=== PATIENT | female | born 1970 | race Caucasian/White ===

== ENCOUNTER 2016-09-14 09:07 | Outpatient (CLI) ==
[2016-09-14 09:36] LABS: PROTHROMBIN TIME 12.5 SEC (9.3-11.0)
== END 2016-09-14 09:08 | disposition home or self-care (01) ==
LOC: LAB 09:07
PROVIDERS: ATTEND Emergency Medicine
DX: I26.99 Other pulmonary embolism without acute cor pulmonale (principal)
CPT/HCPCS: 36415; 85610

== ENCOUNTER 2016-09-18 11:29 | Outpatient (CLI) ==
[2016-09-18 12:07] LABS: PROTHROMBIN TIME 18.1 SEC (9.3-11.0)
== END 2016-09-18 11:30 | disposition home or self-care (01) ==
LOC: LAB 11:29
PROVIDERS: ATTEND Emergency Medicine
DX: I26.99 Other pulmonary embolism without acute cor pulmonale (principal)
CPT/HCPCS: 36415; 85610

== ENCOUNTER 2016-12-28 14:42 | Outpatient (CLI) ==
[2016-12-28 15:13] LABS: PROTHROMBIN TIME 20.1 SEC (9.3-11.0)
== END 2016-12-28 14:43 | disposition home or self-care (01) ==
LOC: LAB 14:42
PROVIDERS: ATTEND Emergency Medicine
DX: I26.99 Other pulmonary embolism without acute cor pulmonale (principal)
CPT/HCPCS: 36415; 85610

== ENCOUNTER 2017-01-18 09:27 | Outpatient (CLI) ==
[2017-01-18 09:56] LABS: PROTHROMBIN TIME 18.2 SEC (9.3-11.0)
== END 2017-01-18 09:28 | disposition home or self-care (01) ==
LOC: LAB 09:27
PROVIDERS: ATTEND Emergency Medicine
DX: Z51.81 Encounter for therapeutic drug level monitoring (principal); Z79.01 Long term (current) use of anticoagulants
CPT/HCPCS: 36415; 85610

== ENCOUNTER 2017-04-14 14:24 | Outpatient (CLI) ==
[2017-04-14 14:50] LABS: BASOPHILS # (AUTO) 0.1 K/uL (0-0.2); BASOPHILS % (AUTO) 0.8 % (0.0-3.0); EOSINOPHILS # (AUTO) 0.1 K/ul (0.0-0.7); EOSINOPHILS % (AUTO) 1.1 % (0.0-7.0); HEMATOCRIT 43.6 % (37.0-47.0); HEMOGLOBIN 14.9 g/dl (12.0-16.0); IMMATURE GRANULOCYTE % (AUTO) 0.3 % (0.0-5.0); LYMPHOCYTES # (AUTO) 2.5 K/uL (0.60-3.4); LYMPHOCYTES % (AUTO) 26.8 (10.0-50.0); MEAN CORPUSCULAR HEMOGLOBIN 33.9 pg (27.0-31.0); MEAN CORPUSCULAR HGB CONC 34.2 (31.8-35.4); MEAN CORPUSCULAR VOLUME 99.1 fl (81.0-99.0); MONOCYTES # (AUTO) 0.5 K/uL (0.4-2.0); MONOCYTES % (AUTO) 5.2 (0-10); NEUTROPHILS # (AUTO) 6.1 K/ul (2.0-6.9); NEUTROPHILS % (AUTO) 65.8; PLATELET COUNT 277 10^3/uL (140-440); WHITE BLOOD COUNT 9.26 K/ul (4.6-10.2)
[2017-04-14 15:07] LABS: PROTHROMBIN TIME 10.8 SEC (9.3-11.0)
[2017-04-14 15:28] LABS: ALBUMIN 3.8 g/dL (3.4-5.0); ANION GAP 15.1; BILIRUBIN,TOTAL 0.33 mg/dL (0.00-1.20); BUN/CREATININE RATIO 15.78; CALCIUM 10.2 mg/dL (8.2-10.2); CHOL/HDL RATIO 6.6 (4.5-5.5); CREATININE 0.95 mg/dL (0.60-1.30); POTASSIUM 4.1 mmol/L (3.5-5.10); TOTAL PROTEIN 7.6 g/dL (6.4-8.2)
== END 2017-04-14 14:25 | disposition home or self-care (01) ==
LOC: LAB 14:24
PROVIDERS: ATTEND Internal Medicine
DX: Z51.81 Encounter for therapeutic drug level monitoring (principal); Z79.01 Long term (current) use of anticoagulants; I26.99 Other pulmonary embolism without acute cor pulmonale; E11.9 Type 2 diabetes mellitus without complications; I10 Essential (primary) hypertension; E66.9 Obesity, unspecified
CPT/HCPCS: 36415; 80053; 80061; 83036; 84443; 85025; 85610

== ENCOUNTER 2017-05-25 14:59 | Outpatient (CLI) ==
[2017-05-25 15:43] LABS: PROTHROMBIN TIME 16.7 SEC (9.3-11.0)
== END 2017-05-25 15:00 | disposition home or self-care (01) ==
LOC: LAB 14:59
PROVIDERS: ATTEND Internal Medicine
DX: I26.99 Other pulmonary embolism without acute cor pulmonale (principal)
CPT/HCPCS: 36415; 85610

== ENCOUNTER → 2017-05-25 | Outpatient (POV) | LOC: OUTPT 00:01 | PROVIDERS: ATTEND Otolaryngology | DX: R42 Dizziness and giddiness (principal) | CPT/HCPCS: 92557; 92567 ==

== ENCOUNTER 2017-05-29 16:34 | Inpatient (IN) ==
[2017-05-29] MEDS ORDERED: DUONEB NEB ONE (16:53)
[2017-05-29] MEDS ORDERED: DUONEB NEB STA (16:53)
[2017-05-29] MEDS ORDERED: SOLU-MEDROL 125 MG IVP STA (16:53)
--- NOTE | 2017-05-29 17:00 | ED.PDOC ---
General ED Provider: Dr. FANG BRIGGS Chief Complaint: Respiratory Complaint Stated Complaint: Kris is a 47 year old female who comes to the ER who was seen by Dr Ramirez yesterday for respiratory complaints and put on steroids and antibiotics. She was told if she got worse to come to er and be admitted. pt complains of shortness of air and cough. Still continue to smoke tobacco. Time Seen by Physician: 16:55 Mode of Arrival: Walk-In Information Source: Patient Exam Limitations: No limitations Primary Care Provider: OMER RAMIREZ Nursing and Triage Documentation Reviewed and Agree: Yes Respiratory Complaint Exam - Respiratory Complaint/Exam Onset/Duration: 2 days Symptoms Are: Still present Timing: Constant Initial Severity: Moderate Current Severity: Severe Location: Chest Character: Reports: Productive cough Aggravating: Reports: URI, Weather Alleviating: Reports: None Associated Signs and Symptoms: Reports: Dyspnea, Wheezing Related Surgical History: Reports: None Pulmonary Embolism Risk Factors: Previous PE Cardiac Risk Factors: Reports: Smoking Pseudomonas Risk Factors: Reports: None Tuberculosis Risk Factors: Reports: None Status Asthmaticus Risk Factors: Reports: None Home Oxygen Use: No Recent Stress Test: No Recent Echo/LV Function: No Current Antibiotic Use: No Current Asthma Medication Use: No Respiratory Distress: Severe Inadequate Respiratory Effort: Yes Dysphagia Present: No Stridor Present: No JVD Present: No Accessory Muscle Use: Yes Retractions: Supraclavicular Diminished Breath Sounds: Yes Prolonged Respiration: Inspiratory phase Sinus Tenderness: None Grunting Respirations: No Kussmaul Respirations: No Differential Diagnoses: COPD Exacerbation, Pneumonia, Bronchitis, URI Review of Systems - Review Of Systems Constitutional: Reports: No symptoms Eyes: Reports: No symptoms Ears, Nose, Mouth, Throat: Reports: No symptoms Respiratory: Reports: Cough, Short of air, Wheezing Cardiac: Reports: Other (Chest tightness ) GI: Reports: No symptoms : Reports: No symptoms Musculoskeletal: Reports: No symptoms Skin: Reports: No symptoms Neurological: Reports: Anxiety Endocrine: Reports: No symptoms Hematologic/Lymphatic: Reports: No symptoms All Other Systems: Reviewed and Negative Past Medical History - Past Medical History Endocrine: Reports: DM 2 Cardiovascular: Reports: Hypertension Respiratory: Reports: COPD, PE Hematological: Reports: None Gastrointestinal: Reports: None Genitourinary: Reports: None Neuro/Psych: Reports: None Musculoskeletal: Reports: Arthritis, Other (spinal stenosis ) Cancer: Reports: None Last Menstrual Period: none Other Pertinent Past Medical History: Vertigo - Surgical History General Surgical History: Reports: (x 2), Other ( colon biopsyx2, lithotripsyx2, carpal tunnel, hysterectomy) - Family History Family History: Reports: Unknown - Social History Smoking Status: Current every day smoker, Heavy tobacco smoker Hx Substance Use: No Alcohol Screening: None Physical Exam - Physical Exam Appearance: Ill-appearing, Obese Ill-appearing: Severe Eyes: BENY, EOMI, Conjunctiva clear ENT: Nose normal, Oropharynx normal Respiratory: Airway patent, Breath sounds diminished, Rhonchi, Wheezes, Retractions Cardiovascular: RRR, Pulses normal, No rub, No murmur GI/: Soft, Nontender, No masses, Bowel sounds normal, No Organomegaly Musculoskeletal: Normal strength, ROM intact, No edema, No calf tenderness Skin: Warm, Dry, Normal color Neurological: Sensation intact, Motor intact, Reflexes intact, Cranial nerves intact, Alert, Oriented Psychiatric: Anxious Interpretation - Radiology Interpretation Radiology Interpretation By: ED Physician Radiology Results: Negative Exam Interpreted: Portable CXR Critical Care Note - Critical Care Note Total Time (mins): 30 Course - Course Hematology/Chemistry: 05/29/17 16:50 05/29/17 16:50 Orders, Labs, Meds: Lab Review 05/29/17 05/29/17 05/29/17 16:50 16:50 16:50 WBC 12.60 H RBC 4.22 Hgb 13.8 Hct 41.7 MCV 98.8 MCH 32.7 H MCHC 33.1 RDW Coeff of Nina 14.6 Plt Count 319 Immature Gran % (Auto) 0.9 Neut % (Auto) 86.0 Lymph % (Auto) 7.1 L Simpson % (Auto) 5.8 Eos % (Auto) 0.0 Baso % (Auto) 0.2 Immature Gran # (Auto) 0.1 Neut # 10.9 H Lymph # 0.9 Simpson # 0.7 Eos # 0.0 Baso # 0.0 PT 16.1 H INR 1.60 Puncture Site O2 Saturation ABG pH ABG pCO2 ABG pO2 ABG HCO3 ABG Total CO2 ABG Base Excess Jj Test FiO2 % Sodium 141 Potassium 4.2 Chloride 109 H Carbon Dioxide 22 Anion Gap 14.2 BUN 20 H Creatinine 0.84 Estimated GFR (MDRD) 72.00 BUN/Creatinine Ratio 23.80 Glucose 232 H Lactic Acid Calcium 10.3 H Total Bilirubin 0.15 AST 9 L ALT 13 Alkaline Phosphatase 59 Total Protein 7.0 Albumin 3.2 L Globulin 3.8 Albumin/Globulin Ratio 0.84 Procalcitonin 05/29/17 05/29/17 05/29/17 16:50 16:55 17:15 WBC RBC Hgb Hct MCV MCH MCHC RDW Coeff of Nina Plt Count Immature Gran % (Auto) Neut % (Auto) Lymph % (Auto) Simpson % (Auto) Eos % (Auto) Baso % (Auto) Immature Gran # (Auto) Neut # Lymph # Simpson # Eos # Baso # PT INR Puncture Site Rrad O2 Saturation 93.0 L ABG pH 7.369 ABG pCO2 38.1 ABG pO2 68.0 L ABG HCO3 22.0 ABG Total CO2 23 ABG Base Excess -3 L Jj Test + FiO2 % 21.0 Sodium Potassium Chloride Carbon Dioxide Anion Gap BUN Creatinine Estimated GFR (MDRD) BUN/Creatinine Ratio Glucose Lactic Acid 20.7 H Calcium Total Bilirubin AST ALT Alkaline Phosphatase Total Protein Albumin Globulin Albumin/Globulin Ratio Procalcitonin < 0.05 Orders Category Date Time Status ABG DRAW REQUEST Stat CARDIO 05/29/17 16:55 Completed EKG-(ED ONLY) Stat CARDIO 05/29/17 16:54 Completed NEBULIZER TREATMENT Stat CARDIO 05/29/17 16:54 Completed ED APPLY O2 .ONCE EMERGENCY 05/29/17 16:53 Active ED IV/MEDIPORT/POWERPORT .ONCE EMERGENCY 05/29/17 16:53 Active ABG Stat LAB 05/29/17 16:55 Completed BLOOD CULTURE Stat LAB 05/29/17 17:15 Received CBC W/ AUTO DIFF Stat LAB 05/29/17 16:50 Completed COMPREHENSIVE METABOLIC PANEL Stat LAB 05/29/17 16:50 Completed LACTIC ACID Stat LAB 05/29/17 17:15 Completed PROCALCITONIN Stat LAB 05/29/17 16:50 Completed PT WITH INR Stat LAB 05/29/17 16:50 Completed 0.9 % Sodium Chloride [Saline Flush] MEDS 05/29/17 16:53 Ordered 1 syr IVF PRN PRN Ipratropium/Albuterol Neb [Duoneb] MEDS 05/29/17 16:53 Discontinued 1 vial NEB .STK-MED ONE Ipratropium/Albuterol Neb [Duoneb] MEDS 05/29/17 16:53 Discontinued 1 vial NEB ONCE STA Methylprednisolone Sod Succ/Pf [Solu-Medrol 125 mg] MEDS 05/29/17 16:53 Discontinued 125 mg IVP ONCE STA CHEST, 1V AP ONLY Stat RADS 05/29/17 16:54 Taken Medications Generic Name Dose Route Start Last Admin Trade Name Freq PRN Reason Stop Dose Admin Acetaminophen 650 mg 05/29/17 17:48 Tylenol PO Q4H PRN Fever > 102 Acetaminophen/Hydrocodone Bitart 1 tab 05/30/17 06:00 [place] 7.5-325 PO Q8H NINFA Al Hydroxide/Mg Hydroxide 30 ml 05/30/17 00:00 05/30/17 00:03 Gi Cocktail PO 05/30/17 00:01 30 ml ONCE STA Administration Azithromycin 500 mg 05/29/17 18:00 05/29/17 19:46 Zithromax PO 06/01/17 17:59 500 mg DAILY NINFA Administration Budesonide 1 vial 05/30/17 06:00 Pulmicort 0.5 Mg/2 Ml NEB RTBID NINFA Chlordiazepoxide HCl 25 mg 05/29/17 17:55 05/29/17 20:01 Librium PO 25 mg BID PRN Administration anxiety Chlorphenir/Hydrocodone Polistirex 5 ml 05/29/17 21:00 05/29/17 20:00 Tussionex PO 5 ml Q12HR NINFA Administration Diazepam 5 mg 05/30/17 06:00 Valium PO Q6H NINFA Enoxaparin Sodium 130 mg 05/29/17 18:00 05/29/17 20:01 Lovenox SUBCUT Not Given Q12HR NINFA Gabapentin 300 mg 05/29/17 21:00 05/29/17 20:02 Neurontin PO Not Given BID NINFA Ceftriaxone Sodium 1 gm/ 50 mls @ 75 mls/hr 05/30/17 09:00 Sodium Chloride IV DAILY NINFA Sodium Chloride 1,000 mls @ 75 mls/hr 05/29/17 18:00 05/29/17 19:37 Sodium Chloride IV 75 mls/hr .[id number] NINFA Administration Ketorolac Tromethamine 30 mg 05/29/17 21:00 05/29/17 19:59 Toradol IVP 30 mg Q12HR NINFA Administration Levalbuterol HCl 1 vial 05/30/17 00:00 05/29/17 23:02 Xopenex 1.25 Mg NEB 1 vial RTQ6H NINFA Administration Levothyroxine Sodium 25 mcg 05/30/17 06:30 Synthroid PO QDAC NINFA Metformin HCl 500 mg 05/30/17 08:00 Glucophage PO BIDWM NINFA Methylprednisolone Sodium Succinate 125 mg 05/29/17 21:00 05/30/17 01:10 Solu-Medrol 125 Mg IVP 125 mg Q4HR NINFA Administration Non-Formulary Medication 1 each 05/30/17 09:00 Lisinopril/Hydrochlorothiazide [Lisinopril-Hctz 10-12.5 Mg Tab] PO DAILY NINFA Non-Formulary Medication 4 mg 05/30/17 09:00 Warfarin Sodium [Coumadin] PO DAILY NINFA Ondansetron HCl 4 mg 05/29/17 17:48 Zofran 4 Mg/2 Ml IVP Q6H PRN Nausea / Vomiting Pantoprazole Sodium 40 mg 05/29/17 18:30 05/29/17 19:59 Protonix Iv IVP 40 mg Q12HR NINFA Administration Sodium Chloride 1 syr 05/29/17 16:53 05/29/17 17:28 Saline Flush IVF 1 syr PRN PRN Administration To flush IV Sucralfate 1 gm 05/29/17 21:00 05/29/17 20:01 Carafate PO 1 gm BID NINFA Administration Discontinued Medications Generic Name Dose Route Start Last Admin Trade Name Freq PRN Reason Stop Dose Admin Acetaminophen/Hydrocodone Bitart tab 05/29/17 21:00 [place] 7.5-325 PO TID NINFA Acetaminophen/Hydrocodone Bitart 7.5 tab 05/29/17 21:00 [place] 7.5-325 PO TID NINFA Acetaminophen/Hydrocodone Bitart 1 tab 05/29/17 21:00 05/29/17 20:04 [place] 7.5-325 PO Not Given TID NINFA Albuterol/Ipratropium 1 vial 05/29/17 16:53 05/29/17 20:18 Duoneb NEB 05/29/17 16:54 Not Given ONCE STA Chlorphenir/Hydrocodone Polistirex 5 ml 05/29/17 18:22 05/29/17 18:29 Tussionex PO 05/29/17 18:23 5 ml ONCE STA Administration Diazepam 5 mg 05/29/17 21:00 05/29/17 20:00 Valium PO 5 mg QID NINFA Administration Ketorolac Tromethamine 30 mg 05/29/17 18:22 05/29/17 18:29 Toradol IVP 05/29/17 18:23 30 mg ONCE STA Administration Methylprednisolone Sodium Succinate 125 mg 05/29/17 16:53 05/29/17 17:27 Solu-Medrol 125 Mg IVP 05/29/17 16:54 125 mg ONCE STA Administration Methylprednisolone Sodium Succinate 125 mg 05/29/17 21:00 Solu-Medrol 125 Mg IVP Q8HR [facility] Vital Signs: Temp Pulse Resp BP Pulse Ox 05/29/17 16:34 98.8 F 101 H 24 132/61 93 L Departure - Departure Time of Disposition: 17:59 Disposition: ADMITTED INPATIENT Discharge Problem: COPD with exacerbation Condition: Fair Pt referred to PMD for follow-up: Yes Allergies/Adverse Reactions: Allergies No Known Allergies Allergy (Verified 05/29/17 16:42) Home Medications: Ambulatory Orders Albuterol Sulfate [Proair Hfa] 2 puff IH Q4H 05/29/17 Cephalexin [Keflex] 500 mg PO TID 05/29/17 Chlordiazepoxide HCl [Librium] 25 mg PO BID PRN 05/29/17 Diazepam [Valium] 5 mg PO QID 05/29/17 Gabapentin [Neurontin] 300 mg PO BID 05/29/17 Hydrocodone Bit/Acetaminophen [[place] 7.5-325] 1 each PO TID 05/29/17 Levothyroxine Sodium [Synthroid] 25 mcg PO QDAC 05/29/17 Lisinopril/Hydrochlorothiazide [Lisinopril-Hctz 10-12.5 mg Tab] 1 each PO DAILY 05/29/17 Metformin HCl [Glucophage] 500 mg PO BIDWM 05/29/17 Methylprednisolone [Medrol Dosepak] 4 mg PO DIRECTED 05/29/17 Promethazine HCl/Codeine [Prometh-Codein 6.25-10 mg/5 ml] 5 ml PO TID PRN Sertraline HCl [Zoloft] 150 mg PO DAILY 05/29/17 Warfarin Sodium [Coumadin] 4 mg PO DAILY 05/29/17
[2017-05-29 17:11] LABS: BASOPHILS % (AUTO) 0.2 % (0.0-3.0); HEMATOCRIT 41.7 % (37.0-47.0); HEMOGLOBIN 13.8 g/dl (12.0-16.0); IMMATURE GRANULOCYTE % (AUTO) 0.9 % (0.0-5.0); LYMPHOCYTES # (AUTO) 0.9 K/uL (0.60-3.4); LYMPHOCYTES % (AUTO) 7.1 (10.0-50.0); MEAN CORPUSCULAR HEMOGLOBIN 32.7 pg (27.0-31.0); MEAN CORPUSCULAR HGB CONC 33.1 (31.8-35.4); MEAN CORPUSCULAR VOLUME 98.8 fl (81.0-99.0); MONOCYTES # (AUTO) 0.7 K/uL (0.4-2.0); MONOCYTES % (AUTO) 5.8 (0-10); NEUTROPHILS # (AUTO) 10.9 K/ul (2.0-6.9); PLATELET COUNT 319 10^3/uL (140-440); RED BLOOD COUNT 4.22 10^6/ul (4.20-5.40)
[2017-05-29 17:23] LABS: PROTHROMBIN TIME 16.1 SEC (9.3-11.0)
[2017-05-29 17:23] LABS: ABG BASE EXCESS -3 (-2.0-2.0); ABG PCO2 38.1 mmHg (35-45); ABG PH 7.369 (7.35-7.45); ABG TCO2 23 (22.0-28.0)
[2017-05-29 17:33] LABS: ALBUMIN 3.2 g/dL (3.4-5.0); ALBUMIN/GLOBULIN RATIO 0.84; ANION GAP 14.2; BILIRUBIN,TOTAL 0.15 mg/dL (0.00-1.20); BUN/CREATININE RATIO 23.8; CALCIUM 10.3 mg/dL (8.2-10.2); CREATININE 0.84 mg/dL (0.60-1.30); POTASSIUM 4.2 mmol/L (3.5-5.10)
[2017-05-29] MEDS ORDERED: TYLENOL PO PRN (17:48)
[2017-05-29] MEDS ORDERED: ZOFRAN 4 MG/2 ML IVP PRN (17:48)
[2017-05-29] MEDS ORDERED: XOPENEX 0.63 MG NEB PRN (18:04)
[2017-05-29] MEDS ORDERED: TORADOL IVP STA (18:22)
[2017-05-29] MEDS ORDERED: TUSSIONEX PO STA (18:22)
[2017-05-29] MEDS ORDERED: LOVENOX ONE (19:28)
[2017-05-29] MEDS ORDERED: NEURONTIN ONE (19:28)
[2017-05-29] MEDS ORDERED: VALIUM ONE (19:29)
[2017-05-29] MEDS ORDERED: NORCO 7.5-325 ONE (19:35)
[2017-05-29] MEDS: SODIUM CHLORIDE 1,000 ML IV SCH (19:37)
[2017-05-29] MEDS: LOVENOX SUBCUT SCH ×2 (19:44→20:01)
[2017-05-29] MEDS: PROTONIX IV IVP SCH ×2 (19:45→19:59)
[2017-05-29] MEDS: ZITHROMAX PO SCH (19:46)
[2017-05-29] MEDS: TORADOL IVP SCH (19:59)
[2017-05-29] MEDS: SOLU-MEDROL 125 MG IVP SCH (20:00)
[2017-05-29] MEDS: LIBRIUM PO PRN (20:01)
[2017-05-29] MEDS: NEURONTIN PO SCH (20:02)
[2017-05-29] MEDS ORDERED: CARAFATE PO SCH (21:00)
[2017-05-29] MEDS ORDERED: VALIUM PO SCH (21:00)
[2017-05-29] MEDS ORDERED: NORCO 7.5-325 PO SCH ×3 (21:00)
[2017-05-29] MEDS ORDERED: TUSSIONEX PO SCH (21:00)
[2017-05-29] MEDS ORDERED: SOLU-MEDROL 125 MG IVP SCH (21:00)
[2017-05-29] MEDS ORDERED: XOPENEX 1.25 MG NEB ONE ×2 (22:22→23:02)
[2017-05-29] MEDS: XOPENEX 1.25 MG NEB SCH ×2 (22:22→23:02)
[2017-05-30] MEDS ORDERED: GI COCKTAIL PO STA
[2017-05-30 00:42] VITALS: BMI 49.5
[2017-05-30] MEDS: SOLU-MEDROL 125 MG IVP SCH ×6 (01:10→20:51)
[2017-05-30 05:06] LABS: BASOPHILS % (AUTO) 0.1 % (0.0-3.0); HEMATOCRIT 37.7 % (37.0-47.0); HEMOGLOBIN 12.4 g/dl (12.0-16.0); IMMATURE GRANULOCYTE % (AUTO) 0.8 % (0.0-5.0); LYMPHOCYTES # (AUTO) 0.9 K/uL (0.60-3.4); LYMPHOCYTES % (AUTO) 9.4 (10.0-50.0); MEAN CORPUSCULAR HEMOGLOBIN 32.9 pg (27.0-31.0); MEAN CORPUSCULAR HGB CONC 32.9 (31.8-35.4); MONOCYTES # (AUTO) 0.1 K/uL (0.4-2.0); MONOCYTES % (AUTO) 1.4 (0-10); NEUTROPHILS # (AUTO) 8.6 K/ul (2.0-6.9); NEUTROPHILS % (AUTO) 88.3; PLATELET COUNT 256 10^3/uL (140-440); RED BLOOD COUNT 3.77 10^6/ul (4.20-5.40); WHITE BLOOD COUNT 9.76 K/ul (4.6-10.2)
[2017-05-30 05:14] LABS: PROTHROMBIN TIME 14.5 SEC (9.3-11.0)
[2017-05-30] MEDS: PULMICORT 0.5 MG/2 ML NEB SCH ×2 (05:28→17:45)
[2017-05-30] MEDS: XOPENEX 1.25 MG NEB SCH ×4 (05:28→23:04)
[2017-05-30 05:32] LABS: ALBUMIN/GLOBULIN RATIO 0.91; BILIRUBIN,TOTAL 0.12 mg/dL (0.00-1.20); BUN/CREATININE RATIO 30.76; CALCIUM 9.6 mg/dL (8.2-10.2); CREATININE 0.91 mg/dL (0.60-1.30); TOTAL PROTEIN 6.3 g/dL (6.4-8.2)
[2017-05-30] MEDS: NORCO 7.5-325 PO SCH ×3 (05:34→22:59)
[2017-05-30] MEDS: SYNTHROID PO SCH (05:34)
[2017-05-30] MEDS ORDERED: VALIUM PO SCH (06:00)
[2017-05-30] MEDS: SODIUM CHLORIDE 1,000 ML IV SCH ×2 (07:54→20:51)
[2017-05-30] MEDS: TORADOL IVP SCH ×2 (08:30→20:51)
[2017-05-30] MEDS: PHENERGAN WITH CODEINE 6.25/10 MG/5 ML PO PRN ×3 (08:34→20:50)
[2017-05-30] MEDS: CARAFATE PO SCH ×2 (08:35→18:20)
[2017-05-30] MEDS: HYDROCHLOROTHIAZIDE PO SCH (08:35)
[2017-05-30] MEDS: ZITHROMAX PO SCH (08:35)
[2017-05-30] MEDS: PROTONIX IV IVP SCH ×2 (08:36→20:50)
[2017-05-30] MEDS: ROCEPHIN 1 GM in SODIUM CHLORIDE 50 ML IV SCH (08:36)
[2017-05-30] MEDS: NEURONTIN PO SCH ×2 (08:36→20:50)
[2017-05-30] MEDS: GLUCOPHAGE PO SCH ×2 (08:36→18:19)
[2017-05-30] MEDS: ZESTRIL PO SCH (08:37)
[2017-05-30] MEDS: VALIUM PO SCH ×4 (08:44→22:59)
[2017-05-30] MEDS ORDERED: NON-FORMULARY MEDICATION (Warfarin Sodium [Coumadin] 4 MG) PO SCH ×22 (09:00)
[2017-05-30] MEDS ORDERED: LOVENOX SUBCUT SCH (09:00)
--- NOTE | 2017-05-30 09:20 | DI ---
Exam: Single x-ray of the chest. Comparison: 11/12/2014. Reason for exam: Shortness of air. FINDINGS: No pneumothorax, pleural effusion, or focal consolidation. The cardiac silhouette is not enlarged. There is blunting of the left costophrenic angle. The imaged osseous structures appear gr ossly unremarkable without acute fracture. Impression: Left costophrenic angle blunting likely atelectasis or pneumonia
[2017-05-30] MEDS ORDERED: COUMADIN PO STA (14:42)
[2017-05-30] MEDS: COUMADIN PO SCH (18:22)
[2017-05-30] MEDS: LIBRIUM PO PRN (20:50)
[2017-05-31] MEDS: SOLU-MEDROL 125 MG IVP SCH ×6 (00:52→21:13)
[2017-05-31] MEDS: PULMICORT 0.5 MG/2 ML NEB SCH ×2 (05:20→18:19)
[2017-05-31] MEDS: XOPENEX 1.25 MG NEB SCH ×4 (05:20→23:02)
[2017-05-31] MEDS: VALIUM PO SCH ×3 (05:30→17:59)
[2017-05-31] MEDS: CARAFATE PO SCH ×2 (05:30→17:22)
[2017-05-31] MEDS: PHENERGAN WITH CODEINE 6.25/10 MG/5 ML PO PRN ×4 (05:30→23:31)
[2017-05-31] MEDS: SYNTHROID PO SCH (05:30)
[2017-05-31] MEDS: NORCO 7.5-325 PO SCH ×3 (05:30→21:13)
[2017-05-31 05:31] LABS: BASOPHILS % (AUTO) 0.1 % (0.0-3.0); HEMATOCRIT 35.8 % (37.0-47.0); HEMOGLOBIN 11.8 g/dl (12.0-16.0); IMMATURE GRANULOCYTE % (AUTO) 1.3 % (0.0-5.0); LYMPHOCYTES # (AUTO) 0.8 K/uL (0.60-3.4); MEAN CORPUSCULAR HEMOGLOBIN 32.7 pg (27.0-31.0); MEAN CORPUSCULAR VOLUME 99.2 fl (81.0-99.0); MONOCYTES # (AUTO) 0.3 K/uL (0.4-2.0); MONOCYTES % (AUTO) 2.1 (0-10); NEUTROPHILS # (AUTO) 10.7 K/ul (2.0-6.9); NEUTROPHILS % (AUTO) 89.5; PLATELET COUNT 255 10^3/uL (140-440); RED BLOOD COUNT 3.61 10^6/ul (4.20-5.40); WHITE BLOOD COUNT 11.93 K/ul (4.6-10.2)
[2017-05-31 05:51] LABS: ALBUMIN 2.7 g/dL (3.4-5.0); ALBUMIN/GLOBULIN RATIO 0.87; ANION GAP 14.7; BILIRUBIN,TOTAL 0.14 mg/dL (0.00-1.20); BUN/CREATININE RATIO 30.85; CALCIUM 9.2 mg/dL (8.2-10.2); CREATININE 0.94 mg/dL (0.60-1.30); POTASSIUM 4.7 mmol/L (3.5-5.10); TOTAL PROTEIN 5.8 g/dL (6.4-8.2)
[2017-05-31] MEDS ORDERED: COUMADIN PO STA (08:21)
[2017-05-31] MEDS ORDERED: LOVENOX SUBCUT SCH (09:00)
[2017-05-31] MEDS: ROCEPHIN 1 GM in SODIUM CHLORIDE 50 ML IV SCH (09:12)
[2017-05-31] MEDS: GLUCOPHAGE PO SCH ×2 (09:14→17:23)
[2017-05-31] MEDS: HYDROCHLOROTHIAZIDE PO SCH (09:15)
[2017-05-31] MEDS: NEURONTIN PO SCH ×2 (09:16→21:13)
[2017-05-31] MEDS: ZESTRIL PO SCH (09:17)
[2017-05-31] MEDS: ZITHROMAX PO SCH (09:17)
[2017-05-31] MEDS: PROTONIX IV IVP SCH ×2 (09:25→21:14)
[2017-05-31] MEDS: TORADOL IVP SCH ×2 (09:28→21:14)
--- NOTE | 2017-05-31 11:40 | US ---
EXAM: Bilateral lower extremity venous Doppler HISTORY: Concern for DVT with swelling and difficulty breathing. COMPARISON: None TECHNIQUE: Sonographic and Doppler evaluation of the bilateral lower extremity vessels from the comm on femoral through the anterior tibial veins were obtained. Augmentation and compression techniques were also performed. FINDINGS: There is spontaneous Doppler flow seen in the bilateral lower extremity veins from the com mon femoral through the anterior tibial veins. There is normal compression and augmentation througho ut the lower extremity veins. Soft tissues are unremarkable. IMPRESSION: No lower extremity thrombus
[2017-05-31] MEDS: HUMULIN R SUBCUT PRN ×3 (11:59→21:14)
[2017-05-31] MEDS: SODIUM CHLORIDE 1,000 ML IV SCH (12:32)
--- NOTE | 2017-05-31 13:24 | PCM.PROG ---
Attending Provider: ATTENDING PROVIDER: Dr. OMER RAMIREZ DATE OF SERVICE: 05/31/17 SUBJECTIVE: This 47 year old WHITE/ F was hospitalized 05/29/17. The patient is seen with Olga/Nurse Practitioner. The patient is sitting up in bed, alert. She states she is feeling some better. She is still somewhat short of breath with exertion. REVIEW OF SYSTEMS: CONSTITUTIONAL: No night sweats. No fatigue, malaise, lethargy. No fever or chills. HEENT: Eyes: No visual changes. No eye pain. No eye discharge. ENT: No runny nose. No epistaxis. No sinus pain. No odynophagia. No congestion. RESPIRATORY: Cough and congestion. No hemoptysis. Shortness of breath with exertion. CARDIOVASCULAR: No angina symptoms. No CHF symptoms. No atypical chest pain for CAD. No palpitations. No orthopnea.. GASTROINTESTINAL: No abdominal pain. No nausea or vomiting. No diarrhea or constipation. No hematemesis. No hematochezia. GENITOURINARY: No urgency. No frequency. No dysuria. No hematuria. No obstructive symptoms. No discharge. No pain. No significant abnormal bleeding. MUSCULOSKELETAL: No musculoskeletal pain; no joint swelling. NEUROLOGICAL: Awake, alert, oriented to time, place and person. No headache. No neck pain. No syncope. No seizures. No dizziness. PSYCHIATRIC: Not anxious. No depression. No suicidal thoughts. No homicidal thoughts. SKIN: No rash. No lesions. No wounds. ENDOCRINE: No unexplained weight loss. No weight gain. HEMATOLOGIC/LYMPHATIC: No anemia. No purpura. No petechiae. No prolonged or excessive bleeding. No palpable lymph nodes. PHYSICAL EXAMINATION: GENERAL: The patient is awake, alert and oriented, lying in bed in no distress. VITAL SIGNS: Temperature 97.5 F, Pulse 88, Respiratory Rate 12, BP 133/90, Pulse Ox 97% HEENT: Head normocephalic, atraumatic. Eyes: Extraocular muscles are intact. Pupils are equal, round and reactive to light and accommodation. Ears: No lesions. Nose appeared normal. Throat: No exudate or erythema. NECK: Supple. No JVD, no carotid bruit. No lymphadenopathy or thyromegaly. LUNGS: Bilateral expiratory wheezes with diminished breath sounds bilaterally. Percussion note normal. Chest symmetrical. HEART: S1, S2, no S3. No murmurs. No cyanosis or clubbing. No ascites. Pulses: Dorsalis pedis and posterior tibial pulses +1 to +2 both sides. ABDOMEN: Soft. Non-tender. Bowel sounds active. No CVA tenderness. No mass felt. EXTREMITIES: Trace edema bilaterally. Full range of motion of all extremities, equal. NEUROLOGIC: No focal deficit. Cranial nerves II through XII are grossly intact. No headache, no double vision or headache. SKIN: Not dry. Intact. Turgor-normal. LYMPHATIC: No palpable lymph nodes/no lymphedema. MUSCULOSKELETAL: Normal joints with no swelling. Muscle tone is normal. LAB REVIEW: 05/31/17 05:13 05/31/17 05:13 05/31/17 05:13: Sodium 140, Potassium 4.7, Chloride 109 H, Carbon Dioxide 21, Anion Gap 14.7, BUN 29 H, Creatinine 0.94, Estimated GFR (MDRD) 64.00, BUN/ Creatinine Ratio 30.85, Glucose 210 H, Calcium 9.2, Total Bilirubin 0.14, AST 7 L, ALT 11 L, Alkaline Phosphatase 44, Total Protein 5.8 L, Albumin 2.7 L, Globulin 3.1, Albumin/Globulin Ratio 0.87 05/31/17 05:13: WBC 11.93 H, RBC 3.61 L, Hgb 11.8 L, Hct 35.8 L, MCV 99.2 H, MCH 32.7 H, MCHC 33.0, RDW Coeff of Nina 14.8, Plt Count 255, Immature Gran % ( Auto) 1.3, Neut % (Auto) 89.5, Lymph % (Auto) 7.0 L, [place] % (Auto) 2.1, Eos % ( Auto) 0.0, Baso % (Auto) 0.1, Immature Gran # (Auto) 0.2, Neut # 10.7 H, Lymph # 0.8, [place] # 0.3 L, Eos # 0.0, Baso # 0.0 05/31/17 05:13: PT 15.0 H, INR 1.49 ASSESSMENT: 1. ACUTE COPD EXACERBATION 2. SHORTNESS OF BREATH PLAN: 1. Decrease IV fluids to 40 mL/hr 2. Accu-Checks with coverage Plan and coordination of the patient's care discussed in the presence of Claims Service Adjustor and nurse. CONDITION: Stable SCRIBED BY: RADHA DURANT Cotton Stripper scribed while in presence of service performed by Dr. OMER RAMIREZ/OLGA HARRIS APRN on 05/31/17 ([id number])
[2017-05-31] MEDS: COUMADIN PO SCH (17:23)
[2017-05-31] MEDS ORDERED: NICODERM 21 MG TD SCH (19:00)
[2017-05-31] MEDS ORDERED: NICODERM 21 MG TD ONE (19:04)
[2017-06-01] MEDS: VALIUM PO SCH ×5 (00:57→23:10)
[2017-06-01] MEDS: SOLU-MEDROL 125 MG IVP SCH ×4 (01:00→20:52)
[2017-06-01 05:01] LABS: BASOPHILS % (AUTO) 0.2 % (0.0-3.0); HEMATOCRIT 34.9 % (37.0-47.0); HEMOGLOBIN 11.7 g/dl (12.0-16.0); IMMATURE GRANULOCYTE % (AUTO) 1.6 % (0.0-5.0); LYMPHOCYTES # (AUTO) 0.9 K/uL (0.60-3.4); LYMPHOCYTES % (AUTO) 8.2 (10.0-50.0); MEAN CORPUSCULAR HEMOGLOBIN 33.1 pg (27.0-31.0); MEAN CORPUSCULAR HGB CONC 33.5 (31.8-35.4); MEAN CORPUSCULAR VOLUME 98.6 fl (81.0-99.0); MONOCYTES # (AUTO) 0.3 K/uL (0.4-2.0); MONOCYTES % (AUTO) 2.6 (0-10); NEUTROPHILS % (AUTO) 87.4; PLATELET COUNT 245 10^3/uL (140-440); RED BLOOD COUNT 3.54 10^6/ul (4.20-5.40); WHITE BLOOD COUNT 10.32 K/ul (4.6-10.2)
[2017-06-01] MEDS: PULMICORT 0.5 MG/2 ML NEB SCH ×2 (05:10→17:02)
[2017-06-01] MEDS: XOPENEX 1.25 MG NEB SCH ×4 (05:10→23:28)
[2017-06-01 05:14] LABS: PROTHROMBIN TIME 31.3 SEC (9.3-11.0)
[2017-06-01 05:27] LABS: ALBUMIN 2.7 g/dL (3.4-5.0); ALBUMIN/GLOBULIN RATIO 0.9; BILIRUBIN,TOTAL 0.13 mg/dL (0.00-1.20); BUN/CREATININE RATIO 31.91; CALCIUM 8.9 mg/dL (8.2-10.2); CREATININE 0.94 mg/dL (0.60-1.30); TOTAL PROTEIN 5.7 g/dL (6.4-8.2)
[2017-06-01] MEDS: SYNTHROID PO SCH (05:35)
[2017-06-01] MEDS: NORCO 7.5-325 PO SCH ×3 (05:35→21:44)
[2017-06-01] MEDS: CARAFATE PO SCH ×2 (05:36→18:10)
[2017-06-01] MEDS: PHENERGAN WITH CODEINE 6.25/10 MG/5 ML PO PRN ×2 (05:39→12:18)
[2017-06-01] MEDS: HUMULIN R SUBCUT PRN ×4 (05:44→21:43)
[2017-06-01] MEDS: ROCEPHIN 1 GM in SODIUM CHLORIDE 50 ML IV SCH (09:28)
[2017-06-01] MEDS: PROTONIX IV IVP SCH ×2 (09:29→20:52)
[2017-06-01] MEDS: TORADOL IVP SCH ×2 (09:32→20:52)
[2017-06-01] MEDS: GLUCOPHAGE PO SCH ×2 (09:33→18:10)
[2017-06-01] MEDS: HYDROCHLOROTHIAZIDE PO SCH (09:33)
[2017-06-01] MEDS: ZESTRIL PO SCH (09:34)
[2017-06-01] MEDS: NEURONTIN PO SCH ×2 (09:34→20:52)
[2017-06-01] MEDS: ZITHROMAX PO SCH (09:35)
--- NOTE | 2017-06-01 09:51 | PCM.PROG ---
Attending Provider: ATTENDING PROVIDER: Dr. OMER RAMIREZ DATE OF SERVICE: 06/01/17 SUBJECTIVE: This 47 year old WHITE/ F was hospitalized 05/29/17. The patient is seen with Olga, Nurse Practitioner. The patient is sitting up in bed, is alert. She has less wheezing today. Will decrease Solu-Medrol to q.8hr. She has a cough. Shortness of breath is improving. REVIEW OF SYSTEMS: CONSTITUTIONAL: No night sweats. No fatigue, malaise, lethargy. No fever or chills. HEENT: Eyes: No visual changes. No eye pain. No eye discharge. ENT: No runny nose. No epistaxis. No sinus pain. No odynophagia. No congestion. RESPIRATORY: Cough and congestion. No hemoptysis. Shortness of breath is improving. CARDIOVASCULAR: No angina symptoms. No CHF symptoms. No atypical chest pain for CAD. No palpitations. No orthopnea.. GASTROINTESTINAL: No abdominal pain. No nausea or vomiting. No diarrhea or constipation. No hematemesis. No hematochezia. GENITOURINARY: No urgency. No frequency. No dysuria. No hematuria. No obstructive symptoms. No discharge. No pain. No significant abnormal bleeding. MUSCULOSKELETAL: No musculoskeletal pain; no joint swelling. NEUROLOGICAL: Awake, alert, oriented to time, place and person. No headache. No neck pain. No syncope. No seizures. No dizziness. PSYCHIATRIC: Not anxious. No depression. No suicidal thoughts. No homicidal thoughts. SKIN: No rash. No lesions. No wounds. ENDOCRINE: No unexplained weight loss. No weight gain. HEMATOLOGIC/LYMPHATIC: No anemia. No purpura. No petechiae. No prolonged or excessive bleeding. No palpable lymph nodes. PHYSICAL EXAMINATION: GENERAL: The patient is awake, alert and oriented, sitting in bed in no distress. VITAL SIGNS: Temperature 97.7 F, Pulse 91, Respiratory Rate 19, BP 122/78, Pulse Ox 96% HEENT: Head normocephalic, atraumatic. Eyes: Extraocular muscles are intact. Pupils are equal, round and reactive to light and accommodation. Ears: No lesions. Nose appeared normal. Throat: No exudate or erythema. NECK: Supple. No JVD, no carotid bruit. No lymphadenopathy or thyromegaly. LUNGS: Diminished breath sounds bilaterally, minimal expiratory wheeze improved. Percussion note normal. Chest symmetrical. HEART: S1, S2, no S3. No murmurs. No cyanosis or clubbing. No ascites. Pulses: Dorsalis pedis and posterior tibial pulses +1 to +2 both sides. ABDOMEN: Soft. Non-tender. Bowel sounds active. No CVA tenderness. No mass felt. EXTREMITIES: No edema. Full range of motion of all extremities, equal. NEUROLOGIC: No focal deficit. Cranial nerves II through XII are grossly intact. No headache, no double vision or headache. SKIN: Not dry. Intact. Turgor-normal. LYMPHATIC: No palpable lymph nodes/no lymphedema. MUSCULOSKELETAL: Normal joints with no swelling. Muscle tone is normal. LAB REVIEW: 06/01/17 04:58 06/01/17 04:58 06/01/17 04:58: Sodium 142, Potassium 4.0, Chloride 108 H, Carbon Dioxide 23, Anion Gap 15.0, BUN 30 H, Creatinine 0.94, Estimated GFR (MDRD) 64.00, BUN/ Creatinine Ratio 31.91, Glucose 196 H, Calcium 8.9, Total Bilirubin 0.13, AST 7 L, ALT 12, Alkaline Phosphatase 46, Total Protein 5.7 L, Albumin 2.7 L, Globulin 3.0, Albumin/Globulin Ratio 0.90 06/01/17 04:58: WBC 10.32 H, RBC 3.54 L, Hgb 11.7 L, Hct 34.9 L, MCV 98.6, MCH 33.1 H, MCHC 33.5, RDW Coeff of Nina 14.6, Plt Count 245, Immature Gran % (Auto) 1.6, Neut % (Auto) 87.4, Lymph % (Auto) 8.2 L, [place] % (Auto) 2.6, Eos % (Auto) 0.0, Baso % (Auto) 0.2, Immature Gran # (Auto) 0.2, Neut # 9.0 H, Lymph # 0.9, [place] # 0.3 L, Eos # 0.0, Baso # 0.0 06/01/17 04:58: PT 31.3 H D, INR 3.18 ASSESSMENT: 1. ACUTE COPD EXACERBATION 2. SHORTNESS OF BREATH IMPROVED PLAN: 1. Hold Coumadin 2. Stop Lovenox 3. Decrease Solu-Medrol to 125 q.8. Plan and coordination of the patient's care discussed in the presence of Senior Branch Manager and nurse. CONDITION: Stable SCRIBED BY: RADHA DURANT Individual Small Group Instructor scribed while in presence of service performed by Dr. OMER RAMIREZ/OLGA HARRIS APRN on 06/01/17 ([id number])
[2017-06-01] MEDS: SODIUM CHLORIDE 1,000 ML IV SCH (12:21)
[2017-06-01] MEDS: MILK OF MAGNESIA PO SCH (18:13)
[2017-06-01] MEDS: NICODERM 21 MG TD SCH (20:51)
[2017-06-02] MEDS: PHENERGAN WITH CODEINE 6.25/10 MG/5 ML PO PRN ×3 (00:43→20:15)
[2017-06-02 04:57] LABS: BASOPHILS % (AUTO) 0.1 % (0.0-3.0); EOSINOPHILS % (AUTO) 0.3 % (0.0-7.0); HEMATOCRIT 35.2 % (37.0-47.0); HEMOGLOBIN 11.6 g/dl (12.0-16.0); IMMATURE GRANULOCYTE % (AUTO) 2.3 % (0.0-5.0); LYMPHOCYTES % (AUTO) 9.2 (10.0-50.0); MEAN CORPUSCULAR HEMOGLOBIN 32.4 pg (27.0-31.0); MEAN CORPUSCULAR VOLUME 98.3 fl (81.0-99.0); MONOCYTES # (AUTO) 0.4 K/uL (0.4-2.0); MONOCYTES % (AUTO) 3.4 (0-10); NEUTROPHILS # (AUTO) 8.7 K/ul (2.0-6.9); NEUTROPHILS % (AUTO) 84.7; PLATELET COUNT 244 10^3/uL (140-440); RED BLOOD COUNT 3.58 10^6/ul (4.20-5.40); WHITE BLOOD COUNT 10.28 K/ul (4.6-10.2)
[2017-06-02] MEDS: PULMICORT 0.5 MG/2 ML NEB SCH ×2 (05:02→17:03)
[2017-06-02] MEDS: XOPENEX 1.25 MG NEB SCH ×4 (05:02→23:15)
[2017-06-02 05:10] LABS: PROTHROMBIN TIME 30.9 SEC (9.3-11.0)
[2017-06-02 05:17] LABS: ALBUMIN 2.5 g/dL (3.4-5.0); ALBUMIN/GLOBULIN RATIO 0.86; ANION GAP 15.1; BILIRUBIN,TOTAL 0.15 mg/dL (0.00-1.20); CALCIUM 8.4 mg/dL (8.2-10.2); POTASSIUM 4.1 mmol/L (3.5-5.10); TOTAL PROTEIN 5.4 g/dL (6.4-8.2)
[2017-06-02] MEDS: HUMULIN R SUBCUT PRN ×2 (05:29→20:16)
[2017-06-02] MEDS: SYNTHROID PO SCH (05:30)
[2017-06-02] MEDS: SOLU-MEDROL 125 MG IVP SCH (05:30)
[2017-06-02] MEDS: CARAFATE PO SCH ×2 (05:30→17:52)
[2017-06-02] MEDS: NORCO 7.5-325 PO SCH ×3 (05:30→21:20)
[2017-06-02] MEDS: VALIUM PO SCH ×4 (05:31→23:57)
[2017-06-02] MEDS: ROCEPHIN 1 GM in SODIUM CHLORIDE 50 ML IV SCH (08:18)
[2017-06-02] MEDS: GLUCOPHAGE PO SCH ×2 (08:19→17:53)
[2017-06-02] MEDS: TORADOL IVP SCH ×2 (08:19→20:16)
[2017-06-02] MEDS: HYDROCHLOROTHIAZIDE PO SCH (08:19)
[2017-06-02] MEDS: NEURONTIN PO SCH ×2 (08:19→20:16)
[2017-06-02] MEDS: ZESTRIL PO SCH (08:19)
[2017-06-02] MEDS: PROTONIX IV IVP SCH (08:20)
[2017-06-02] MEDS: PROTONIX PO SCH (10:40)
--- NOTE | 2017-06-02 11:52 | PCM.PROG ---
Attending Provider: ATTENDING PROVIDER: Dr. OMER RAMIREZ DATE OF SERVICE: 06/02/17 SUBJECTIVE: This 47 year old WHITE/ F was hospitalized 05/29/17. The patient is hospitalized with acute bronchitis/bronchiolitis type symptoms with intercostal muscular retraction subsided now. The patient coughs up yellowish bloody-tinged sputum at times. Pulse 70 per min, blood pressure has settled down. REVIEW OF SYSTEMS: CONSTITUTIONAL: Weakness. No night sweats. No fever or chills. HEENT: Eyes: No visual changes. No eye pain. No eye discharge. ENT: No runny nose. No epistaxis. No sinus pain. No odynophagia. No congestion. RESPIRATORY: Productive cough, congestion. No shortness of breath. CARDIOVASCULAR: No angina symptoms. No CHF symptoms. No atypical chest pain for CAD. No palpitations. No orthopnea.. GASTROINTESTINAL: No abdominal pain. No nausea or vomiting. No diarrhea or constipation. No hematemesis. No hematochezia. GENITOURINARY: No urgency. No frequency. No dysuria. No hematuria. No obstructive symptoms. No discharge. No pain. No significant abnormal bleeding. MUSCULOSKELETAL: No musculoskeletal pain; no joint swelling. NEUROLOGICAL: Awake, alert, oriented to time, place and person. No headache. No neck pain. No syncope. No seizures. No dizziness. PSYCHIATRIC: Not anxious. No depression. No suicidal thoughts. No homicidal thoughts. SKIN: No rash. No lesions. No wounds. ENDOCRINE: No unexplained weight loss. No weight gain. HEMATOLOGIC/LYMPHATIC: No anemia. No purpura. No petechiae. No prolonged or excessive bleeding. No palpable lymph nodes. PHYSICAL EXAMINATION: GENERAL: The patient is awake, alert and oriented, sitting in bed in no distress. VITAL SIGNS: Temperature 97.6 F, Pulse 70, Respiratory Rate 15, BP 134/76, Pulse Ox 97% HEENT: Head normocephalic, atraumatic. Eyes: Extraocular muscles are intact. Pupils are equal, round and reactive to light and accommodation. Ears: No lesions. Nose appeared normal. Throat: No exudate or erythema. NECK: Supple. No JVD, no carotid bruit. No lymphadenopathy or thyromegaly. LUNGS: Good air entry at bases with mild expiratory wheeze. Percussion note normal. Chest symmetrical. HEART: S1, S2, no S3. No murmurs. No cyanosis or clubbing. No ascites. Pulses: Dorsalis pedis and posterior tibial pulses +1 to +2 both sides. ABDOMEN: Soft. Non-tender. Bowel sounds active. No CVA tenderness. No mass felt. EXTREMITIES: No pedal edema. Full range of motion of all extremities, equal. NEUROLOGIC: No focal deficit. Cranial nerves II through XII are grossly intact. No headache, no double vision or headache. SKIN: Not dry. Intact. Turgor-normal. LYMPHATIC: No palpable lymph nodes/no lymphedema. MUSCULOSKELETAL: Normal joints with no swelling. Muscle tone is normal. LAB REVIEW: 06/02/17 04:50 06/02/17 04:50 06/02/17 04:50: Sodium 141, Potassium 4.1, Chloride 106, Carbon Dioxide 24, Anion Gap 15.1, BUN 32 H, Creatinine 1.00, Estimated GFR (MDRD) 59.00, BUN/ Creatinine Ratio 32.00, Glucose 190 H, Calcium 8.4, Total Bilirubin 0.15, AST 9 L, ALT 15, Alkaline Phosphatase 42, Total Protein 5.4 L, Albumin 2.5 L, Globulin 2.9, Albumin/Globulin Ratio 0.86 06/02/17 04:50: WBC 10.28 H, RBC 3.58 L, Hgb 11.6 L, Hct 35.2 L, MCV 98.3, MCH 32.4 H, MCHC 33.0, RDW Coeff of Nina 14.7, Plt Count 244, Immature Gran % (Auto) 2.3, Neut % (Auto) 84.7, Lymph % (Auto) 9.2 L, Dupage % (Auto) 3.4, Eos % (Auto) 0.3, Baso % (Auto) 0.1, Immature Gran # (Auto) 0.2, Neut # 8.7 H, Lymph # 1.0, Dupage # 0.4, Eos # 0.0, Baso # 0.0 06/02/17 04:50: PT 30.9 H, INR 3.13 ASSESSMENT: 1. Acute bronchitis with severe chronic lung disease PLAN: 1. Continue steroids tapering dose 2. Antibiotics 3. Nebs treatment 4. Up and about 5. Dietary consult for weight loss 6. Change Protonix to 40 mg p.o. q.8hr Plan and coordination of the patient's care discussed in the presence of Key Account Manager and nurse. EDUCATION: Counseling for smoking done. Also discussed weight loss and will get dietary consult. CONDITION: Stable SCRIBED BY: RADHA DURANT Wood Cutter scribed while in presence of service performed by Dr. OMER RAMIREZ on 06/02/17 ([id number])
--- NOTE | 2017-06-02 12:37 | PN ---
DATE OF SERVICE: 05/29/17 ADMITTING NOTE SUBJECTIVE: 47 year old white female was brought to the emergency room with respiratory distress. The patient was seen and examined in the office today prior to this emergency room visit where patient had acute bronchitis. The patient has severe chronic lung disease with history of smoking and also has history of pulmonary embolism. The patient was put on antibiotics, steroids, Decadron 2cc IM was given at the time. She was instructed to come back in case condition doesn't improve. At that time the patient was advised hospitalization but she declined. REVIEW OF SYSTEMS: CONSTITUTIONAL: No night sweats. Fatigue. No fever or chills. Weakness. HEENT: Eyes: No visual changes. No eye pain. No eye discharge. ENT: No runny nose. No epistaxis. No sinus pain. No sore throat. No odynophagia. No congestion. RESPIRATORY: Cough and congestion with yellowish sputum production for past several day. No hemoptysis. Shortness of breath. CARDIOVASCULAR: No angina symptoms. No CHF symptoms. No atypical chest pain for CAD. No palpitations. No orthopnea. No PND. Pleuritic type of pain. GASTROINTESTINAL: No abdominal pain. No nausea or vomiting. No diarrhea or constipation. No hematemesis. No hematochezia. Appetite normal. Maybe mild reflux type of symptoms. GENITOURINARY: No urgency. No frequency. No dysuria. No hematuria. No obstructive symptoms. No discharge. No pain. No significant abnormal bleeding. MUSCULOSKELETAL: No musculoskeletal pain; no joint swelling. NEUROLOGICAL: No headache. No neck pain. No syncope. No seizures. No dizziness. PSYCHIATRIC: Not anxious. No depression. No suicidal thoughts. No homicidal thoughts. SKIN: No rash. No lesions. No wounds. ENDOCRINE: No unexplained weight loss. No weight gain. HEMATOLOGIC/LYMPHATIC: No anemia. No purpura. No petechiae. No prolonged or excessive bleeding. No palpable lymph nodes. PHYSICAL EXAMINATION: GENERAL: The patient is oriented to time, place and person. Doesn't seem to be in distress. VITAL SIGNS: Respiratory rate 18, blood pressure 130/80, pulse 95. HEENT: Head normocephalic, atraumatic. Eyes: Extraocular muscles are intact. Pupils are equal, round and reactive to light and accommodation. Ears: No lesions. Nose appeared normal. Throat: No exudate or erythema. NECK: Supple. No JVD, no carotid bruit. No lymphadenopathy or thyromegaly. LUNGS: Decreased breath sounds with bilateral wheeze with good air entry but expiratory wheeze noted. Percussion note normal. Chest symmetrical. HEART: S1, S2, no S3. No murmurs. No cyanosis or clubbing. No ascites. Pulses: Dorsalis pedis and posterior tibial pulses +1 to +2 both sides. ABDOMEN: Soft. Protuberant. Nontender. Bowel sounds active. No CVA tenderness. No mass felt. EXTREMITIES: Mild trace pitting edema. Full range of motion of all extremities , equal. NEUROLOGIC: No focal deficit. Cranial nerves II through XII are grossly intact. No headache, no double vision or headache. SKIN: Not dry. Intact. Turgor - normal. LYMPHATIC: No palpable lymph nodes/no lymphedema. MUSCULOSKELETAL: Normal joints with no swelling. Muscle tone is normal. LABS: ABG pO2 69, pCO2 40, normal pH with oxygen saturation more than 90% on room air. Chest x-ray normal ASSESSMENT: 1. Acute respiratory distress on admission to ER with chronic lung disease with acute bronchitis 2. History of pulmonary embolism/DVT on Coumadin PLAN: 1. Solu-Medrol 125 Q 4 hours 2. Double antibiotics 3. Tussionex 4. Toradol for headache which has come from coughing 5. Lovenox 6. Continue Coumadin 7. Continue INR 8. Telemetry 9. Will admitted patient to special care 10. NEBS treatment with Xopenex and Pulmicort CONDITION: Stable The patient was seen in the emergency room and on the floor. TIME SPENT: More than 30 minutes. Plan and coordination of the patient's care discussed in the presence of nurse. RONALDO
--- NOTE | 2017-06-02 12:48 | HP ---
DATE OF SERVICE: 05/29/17 SUBJECTIVE: 47 year old white female was brought to the emergency room with respiratory distress. The patient was seen and examined in the office today prior to this emergency room visit where patient had acute bronchitis. The patient has severe chronic lung disease with history of smoking and also has history of pulmonary embolism. The patient was put on antibiotics, steroids, Decadron 2cc IM was given at the time. She was instructed to come back in case condition doesn't improve. At that time the patient was advised hospitalization but she declined. REVIEW OF SYSTEMS: CONSTITUTIONAL: No night sweats. Fatigue. No fever or chills. Weakness. HEENT: Eyes: No visual changes. No eye pain. No eye discharge. ENT: No runny nose. No epistaxis. No sinus pain. No sore throat. No odynophagia. No congestion. RESPIRATORY: Cough and congestion with yellowish sputum production for past several day. No hemoptysis. Shortness of breath. CARDIOVASCULAR: No angina symptoms. No CHF symptoms. No atypical chest pain for CAD. No palpitations. No orthopnea. No PND. Pleuritic type of pain. GASTROINTESTINAL: No abdominal pain. No nausea or vomiting. No diarrhea or constipation. No hematemesis. No hematochezia. Appetite normal. Maybe mild reflux type of symptoms. GENITOURINARY: No urgency. No frequency. No dysuria. No hematuria. No obstructive symptoms. No discharge. No pain. No significant abnormal bleeding. MUSCULOSKELETAL: No musculoskeletal pain; no joint swelling. NEUROLOGICAL: No headache. No neck pain. No syncope. No seizures. No dizziness. PSYCHIATRIC: Not anxious. No depression. No suicidal thoughts. No homicidal thoughts. SKIN: No rash. No lesions. No wounds. ENDOCRINE: No unexplained weight loss. No weight gain. HEMATOLOGIC/LYMPHATIC: No anemia. No purpura. No petechiae. No prolonged or excessive bleeding. No palpable lymph nodes. ALLERGIES: NONE PERSONAL/FAMILY/SOCIAL HISTORY: The patient is living with friend. The patient is smoker but no alcohol abuse. The patient has morbid obesity. She is doing all activity of daily living. MEDICATIONS: Albuterol ProAir HFA two puffs twice a day Keflex 500mg PO three times a day Librium 25mg PO twice a day Diazepam 5mg PO four times a day Neurontin 300mg PO twice a day [place]ield 7.5 three times a day Synthroid 25mcg PO daily Lisinopril/Hydrochlorothiazide 10-12.5mg PO daily Glucophage 500mg PO twice a day Medrol Dosepak Promethazine with Codeine one teaspoon PO three times a day Zoloft 150mg PO daily Coumadin 4mg PO daily MEDICAL/SURGICAL HISTORY: Being treated for Acute bronchitis; Keflex and Medrol Dosepak Morbid obesity Hypothyroidism Hypertension Diabetes Mellitus Depression History of pulmonary embolism DVT PHYSICAL EXAMINATION: GENERAL: The patient is oriented to time, place and person. Doesn't seem to be in distress. VITAL SIGNS: Respiratory rate 18, blood pressure 130/80, pulse 95. HEENT: Head normocephalic, atraumatic. Eyes: Extraocular muscles are intact. Pupils are equal, round and reactive to light and accommodation. Ears: No lesions. Nose appeared normal. Throat: No exudate or erythema. NECK: Supple. No JVD, no carotid bruit. No lymphadenopathy or thyromegaly. LUNGS: Decreased breath sounds with bilateral wheeze with good air entry but expiratory wheeze noted. Percussion note normal. Chest symmetrical. HEART: S1, S2, no S3. No murmurs. No cyanosis or clubbing. No ascites. Pulses: Dorsalis pedis and posterior tibial pulses +1 to +2 both sides. ABDOMEN: Soft. Protuberant. Nontender. Bowel sounds active. No CVA tenderness. No mass felt. EXTREMITIES: Mild trace pitting edema. Full range of motion of all extremities , equal. NEUROLOGIC: No focal deficit. Cranial nerves II through XII are grossly intact. No headache, no double vision or headache. SKIN: Not dry. Intact. Turgor - normal. LYMPHATIC: No palpable lymph nodes/no lymphedema. MUSCULOSKELETAL: Normal joints with no swelling. Muscle tone is normal. LABS: ABG pO2 69, pCO2 40, normal pH with oxygen saturation more than 90% on room air. Chest x-ray normal ASSESSMENT: 1. Acute respiratory distress on admission to ER with chronic lung disease with acute bronchitis 2. History of pulmonary embolism/DVT on Coumadin 3. Acute bronchitis 4. Severe chronic lung disease 5. Depression 6. Hypothyroidism 7. Morbid obesity PLAN: 1. Solu-Medrol 125 Q 4 hours 2. Double antibiotics 3. Tussionex 4. Toradol for headache which has come from coughing 5. Lovenox 6. Continue Coumadin 7. Continue INR 8. Telemetry 9. Will admitted patient to special care 10. NEBS treatment with Xopenex and Pulmicort CONDITION: Stable The patient was seen in the emergency room and on the floor. RONALDO
--- NOTE | 2017-06-02 12:55 | PN ---
DATE OF SERVICE: 05/30/17 SUBJECTIVE: 47 year old white female was hospitalized with acute bronchitis, respiratory distress with restriction of intercostal muscle space. This morning the patient is still coughing dry cough but labored breathing is much less. She rested better with Phenergan with Codeine. REVIEW OF SYSTEMS: CONSTITUTIONAL: No night sweats. Fatigue and tired feeling. No fever or chills. HEENT: Eyes: No visual changes. No eye pain. No eye discharge. ENT: No runny nose. No epistaxis. No sinus pain. No sore throat. No odynophagia. No congestion. RESPIRATORY: Cough and congestion. No hemoptysis. Shortness of breath on minimal exertion. CARDIOVASCULAR: No angina symptoms. No CHF symptoms. No atypical chest pain for CAD. No palpitations. No orthopnea. No PND. GASTROINTESTINAL: No abdominal pain. No nausea or vomiting. No diarrhea or constipation. No hematemesis. No hematochezia. Appetite has improved some. GENITOURINARY: No urgency. No frequency. No dysuria. No hematuria. No obstructive symptoms. No discharge. No pain. No significant abnormal bleeding. MUSCULOSKELETAL: No musculoskeletal pain; no joint swelling. NEUROLOGICAL: No headache. No neck pain. No syncope. No seizures. No dizziness. PSYCHIATRIC: Not anxious. No depression. No suicidal thoughts. No homicidal thoughts. SKIN: No rash. No lesions. No wounds. ENDOCRINE: No unexplained weight loss. No weight gain. HEMATOLOGIC/LYMPHATIC: No anemia. No purpura. No petechiae. No prolonged or excessive bleeding. No palpable lymph nodes. PHYSICAL EXAMINATION: GENERAL: The patient is oriented to time, place and person. VITAL SIGNS: Temperature 97.7, pulse 94, respiratory rate 20, blood pressure 15 /66 and pulse ox 94%. HEENT: Head normocephalic, atraumatic. Eyes: Extraocular muscles are intact. Pupils are equal, round and reactive to light and accommodation. Ears: No lesions. Nose appeared normal. Throat: No exudate or erythema. NECK: Supple. No JVD, no carotid bruit. No lymphadenopathy or thyromegaly. LUNGS: Decreased breath sounds with mild wheeze. Percussion note normal. Chest symmetrical. HEART: S1, S2, no S3. No murmurs. No cyanosis or clubbing. No ascites. Pulses: Dorsalis pedis and posterior tibial pulses +1 to +2 both sides. ABDOMEN: Soft. Nontender. Bowel sounds active. No CVA tenderness. No mass felt. EXTREMITIES: No edema. Full range of motion of all extremities, equal. NEUROLOGIC: No focal deficit. Cranial nerves II through XII are grossly intact. No headache, no double vision or headache. SKIN: Not dry. Intact. Turgor - normal. LYMPHATIC: No palpable lymph nodes/no lymphedema. MUSCULOSKELETAL: Normal joints with no swelling. Muscle tone is normal. ASSESSMENT: 1. Acute bronchitis 2. Severe chronic lung disease 3. Morbid obesity 4. Depression which is controlled with Zoloft 5. Hypertension 6. Diabetes mellitus 7. Metabolic syndrome 8. History of pulmonary embolism 9. History of DVT. PLAN: 1. Continue IV antibiotics 2. Continue steroids 3. Continue NEBS treatment 4. Phenergan with codeine for cough 5. Strongly advised to loose weight 6. Antireflux measures also discussed 7. Some of the symptoms could be from reflux disease. TIME SPENT: More than 30 minutes. Plan and coordination of the patient's care discussed in the presence of nurse. RONALDO
--- NOTE | 2017-06-02 12:58 | PN ---
DATE OF SERVICE: 05/31/17 SUBJECTIVE: 47 year old white female hospitalized with acute bronchitis and severe chronic lung disease. The patient's labored respiration have improved. She is less labor then before. PHYSICAL EXAMINATION: HEENT: Head normocephalic, atraumatic. Eyes: Extraocular muscles are intact. Pupils are equal, round and reactive to light and accommodation. Ears: No lesions. Nose appeared normal. Throat: No exudate or erythema. NECK: Supple. No JVD, no carotid bruit. No lymphadenopathy or thyromegaly. LUNGS: Decreased breath sounds with air entry but has mild expiratory wheeze. Percussion note normal. Chest symmetrical. HEART: S1, S2, no S3. No murmurs. No cyanosis or clubbing. No ascites. Pulses: Dorsalis pedis and posterior tibial pulses +1 to +2 both sides. ABDOMEN: Soft. Nontender. Bowel sounds active. No CVA tenderness. No mass felt. EXTREMITIES: No edema. Full range of motion of all extremities, equal. Calf nontender. NEUROLOGIC: No focal deficit. Cranial nerves II through XII are grossly intact. No headache, no double vision or headache. SKIN: Not dry. Intact. Turgor - normal. LYMPHATIC: No palpable lymph nodes/no lymphedema. MUSCULOSKELETAL: Normal joints with no swelling. Muscle tone is normal. ASSESSMENT: 1. Acute bronchitis seems to be resolving The patient was seen and examined with Nurse Practitioner and Game Manager. TIME SPENT: More than 30 minutes. Plan and coordination of the patient's care discussed in the presence of nurse. RONALDO
[2017-06-02] MEDS: PREDNISONE PO SCH ×2 (13:02→17:54)
[2017-06-02] MEDS: SODIUM CHLORIDE 1,000 ML IV SCH (13:17)
--- NOTE | 2017-06-02 15:16 | PN ---
DATE OF SERVICE: 06/01/17 SUBJECTIVE: 47 year old white female seen with the Nurse Practitioner and Dredge Deckhand. The patient has acute bronchitis with severe chronic lung disease. The patient's respiration seems to have settled down. She continues to be on Coumadin. The INR is acceptable and we will discontinue Lovenox. Her Venous scan was negative. PHYSICAL EXAMINATION: HEENT: Head normocephalic, atraumatic. Eyes: Extraocular muscles are intact. Pupils are equal, round and reactive to light and accommodation. Ears: No lesions. Nose appeared normal. Throat: No exudate or erythema. NECK: Supple. No JVD, no carotid bruit. No lymphadenopathy or thyromegaly. LUNGS: Decreased breath sounds with mild wheeze. Percussion note normal. Chest symmetrical. HEART: S1, S2, no S3. No murmurs. No cyanosis or clubbing. No ascites. Pulses: Dorsalis pedis and posterior tibial pulses +1 to +2 both sides. ABDOMEN: Soft. Nontender. Bowel sounds active. No CVA tenderness. No mass felt. EXTREMITIES: No edema. Full range of motion of all extremities, equal. NEUROLOGIC: No focal deficit. Cranial nerves II through XII are grossly intact. No headache, no double vision or headache. SKIN: Not dry. Intact. Turgor - normal. LYMPHATIC: No palpable lymph nodes/no lymphedema. MUSCULOSKELETAL: Normal joints with no swelling. Muscle tone is normal. ASSESSMENT: 1. Acute bronchitis with severe chronic lung disease PLAN: 1. Continue decreasing dose of steroids 2. Continue antibiotics 3. Continue NEBS treatment. 4. Strongly advised to lose weight 5. Will give consultation for weight loss, she is morbidly obese 6. Counseling for smoking done. TIME SPENT: More than 30 minutes. Plan and coordination of the patient's care discussed in the presence of nurse. RONALDO
[2017-06-02] MEDS: MILK OF MAGNESIA PO SCH (18:02)
[2017-06-02] MEDS: NICODERM 21 MG TD SCH (20:16)
[2017-06-03] MEDS ORDERED: DUONEB NEB STA (01:16)
[2017-06-03] MEDS: LIBRIUM PO PRN (01:19)
[2017-06-03] MEDS: PHENERGAN WITH CODEINE 6.25/10 MG/5 ML PO PRN ×2 (02:10→21:54)
[2017-06-03] MEDS: XOPENEX 1.25 MG NEB SCH ×4 (05:08→22:58)
[2017-06-03] MEDS: PULMICORT 0.5 MG/2 ML NEB SCH ×2 (05:08→16:55)
[2017-06-03 05:24] LABS: BASOPHILS % (AUTO) 0.3 % (0.0-3.0); HEMATOCRIT 34.9 % (37.0-47.0); HEMOGLOBIN 11.6 g/dl (12.0-16.0); IMMATURE GRANULOCYTE % (AUTO) 3.6 % (0.0-5.0); LYMPHOCYTES % (AUTO) 11.4 (10.0-50.0); MEAN CORPUSCULAR HEMOGLOBIN 32.4 pg (27.0-31.0); MEAN CORPUSCULAR HGB CONC 33.2 (31.8-35.4); MEAN CORPUSCULAR VOLUME 97.5 fl (81.0-99.0); MONOCYTES # (AUTO) 0.5 K/uL (0.4-2.0); MONOCYTES % (AUTO) 5.3 (0-10); NEUTROPHILS # (AUTO) 6.8 K/ul (2.0-6.9); NEUTROPHILS % (AUTO) 79.4; PLATELET COUNT 266 10^3/uL (140-440); RED BLOOD COUNT 3.58 10^6/ul (4.20-5.40); WHITE BLOOD COUNT 8.61 K/ul (4.6-10.2)
[2017-06-03 05:45] LABS: ALBUMIN 2.5 g/dL (3.4-5.0); ALBUMIN/GLOBULIN RATIO 0.89; ANION GAP 16.1; BILIRUBIN,TOTAL 0.17 mg/dL (0.00-1.20); BUN/CREATININE RATIO 36.84; CALCIUM 8.5 mg/dL (8.2-10.2); CREATININE 0.95 mg/dL (0.60-1.30); POTASSIUM 4.1 mmol/L (3.5-5.10); TOTAL PROTEIN 5.3 g/dL (6.4-8.2)
[2017-06-03 05:49] LABS: PROTHROMBIN TIME 18.5 SEC (9.3-11.0)
[2017-06-03] MEDS: HUMULIN R SUBCUT PRN ×3 (05:57→21:51)
[2017-06-03] MEDS: NORCO 7.5-325 PO SCH ×3 (05:58→21:50)
[2017-06-03] MEDS: SYNTHROID PO SCH (05:58)
[2017-06-03] MEDS: CARAFATE PO SCH ×2 (05:58→16:52)
[2017-06-03] MEDS: PROTONIX PO SCH (05:59)
[2017-06-03] MEDS: VALIUM PO SCH ×3 (05:59→18:03)
[2017-06-03] MEDS: ROCEPHIN 1 GM in SODIUM CHLORIDE 50 ML IV SCH (08:53)
[2017-06-03] MEDS: GLUCOPHAGE PO SCH ×2 (08:54→16:52)
[2017-06-03] MEDS: HYDROCHLOROTHIAZIDE PO SCH (08:54)
[2017-06-03] MEDS: ZESTRIL PO SCH (08:54)
[2017-06-03] MEDS: PREDNISONE PO SCH ×3 (08:54→16:53)
[2017-06-03] MEDS: TORADOL IVP SCH ×2 (08:54→21:51)
[2017-06-03] MEDS: NEURONTIN PO SCH ×2 (08:55→21:50)
--- NOTE | 2017-06-03 09:39 | PCM.PROG ---
Attending Provider: ATTENDING PROVIDER: Dr. OMER RAMIREZ DATE OF SERVICE: 06/03/17 SUBJECTIVE: This 47 year old WHITE/ F was hospitalized 05/29/17. The patient is seen with Olga, Nurse Practitioner. She is sitting in bed, alert. still coughing. No fever. Will move the patient to the floor today. REVIEW OF SYSTEMS: CONSTITUTIONAL: No night sweats. No fatigue, malaise, lethargy. No fever or chills. HEENT: Eyes: No visual changes. No eye pain. No eye discharge. ENT: No runny nose. No epistaxis. No sinus pain. No odynophagia. No congestion. RESPIRATORY: Positive for cough and congestion. No hemoptysis. No shortness of breath. CARDIOVASCULAR: No angina symptoms. No CHF symptoms. No atypical chest pain for CAD. No palpitations. No orthopnea.. GASTROINTESTINAL: No abdominal pain. No nausea or vomiting. No diarrhea or constipation. No hematemesis. No hematochezia. GENITOURINARY: No urgency. No frequency. No dysuria. No hematuria. No obstructive symptoms. No discharge. No pain. No significant abnormal bleeding. MUSCULOSKELETAL: No musculoskeletal pain; no joint swelling. NEUROLOGICAL: Awake, alert, oriented to time, place and person. No headache. No neck pain. No syncope. No seizures. No dizziness. PSYCHIATRIC: Not anxious. No depression. No suicidal thoughts. No homicidal thoughts. SKIN: No rash. No lesions. No wounds. ENDOCRINE: No unexplained weight loss. No weight gain. HEMATOLOGIC/LYMPHATIC: No anemia. No purpura. No petechiae. No prolonged or excessive bleeding. No palpable lymph nodes. PHYSICAL EXAMINATION: GENERAL: The patient is awake, alert and oriented, sitting in bed in no distress. VITAL SIGNS: Temperature 97.8 F, Pulse 81, Respiratory Rate 18, BP 130/81, Pulse Ox 99% HEENT: Head normocephalic, atraumatic. Eyes: Extraocular muscles are intact. Pupils are equal, round and reactive to light and accommodation. Ears: No lesions. Nose appeared normal. Throat: No exudate or erythema. NECK: Supple. No JVD, no carotid bruit. No lymphadenopathy or thyromegaly. LUNGS: Diminished breath sounds bilaterally with crepitations lower lobes. Percussion note normal. Chest symmetrical. HEART: S1, S2, no S3. No murmurs. No cyanosis or clubbing. No ascites. Pulses: Dorsalis pedis and posterior tibial pulses +1 to +2 both sides. ABDOMEN: Soft. Non-tender. Bowel sounds active. No CVA tenderness. No mass felt. EXTREMITIES: No edema. Full range of motion of all extremities, equal. NEUROLOGIC: No focal deficit. Cranial nerves II through XII are grossly intact. No headache, no double vision or headache. SKIN: Not dry. Intact. Turgor-normal. LYMPHATIC: No palpable lymph nodes/no lymphedema. MUSCULOSKELETAL: Normal joints with no swelling. Muscle tone is normal. LAB REVIEW: 06/03/17 04:00 06/03/17 04:00 06/03/17 04:00: Sodium 142, Potassium 4.1, Chloride 103, Carbon Dioxide 27, Anion Gap 16.1, BUN 35 H, Creatinine 0.95, Estimated GFR (MDRD) 63.00, BUN/ Creatinine Ratio 36.84, Glucose 163 H, Calcium 8.5, Total Bilirubin 0.17, AST 10 L, ALT 16, Alkaline Phosphatase 41 L, Total Protein 5.3 L, Albumin 2.5 L, Globulin 2.8, Albumin/Globulin Ratio 0.89 06/03/17 04:00: WBC 8.61, RBC 3.58 L, Hgb 11.6 L, Hct 34.9 L, MCV 97.5, MCH 32.4 H, MCHC 33.2, RDW Coeff of Nina 14.5, Plt Count 266, Immature Gran % (Auto) 3.6, Neut % (Auto) 79.4, Lymph % (Auto) 11.4, Rains % (Auto) 5.3, Eos % (Auto) 0.0, Baso % (Auto) 0.3, Immature Gran # (Auto) 0.3, Neut # 6.8, Lymph # 1.0, Rains # 0.5, Eos # 0.0, Baso # 0.0 06/03/17 04:00: PT 18.5 H D, INR 1.84 ASSESSMENT: 1. Acute bronchitis with severe chronic lung disease PLAN: 1. Will move patient to the floor today. 2. Encourage the patient to get up and about. 3. Will restart Coumadin 4 mg daily. 4. Continue Prednisone 10 mg t.i.d. Plan and coordination of the patient's care discussed in the presence of Account Manager Employee Benefits and nurse. CONDITION: Stable SCRIBED BY: RADHA DURANT Audit Clerk scribed while in presence of service performed by Dr. OMER RAMIREZ/OLGA HARRIS APRN on 06/03/17 ([id number])
[2017-06-03] MEDS: COUMADIN PO SCH (16:53)
[2017-06-03] MEDS: MILK OF MAGNESIA PO SCH (18:03)
[2017-06-03] MEDS: NICODERM 21 MG TD SCH (21:52)
[2017-06-04] MEDS: VALIUM PO SCH ×4 (00:33→17:33)
[2017-06-04 04:47] LABS: BASOPHILS % (AUTO) 0.2 % (0.0-3.0); HEMATOCRIT 34.5 % (37.0-47.0); HEMOGLOBIN 11.6 g/dl (12.0-16.0); IMMATURE GRANULOCYTE % (AUTO) 2.7 % (0.0-5.0); LYMPHOCYTES # (AUTO) 1.8 K/uL (0.60-3.4); LYMPHOCYTES % (AUTO) 21.1 (10.0-50.0); MEAN CORPUSCULAR HEMOGLOBIN 32.8 pg (27.0-31.0); MEAN CORPUSCULAR HGB CONC 33.6 (31.8-35.4); MEAN CORPUSCULAR VOLUME 97.5 fl (81.0-99.0); MONOCYTES # (AUTO) 0.5 K/uL (0.4-2.0); MONOCYTES % (AUTO) 5.6 (0-10); NEUTROPHILS # (AUTO) 5.9 K/ul (2.0-6.9); NEUTROPHILS % (AUTO) 70.4; PLATELET COUNT 265 10^3/uL (140-440); RED BLOOD COUNT 3.54 10^6/ul (4.20-5.40); WHITE BLOOD COUNT 8.43 K/ul (4.6-10.2)
[2017-06-04 05:07] LABS: PROTHROMBIN TIME 16.7 SEC (9.3-11.0)
[2017-06-04] MEDS: PULMICORT 0.5 MG/2 ML NEB SCH ×2 (05:14→17:12)
[2017-06-04] MEDS: XOPENEX 1.25 MG NEB SCH (05:14)
[2017-06-04 05:16] LABS: ALBUMIN 2.4 g/dL (3.4-5.0); ALBUMIN/GLOBULIN RATIO 0.92; ANION GAP 13.5; BILIRUBIN,TOTAL 0.15 mg/dL (0.00-1.20); BUN/CREATININE RATIO 38.54; CALCIUM 8.5 mg/dL (8.2-10.2); CREATININE 0.96 mg/dL (0.60-1.30); POTASSIUM 4.5 mmol/L (3.5-5.10)
[2017-06-04] MEDS: SYNTHROID PO SCH (05:44)
[2017-06-04] MEDS: NORCO 7.5-325 PO SCH ×3 (05:44→21:26)
[2017-06-04] MEDS: PROTONIX PO SCH (05:44)
[2017-06-04] MEDS: CARAFATE PO SCH ×2 (05:44→17:39)
[2017-06-04] MEDS: HYDROCHLOROTHIAZIDE PO SCH (08:40)
[2017-06-04] MEDS: PREDNISONE PO SCH ×3 (08:41→17:34)
[2017-06-04] MEDS: ZESTRIL PO SCH (08:41)
[2017-06-04] MEDS: GLUCOPHAGE PO SCH ×2 (08:42→17:33)
[2017-06-04] MEDS: NEURONTIN PO SCH ×2 (08:42→21:25)
[2017-06-04] MEDS: TORADOL IVP SCH ×2 (08:42→21:26)
[2017-06-04] MEDS: ROCEPHIN 1 GM in SODIUM CHLORIDE 50 ML IV SCH (09:03)
--- NOTE | 2017-06-04 09:39 | PCM.PROG ---
Attending Provider: ATTENDING PROVIDER: Dr. OMER RAMIREZ This patient is seen with Olga Grant, Nurse Practioner DATE OF SERVICE: 06/04/17 SUBJECTIVE: This 47 year old WHITE/ F was hospitalized 05/29/17. The patient is alert, sitting up in bed, still coughing. No fever. REVIEW OF SYSTEMS: CONSTITUTIONAL: No night sweats. No fatigue, malaise, lethargy. No fever or chills. HEENT: Eyes: No visual changes. No eye pain. No eye discharge. ENT: No runny nose. No epistaxis. No sinus pain. No odynophagia. No congestion. RESPIRATORY: Cough, congestion. No hemoptysis. Shortness of breath. CARDIOVASCULAR: No angina symptoms. No CHF symptoms. No atypical chest pain for CAD. No palpitations. No orthopnea.. GASTROINTESTINAL: No abdominal pain. No nausea or vomiting. No diarrhea or constipation. No hematemesis. No hematochezia. GENITOURINARY: No urgency. No frequency. No dysuria. No hematuria. No obstructive symptoms. No discharge. No pain. No significant abnormal bleeding. MUSCULOSKELETAL: No musculoskeletal pain; no joint swelling. NEUROLOGICAL: Awake, alert, oriented to time, place and person. No headache. No neck pain. No syncope. No seizures. No dizziness. PSYCHIATRIC: Not anxious. No depression. No suicidal thoughts. No homicidal thoughts. SKIN: No rash. No lesions. No wounds. ENDOCRINE: No unexplained weight loss. No weight gain. HEMATOLOGIC/LYMPHATIC: No anemia. No purpura. No petechiae. No prolonged or excessive bleeding. No palpable lymph nodes. PHYSICAL EXAMINATION: GENERAL: The patient is awake, alert and oriented, sitting in bed in no distress. VITAL SIGNS: Temperature 97.1 F, Pulse 81, Respiratory Rate 16, BP 124/70, Pulse Ox 97% HEENT: Head normocephalic, atraumatic. Eyes: Extraocular muscles are intact. Pupils are equal, round and reactive to light and accommodation. Ears: No lesions. Nose appeared normal. Throat: No exudate or erythema. NECK: Supple. No JVD, no carotid bruit. No lymphadenopathy or thyromegaly. LUNGS: Diminished breath sounds bilaterally with creps at the lower lobes. Percussion note normal. Chest symmetrical. HEART: S1, S2, no S3. No murmurs. No cyanosis or clubbing. No ascites. Pulses: Dorsalis pedis and posterior tibial pulses +1 to +2 both sides. ABDOMEN: Soft. Non-tender. Bowel sounds active. No CVA tenderness. No mass felt. EXTREMITIES: No edema. Full range of motion of all extremities, equal. NEUROLOGIC: No focal deficit. Cranial nerves II through XII are grossly intact. No headache, no double vision or headache. SKIN: Not dry. Intact. Turgor-normal. LYMPHATIC: No palpable lymph nodes/no lymphedema. MUSCULOSKELETAL: Normal joints with no swelling. Muscle tone is normal. LAB REVIEW: 06/04/17 04:30 06/04/17 04:30 06/04/17 04:30: Sodium 142, Potassium 4.5, Chloride 102, Carbon Dioxide 31, Anion Gap 13.5, BUN 37 H, Creatinine 0.96, Estimated GFR (MDRD) 62.00, BUN/ Creatinine Ratio 38.54, Glucose 121 H, Calcium 8.5, Total Bilirubin 0.15, AST 11 L, ALT 19, Alkaline Phosphatase 42, Total Protein 5.0 L, Albumin 2.4 L, Globulin 2.6, Albumin/Globulin Ratio 0.92 06/04/17 04:30: WBC 8.43, RBC 3.54 L, Hgb 11.6 L, Hct 34.5 L, MCV 97.5, MCH 32.8 H, MCHC 33.6, RDW Coeff of Nina 14.6, Plt Count 265, Immature Gran % (Auto) 2.7, Neut % (Auto) 70.4, Lymph % (Auto) 21.1, Lanier % (Auto) 5.6, Eos % (Auto) 0.0, Baso % (Auto) 0.2, Immature Gran # (Auto) 0.2, Neut # 5.9, Lymph # 1.8, Lanier # 0.5, Eos # 0.0, Baso # 0.0 06/04/17 04:30: PT 16.7 H, INR 1.66 ASSESSMENT: 1. Acute bronchitis with severe chronic lung disease 2. DM Type 2 PLAN: 1. Repeat chest x-ray today 2. D/C Xopenex 3. Start Albuterol q.4hr 4. Encourage to get up and about Plan and coordination of the patient's care discussed in the presence of Vessel Captain and nurse. CONDITION: Stable SCRIBED BY: RADHA DURANT Sterilization Technician scribed while in presence of service performed by Dr. Ramirez/Olga Grant APRN on 06/04/17 ([id number])
[2017-06-04] MEDS: ALBUTEROL 0.083% NEB NEB SCH ×4 (10:08→21:50)
--- NOTE | 2017-06-04 14:20 | DI ---
EXAM: Two views of the chest. History: Short of breath and cough. Comparison: Chest radiograph 05/29/2017 Findings: Heart size is within normal limits. No focal consolidation. No appreciable pleural fluid and no pneumothorax. No acute osseous abnormalities. Impression: No acute cardiopulmonary process.
[2017-06-04] MEDS: HUMULIN R SUBCUT PRN (17:14)
[2017-06-04] MEDS: COUMADIN PO SCH (17:34)
[2017-06-04] MEDS: MILK OF MAGNESIA PO SCH (18:50)
[2017-06-04] MEDS: NICODERM 21 MG TD SCH (21:26)
[2017-06-04] MEDS: PHENERGAN WITH CODEINE 6.25/10 MG/5 ML PO PRN (21:36)
[2017-06-05] MEDS: ALBUTEROL 0.083% NEB NEB SCH ×6 (00:57→21:39)
[2017-06-05] MEDS: VALIUM PO SCH ×4 (01:14→17:12)
[2017-06-05] MEDS: PULMICORT 0.5 MG/2 ML NEB SCH ×2 (05:06→17:11)
[2017-06-05 05:21] LABS: PROTHROMBIN TIME 16.1 SEC (9.3-11.0)
[2017-06-05 05:31] LABS: BASOPHILS % (AUTO) 0.4 % (0.0-3.0); EOSINOPHILS % (AUTO) 0.1 % (0.0-7.0); HEMATOCRIT 35.5 % (37.0-47.0); HEMOGLOBIN 12.1 g/dl (12.0-16.0); LYMPHOCYTES % (AUTO) 22.3 (10.0-50.0); MEAN CORPUSCULAR HEMOGLOBIN 33.4 pg (27.0-31.0); MEAN CORPUSCULAR HGB CONC 34.1 (31.8-35.4); MEAN CORPUSCULAR VOLUME 98.1 fl (81.0-99.0); MONOCYTES # (AUTO) 0.4 K/uL (0.4-2.0); MONOCYTES % (AUTO) 4.8 (0-10); NEUTROPHILS # (AUTO) 6.2 K/ul (2.0-6.9); NEUTROPHILS % (AUTO) 69.4; PLATELET COUNT 281 10^3/uL (140-440); RED BLOOD COUNT 3.62 10^6/ul (4.20-5.40); WHITE BLOOD COUNT 8.97 K/ul (4.6-10.2)
[2017-06-05 05:34] LABS: ALBUMIN 2.6 g/dL (3.4-5.0); ALBUMIN/GLOBULIN RATIO 0.93; ANION GAP 12.7; BILIRUBIN,TOTAL 0.17 mg/dL (0.00-1.20); BUN/CREATININE RATIO 36.47; CALCIUM 8.9 mg/dL (8.2-10.2); CREATININE 0.85 mg/dL (0.60-1.30); POTASSIUM 4.7 mmol/L (3.5-5.10); TOTAL PROTEIN 5.4 g/dL (6.4-8.2)
[2017-06-05] MEDS: SYNTHROID PO SCH (05:49)
[2017-06-05] MEDS: NORCO 7.5-325 PO SCH ×3 (05:49→22:33)
[2017-06-05] MEDS: PROTONIX PO SCH (05:49)
[2017-06-05] MEDS: CARAFATE PO SCH ×2 (05:49→17:12)
[2017-06-05] MEDS: HUMULIN R SUBCUT PRN ×3 (05:50→20:42)
[2017-06-05] MEDS: ZESTRIL PO SCH (08:08)
[2017-06-05] MEDS: HYDROCHLOROTHIAZIDE PO SCH (08:08)
[2017-06-05] MEDS: GLUCOPHAGE PO SCH ×2 (08:08→17:12)
[2017-06-05] MEDS: PREDNISONE PO SCH ×3 (08:08→17:12)
[2017-06-05] MEDS: TORADOL IVP SCH ×2 (08:09→20:57)
[2017-06-05] MEDS: NEURONTIN PO SCH ×2 (08:11→20:56)
[2017-06-05] MEDS: ROCEPHIN 1 GM in SODIUM CHLORIDE 50 ML IV SCH ×2 (08:11→15:00)
[2017-06-05] MEDS ORDERED: ROCEPHIN 1 GM in SODIUM CHLORIDE 50 ML IV STA (15:00)
[2017-06-05] MEDS: COUMADIN PO SCH (17:12)
[2017-06-05] MEDS: MILK OF MAGNESIA PO SCH (20:56)
[2017-06-05] MEDS: NICODERM 21 MG TD SCH (20:57)
[2017-06-05] MEDS: PHENERGAN WITH CODEINE 6.25/10 MG/5 ML PO PRN (22:34)
[2017-06-06] MEDS: VALIUM PO SCH ×4 (00:41→17:57)
[2017-06-06] MEDS: ALBUTEROL 0.083% NEB NEB SCH ×6 (01:03→21:29)
[2017-06-06 04:32] LABS: BASOPHILS % (AUTO) 0.3 % (0.0-3.0); EOSINOPHILS % (AUTO) 0.4 % (0.0-7.0); HEMATOCRIT 34.4 % (37.0-47.0); HEMOGLOBIN 11.7 g/dl (12.0-16.0); LYMPHOCYTES # (AUTO) 1.9 K/uL (0.60-3.4); LYMPHOCYTES % (AUTO) 19.8 (10.0-50.0); MEAN CORPUSCULAR HEMOGLOBIN 33.1 pg (27.0-31.0); MEAN CORPUSCULAR VOLUME 97.5 fl (81.0-99.0); MONOCYTES # (AUTO) 0.5 K/uL (0.4-2.0); MONOCYTES % (AUTO) 5.3 (0-10); NEUTROPHILS # (AUTO) 6.5 K/ul (2.0-6.9); NEUTROPHILS % (AUTO) 70.2; PLATELET COUNT 263 10^3/uL (140-440); RED BLOOD COUNT 3.53 10^6/ul (4.20-5.40); WHITE BLOOD COUNT 9.32 K/ul (4.6-10.2)
[2017-06-06 04:42] LABS: PROTHROMBIN TIME 15.2 SEC (9.3-11.0)
[2017-06-06 04:57] LABS: ALBUMIN 2.5 g/dL (3.4-5.0); ALBUMIN/GLOBULIN RATIO 0.96; ANION GAP 14.7; BILIRUBIN,TOTAL 0.17 mg/dL (0.00-1.20); BUN/CREATININE RATIO 30.95; CALCIUM 9.1 mg/dL (8.2-10.2); CREATININE 0.84 mg/dL (0.60-1.30); POTASSIUM 4.7 mmol/L (3.5-5.10); TOTAL PROTEIN 5.1 g/dL (6.4-8.2)
[2017-06-06] MEDS: PULMICORT 0.5 MG/2 ML NEB SCH ×2 (05:08→18:25)
[2017-06-06] MEDS: SYNTHROID PO SCH (05:55)
[2017-06-06] MEDS: CARAFATE PO SCH ×2 (05:55→17:57)
[2017-06-06] MEDS: PROTONIX PO SCH (05:55)
[2017-06-06] MEDS: NORCO 7.5-325 PO SCH ×3 (05:56→22:49)
[2017-06-06] MEDS: HYDROCHLOROTHIAZIDE PO SCH (08:13)
[2017-06-06] MEDS: GLUCOPHAGE PO SCH ×2 (08:13→17:57)
[2017-06-06] MEDS: ZESTRIL PO SCH (08:14)
[2017-06-06] MEDS: PREDNISONE PO SCH ×3 (08:14→19:04)
[2017-06-06] MEDS: NEURONTIN PO SCH ×2 (08:14→20:29)
[2017-06-06] MEDS: ROCEPHIN 1 GM in SODIUM CHLORIDE 50 ML IV SCH (08:15)
[2017-06-06] MEDS: TORADOL IVP SCH ×2 (09:25→20:29)
[2017-06-06] MEDS: COUMADIN PO SCH (17:57)
[2017-06-06] MEDS: MILK OF MAGNESIA PO SCH (19:04)
[2017-06-06] MEDS: NICODERM 21 MG TD SCH (20:29)
[2017-06-06] MEDS: PHENERGAN WITH CODEINE 6.25/10 MG/5 ML PO PRN (22:49)
[2017-06-07] MEDS: VALIUM PO SCH ×2 (00:52→06:12)
[2017-06-07] MEDS: ALBUTEROL 0.083% NEB NEB SCH ×3 (01:00→10:20)
[2017-06-07] MEDS: PULMICORT 0.5 MG/2 ML NEB SCH (05:10)
[2017-06-07] MEDS: SYNTHROID PO SCH (06:12)
[2017-06-07] MEDS: CARAFATE PO SCH (06:12)
[2017-06-07] MEDS: NORCO 7.5-325 PO SCH (06:12)
[2017-06-07] MEDS: PROTONIX PO SCH (06:12)
[2017-06-07 06:33] LABS: PROTHROMBIN TIME 14.1 SEC (9.3-11.0)
[2017-06-07 06:51] LABS: ALBUMIN 2.7 g/dL (3.4-5.0); ANION GAP 12.7; BILIRUBIN,TOTAL 0.32 mg/dL (0.00-1.20); BUN/CREATININE RATIO 28.57; CALCIUM 9.3 mg/dL (8.2-10.2); CREATININE 0.84 mg/dL (0.60-1.30); POTASSIUM 4.7 mmol/L (3.5-5.10); TOTAL PROTEIN 5.4 g/dL (6.4-8.2)
[2017-06-07 06:53] LABS: BASOPHILS % (AUTO) 0.3 % (0.0-3.0); EOSINOPHILS # (AUTO) 0.1 K/ul (0.0-0.7); EOSINOPHILS % (AUTO) 0.5 % (0.0-7.0); HEMATOCRIT 33.4 % (37.0-47.0); HEMOGLOBIN 11.4 g/dl (12.0-16.0); IMMATURE GRANULOCYTE % (AUTO) 3.9 % (0.0-5.0); LYMPHOCYTES # (AUTO) 1.7 K/uL (0.60-3.4); LYMPHOCYTES % (AUTO) 17.9 (10.0-50.0); MEAN CORPUSCULAR HEMOGLOBIN 33.2 pg (27.0-31.0); MEAN CORPUSCULAR HGB CONC 34.1 (31.8-35.4); MEAN CORPUSCULAR VOLUME 97.4 fl (81.0-99.0); MONOCYTES # (AUTO) 0.6 K/uL (0.4-2.0); MONOCYTES % (AUTO) 5.9 (0-10); NEUTROPHILS # (AUTO) 6.7 K/ul (2.0-6.9); NEUTROPHILS % (AUTO) 71.5; PLATELET COUNT 267 10^3/uL (140-440); RED BLOOD COUNT 3.43 10^6/ul (4.20-5.40)
[2017-06-07] MEDS: NEURONTIN PO SCH (09:06)
[2017-06-07] MEDS: PREDNISONE PO SCH (09:06)
[2017-06-07] MEDS: HYDROCHLOROTHIAZIDE PO SCH (09:07)
[2017-06-07] MEDS: GLUCOPHAGE PO SCH (09:07)
[2017-06-07] MEDS: ZESTRIL PO SCH (09:07)
[2017-06-07] MEDS: ROCEPHIN 1 GM in SODIUM CHLORIDE 50 ML IV SCH (09:07)
--- NOTE | 2017-06-07 09:12 | ECHO2D ---
Date of Exam: 06/06/17 Ordering Physician: OMER RAMIREZ Room #: 118 Reason for Echo: COPD, SOB M-Mode Normal Adult Results LV Dimensions Normal Adult Results AoV Opening excursions >1.6 >1.6 LVEDD-base- 3.5-5.8 4.8 Ao root dimensions 2.0-3.7 3.3 LVESD-base- 3.1-4.6 L. Atrium dimensions 1.9-3.8 4.0 Post. Wall thickness 0.8-1.1 1.1 IV septum (thickness) 0.7-1.2 1.2 Post. Wall excursion 0.72-1.3 NORMAL Septal motion NORMAL Systolic motion R. Ventricular cavity 1.5-2.0 NORMAL LVEF 60% 53% Paradoxical septal wall motion NORMAL 2-D : 2-D M Mode Echocardiogram was performed using apical four chamber and left parasternal long and short axis views. Mitral, tricuspid and aortic valves appear to be normal. Contractility of the left ventricle seems to be normal, so is the cavity size. Left atrial cavity size and aortic root appear to be normal. There is no pericardial effusion. There is no thrombus noted in the left ventricular or left aortic cavity. No mitral valve prolapse noted. M-MODE: MV: NORMAL AV: NORMAL TV: NORMAL PV: CHAMBER SIZE: NORMAL WALL MOTION: NORMAL PERICARDIUM: NORMAL INTERPRETATION: 1. BORDERLINE LEFT VENTRICULAR HYPERTROPHY 2.NO PARADOXICAL SEPTAL WALL MOTION 3. NORMAL VALVES 4. NORMAL LEFT VENTRICULAR CONTRACTILITY MTDD
[2017-06-07 09:23] VITALS: BP 112/66; TEMP 97.4
[2017-06-07] MEDS ORDERED: COUMADIN PO STA (09:52)
[2017-06-07] MEDS: TORADOL IVP SCH (09:58)
--- NOTE | 2017-06-07 11:45 | CM.DICTOOL ---
ADMISSION: 05/29/17 17:45 DISCHARGE: June 07, 2017 DATE OF SERVICE: 06/07/17 FINAL DIAGNOSIS Acute Bronchitis/Bronchiolitis COPD with exacerbation Hypertension Diabetes Mellitus, type 2 History of Pulmonary Embolism (on coumadin) Hypothyroid Depression Spinal Stenosis (pain management) DDD, Cervical Spine Hysterectomy Obesity Tobacco Abuse LAST VITALS Temp Pulse Resp BP Pulse Ox 97.4 F L 69 21 112/66 99 06/07/17 09:53 06/07/17 09:53 06/07/17 09:53 06/07/17 09:53 06/07/17 10:00 ACTIVE HOME MEDICATIONS Acetaminophen/Hydrocodone Bitart (Ald[place] 7.5-325) 1 tab PO Q8H REPLACED BY [facility] Last Admin: 06/07/17 06:12 Dose: 1 tab Chlordiazepoxide HCl (Librium) 25 mg PO BID PRN PRN Reason: anxiety Last Admin: 06/03/17 01:19 Dose: 25 mg Diazepam (Valium) 5 mg PO Q6HR REPLACED BY [facility] Last Admin: 06/07/17 06:12 Dose: 5 mg Gabapentin (Neurontin) 300 mg PO BID REPLACED BY [facility] Last Admin: 06/07/17 09:06 Dose: 300 mg Hydrochlorothiazide (Hydrochlorothiazide) 12.5 mg PO DAILY REPLACED BY [facility] Last Admin: 06/07/17 09:07 Dose: 12.5 mg Levothyroxine Sodium (Synthroid) 25 mcg PO QDAC REPLACED BY [facility] Last Admin: 06/07/17 06:12 Dose: 25 mcg Lisinopril (Zestril) 10 mg PO DAILY REPLACED BY [facility] Last Admin: 06/07/17 09:07 Dose: 10 mg Metformin HCl (Glucophage) 500 mg PO BIDWM REPLACED BY [facility] Last Admin: 06/07/17 09:07 Dose: 500 mg Promethazine HCl/Codeine (Phenergan With Codeine 6.25/10 Mg/5 Ml) 10 ml PO Q6H PRN PRN Reason: Cough Last Admin: 06/06/17 22:49 Dose: 10 ml Sertraline HCL (Zoloft) 150 mg Daily Last Admin: Warfarin Sodium (Coumadin) 4 mg PO QPM REPLACED BY [facility] Last Admin: 06/06/17 17:57 Dose: 4 mg ALLERGIES No Known Allergies Allergy (Verified 05/29/17 16:42) NEW PRESCRIPTIONS: Albuterol Solution for Nebulizer 0.83% every 4 hours Pulmicort 0.5 mg /2 ml BID for nebulizer Prednisone 10 mg TID with meals for 5 days Keflex 500 mg BID for 7 days Toradol 10 mg BID for 5 days Protonix 40 mg daily SMOKING: Advised to stop smoking DISEASE SPECIFIC EDUCATION: Acute Bronchitis Smoking Cessation Nebulizer use Steroid use Prescriptions Appointment Glucose Testing LAB REVIEW: 06/07/17 06:21 06/07/17 06:21 06/07/17 06:21: Sodium 141, Potassium 4.7, Chloride 104, Carbon Dioxide 29, Anion Gap 12.7, BUN 24 H, Creatinine 0.84, Estimated GFR (MDRD) 72.00, BUN/ Creatinine Ratio 28.57, Glucose 123 H, Calcium 9.3, Total Bilirubin 0.32, AST 22 , ALT 45, Alkaline Phosphatase 37 L, Total Protein 5.4 L, Albumin 2.7 L, Globulin 2.7, Albumin/Globulin Ratio 1.00 06/07/17 06:21: WBC 9.40, RBC 3.43 L, Hgb 11.4 L, Hct 33.4 L, MCV 97.4, MCH 33.2 H, MCHC 34.1, RDW Coeff of Nina 14.9 H, Plt Count 267, Immature Gran % (Auto ) 3.9, Neut % (Auto) 71.5, Lymph % (Auto) 17.9, Clinch % (Auto) 5.9, Eos % (Auto) 0.5, Baso % (Auto) 0.3, Immature Gran # (Auto) 0.4, Neut # 6.7, Lymph # 1.7, Clinch # 0.6, Eos # 0.1, Baso # 0.0 06/07/17 06:21: PT 14.1 H, INR 1.39 PLAN: Discharge home Diet: Consistent Carbohydrates Activity: Gradually resume as tolerated. Avoid outside activities in extremely hot/humid weather. Make appointment to see the dietitian, Fiordaliza Singer for diet teaching/weight reduction Continue medications as listed on nursing discharge information sheet An appointment is scheduled with Dr. Hoffman on at 10:45 am. Ms. Snow is alert and oriented x 3. She is independent with ADL's. She is ambulatory in the room and hallway without use of an assistive device. She demonstrates a good appetite, consuming 75-100% of her meals daily. She will be given a prescription for a glucometer and testing supplies for twice a day blood sugar testing. A nebulizer has been requested from [facility] and will be delivered to her home. Skin is in good condition and free of decubitus ulcers. Robetr Hoffman MD Olga Grant APRN
--- NOTE | 2017-07-01 11:47 | PN ---
DATE OF SERVICE: 06/07/17 SUBJECTIVE: The patient was seen with Nurse Practitioner and Merchandise Supervisor. 47 year old white female hospitalized with COPD, Acute bronchitis. The patient had bronchiolitis with intercostal muscle retraction. She was in respiratory distress. She stayed like that for a couple of days and her coughing was also dried hacking cough with sometimes productive of yellowish sputum. The patient' s condition has slowly has improved and she says that she is feeling a lot better. She can talk without cough anymore. REVIEW OF SYSTEMS: CONSTITUTIONAL: No night sweats. No fatigue, malaise, lethargy. No fever or chills. HEENT: Eyes: No visual changes. No eye pain. No eye discharge. ENT: No runny nose. No epistaxis. No sinus pain. No sore throat. No odynophagia. No congestion. RESPIRATORY: Mild cough, no congestion. No hemoptysis. No shortness of breath. CARDIOVASCULAR: No angina symptoms. No CHF symptoms. No atypical chest pain for CAD. No palpitations. No orthopnea. No PND. GASTROINTESTINAL: No abdominal pain. No nausea or vomiting. No diarrhea or constipation. No hematemesis. No hematochezia. GENITOURINARY: No urgency. No frequency. No dysuria. No hematuria. No obstructive symptoms. No discharge. No pain. No significant abnormal bleeding. MUSCULOSKELETAL: No musculoskeletal pain; no joint swelling. NEUROLOGICAL: No headache. No neck pain. No syncope. No seizures. No dizziness. PSYCHIATRIC: Not anxious. No depression. No suicidal thoughts. No homicidal thoughts. SKIN: No rash. No lesions. No wounds. ENDOCRINE: No unexplained weight loss. No weight gain. HEMATOLOGIC/LYMPHATIC: No anemia. No purpura. No petechiae. No prolonged or excessive bleeding. No palpable lymph nodes. PHYSICAL EXAMINATION: GENERAL: The patient is oriented to time, place and person. VITAL SIGNS: Temperature 98, pulse 85, respiratory rate 16, blood pressure 138/ 90 and pulse ox 96% on room air. HEENT: Head normocephalic, atraumatic. Eyes: Extraocular muscles are intact. Pupils are equal, round and reactive to light and accommodation. Ears: No lesions. Nose appeared normal. Throat: No exudate or erythema. NECK: Supple. No JVD, no carotid bruit. No lymphadenopathy or thyromegaly. LUNGS: Decreased breath sounds with mild expiratory wheeze and good air entry. Percussion note normal. Chest symmetrical. HEART: S1, S2, no S3. No murmurs. No cyanosis or clubbing. No ascites. Pulses: Dorsalis pedis and posterior tibial pulses +1 to +2 both sides. ABDOMEN: Soft. Nontender. Bowel sounds active. No CVA tenderness. No mass felt. EXTREMITIES: No edema. Full range of motion of all extremities, equal. NEUROLOGIC: No focal deficit. Cranial nerves II through XII are grossly intact. No headache, no double vision or headache. SKIN: Not dry. Intact. Turgor - normal. LYMPHATIC: No palpable lymph nodes/no lymphedema. MUSCULOSKELETAL: Normal joints with no swelling. Muscle tone is normal. LABS: Hgb 11.7, hct 34, WBC 9,300 normal differential, creatinine 0.8, BUN 24, potassium 4.7. PLAN: 1. The patient is going to have a three step test for figure out whether she is going to need oxygen at home or not. 2. PFT to be done before discharge 3. The patient is to continued followup with the Pain Management 4. Counseling for smoking done 5. Counseling for weight loss done, BMI 50%. 6. Also advised to join Pulmonary rehab which she has declined 7. Will be discharged on Keflex and Prednisone and Nebulizer CONDITION: Stable on discharge. TIME SPENT: More than 30 minutes. Plan and coordination of the patient's care discussed in the presence of nurse. RONALDO
--- NOTE | 2017-07-01 11:54 | PN ---
DATE OF SERVICE: 06/04/17 SUBJECTIVE: 47 year old white female hospitalized with bronchiolitis/bronchitis. The patient 's condition has steadily improved and she still needs more doses of steroids and antibiotics and NEBS treatment. The patient is strongly advised to quit smoking. Counseling done. PHYSICAL EXAMINATION: VITAL SIGNS: Stable she is afebrile. HEENT: Head normocephalic, atraumatic. Eyes: Extraocular muscles are intact. Pupils are equal, round and reactive to light and accommodation. Ears: No lesions. Nose appeared normal. Throat: No exudate or erythema. NECK: Supple. No JVD, no carotid bruit. No lymphadenopathy or thyromegaly. LUNGS: Decreased breath sounds with mild wheeze. Percussion note normal. Chest symmetrical. HEART: S1, S2, no S3. No murmurs. No cyanosis or clubbing. No ascites. Pulses: Dorsalis pedis and posterior tibial pulses +1 to +2 both sides. ABDOMEN: Soft. Nontender. Bowel sounds active. No CVA tenderness. No mass felt. EXTREMITIES: No edema. Full range of motion of all extremities, equal. NEUROLOGIC: No focal deficit. Cranial nerves II through XII are grossly intact. No headache, no double vision or headache. SKIN: Not dry. Intact. Turgor - normal. LYMPHATIC: No palpable lymph nodes/no lymphedema. MUSCULOSKELETAL: Normal joints with no swelling. Muscle tone is normal. PLAN: 1. The patient is morbidly obese and advised to lose weight 2. Pulmonary rehab advised. The patient was seen and examined with Nurse Practitioner TIME SPENT: More than 30 minutes. Plan and coordination of the patient's care discussed in the presence of nurse. RONALDO
--- NOTE | 2017-07-01 12:44 | PN ---
DATE OF SERVICE: 06/05/17 SUBJECTIVE: 47 year old white female hospitalized with acute bronchitis/pneumonitis and bronchiolitis. The patient's condition seems to be improving slowly. She is massively obese. She is a smoker, counseling for smoking done and counseling for weight loss done. REVIEW OF SYSTEMS: CONSTITUTIONAL: No night sweats. No fatigue, malaise, lethargy. No fever or chills. HEENT: Eyes: No visual changes. No eye pain. No eye discharge. ENT: No runny nose. No epistaxis. No sinus pain. No sore throat. No odynophagia. No congestion. RESPIRATORY: Mild cough with congestion. No hemoptysis. Shortness of breath on minimal exertion. CARDIOVASCULAR: No angina symptoms. No CHF symptoms. No atypical chest pain for CAD. No palpitations. No orthopnea. No PND. GASTROINTESTINAL: No abdominal pain. No nausea or vomiting. No diarrhea or constipation. No hematemesis. No hematochezia. GENITOURINARY: No urgency. No frequency. No dysuria. No hematuria. No obstructive symptoms. No discharge. No pain. No significant abnormal bleeding. MUSCULOSKELETAL: No musculoskeletal pain; no joint swelling. NEUROLOGICAL: No headache. No neck pain. No syncope. No seizures. No dizziness. PSYCHIATRIC: Not anxious. No depression. No suicidal thoughts. No homicidal thoughts. SKIN: No rash. No lesions. No wounds. ENDOCRINE: No unexplained weight loss. No weight gain. HEMATOLOGIC/LYMPHATIC: No anemia. No purpura. No petechiae. No prolonged or excessive bleeding. No palpable lymph nodes. PHYSICAL EXAMINATION: VITAL SIGNS: Temperature 97.3, pulse 76, respiratory rate 19, blood pressure 125/82 and pulse ox 93%. HEENT: Head normocephalic, atraumatic. Eyes: Extraocular muscles are intact. Pupils are equal, round and reactive to light and accommodation. Ears: No lesions. Nose appeared normal. Throat: No exudate or erythema. NECK: Supple. No JVD, no carotid bruit. No lymphadenopathy or thyromegaly. LUNGS: Decreased breath sounds with mild wheeze. Percussion note normal. Chest symmetrical. HEART: S1, S2, no S3. No murmurs. No cyanosis or clubbing. No ascites. Pulses: Dorsalis pedis and posterior tibial pulses +1 to +2 both sides. ABDOMEN: Soft. Nontender. Bowel sounds active. No CVA tenderness. No mass felt. EXTREMITIES: No edema. Full range of motion of all extremities, equal. NEUROLOGIC: No focal deficit. Cranial nerves II through XII are grossly intact. No headache, no double vision or headache. SKIN: Not dry. Intact. Turgor - normal. LYMPHATIC: No palpable lymph nodes/no lymphedema. MUSCULOSKELETAL: Normal joints with no swelling. Muscle tone is normal. LABS: hgb 12.1, hct 35, WBC 8,900 normal differential, creatinine 0.8, BUN 31, potassium 4.7. ASSESSMENT: 1. Acute bronchitis/pneumonitis seems to be resolving PLAN: 1. Advised to lose weight 2. NEBS treatment 3. Steroids 4. IV antibiotics 5. Up and about 6. Pulmonary rehab advised 7. Will do echocardiogram to evaluate LV function. TIME SPENT: More than 30 minutes. Plan and coordination of the patient's care discussed in the presence of nurse. RONALDO
--- NOTE | 2017-07-01 12:51 | PN ---
DATE OF SERVICE: 06/06/17 SUBJECTIVE: 47 year old white female hospitalized with acute bronchitis and COPD. The patient's symptoms were more like a bronchiolitis with intercostal muscle retraction with respirations and especially inspiration. That has subsided and the distress has subsided. She is coughing occasionally and seems to be doing much better. REVIEW OF SYSTEMS: CONSTITUTIONAL: No night sweats. No fatigue, malaise, lethargy. No fever or chills. HEENT: Eyes: No visual changes. No eye pain. No eye discharge. ENT: No runny nose. No epistaxis. No sinus pain. No sore throat. No odynophagia. No congestion. RESPIRATORY: No cough, no congestion. No hemoptysis. No shortness of breath. CARDIOVASCULAR: No angina symptoms. No CHF symptoms. No atypical chest pain for CAD. No palpitations. No orthopnea. GASTROINTESTINAL: No abdominal pain. No nausea or vomiting. No diarrhea or constipation. No hematemesis. No hematochezia. GENITOURINARY: No urgency. No frequency. No dysuria. No hematuria. No obstructive symptoms. No discharge. No pain. No significant abnormal bleeding. MUSCULOSKELETAL: No musculoskeletal pain; no joint swelling. NEUROLOGICAL: No headache. No neck pain. No syncope. No seizures. No dizziness. PSYCHIATRIC: Not anxious. No depression. No suicidal thoughts. No homicidal thoughts. SKIN: No rash. No lesions. No wounds. ENDOCRINE: No unexplained weight loss. No weight gain. HEMATOLOGIC/LYMPHATIC: No anemia. No purpura. No petechiae. No prolonged or excessive bleeding. No palpable lymph nodes. PHYSICAL EXAMINATION: GENERAL: The patient is oriented to time, place and person. VITAL SIGNS: Temperature 97.3, pulse 70, respiratory rate 16, blood pressure 118/80 and pulse ox 96%. HEENT: Head normocephalic, atraumatic. Eyes: Extraocular muscles are intact. Pupils are equal, round and reactive to light and accommodation. Ears: No lesions. Nose appeared normal. Throat: No exudate or erythema. NECK: Supple. No JVD, no carotid bruit. No lymphadenopathy or thyromegaly. LUNGS: Decreased breath sounds but clear to auscultation. Percussion note normal. Chest symmetrical. HEART: S1, S2, no S3. No murmurs. No cyanosis or clubbing. No ascites. Pulses: Dorsalis pedis and posterior tibial pulses +1 to +2 both sides. ABDOMEN: Soft. Nontender. Bowel sounds active. No CVA tenderness. No mass felt. EXTREMITIES: No edema. Full range of motion of all extremities, equal. NEUROLOGIC: No focal deficit. Cranial nerves II through XII are grossly intact. No headache, no double vision or headache. SKIN: Not dry. Intact. Turgor - normal. LYMPHATIC: No palpable lymph nodes/no lymphedema. MUSCULOSKELETAL: Normal joints with no swelling. Muscle tone is normal. LABS: Hgb 11.7, hct 34, WBC 9,300 normal differential, creatinine 0.8, BUN 26, potassium 4.7, INR 1.5. ASSESSMENT: 1. Acute bronchitis/Bronchiolitis 2. Severe chronic lung disease with smoking PLAN: 1. Pulmonary rehab discussed and advised to joint it 2. Advised to quit smoking, counseling done for smoking 3. The patient is morbidly obese 4. Weight loss diet discussed 5. The patient had echocardiogram done today showed borderline LVH with normal LV contractility with no evidence of pulmonary hypertension. CONDITION: Stable and improving. TIME SPENT: More than 30 minutes. Plan and coordination of the patient's care discussed in the presence of nurse. RONALDO
--- NOTE | 2017-07-29 12:38 | DS ---
DATE OF SERVICE: 06/07/17 FINAL DIAGNOSIS: 1. Acute bronchitis/bronchiolitis 2. COPD with exacerbation 3. Hypertension 4. Diabetes Mellitus, type 2 5. History of pulmonary embolism (on Coumadin) 6. Hypothyroid 7. Depression 8. Spinal stenosis (pain Management) 9. DDD, Cervical spine 10.Hysterectomy 11.Obesity 12.Tobacco abuse LAST VITALS: Temperature 97.4, pulse 69, respiratory rate 21, blood pressure 112/66 and pulse ox 99%. DISCHARGE INSTRUCTIONS: Discharge home. Make appointment to see the dietitian, Fiordaliza Singer for diet teaching/weight reduction. Continue medications as listed on nursing discharge information sheet. An appointment is scheduled with Dr. Hoffman on June 11 at 10:45pm. MEDICATIONS AT DISCHARGE: [place] 7.5-325mg PO Q 8 hours Librium 25mg Po twice a day PRN Valium 5mg Po Q 6 hours Neurontin 300mg PO twice a day Hydrochlorothiazide 12.5mg PO daily Synthroid 25 mcg PO QDAC Zestril 10mg PO daily Glucophage 500mg PO twice a day Phenergan with Codeine6.25/10mg/5ml 10ml PO Q 6 hours PRN Zoloft 150mg PO daily Coumadin 4mg PO QPM ALLERGIES: No known allergies NEW PRESCRIPTIONS: Albuterol Solution for Nebulizer 0.83% every 4 hours Pulmicort 0.5mg/2ml twice a day for nebulizer Prednisone 10mg Three times a day with meals for 5 days Keflex 500mg twice a day for 7 days Toradol 10mg Twice a day for 5 days Protonix 40mg daily DIET INSTRUCTIONS: Consistent Carbohydrates ACTIVITY: Gradually resume as tolerated. Avoid outside activities in extremely hot/humid weather. SMOKING: Advised to stop smoking DISEASE SPECIFIC EDUCATION: Acute bronchitis Smoking cessation Nebulizer use Steroid use Prescriptions Appointment Glucose testing HOSPITAL COURSE: 47 year old white female hospitalized with acute bronchiolitis/pneumonitis. The patient's condition has improved with high doses of steroids, antibiotics, NEBS treatment. The patient is going to be discharged on Keflex and Prednisone. The patient was treated with Rocephin and Zithromax with IV steroids. The patient's PFT is pending along with three step test need for oxygen. Counseling for smoking done. Counseling for weight loss diet done. The patient is morbidly obese. Pulmonary rehab advised and declined. Prognosis: guarded. The patient has history of pulmonary embolism. Advised to continue her Coumadin. She will given 4mg extra dose today. Her INR today was 1.39, desired level will be 2-3. Her venous scan during the stay in the hospital was negative. CONDITION: Stable. TIME SPENT: More than 60 minutes. MTDD
--- NOTE | 2017-07-29 12:45 | PN ---
05/29/17: Level 5 05/30/17: Intermediate 17: Intermediate 06/01/17: Intermediate 06/02/17: Intermediate 06/03/17: Intermediate 06/04/17: Intermediate 06/05/17: Intermediate 06/06/17: Intermediate 06/07/17: D as in discharge MTDD
== END 2017-06-07 12:54 | disposition home or self-care (01) | DRG 192 ==
LOC: ED 16:34 → MEDSURG A 17:45 → SCU 18:07 → MEDSURG B 06-03 12:07
PROVIDERS: ADMIT Internal Medicine; ATTEND Internal Medicine
DX: J44.1 Chronic obstructive pulmonary disease with (acute) exacerbation (principal); J20.9 Acute bronchitis, unspecified; J44.0 Chronic obstructive pulmonary disease with (acute) lower respiratory infection; R06.02 Shortness of breath; I10 Essential (primary) hypertension; E11.9 Type 2 diabetes mellitus without complications; F32.9 Major depressive disorder, single episode, unspecified; E66.01 Morbid (severe) obesity due to excess calories; E88.81 Metabolic syndrome and other insulin resistance; E03.9 Hypothyroidism, unspecified; M50.30 Other cervical disc degeneration, unspecified cervical region; M48.00 Spinal stenosis, site unspecified; F17.200 Nicotine dependence, unspecified, uncomplicated; R07.89 Other chest pain; R51 Headache; Z86.711 Personal history of pulmonary embolism; Z86.718 Personal history of other venous thrombosis and embolism; Z79.01 Long term (current) use of anticoagulants; Z79.4 Long term (current) use of insulin; Z71.3 Dietary counseling and surveillance
CPT/HCPCS: 36415; 80053; 82803; 82962; 83605; 84145; 85025; 85610; 87040; 87081; 93005; 93010; 94640; 94761; 96374; 96375; 97802; 99223; 99232; 99239; 99284

== ENCOUNTER 2017-06-11 12:00 | Outpatient (CLI) | END 2017-06-11 12:01 | disposition home or self-care (01) | LOC: LAB 12:00 | PROVIDERS: ATTEND Internal Medicine | DX: I26.99 Other pulmonary embolism without acute cor pulmonale (principal) | CPT/HCPCS: 36415; 85610 ==

== ENCOUNTER 2017-06-13 16:20 | Emergency (ER) ==
[2017-06-13 16:27] VITALS: BP 100/64; TEMP 98.7; BMI 48.5
--- NOTE | 2017-06-13 16:56 | ED.PDOC ---
General ED Provider: Dr. FIGUEROA WATKINS Chief Complaint: Cough Stated Complaint: Hospitalized for 11 days with pneumonia. Discharged 5 days ago , Still coughing and feeling SOB despite neb treatments. Cough occassionally produces white sputum. Chills but no fever. No other symptoms. Time Seen by Physician: 16:49 Mode of Arrival: Walk-In Information Source: Patient Exam Limitations: No limitations Primary Care Provider: OMER RAMIREZ Nursing and Triage Documentation Reviewed and Agree: Yes Respiratory Complaint Exam - Respiratory Complaint/Exam Onset/Duration: 2 weeks Symptoms Are: Still present Timing: Constant Initial Severity: Moderate Current Severity: Moderate Location: Chest Aggravating: Reports: None Alleviating: Reports: None. Denies: Bronchodilators Associated Signs and Symptoms: Reports: Dyspnea (at times) Related History: Reports: Similar episode (COPD exacerbations) History of Healthcare-Acquired Pneumonia: No Related Surgical History: Reports: None Pulmonary Embolism Risk Factors: None, Previous PE Cardiac Risk Factors: Reports: Smoking, Diabetes, Hypertension Pseudomonas Risk Factors: Reports: Chronic Lung Disease Tuberculosis Risk Factors: Reports: Diabetes, Smoking Status Asthmaticus Risk Factors: Reports: Recent admissions Home Oxygen Use: No Recent Stress Test: No Recent Echo/LV Function: No Current Antibiotic Use: Yes (keflex) Current Asthma Medication Use: Yes (duoneb txs) Respiratory Distress: None Inadequate Respiratory Effort: No Dysphagia Present: No Stridor Present: No JVD Present: No Accessory Muscle Use: No Retractions: Not Present Diminished Breath Sounds: No Sinus Tenderness: None Grunting Respirations: No Kussmaul Respirations: No Differential Diagnoses: COPD Exacerbation, Pneumonia, Pulmonary Embolism, Lower Resp. Infection Quality Indicators For Pneumonia: SpO2 assessed, Vital signs, Mental status assessed Review of Systems - Review Of Systems Constitutional: Reports: Malaise Eyes: Reports: No symptoms Ears, Nose, Mouth, Throat: Reports: No symptoms Respiratory: Reports: Cough, Short of air Cardiac: Reports: No symptoms GI: Reports: No symptoms : Reports: No symptoms Musculoskeletal: Reports: No symptoms Skin: Reports: No symptoms Neurological: Reports: No symptoms All Other Systems: Reviewed and Negative Past Medical History - Past Medical History Previously Healthy: No (recent pneumonia) Endocrine: Reports: DM 2 Cardiovascular: Reports: Hypertension Respiratory: Reports: COPD, PE Hematological: Reports: None Gastrointestinal: Reports: None Genitourinary: Reports: None Neuro/Psych: Reports: None Musculoskeletal: Reports: Arthritis, Other (spinal stenosis ) Cancer: Reports: None Last Menstrual Period: N/A Other Pertinent Past Medical History: Vertigo - Surgical History General Surgical History: Reports: (x 2), Other ( colon biopsyx2, lithotripsyx2, carpal tunnel, hysterectomy) - Family History Family History: Reports: Unknown - Social History Smoking Status: Current every day smoker, Heavy tobacco smoker Hx Substance Use: No Alcohol Screening: None Lives: With family - Immunizations Tetanus Shot up to Date: Yes Influenza Vaccine within 12 Months: No Pneumococcal Vaccine up to Date: No Physical Exam - Physical Exam Appearance: Well-appearing, No pain distress, Well-nourished, Obese Ill-appearing: None Pain Distress: None Eyes: BENY, EOMI, Conjunctiva clear ENT: Nose normal, Oropharynx normal, TMs Occluded (TMs hess and dull) Neck: Supple Respiratory: Airway patent, Breath sounds clear (no wheezing even with cough), Breath sounds equal, Respirations nonlabored Cardiovascular: RRR, Pulses normal, No rub, No murmur GI/: Soft, Nontender (mild upper abd tenderness), No masses, Bowel sounds normal, No Organomegaly, Tender Musculoskeletal: Normal strength, ROM intact, No edema, No calf tenderness Skin: Warm, Dry, Normal color Neurological: Sensation intact, Motor intact, Reflexes intact, Cranial nerves intact, Alert, Oriented Psychiatric: Affect appropriate, Mood appropriate Physician Notification - Case Discussed Physician Notified: Dr. Ramirez Time of Notification: 18:44 (Steroids, f/u with him in office in 2 days if no better. STOP SMOKING!) Critical Care Note - Critical Care Note Total Time (mins): 0 Course - Course Hematology/Chemistry: 06/13/17 17:30 06/13/17 17:30 Orders, Labs, Meds: Lab Review 06/13/17 06/13/17 06/13/17 17:07 17:30 17:30 WBC 10.77 H RBC 3.73 L Hgb 12.2 Hct 37.1 MCV 99.5 H MCH 32.7 H MCHC 32.9 RDW Coeff of Nina 15.7 H Plt Count 219 Immature Gran % (Auto) 1.0 Neut % (Auto) 61.9 Lymph % (Auto) 28.4 King % (Auto) 6.8 Eos % (Auto) 1.3 Baso % (Auto) 0.6 Immature Gran # (Auto) 0.1 Neut # 6.7 Lymph # 3.1 King # 0.7 Eos # 0.1 Baso # 0.1 Puncture Site Rbrach O2 Saturation 93.0 L ABG pH 7.378 ABG pCO2 42.8 ABG pO2 67.0 L ABG HCO3 25.2 ABG Total CO2 26 ABG Base Excess 0 FiO2 % 21.0 Sodium 140 Potassium 4.0 Chloride 105 Carbon Dioxide 24 Anion Gap 15.0 BUN 28 H Creatinine 0.98 Estimated GFR (MDRD) 61.00 BUN/Creatinine Ratio 28.57 Glucose 152 H Calcium 10.0 Total Bilirubin 0.19 AST 19 ALT 47 Alkaline Phosphatase 58 Total Creatine Kinase 27 Troponin I < 0.0100 Total Protein 6.3 L Albumin 3.1 L Globulin 3.2 Albumin/Globulin Ratio 0.97 Procalcitonin Urine Color Urine Clarity Urine pH Ur Specific [place] Urine Protein Urine Glucose (UA) Urine Ketones Urine Blood Urine Nitrite Urine Bilirubin Urine Urobilinogen Ur Leukocyte Esterase Urine Microscopic WBC Ur Squamous Epith Cells Urine Bacteria 06/13/17 06/13/17 17:30 17:39 WBC RBC Hgb Hct MCV MCH MCHC RDW Coeff of Nina Plt Count Immature Gran % (Auto) Neut % (Auto) Lymph % (Auto) King % (Auto) Eos % (Auto) Baso % (Auto) Immature Gran # (Auto) Neut # Lymph # King # Eos # Baso # Puncture Site O2 Saturation ABG pH ABG pCO2 ABG pO2 ABG HCO3 ABG Total CO2 ABG Base Excess FiO2 % Sodium Potassium Chloride Carbon Dioxide Anion Gap BUN Creatinine Estimated GFR (MDRD) BUN/Creatinine Ratio Glucose Calcium Total Bilirubin AST ALT Alkaline Phosphatase Total Creatine Kinase Troponin I Total Protein Albumin Globulin Albumin/Globulin Ratio Procalcitonin < 0.05 Urine Color Yellow Urine Clarity Clear Urine pH 5.5 Ur Specific [place] 1.015 Urine Protein Negative Urine Glucose (UA) Negative Urine Ketones Negative Urine Blood Negative Urine Nitrite Negative Urine Bilirubin Negative Urine Urobilinogen 0.2 Ur Leukocyte Esterase Trace Urine Microscopic WBC 0-2 Ur Squamous Epith Cells 2-5 Urine Bacteria Trace Orders Category Date Time Status ABG DRAW REQUEST Stat CARDIO 06/13/17 17:07 Completed EKG-(ED ONLY) Stat CARDIO 06/13/17 17:06 Completed ABG Stat LAB 06/13/17 17:07 Completed CBC W/ AUTO DIFF Stat LAB 06/13/17 17:30 Completed CK [CREATINE KINASE] Stat LAB 06/13/17 17:30 Completed COMPREHENSIVE METABOLIC PANEL Stat LAB 06/13/17 17:30 Completed PROCALCITONIN Stat LAB 06/13/17 17:30 Completed TROPONIN I Stat LAB 06/13/17 17:30 Completed URINALYSIS C & S IF INDICATED Stat LAB 06/13/17 17:39 Completed SODIUM CHLORIDE 0.9% @ 83 MLS/HR(1,000ml) MEDS 06/13/17 19:00 Ordered Sodium Chloride 0.9% [Sodium Chloride] 1,000 ml IV 83 mls/hr CHEST, 2 VIEWS PA & LAT Stat RADS 06/13/17 17:04 Completed Medications Generic Name Dose Route Start Last Admin Trade Name Freq PRN Reason Stop Dose Admin Sodium Chloride 1,000 mls @ 83 mls/hr 06/13/17 19:00 Sodium Chloride IV .Q12H3M NINFA Vital Signs: Temp Pulse Resp BP Pulse Ox 06/13/17 16:21 98.7 F 90 22 100/64 90 L Departure - Departure Time of Disposition: 18:53 Disposition: HOME SELF-CARE Discharge Problem: Bronchitis Instructions: Acute Bronchitis (ED) Condition: Good Pt referred to PMD for follow-up: Yes (see doctor in his office in 2 days in the morning) Allergies/Adverse Reactions: Allergies No Known Allergies Allergy (Verified 06/13/17 16:28) Home Medications: Ambulatory Orders Chlordiazepoxide HCl [Librium] 25 mg PO BID PRN 05/29/17 Diazepam [Valium] 5 mg PO QID 05/29/17 Gabapentin [Neurontin] 300 mg PO BID 05/29/17 Hydrocodone Bit/Acetaminophen [[place] 7.5-325] 1 each PO TID 05/29/17 Levothyroxine Sodium [Synthroid] 25 mcg PO QDAC 05/29/17 Lisinopril/Hydrochlorothiazide [Lisinopril-Hctz 10-12.5 mg Tab] 1 each PO DAILY 05/29/17 Metformin HCl [Glucophage] 500 mg PO BIDWM 05/29/17 Promethazine HCl/Codeine [Prometh-Codein 6.25-10 mg/5 ml] 5 ml PO TID PRN Sertraline HCl [Zoloft] 150 mg PO DAILY 05/29/17 Warfarin Sodium [Coumadin] 4 mg PO DAILY 05/29/17 Albuterol Sulfate 0.083% Neb [Albuterol 0.083% Neb] 1 vial NEB RTQ4H #120 vial.neb 06/07/17 Budesonide [Pulmicort 0.5 mg/2 ml] 1 vial NEB RTBID #60 vial.keyur 06/07/17 Cephalexin [Keflex] 500 mg PO Q12HR #14 capsule 06/07/17 Ketorolac Tromethamine [Toradol] 10 mg PO BID #10 tablet 06/07/17 Pantoprazole Sodium [Protonix] 40 mg PO QDAC #30 tablet. 06/07/17 Promethazine HCl/Codeine [Prometh-Codein 6.25-10 mg/5 ml] 5 ml PO Q6H #120 syrup 06/13/17 Disposition Discussed With: Patient, Family
[2017-06-13 17:39] LABS: BASOPHILS # (AUTO) 0.1 K/uL (0-0.2); BASOPHILS % (AUTO) 0.6 % (0.0-3.0); EOSINOPHILS # (AUTO) 0.1 K/ul (0.0-0.7); EOSINOPHILS % (AUTO) 1.3 % (0.0-7.0); HEMATOCRIT 37.1 % (37.0-47.0); HEMOGLOBIN 12.2 g/dl (12.0-16.0); LYMPHOCYTES # (AUTO) 3.1 K/uL (0.60-3.4); LYMPHOCYTES % (AUTO) 28.4 (10.0-50.0); MEAN CORPUSCULAR HEMOGLOBIN 32.7 pg (27.0-31.0); MEAN CORPUSCULAR HGB CONC 32.9 (31.8-35.4); MEAN CORPUSCULAR VOLUME 99.5 fl (81.0-99.0); MONOCYTES # (AUTO) 0.7 K/uL (0.4-2.0); MONOCYTES % (AUTO) 6.8 (0-10); NEUTROPHILS # (AUTO) 6.7 K/ul (2.0-6.9); NEUTROPHILS % (AUTO) 61.9; PLATELET COUNT 219 10^3/uL (140-440); RED BLOOD COUNT 3.73 10^6/ul (4.20-5.40); WHITE BLOOD COUNT 10.77 K/ul (4.6-10.2)
[2017-06-13 17:43] LABS: ABG BASE EXCESS 0 (-2.0-2.0); ABG HCO3 25.2 (22.0-26.0); ABG PCO2 42.8 mmHg (35-45); ABG PH 7.378 (7.35-7.45); ABG TCO2 26 (22.0-28.0)
[2017-06-13 17:50] LABS: BILIRUBIN,URINE Negative (NEGATIVE); KETONES,URINE Negative (NEGATIVE); LEUKOCYTE ESTERASE ,URINE Trace (NEGATIVE); NITRITE,URINE Negative (NEGATIVE); PH,URINE 5.5 (5-9); PROTEIN,URINE Negative (NEGATIVE); URINE, BLOOD Negative (NEGATIVE)
[2017-06-13 17:54] LABS: ADD URINE MICROSCOPIC YES
[2017-06-13 17:55] LABS: BACTERIA,URINE TRACE (NOT PRESENT)
--- NOTE | 2017-06-13 18:01 | DI ---
EXAM: Chest two views CLINICAL INDICATION: Persistent cough and shortness of breath. COMPARISON: 06/04/2017. FINDINGS: PA and lateral views of the thorax are provided. The pulmonary parenchyma is clear and there is no pleural abnormality. The cardiomediastinal silhoue tte and visualized bony structures are unremarkable. IMPRESSION: Negative chest x-ray.
[2017-06-13 18:05] LABS: ALANINE AMINOTRANSFERASE 47 U/L (12-78); ALBUMIN 3.1 g/dL (3.4-5.0); ALBUMIN/GLOBULIN RATIO 0.97; ALKALINE PHOSPHATASE 58 U/L (42-98); ASPARTATE AMINO TRANSFERASE 19 U/L (15-37); BILIRUBIN,TOTAL 0.19 mg/dL (0.00-1.20); BLOOD UREA NITROGEN 28 mg/dL (7-18); BUN/CREATININE RATIO 28.57; CARBON DIOXIDE 24 mmol/L (21-32); CHLORIDE 105 mmol/L (98-107); CREATINE KINASE 27 U/L; CREATININE 0.98 mg/dL (0.60-1.30); GLUCOSE 152 mg/dL (70-110); SODIUM 140 mmol/L (136-145); TOTAL PROTEIN 6.3 g/dL (6.4-8.2)
[2017-06-13] MEDS ORDERED: SOLU-MEDROL 125 MG IM STA (18:50)
[2017-06-13] MEDS ORDERED: SODIUM CHLORIDE 1,000 ML IV SCH (19:00)
== END 2017-06-13 19:12 | disposition home or self-care (01) ==
LOC: ED 16:20
DX: J20.9 Acute bronchitis, unspecified (principal); F17.210 Nicotine dependence, cigarettes, uncomplicated; E11.9 Type 2 diabetes mellitus without complications; I10 Essential (primary) hypertension; J44.9 Chronic obstructive pulmonary disease, unspecified; Z79.01 Long term (current) use of anticoagulants; Z79.899 Other long term (current) drug therapy
CPT/HCPCS: 36415; 80053; 81001; 82550; 82803; 84145; 84484; 85025; 93005; 93010; 96360; 96372; 99284

== ENCOUNTER 2017-06-15 13:49 | Outpatient (CLI) ==
[2017-06-15 14:25] LABS: PROTHROMBIN TIME 14.8 SEC (9.3-11.0)
== END 2017-06-15 13:50 | disposition home or self-care (01) ==
LOC: LAB 13:49
PROVIDERS: ATTEND Internal Medicine
DX: I26.99 Other pulmonary embolism without acute cor pulmonale (principal)
CPT/HCPCS: 36415; 85610

== ENCOUNTER 2017-08-12 10:38 | Inpatient (IN) ==
[2017-08-12 10:38] VITALS: BMI 48.5
[2017-08-12] MEDS ORDERED: SOLU-MEDROL 125 MG IVP STA ×2 (10:58→14:11)
[2017-08-12] MEDS ORDERED: DUONEB NEB STA (10:59)
[2017-08-12 11:24] LABS: BASOPHILS # (AUTO) 0.1 K/uL (0-0.2); BASOPHILS % (AUTO) 0.7 % (0.0-3.0); EOSINOPHILS # (AUTO) 0.1 K/ul (0.0-0.7); EOSINOPHILS % (AUTO) 1.3 % (0.0-7.0); HEMATOCRIT 39.7 % (37.0-47.0); HEMOGLOBIN 13.3 g/dl (12.0-16.0); IMMATURE GRANULOCYTE % (AUTO) 0.3 % (0.0-5.0); LYMPHOCYTES # (AUTO) 3.4 K/uL (0.60-3.4); LYMPHOCYTES % (AUTO) 33.2 (10.0-50.0); MEAN CORPUSCULAR HEMOGLOBIN 33.4 pg (27.0-31.0); MEAN CORPUSCULAR HGB CONC 33.5 (31.8-35.4); MEAN CORPUSCULAR VOLUME 99.7 fl (81.0-99.0); MONOCYTES # (AUTO) 0.5 K/uL (0.4-2.0); MONOCYTES % (AUTO) 5.2 (0-10); NEUTROPHILS # (AUTO) 6.1 K/ul (2.0-6.9); NEUTROPHILS % (AUTO) 59.3; PLATELET COUNT 269 10^3/uL (140-440); RED BLOOD COUNT 3.98 10^6/ul (4.20-5.40)
--- NOTE | 2017-08-12 11:43 | ED.PDOC ---
General ED Provider: Dr. CHRISTOPHER BELL Chief Complaint: Respiratory Complaint Stated Complaint: COUGH SHORTNESS OF BREATH Time Seen by Physician: 10:40 (SEE N WITH NURSING STAFF AT ALL TIMES ARRIVED COUGHING AND WHEEZING) Mode of Arrival: Walk-In Information Source: Patient Primary Care Provider: OMER RAMIREZ Referred to ED by: Other Nursing and Triage Documentation Reviewed and Agree: Yes (SMOKE IN EXCESS OF 1 PK /DAY BUT NOT PAST 24HRS) Respiratory Complaint Exam - Respiratory Complaint/Exam Onset/Duration: 3 DAYS WORSE TODAY Symptoms Are: Still present Timing: Constant Initial Severity: Moderate Current Severity: Moderate Location: Throat, Chest Character: Reports: Non-productive cough, Dry cough Aggravating: Reports: URI, Weather (SMOKING) Alleviating: Reports: Bronchodilators, Upright position Associated Signs and Symptoms: Reports: URI, Nasal congestion, Decreased oral intake. Denies: Rapid breathing, Dyspnea, Fever, Chills, Chest pain, Pleuritic chest pain, Wheezing, Hemoptysis, Dizziness, Calf pain, Calf swelling, Edema, Hoarseness, Sinus discomfort, Vomiting, Sore throat, Weight loss, Increased thirst, Increased appetite, Increased urination Related History: Reports: Similar episode History of Healthcare-Acquired Pneumonia: No Related Surgical History: Reports: None Pulmonary Embolism Risk Factors: Smoking Cardiac Risk Factors: Reports: Smoking, Diabetes, Hypertension Pseudomonas Risk Factors: Reports: Chronic Lung Disease Tuberculosis Risk Factors: Reports: None Status Asthmaticus Risk Factors: Reports: None Home Oxygen Use: No Recent Stress Test: No Recent Echo/LV Function: No Current Antibiotic Use: No Current Asthma Medication Use: No Respiratory Distress: None Inadequate Respiratory Effort: No Dysphagia Present: No Stridor Present: No JVD Present: No Retractions: Not Present Prolonged Respiration: Expiratory phase Sinus Tenderness: None Differential Diagnoses: COPD Exacerbation, Pneumonia, Bronchitis, URI Review of Systems - Review Of Systems Constitutional: Reports: No symptoms Eyes: Reports: No symptoms Ears, Nose, Mouth, Throat: Reports: No symptoms Respiratory: Reports: Short of air Cardiac: Reports: No symptoms GI: Reports: No symptoms : Reports: No symptoms Musculoskeletal: Reports: No symptoms Skin: Reports: No symptoms Neurological: Reports: No symptoms Endocrine: Reports: No symptoms Hematologic/Lymphatic: Reports: No symptoms All Other Systems: Reviewed and Negative Past Medical History - Past Medical History Previously Healthy: No (recent pneumonia) Endocrine: Reports: DM 2 Cardiovascular: Reports: Hypertension Respiratory: Reports: COPD, PE Hematological: Reports: None Gastrointestinal: Reports: None Genitourinary: Reports: None Neuro/Psych: Reports: None Musculoskeletal: Reports: Arthritis, Other (spinal stenosis ) Cancer: Reports: None Last Menstrual Period: hysterectomy Other Pertinent Past Medical History: Vertigo - Surgical History General Surgical History: Reports: (x 2), Other ( colon biopsyx2, lithotripsyx2, carpal tunnel, hysterectomy) - Family History Family History: Reports: Unknown - Social History Smoking Status: Current every day smoker, Heavy tobacco smoker Hx Substance Use: No Alcohol Screening: None - Immunizations Influenza Vaccine within 12 Months: No Pneumococcal Vaccine up to Date: No Physical Exam - Physical Exam Appearance: Ill-appearing Ill-appearing: Moderate Pain Distress: Moderate Eyes: BENY, EOMI, Conjunctiva clear ENT: Ears normal, Nose normal, Oropharynx normal Respiratory: Breath sounds diminished, Respirations nonlabored, Crackles, Rhonchi, Wheezes Cardiovascular: RRR, Pulses normal, No rub, No murmur GI/: Soft, Nontender, No masses, Bowel sounds normal, No Organomegaly Musculoskeletal: Normal strength, ROM intact, No edema, No calf tenderness Skin: Warm, Dry, Normal color Neurological: Sensation intact, Motor intact, Reflexes intact, Cranial nerves intact, Alert, Oriented Psychiatric: Affect appropriate, Mood appropriate Interpretation - Cloth Dyer Rate: Normal Rhythm: Sinus Ectopy: None - EKG Interpretation Rate: Normal Rhythm: Sinus Ectopy: None [place]: [place] ST Segment: Normal Physician Notification - Case Discussed Physician Notified: RAMIREZ Time of Notification: 14:00 (saw pt in ED) Admit To: Inpatient Critical Care Note - Critical Care Note Total Time (mins): 0 Course - Course Hematology/Chemistry: 08/12/17 11:20 08/12/17 11:20 Orders, Labs, Meds: Lab Review 08/12/17 08/12/17 08/12/17 10:58 11:20 11:20 WBC 10.30 H RBC 3.98 L Hgb 13.3 Hct 39.7 MCV 99.7 H MCH 33.4 H MCHC 33.5 RDW Coeff of Nina 14.9 H Plt Count 269 Immature Gran % (Auto) 0.3 Neut % (Auto) 59.3 Lymph % (Auto) 33.2 Douglas % (Auto) 5.2 Eos % (Auto) 1.3 Baso % (Auto) 0.7 Immature Gran # (Auto) 0.0 Neut # 6.1 Lymph # 3.4 Douglas # 0.5 Eos # 0.1 Baso # 0.1 Puncture Site Rrad O2 Saturation 85.0 L ABG pH 7.401 ABG pCO2 33.2 L ABG pO2 49.0 L* ABG HCO3 20.6 L ABG Total CO2 22 ABG Base Excess -4 L Jj Test + FiO2 % 21.0 Sodium 138 Potassium 4.0 Chloride 107 Carbon Dioxide 19 L Anion Gap 16.0 BUN 14 Creatinine 0.89 Estimated GFR (MDRD) 68.00 BUN/Creatinine Ratio 15.73 Glucose 120 H Calcium 10.2 Total Bilirubin 0.23 AST 17 ALT 20 Alkaline Phosphatase 59 Total Creatine Kinase 35 Troponin I < 0.0100 Total Protein 7.2 Albumin 3.7 Globulin 3.5 Albumin/Globulin Ratio 1.06 Influenza A (Rapid) Influenza B (Rapid) 08/12/17 12:11 WBC RBC Hgb Hct MCV MCH MCHC RDW Coeff of Nina Plt Count Immature Gran % (Auto) Neut % (Auto) Lymph % (Auto) Douglas % (Auto) Eos % (Auto) Baso % (Auto) Immature Gran # (Auto) Neut # Lymph # Douglas # Eos # Baso # Puncture Site O2 Saturation ABG pH ABG pCO2 ABG pO2 ABG HCO3 ABG Total CO2 ABG Base Excess Jj Test FiO2 % Sodium Potassium Chloride Carbon Dioxide Anion Gap BUN Creatinine Estimated GFR (MDRD) BUN/Creatinine Ratio Glucose Calcium Total Bilirubin AST ALT Alkaline Phosphatase Total Creatine Kinase Troponin I Total Protein Albumin Globulin Albumin/Globulin Ratio Influenza A (Rapid) Negative Influenza B (Rapid) Negative Orders Category Date Time Status ABG DRAW REQUEST Stat CARDIO 08/12/17 10:58 Completed EKG-(ED ONLY) Stat CARDIO 08/12/17 10:57 Completed NEBULIZER TREATMENT Stat CARDIO 08/12/17 10:59 Completed NPO REMINDER: IMAGING ONCE CARE 08/12/17 12:55 Completed ED IV/MEDIPORT/POWERPORT .ONCE EMERGENCY 08/12/17 10:57 Active ED IV/MEDIPORT/POWERPORT .ONCE EMERGENCY 08/12/17 10:57 Inactive ABG Stat LAB 08/12/17 10:58 Completed CBC W/ AUTO DIFF Stat LAB 08/12/17 11:20 Completed COMPREHENSIVE METABOLIC PANEL Stat LAB 08/12/17 11:20 Completed CREATINE KINASE Stat LAB 08/12/17 11:20 Completed RAPID FLU A/B Stat LAB 08/12/17 12:11 Completed TROPONIN I Stat LAB 08/12/17 11:20 Completed 0.9 % Sodium Chloride [Saline Flush] MEDS 08/12/17 10:56 Active 1 syr IVF PRN PRN 0.9 % Sodium Chloride [Saline Flush] MEDS 08/12/17 10:57 Active 1 syr IVF PRN PRN Ipratropium/Albuterol Neb [Duoneb] MEDS 08/12/17 10:59 Discontinued 1 vial NEB ONCE STA Methylprednisolone Sod Succ/Pf [Solu-Medrol 125 mg] MEDS 08/12/17 10:58 Discontinued 125 mg IVP ONCE STA CHEST, 2 VIEWS PA & LAT Stat RADS 08/12/17 10:[address] CHEST PE PROTOCOL Stat RADS 08/12/17 12:55 Completed Medications Generic Name Dose Route Start Last Admin Trade Name Freq PRN Reason Stop Dose Admin Sodium Chloride 1 syr 08/12/17 10:56 08/12/17 11:37 Saline Flush IVF 1 syr PRN PRN Administration To flush IV Sodium Chloride 1 syr 08/12/17 10:57 08/12/17 11:37 Saline Flush IVF 1 syr PRN PRN Administration To flush IV Discontinued Medications Generic Name Dose Route Start Last Admin Trade Name Freq PRN Reason Stop Dose Admin Albuterol/Ipratropium 1 vial 08/12/17 10:59 08/12/17 11:26 Duoneb NEB 08/12/17 11:00 1 vial ONCE STA Administration Methylprednisolone Sodium Succinate 125 mg 08/12/17 10:58 08/12/17 11:37 Solu-Medrol 125 Mg IVP 08/12/17 10:59 125 mg ONCE STA Administration Vital Signs: Temp Pulse Resp BP Pulse Ox 08/12/17 10:39 97.9 F 83 24 174/87 H 95 Departure - Departure Time of Disposition: 13:57 Disposition: ADMITTED INPATIENT Discharge Problem: COPD with exacerbation Instructions: COPD (Chronic Obstructive Pulmonary Disease) (ED), Chronic Bronchitis (ED), How Your Lungs Work (ED), Chronic Lung Disease and Infection Prevention (ED) Condition: Good Pt referred to PMD for follow-up: Yes Additional Instructions: Please call your Family Physician as soon as possible to schedule a follow-up appointment. Allergies/Adverse Reactions: Allergies No Known Allergies Allergy (Verified 08/12/17 10:48) Home Medications: Ambulatory Orders Chlordiazepoxide HCl [Librium] 25 mg PO BID PRN 05/29/17 Gabapentin [Neurontin] 300 mg PO BID 05/29/17 Hydrocodone Bit/Acetaminophen [[place] 7.5-325] 1 each PO TID 05/29/17 Levothyroxine Sodium [Synthroid] 25 mcg PO QDAC 05/29/17 Lisinopril/Hydrochlorothiazide [Lisinopril-Hctz 10-12.5 mg Tab] 1 each PO DAILY 05/29/17 Metformin HCl [Glucophage] 500 mg PO BIDWM 05/29/17 Sertraline HCl [Zoloft] 150 mg PO DAILY 05/29/17 Warfarin Sodium [Coumadin] 4 mg PO DAILY 05/29/17 Albuterol Sulfate 0.083% Neb [Albuterol 0.083% Neb] 1 vial NEB RTQ4H #120 vial.neb 06/07/17 Budesonide [Pulmicort 0.5 mg/2 ml] 1 vial NEB RTBID #60 vial.neb 06/07/17 Pantoprazole Sodium [Protonix] 40 mg PO QDAC #30 tablet. 06/07/17 Albuterol Sulfate [Proair Hfa] 2 puff IH Q6H PRN 08/12/17 Disposition Discussed With: Patient, Family
[2017-08-12 11:49] LABS: ALANINE AMINOTRANSFERASE 20 U/L (12-78); ALBUMIN 3.7 g/dL (3.4-5.0); ALBUMIN/GLOBULIN RATIO 1.06; ALKALINE PHOSPHATASE 59 U/L (42-98); ASPARTATE AMINO TRANSFERASE 17 U/L (15-37); BILIRUBIN,TOTAL 0.23 mg/dL (0.00-1.20); BLOOD UREA NITROGEN 14 mg/dL (7-18); BUN/CREATININE RATIO 15.73; CALCIUM 10.2 mg/dL (8.2-10.2); CARBON DIOXIDE 19 mmol/L (21-32); CHLORIDE 107 mmol/L (98-107); CREATINE KINASE 35 U/L; CREATININE 0.89 mg/dL (0.60-1.30); GLUCOSE 120 mg/dL (70-110); SODIUM 138 mmol/L (136-145); TOTAL PROTEIN 7.2 g/dL (6.4-8.2)
[2017-08-12 12:15] LABS: ABG PCO2 33.2 mmHg (35-45); ABG PH 7.401 (7.35-7.45)
[2017-08-12 12:16] LABS: ABG BASE EXCESS -4 (-2.0-2.0); ABG HCO3 20.6 (22.0-26.0); ABG TCO2 22 (22.0-28.0)
--- NOTE | 2017-08-12 12:26 | DI ---
EXAM: Two views of the chest. History: Short of breath Comparison: Chest radiograph 06/13/2017 Findings: Heart size is normal. No focal consolidation. No appreciable pleural fluid and no pneumo thorax. No acute osseous abnormalities. Impression: No acute cardiopulmonary process
[2017-08-12 12:30] LABS: FLU INTERNAL QC INTERNAL QC VALID; RAPID FLU A NEGATIVE (NEGATIVE); RAPID FLU B NEGATIVE (NEGATIVE)
--- NOTE | 2017-08-12 13:46 | CT ---
EXAM: CTA of the chest. History: Chest pain, low oxygen blood gas. Comparison: Chest radiograph 08/12/2017 Technique: Multiplanar CT images through the thorax were obtained following administration of IV con trast. MIP images and 3-D reconstructions were also acquired Findings: Heart size is normal. No pericardial effusion. Great vessels are unremarkable. No pulmo nary arterial filling defects. No pathologically enlarged thoracic lymph nodes. Dependent atelectas is. No consolidated pneumonia. No pleural fluid and no pneumothorax. No suspicious lung masses or lung nodules. Within the visualized upper abdomen, the liver is fatty. No acute osseous abnormalities. Impression: 1. No pulmonary embolism. 2. No focal pneumonia. 3. Dependent atelectasis. 4. Hepatic steatosis
[2017-08-12] MEDS ORDERED: HUMULIN R SUBCUT STA (14:17)
[2017-08-12] MEDS: ROCEPHIN 1 GM in SODIUM CHLORIDE 50 ML IV SCH (15:38)
[2017-08-12] MEDS: NORCO 7.5-325 PO SCH ×2 (15:38→20:10)
[2017-08-12] MEDS: SODIUM CHLORIDE 1,000 ML IV SCH (15:39)
[2017-08-12] MEDS: DUONEB NEB SCH (16:40)
[2017-08-12] MEDS: TORADOL IVP PRN (17:17)
[2017-08-12] MEDS: GLUCOPHAGE PO SCH (17:17)
[2017-08-12] MEDS: PULMICORT 0.5 MG/2 ML NEB SCH (18:15)
[2017-08-12] MEDS: COUMADIN PO SCH (19:05)
[2017-08-12] MEDS: SOLU-MEDROL 125 MG IVP SCH (20:10)
[2017-08-12] MEDS: TESSALON PERLES PO PRN (20:10)
[2017-08-12] MEDS: NEURONTIN PO SCH (20:11)
[2017-08-12] MEDS: TUSSIONEX PO SCH (20:11)
[2017-08-12 20:38] LABS: CREATINE KINASE 36 U/L
[2017-08-12] MEDS ORDERED: NEURONTIN PO SCH (21:00)
[2017-08-12] MEDS ORDERED: SOLU-MEDROL 125 MG IVP SCH (21:00)
[2017-08-12] MEDS: LIBRIUM PO PRN (23:14)
[2017-08-13] MEDS: DUONEB NEB SCH ×5 (00:08→22:54)
[2017-08-13] MEDS: VALIUM PO PRN ×2 (00:47→20:29)
[2017-08-13] MEDS: PULMICORT 0.5 MG/2 ML NEB SCH ×2 (05:03→17:14)
[2017-08-13 05:11] LABS: BASOPHILS % (AUTO) 0.2 % (0.0-3.0); HEMATOCRIT 39.5 % (37.0-47.0); IMMATURE GRANULOCYTE % (AUTO) 0.7 % (0.0-5.0); LYMPHOCYTES # (AUTO) 0.9 K/uL (0.60-3.4); LYMPHOCYTES % (AUTO) 7.7 (10.0-50.0); MEAN CORPUSCULAR HEMOGLOBIN 32.8 pg (27.0-31.0); MEAN CORPUSCULAR HGB CONC 32.9 (31.8-35.4); MEAN CORPUSCULAR VOLUME 99.7 fl (81.0-99.0); MONOCYTES # (AUTO) 0.1 K/uL (0.4-2.0); MONOCYTES % (AUTO) 0.7 (0-10); NEUTROPHILS # (AUTO) 10.6 K/ul (2.0-6.9); NEUTROPHILS % (AUTO) 90.7; PLATELET COUNT 268 10^3/uL (140-440); RED BLOOD COUNT 3.96 10^6/ul (4.20-5.40); WHITE BLOOD COUNT 11.68 K/ul (4.6-10.2)
[2017-08-13] MEDS: SODIUM CHLORIDE 1,000 ML IV SCH ×2 (05:19→18:00)
[2017-08-13 05:28] LABS: PROTHROMBIN TIME 11.7 SEC (9.3-11.0)
[2017-08-13 05:33] LABS: ALBUMIN 3.3 g/dL (3.4-5.0); ALBUMIN/GLOBULIN RATIO 0.94; ANION GAP 16.8; BILIRUBIN,TOTAL 0.12 mg/dL (0.00-1.20); BUN/CREATININE RATIO 18.94; CALCIUM 9.8 mg/dL (8.2-10.2); CREATININE 0.95 mg/dL (0.60-1.30); POTASSIUM 4.8 mmol/L (3.5-5.10); TOTAL PROTEIN 6.8 g/dL (6.4-8.2)
[2017-08-13] MEDS: TORADOL IVP PRN (05:35)
[2017-08-13] MEDS: SOLU-MEDROL 125 MG IVP SCH ×3 (05:35→20:28)
[2017-08-13] MEDS: SYNTHROID PO SCH (05:36)
[2017-08-13] MEDS: PROTONIX PO SCH (05:36)
[2017-08-13 05:39] LABS: TROPONIN I 0.025 ng/ml (0.0000-0.4000)
--- NOTE | 2017-08-13 07:08 | HP ---
DATE OF SERVICE: 08/12/17 HISTORY OF PRESENT ILLNESS: 47-year-old white female with history of COPD, asthma. She is a chronic smoker. She presented with coughing, shortness of breath for the past several days. She does have an Albuterol inhaler, which has not seemed to help much. She is afebrile. PAST MEDICAL HISTORY: Chronic bronchitis COPD History of pulmonary embolism, April 2017 Dyslipidemia Diabetes mellitus Type 2 Anxiety Insomnia Hypertension GERD Depression Obesity PAST SURGICAL HISTORY: times two Colonoscopy with biopsy times two History of lithotripsy Carpal tunnel repair Status post hysterectomy REVIEW OF SYSTEMS: CONSTITUTIONAL: Mild distress. No night sweats. No fatigue, malaise, lethargy. No fever or chills. HEENT: Eyes: No visual changes. No eye pain. No eye discharge. ENT: No runny nose. No epistaxis. No sinus pain. No sore throat. No odynophagia. No ear pain. No congestion. RESPIRATORY: Shortness of breath. Cough and wheezing. No hemoptysis. CARDIOVASCULAR: No angina symptoms. No CHF symptoms. No atypical chest pain for CAD. No palpitations. No orthopnea. GASTROINTESTINAL: No abdominal pain. No nausea or vomiting. No diarrhea or constipation. No hematemesis. No hematochezia. GENITOURINARY: No urgency. No frequency. No dysuria. No hematuria. No obstructive symptoms. No discharge. No pain. No significant abnormal bleeding. MUSCULOSKELETAL: No weakness. No joint swelling or redness. NEUROLOGICAL: The patient is alert and oriented. No confusion. No headache. No neck pain. No syncope. No seizures. No dizziness. PSYCHIATRIC: Not anxious. No depression. No suicidal thoughts. No homicidal thoughts. SKIN: Clean, dry and intact. ENDOCRINE: No unexplained weight loss. No weight gain. HEMATOLOGIC/LYMPHATIC: No anemia. No purpura. No petechiae. No prolonged or excessive bleeding. No palpable lymph nodes. PERSONAL/FAMILY/SOCIAL HISTORY: Family history is unknown. Social History: The patient is a one pack per day smoker, has been for the past several years. She currently resides with her network and threat support specialist. She denies any alcohol or illicit drug use. She does not work. MEDICATIONS: Librium 25 mg b.i.d. p.r.n. Neurontin 300 mg b.i.d. [place] 7.5 t.i.d. Synthroid 25 mcg daily Lisinopril HCTZ 10/12.5 daily Glucophage 500 mg b.i.d. Zoloft 150 mg daily Coumadin 4 mg daily Albuterol inhaler p.r.n. Pulmicort b.i.d. Protonix 40 mg b.i.d. ALLERGIES: NKDA PHYSICAL EXAMINATION: VITAL SIGNS: Temperature 97.9, heart rate 83, respirations 24, BP 174/87, pulse ox 95%. GENERAL: The patient is ill-appearing in mild distress. HEENT: Head normocephalic, atraumatic. Eyes: Extraocular muscles are intact. Pupils are equal, round and reactive to light and accommodation. Conjunctivae clear. Ears: No lesions. Nose appeared normal. Throat: No exudate or erythema. NECK: Supple. No JVD, no carotid bruit. No lymphadenopathy or thyromegaly. LUNGS: Diminished breath sounds with bilateral wheezing. No rhonchi. Crackles. Percussion note normal. Chest symmetrical. HEART: S1, S2, no S3. No murmurs, clicks or rubs. No cyanosis or clubbing. No ascites. Pulses: Dorsalis pedis and posterior tibial pulses +1 to +2 both sides. ABDOMEN: Soft. Nontender. Bowel sounds active times four quadrants. No CVA tenderness. No hepatosplenomegaly. EXTREMITIES: No clubbing, no cyanosis. No joint swelling. No redness. No edema. Full range of motion of all extremities, equal. Negative Eduarda's sign bilaterally. NEUROLOGIC: Alert, oriented times three. No focal deficit. Cranial nerves II through XII are grossly intact. No headache, no double vision or headache. SKIN: Clean and dry. Intact. Turgor - normal. LYMPHATIC: No palpable lymph nodes/no lymphedema. MUSCULOSKELETAL: Normal joints with no swelling. Muscle tone is normal. LAB VALUES: White count 10.3, hemoglobin 13.3, hematocrit 39.7, platelets 269. Sodium 138, potassium 4.0, chloride 107, carbon dioxide 19, BUN 14, creatinine 0.89, glucose 120, total bili 0.23, AST 17, ALT 20, alkaline phosphatase 59, CK 35, albumin 3.7, globulin 3.5. ABGs on room air, oxygen saturation 85, pH 7.401, pc02 33.2, p02 49, bicarb 20.6, total C02 22, base excess negative 4. Influenza A and B are both negative. Chest x-ray revealed no pneumonia. ASSESSMENT: 1. ACUTE BRONCHITIS 2. ACUTE COPD EXACERBATION 3. ASTHMA EXACERBATION 4. SMOKER 5. DIABETES MELLITUS TYPE 2 6. OBESITY PLAN: 1. Start Solu-Medrol 125 mg q.8hr 2. Duonebs q.6hr scheduled 3. Rocephin 1 gm IV daily 4. CBC, CMP daily 5. Oxygen p.r.n. to keep 02 sat greater than 90% 6. Continue all home medications 7. PT/INR daily 8. Routine telemetry orders 9. ADA diet 10. We will follow closely TIME SPENT: More than 70 minutes. MTDD
[2017-08-13] MEDS ORDERED: NON-FORMULARY MEDICATION (Sertraline Hcl [Zoloft] 150 MG) PO SCH (09:00)
[2017-08-13] MEDS ORDERED: COUMADIN PO SCH (09:00)
[2017-08-13] MEDS ORDERED: NON-FORMULARY MEDICATION (Warfarin Sodium [Coumadin] 4 MG) PO SCH ×22 (09:00)
[2017-08-13] MEDS: ZOLOFT PO SCH (09:11)
[2017-08-13] MEDS: TESSALON PERLES PO PRN ×2 (09:11→20:29)
[2017-08-13] MEDS: ROCEPHIN 1 GM in SODIUM CHLORIDE 50 ML IV SCH (09:11)
[2017-08-13] MEDS: GLUCOPHAGE PO SCH ×2 (09:11→17:08)
[2017-08-13] MEDS: NICODERM 21 MG TD SCH (09:11)
[2017-08-13] MEDS: LOVENOX SUBCUT SCH (09:12)
[2017-08-13] MEDS: LIBRIUM PO PRN ×2 (09:12→20:29)
[2017-08-13] MEDS: ZESTRIL PO SCH (09:12)
[2017-08-13] MEDS: NEURONTIN PO SCH ×2 (09:12→20:29)
[2017-08-13] MEDS: NORCO 7.5-325 PO SCH ×3 (09:13→20:29)
[2017-08-13] MEDS: HYDROCHLOROTHIAZIDE PO SCH (09:13)
--- NOTE | 2017-08-13 09:21 | PCM.PROG ---
Attending Provider: ATTENDING PROVIDER: Dr. OMER RAMIREZ This patient is seen with Olga Grant, Nurse Practitioner. DATE OF SERVICE: 08/13/17 SUBJECTIVE: This 47 year old WHITE/ F was hospitalized 08/12/17. The patient is lying in bed, alert. She is still short of breath but slightly improved. No fever. REVIEW OF SYSTEMS: CONSTITUTIONAL: No night sweats. No fatigue, malaise, lethargy. No fever or chills. HEENT: Eyes: No visual changes. No eye pain. No eye discharge. ENT: No runny nose. No epistaxis. No sinus pain. No odynophagia. No congestion. RESPIRATORY: Cough and congestion. Shortness of breath. No hemoptysis. CARDIOVASCULAR: No angina symptoms. No CHF symptoms. No atypical chest pain for CAD. No palpitations. No orthopnea.. GASTROINTESTINAL: No abdominal pain. No nausea or vomiting. No diarrhea or constipation. No hematemesis. No hematochezia. GENITOURINARY: No urgency. No frequency. No dysuria. No hematuria. No obstructive symptoms. No discharge. No pain. No significant abnormal bleeding. MUSCULOSKELETAL: No musculoskeletal pain; no joint swelling. NEUROLOGICAL: Awake, alert, oriented to time, place and person. No headache. No neck pain. No syncope. No seizures. No dizziness. PSYCHIATRIC: Not anxious. No depression. No suicidal thoughts. No homicidal thoughts. SKIN: No rash. No lesions. No wounds. ENDOCRINE: No unexplained weight loss. No weight gain. HEMATOLOGIC/LYMPHATIC: No anemia. No purpura. No petechiae. No prolonged or excessive bleeding. No palpable lymph nodes. PHYSICAL EXAMINATION: GENERAL: The patient is awake, alert and oriented, lying in bed in no distress. VITAL SIGNS: Temperature 97.8 F, Pulse 86, Respiratory Rate 20, BP 104/67, Pulse Ox 94% HEENT: Head normocephalic, atraumatic. Eyes: Extraocular muscles are intact. Pupils are equal, round and reactive to light and accommodation. Ears: No lesions. Nose appeared normal. Throat: No exudate or erythema. NECK: Supple. No JVD, no carotid bruit. No lymphadenopathy or thyromegaly. LUNGS: Diminished breath sounds with bilateral expiratory wheeze. Percussion note normal. Chest symmetrical. HEART: S1, S2, no S3. No murmurs. No cyanosis or clubbing. No ascites. Pulses: Dorsalis pedis and posterior tibial pulses +1 to +2 both sides. ABDOMEN: Soft. Non-tender. Bowel sounds active. No CVA tenderness. No mass felt. EXTREMITIES: No edema. Full range of motion of all extremities, equal. NEUROLOGIC: No focal deficit. Cranial nerves II through XII are grossly intact. No headache, no double vision or headache. SKIN: Not dry. Intact. Turgor-normal. LYMPHATIC: No palpable lymph nodes/no lymphedema. MUSCULOSKELETAL: Normal joints with no swelling. Muscle tone is normal. LAB REVIEW: 08/13/17 04:30 08/13/17 04:30 08/13/17 04:30: WBC 11.68 H, RBC 3.96 L, Hgb 13.0, Hct 39.5, MCV 99.7 H, MCH 32.8 H, MCHC 32.9, RDW Coeff of Nina 14.7, Plt Count 268, Immature Gran % (Auto) 0.7, Neut % (Auto) 90.7, Lymph % (Auto) 7.7 L, [place] % (Auto) 0.7, Eos % (Auto) 0.0, Baso % (Auto) 0.2, Immature Gran # (Auto) 0.1, Neut # 10.6 H, Lymph # 0.9, [place] # 0.1 L, Eos # 0.0, Baso # 0.0 08/13/17 04:30: Sodium 139, Potassium 4.8, Chloride 107, Carbon Dioxide 20 L, Anion Gap 16.8, BUN 18, Creatinine 0.95, Estimated GFR (MDRD) 63.00, BUN/ Creatinine Ratio 18.94, Glucose 194 H D, Calcium 9.8, Total Bilirubin 0.12, AST 15, ALT 20, Alkaline Phosphatase 59, Total Protein 6.8, Albumin 3.3 L, Globulin 3.5, Albumin/Globulin Ratio 0.94 08/13/17 04:30: PT 11.7 H, INR 1.15 08/13/17 04:30: Total Creatine Kinase 35, Troponin I 0.0250 08/12/17 20:11: Total Creatine Kinase 36, Troponin I < 0.0100 ASSESSMENT: 1. Acute bronchitis 2. COPD with acute exacerbation 3. Smoker 4. Anxiety 5. History of PE PLAN: 1. Nicotine patch 2. Daily PT/INR 3. Coumadin 6 mg today and tomorrow then back down to 4 mg Plan and coordination of the patient's care discussed in the presence of Regulatory Agency Director and nurse. EDUCATION: Counseling for smoking done. The patient was offered nicotine patch and the patient was agreeable. CONDITION: Stable SCRIBED BY: RADHA DURANT Senior Field Service Engineer scribed while in presence of service performed by Dr. Ramirez/Olga Grant APRN on 08/13/17 ([id number])
[2017-08-13] MEDS: TUSSIONEX PO SCH ×2 (09:28→20:29)
--- NOTE | 2017-08-13 13:39 | DI ---
EXAM: Chest one view, frontal view only. HISTORY: Chest pain. COMPARISON: 1 day prior. FINDINGS: The heart size is normal. There is no pulmonary vascular congestion. The lungs are clear . No pleural effusion or pneumothorax is seen. No acute osseous abnormality is identified. Since t he prior study, there has been no significant interval change. IMPRESSION: No acute cardiopulmonary process.
[2017-08-13] MEDS: COUMADIN PO SCH (17:08)
[2017-08-13] MEDS: HUMULIN R SUBCUT PRN ×2 (17:53→20:28)
[2017-08-14] MEDS: TORADOL IVP PRN (03:10)
[2017-08-14] MEDS: SOLU-MEDROL 125 MG IVP SCH ×3 (04:39→21:41)
[2017-08-14] MEDS: PULMICORT 0.5 MG/2 ML NEB SCH ×2 (05:03→17:06)
[2017-08-14] MEDS: DUONEB NEB SCH ×3 (05:03→17:06)
[2017-08-14 05:14] LABS: BASOPHILS % (AUTO) 0.1 % (0.0-3.0); EOSINOPHILS % (AUTO) 0.1 % (0.0-7.0); HEMATOCRIT 36.7 % (37.0-47.0); HEMOGLOBIN 12.1 g/dl (12.0-16.0); IMMATURE GRANULOCYTE % (AUTO) 0.7 % (0.0-5.0); LYMPHOCYTES # (AUTO) 0.8 K/uL (0.60-3.4); LYMPHOCYTES % (AUTO) 5.5 (10.0-50.0); MEAN CORPUSCULAR HEMOGLOBIN 33.5 pg (27.0-31.0); MEAN CORPUSCULAR VOLUME 101.7 fl (81.0-99.0); MONOCYTES # (AUTO) 0.3 K/uL (0.4-2.0); MONOCYTES % (AUTO) 2.1 (0-10); NEUTROPHILS # (AUTO) 13.7 K/ul (2.0-6.9); NEUTROPHILS % (AUTO) 91.5; PLATELET COUNT 283 10^3/uL (140-440); RED BLOOD COUNT 3.61 10^6/ul (4.20-5.40); WHITE BLOOD COUNT 14.95 K/ul (4.6-10.2)
[2017-08-14] MEDS: PROTONIX PO SCH (05:35)
[2017-08-14] MEDS: SYNTHROID PO SCH (05:35)
[2017-08-14 05:36] LABS: ALBUMIN/GLOBULIN RATIO 0.97; ANION GAP 15.8; BILIRUBIN,TOTAL 0.1 mg/dL (0.00-1.20); BUN/CREATININE RATIO 22.98; CALCIUM 9.5 mg/dL (8.2-10.2); CREATININE 0.87 mg/dL (0.60-1.30); POTASSIUM 4.8 mmol/L (3.5-5.10); TOTAL PROTEIN 6.1 g/dL (6.4-8.2)
[2017-08-14 05:45] LABS: PROTHROMBIN TIME 13.6 SEC (9.3-11.0)
[2017-08-14] MEDS: SODIUM CHLORIDE 1,000 ML IV SCH (07:25)
[2017-08-14] MEDS: NEURONTIN PO SCH ×2 (08:48→21:48)
[2017-08-14] MEDS: GLUCOPHAGE PO SCH ×2 (08:48→16:53)
[2017-08-14] MEDS: ZESTRIL PO SCH (08:49)
[2017-08-14] MEDS: TUSSIONEX PO SCH ×2 (08:49→21:47)
[2017-08-14] MEDS: NORCO 7.5-325 PO SCH ×3 (08:49→21:48)
[2017-08-14] MEDS: HYDROCHLOROTHIAZIDE PO SCH (08:49)
[2017-08-14] MEDS: ZOLOFT PO SCH (08:50)
[2017-08-14] MEDS: ROCEPHIN 1 GM in SODIUM CHLORIDE 50 ML IV SCH (08:50)
[2017-08-14] MEDS: LOVENOX SUBCUT SCH (08:50)
[2017-08-14] MEDS: NICODERM 21 MG TD SCH (08:53)
[2017-08-14] MEDS: HUMULIN R SUBCUT PRN ×3 (12:38→21:47)
[2017-08-14] MEDS: COUMADIN PO SCH (16:53)
[2017-08-14] MEDS: TESSALON PERLES PO PRN (19:13)
[2017-08-14] MEDS: LIBRIUM PO PRN (22:01)
[2017-08-14] MEDS: VALIUM PO PRN (22:01)
[2017-08-15] MEDS: DUONEB NEB SCH ×5 (00:08→23:53)
[2017-08-15] MEDS ORDERED: XOPENEX 1.25 MG NEB STA (02:41)
[2017-08-15] MEDS: PULMICORT 0.5 MG/2 ML NEB SCH ×2 (05:15→17:08)
[2017-08-15 05:18] LABS: BASOPHILS % (AUTO) 0.1 % (0.0-3.0); HEMATOCRIT 35.5 % (37.0-47.0); HEMOGLOBIN 11.6 g/dl (12.0-16.0); IMMATURE GRANULOCYTE % (AUTO) 1.1 % (0.0-5.0); LYMPHOCYTES # (AUTO) 0.9 K/uL (0.60-3.4); LYMPHOCYTES % (AUTO) 6.3 (10.0-50.0); MEAN CORPUSCULAR HGB CONC 32.7 (31.8-35.4); MEAN CORPUSCULAR VOLUME 100.9 fl (81.0-99.0); MONOCYTES # (AUTO) 0.3 K/uL (0.4-2.0); MONOCYTES % (AUTO) 1.8 (0-10); NEUTROPHILS # (AUTO) 13.4 K/ul (2.0-6.9); NEUTROPHILS % (AUTO) 90.7; PLATELET COUNT 263 10^3/uL (140-440); RED BLOOD COUNT 3.52 10^6/ul (4.20-5.40); WHITE BLOOD COUNT 14.77 K/ul (4.6-10.2)
[2017-08-15 05:30] LABS: PROTHROMBIN TIME 16.1 SEC (9.3-11.0)
[2017-08-15 05:57] LABS: ALBUMIN 2.9 g/dL (3.4-5.0); ALBUMIN/GLOBULIN RATIO 0.94; ANION GAP 14.6; BILIRUBIN,TOTAL 0.11 mg/dL (0.00-1.20); BUN/CREATININE RATIO 25.88; CALCIUM 9.8 mg/dL (8.2-10.2); CREATININE 0.85 mg/dL (0.60-1.30); POTASSIUM 4.6 mmol/L (3.5-5.10)
[2017-08-15] MEDS: PROTONIX PO SCH (06:08)
[2017-08-15] MEDS: SYNTHROID PO SCH (06:08)
[2017-08-15] MEDS: HUMULIN R SUBCUT PRN ×4 (06:25→20:21)
[2017-08-15] MEDS: SOLU-MEDROL 125 MG IVP SCH ×3 (06:27→20:02)
[2017-08-15] MEDS: ZOLOFT PO SCH (08:50)
[2017-08-15] MEDS: ZESTRIL PO SCH (08:51)
[2017-08-15] MEDS: GLUCOPHAGE PO SCH ×2 (08:51→16:34)
[2017-08-15] MEDS: NORCO 7.5-325 PO SCH ×3 (08:51→20:03)
[2017-08-15] MEDS: LOVENOX SUBCUT SCH (08:52)
[2017-08-15] MEDS: HYDROCHLOROTHIAZIDE PO SCH (08:52)
[2017-08-15] MEDS: NICODERM 21 MG TD SCH (08:53)
[2017-08-15] MEDS: ROCEPHIN 1 GM in SODIUM CHLORIDE 50 ML IV SCH (08:53)
[2017-08-15] MEDS: NEURONTIN PO SCH ×2 (08:53→20:04)
[2017-08-15] MEDS: TUSSIONEX PO SCH ×2 (09:55→20:03)
[2017-08-15] MEDS: COUMADIN PO SCH (17:15)
[2017-08-15] MEDS: TESSALON PERLES PO PRN (20:04)
[2017-08-15] MEDS: LIBRIUM PO PRN (20:09)
[2017-08-15] MEDS: VALIUM PO PRN (20:09)
[2017-08-16] MEDS: PULMICORT 0.5 MG/2 ML NEB SCH (05:38)
[2017-08-16] MEDS: DUONEB NEB SCH ×2 (05:40→11:21)
[2017-08-16 05:55] LABS: BASOPHILS % (AUTO) 0.2 % (0.0-3.0); HEMATOCRIT 35.9 % (37.0-47.0); HEMOGLOBIN 11.8 g/dl (12.0-16.0); IMMATURE GRANULOCYTE % (AUTO) 2.7 % (0.0-5.0); LYMPHOCYTES # (AUTO) 1.1 K/uL (0.60-3.4); LYMPHOCYTES % (AUTO) 9.2 (10.0-50.0); MEAN CORPUSCULAR HEMOGLOBIN 33.1 pg (27.0-31.0); MEAN CORPUSCULAR HGB CONC 32.9 (31.8-35.4); MEAN CORPUSCULAR VOLUME 100.6 fl (81.0-99.0); MONOCYTES # (AUTO) 0.3 K/uL (0.4-2.0); MONOCYTES % (AUTO) 2.5 (0-10); NEUTROPHILS # (AUTO) 9.9 K/ul (2.0-6.9); NEUTROPHILS % (AUTO) 85.4; PLATELET COUNT 268 10^3/uL (140-440); RED BLOOD COUNT 3.57 10^6/ul (4.20-5.40); WHITE BLOOD COUNT 11.61 K/ul (4.6-10.2)
[2017-08-16 06:09] LABS: PROTHROMBIN TIME 16.3 SEC (9.3-11.0)
[2017-08-16] MEDS: SYNTHROID PO SCH (06:13)
[2017-08-16] MEDS: SOLU-MEDROL 125 MG IVP SCH (06:13)
[2017-08-16] MEDS: PROTONIX PO SCH (06:13)
[2017-08-16 06:28] LABS: ALBUMIN 2.8 g/dL (3.4-5.0); ALBUMIN/GLOBULIN RATIO 0.88; ANION GAP 14.3; BILIRUBIN,TOTAL 0.15 mg/dL (0.00-1.20); BUN/CREATININE RATIO 29.41; CALCIUM 9.6 mg/dL (8.2-10.2); CREATININE 0.85 mg/dL (0.60-1.30); POTASSIUM 4.3 mmol/L (3.5-5.10)
[2017-08-16] MEDS: HUMULIN R SUBCUT PRN (06:59)
[2017-08-16] MEDS: TUSSIONEX PO SCH (08:53)
[2017-08-16] MEDS: LOVENOX SUBCUT SCH (08:53)
[2017-08-16] MEDS: NORCO 7.5-325 PO SCH (08:54)
[2017-08-16] MEDS: NICODERM 21 MG TD SCH (08:54)
[2017-08-16] MEDS: ZESTRIL PO SCH (08:54)
[2017-08-16] MEDS: NEURONTIN PO SCH (08:55)
[2017-08-16] MEDS: ZOLOFT PO SCH (08:55)
[2017-08-16] MEDS: GLUCOPHAGE PO SCH (08:55)
[2017-08-16] MEDS: HYDROCHLOROTHIAZIDE PO SCH (08:55)
[2017-08-16] MEDS: ROCEPHIN 1 GM in SODIUM CHLORIDE 50 ML IV SCH (08:56)
[2017-08-16] MEDS ORDERED: COUMADIN PO STA (09:02)
--- NOTE | 2017-08-16 09:40 | PN ---
DATE OF SERVICE: 08/12/17 SUBJECTIVE: 47 year old white female seen in the emergency room with Dr. Martínez as she came in with cough, congestion and respiratory distress. The patient's blood gasses showed pH 7.4 with pO2 43, pCO2 33 with 85% saturation. The patient's CT of chest showed no pulmonary emboli. No pneumonia. The patient had bronchitis and the patient was hospitalized with IV antibiotic, steroids, NEBS treatment. Counseling for smoking done. PHYSICAL EXAMINATION: HEENT: Head normocephalic, atraumatic. Eyes: Extraocular muscles are intact. Pupils are equal, round and reactive to light and accommodation. Ears: No lesions. Nose appeared normal. Throat: No exudate or erythema. NECK: Supple. No JVD, no carotid bruit. No lymphadenopathy or thyromegaly. LUNGS: Decreased breath sounds. Clear to auscultation. Percussion note normal. Chest symmetrical. HEART: S1, S2, no S3. No murmurs. No cyanosis or clubbing. No ascites. Pulses: Dorsalis pedis and posterior tibial pulses +1 to +2 both sides. ABDOMEN: Soft. Nontender. Bowel sounds active. No CVA tenderness. No mass felt. EXTREMITIES: No edema. Full range of motion of all extremities, equal. NEUROLOGIC: No focal deficit. Cranial nerves II through XII are grossly intact. No headache, no double vision or headache. SKIN: Not dry. Intact. Turgor - normal. LYMPHATIC: No palpable lymph nodes/no lymphedema. MUSCULOSKELETAL: Normal joints with no swelling. Muscle tone is normal. ASSESSMENT: 1. Acute respiratory failure 2. Acute bronchitis 3. Severe chronic lung disease TIME SPENT: More than 30 minutes. Plan and coordination of the patient's care discussed in the presence of nurse. RONALDO
[2017-08-16 09:46] LABS: ABG BASE EXCESS 3 (-2.0-2.0); ABG HCO3 28.3 (22.0-26.0); ABG PCO2 45.9 mmHg (35-45); ABG PH 7.398 (7.35-7.45); ABG TCO2 30 (22.0-28.0)
--- NOTE | 2017-08-16 10:21 | PCM.PROG ---
Attending Provider: ATTENDING PROVIDER: Dr. OMER RAMIREZ This patient is seen with Olga Grant, Nurse Practitioner. DATE OF SERVICE: 08/16/17 SUBJECTIVE: This 47 year old WHITE/ F was hospitalized 08/12/17. The patient is lying in bed, alert. Breathing is better. She states she would like to go home. REVIEW OF SYSTEMS: CONSTITUTIONAL: No night sweats. No fatigue, malaise, lethargy. No fever or chills. HEENT: Eyes: No visual changes. No eye pain. No eye discharge. ENT: No runny nose. No epistaxis. No sinus pain. No odynophagia. No congestion. RESPIRATORY: Cough and congestion. No hemoptysis. No shortness of breath. CARDIOVASCULAR: No angina symptoms. No CHF symptoms. No atypical chest pain for CAD. No palpitations. No orthopnea.. GASTROINTESTINAL: No abdominal pain. No nausea or vomiting. No diarrhea or constipation. No hematemesis. No hematochezia. GENITOURINARY: No urgency. No frequency. No dysuria. No hematuria. No obstructive symptoms. No discharge. No pain. No significant abnormal bleeding. MUSCULOSKELETAL: No musculoskeletal pain; no joint swelling. NEUROLOGICAL: Awake, alert, oriented to time, place and person. No headache. No neck pain. No syncope. No seizures. No dizziness. PSYCHIATRIC: Not anxious. No depression. No suicidal thoughts. No homicidal thoughts. SKIN: No rash. No lesions. No wounds. ENDOCRINE: No unexplained weight loss. No weight gain. HEMATOLOGIC/LYMPHATIC: No anemia. No purpura. No petechiae. No prolonged or excessive bleeding. No palpable lymph nodes. PHYSICAL EXAMINATION: GENERAL: The patient is awake, alert and oriented, lying in bed in no distress. VITAL SIGNS: Temperature 97.8 F, Pulse 76, Respiratory Rate 18, BP 136/80, Pulse Ox 91% HEENT: Head normocephalic, atraumatic. Eyes: Extraocular muscles are intact. Pupils are equal, round and reactive to light and accommodation. Ears: No lesions. Nose appeared normal. Throat: No exudate or erythema. NECK: Supple. No JVD, no carotid bruit. No lymphadenopathy or thyromegaly. LUNGS: Diminished breath sounds. Clear to auscultation. Percussion note normal. Chest symmetrical. HEART: S1, S2, no S3. No murmurs. No cyanosis or clubbing. No ascites. Pulses: Dorsalis pedis and posterior tibial pulses +1 to +2 both sides. ABDOMEN: Soft. Non-tender. Bowel sounds active. No CVA tenderness. No mass felt. EXTREMITIES: No edema. Full range of motion of all extremities, equal. NEUROLOGIC: No focal deficit. Cranial nerves II through XII are grossly intact. No headache, no double vision or headache. SKIN: Not dry. Intact. Turgor-normal. LYMPHATIC: No palpable lymph nodes/no lymphedema. MUSCULOSKELETAL: Normal joints with no swelling. Muscle tone is normal. LAB REVIEW: 08/16/17 04:48 08/16/17 04:48 08/16/17 04:48: Sodium 140, Potassium 4.3, Chloride 104, Carbon Dioxide 26, Anion Gap 14.3, BUN 25 H, Creatinine 0.85, Estimated GFR (MDRD) 71.00, BUN/ Creatinine Ratio 29.41, Glucose 209 H, Calcium 9.6, Total Bilirubin 0.15, AST 8 L, ALT 8 L, Alkaline Phosphatase 49, Total Protein 6.0 L, Albumin 2.8 L, Globulin 3.2, Albumin/Globulin Ratio 0.88 08/16/17 04:48: WBC 11.61 H, RBC 3.57 L, Hgb 11.8 L, Hct 35.9 L, MCV 100.6 H, MCH 33.1 H, MCHC 32.9, RDW Coeff of [place] 15.0 H, Plt Count 268, Immature Gran % ( Auto) 2.7, Neut % (Auto) 85.4, Lymph % (Auto) 9.2 L, [place] % (Auto) 2.5, Eos % ( Auto) 0.0, Baso % (Auto) 0.2, Immature Gran # (Auto) 0.3, Neut # 9.9 H, Lymph # 1.1, [place] # 0.3 L, Eos # 0.0, Baso # 0.0 08/16/17 04:48: PT 16.3 H, INR 1.62 ASSESSMENT: 1. Acute bronchitis 2. COPD with acute exacerbation 3. Smoker 4. Anxiety 5. History of PE PLAN: 1. Advised to quit smoking 2. ABG on room air 3. 6 mg Coumadin before discharge 4. Prednisone 20 mg b.i.d for four days then 10 b.i.d. for three days 5. Keflex 500 t.i.d. times seven days 6. Followup in office or Wednesday Plan and coordination of the patient's care discussed in the presence of Automobile Detailer and nurse. EDUCATION: Counseling for smoking done. CONDITION: Stable SCRIBED BY: RADHA DURANT Retirement Sales Consultant scribed while in presence of service performed by Dr. Ramirez/Olga Grant APRN on 08/16/17 ([id number])
[2017-08-16 10:41] VITALS: BP 122/80; TEMP 97.9
--- NOTE | 2017-08-16 10:58 | PN ---
DATE OF SERVICE: 08/13/17 SUBJECTIVE: 47-year-old white female hospitalized with acute respiratory failure with COPD and asthma. The patient's condition has steadily improved. The patient will be on steroids, antibiotics. She was advised to lose weight. She is morbidly obese with BMI of 49. She has abdominal breathing. Pulmonary rehabilitation discussed with her and advised strongly. Also advised to have followup and referral to pulmonary physician - she declined. Counseling for smoking done. PHYSICAL EXAMINATION: HEENT: Head normocephalic, atraumatic. Eyes: Extraocular muscles are intact. Pupils are equal, round and reactive to light and accommodation. Ears: No lesions. Nose appeared normal. Throat: No exudate or erythema. NECK: Supple. No JVD, no carotid bruit. No lymphadenopathy or thyromegaly. LUNGS: Decreased breath sounds with more air entry. Percussion note normal. Chest symmetrical. HEART: S1, S2, No evidence of CHF. No cyanosis or clubbing. No ascites. Pulses: Dorsalis pedis and posterior tibial pulses +1 to +2 both sides. ABDOMEN: Soft. Nontender. Bowel sounds active. No CVA tenderness. No mass felt. EXTREMITIES: No edema. Full range of motion of all extremities, equal. NEUROLOGIC: No focal deficit. Cranial nerves II through XII are grossly intact. No headache, no double vision or headache. SKIN: Not dry. Intact. Turgor - normal. LYMPHATIC: No palpable lymph nodes/no lymphedema. MUSCULOSKELETAL: Normal joints with no swelling. Muscle tone is normal. PLAN: The patient's condition is stable. The patient was seen and examined by nurse practitioner. TIME SPENT: More than 30 minutes. Plan and coordination of the patient's care discussed in the presence of nurse. RONALDO
--- NOTE | 2017-08-16 11:29 | CM.DICTOOL ---
ADMISSION: 08/12/17 14:31 DISCHARGE: 08/16/17 FINAL DIAGNOSIS COPD with exacerbation (Acute) HISTORY OF: DM 2 HTN PE MIGRAINE ANXIETY/DEPRESSION HEMORROIDS IBS HYPOTHYROIDSISM ASTHMA TOBACCO USE VERTIGO SURGICAL HISTORY: - DATE UNKNOWN COLON BIOPSY X 2 - DATE UNKNOWN LITHOTRIPSY X 2 - DATE UNKNOWN CARPAL TUNNEL RIGHT HAND - DATE UNKNOWN TONSILECTOMY - DATE UNKNOWN LAST VITALS Temp Pulse Resp BP Pulse Ox 90 F L 76 20 136/80 91 L 08/16/17 09:20 08/16/17 06:00 08/16/17 08:00 08/16/17 06:00 08/16/17 06:00 ACTIVE HOME MEDICATIONS Acetaminophen/Hydrocodone Bitart ([place] 7.5-325) 1 tab PO TID [facility] Last Admin: 08/16/17 08:54 Dose: 1 tab Budesonide (Pulmicort 0.5 Mg/2 Ml) 1 vial NEB RTBID [facility] Last Admin: 08/16/17 05:38 Dose: 1 vial Chlordiazepoxide HCl (Librium) 25 mg PO BID PRN PRN Reason: Anxiety Last Admin: 08/15/17 20:09 Dose: 25 mg Diazepam (Valium) 5 mg PO TID PRN PRN Reason: Anxiety Last Admin: 08/15/17 20:09 Dose: 5 mg Gabapentin (Neurontin) 300 mg PO BID [facility] Last Admin: 08/16/17 08:55 Dose: 300 mg Hydrochlorothiazide (Hydrochlorothiazide) 12.5 mg PO DAILY [facility] Last Admin: 08/16/17 08:55 Dose: 12.5 mgSCH Last Admin: 08/16/17 06:13 Dose: 25 mcg Lisinopril (Zestril) 10 mg PO DAILY [facility] Last Admin: 08/16/17 08:54 Dose: 10 mg Metformin HCl (Glucophage) 500 mg PO BIDWM [facility] Last Admin: 08/16/17 08:55 Dose: 500 mg Pantoprazole Sodium (Protonix) 40 mg PO QDAC [facility] Last Admin: 08/16/17 06:13 Dose: 40 mg Sertraline HCl (Zoloft) 150 mg PO DAILY [facility] Last Admin: 08/16/17 08:55 Dose: 150 mg Warfarin Sodium (Coumadin) 4 mg PO 1700 [facility] Last Admin: 08/15/17 17:15 Dose: 4 mg ALLERGIES No Known Allergies Allergy (Verified 08/12/17 10:48) NEW PRESCRIPTIONS: NEW MEDICATIONS: 1. KEFLEX 500MG TAKE 1 CAPSULE 3 TIMES A DAY FOR 7 DAYS. TAKE UNTIL ALL GONE. 2. PREDNISONE 10MG TAKE 2 TABLETS 2 TIMES A DAY FOR 4 DAYS THEN 1 TABLET 2 TIMES A DAY FOR 3 DAYS. TAKE WITH FOOD. SMOKING: NO SMOKING. AVOID SECOND HAND SMOKE. DISEASE SPECIFIC EDUCATION: COPD ASTHMA SMOKING CESSATION AND COUNSELING DIET COUNSELING WEIGHT LOSS COUNSELING PULMONARY REHAB PROGRAM MEDICATION THERAPY LAB REVIEW: 08/16/17 04:48 08/16/17 04:48 08/16/17 09:01: Puncture Site Lrad, O2 Saturation 93.0 L, ABG pH 7.398, ABG pCO2 45.9 H, ABG pO2 69.0 L, ABG HCO3 28.3 H, ABG Total CO2 30 H, ABG Base Excess 3 H, Jj Test +, FiO2 % 21.0 08/16/17 04:48: Sodium 140, Potassium 4.3, Chloride 104, Carbon Dioxide 26, Anion Gap 14.3, BUN 25 H, Creatinine 0.85, Estimated GFR (MDRD) 71.00, BUN/ Creatinine Ratio 29.41, Glucose 209 H, Calcium 9.6, Total Bilirubin 0.15, AST 8 L, ALT 8 L, Alkaline Phosphatase 49, Total Protein 6.0 L, Albumin 2.8 L, Globulin 3.2, Albumin/Globulin Ratio 0.88 08/16/17 04:48: WBC 11.61 H, RBC 3.57 L, Hgb 11.8 L, Hct 35.9 L, MCV 100.6 H, MCH 33.1 H, MCHC 32.9, RDW Coeff of Nina 15.0 H, Plt Count 268, Immature Gran % ( Auto) 2.7, Neut % (Auto) 85.4, Lymph % (Auto) 9.2 L, [place] % (Auto) 2.5, Eos % ( Auto) 0.0, Baso % (Auto) 0.2, Immature Gran # (Auto) 0.3, Neut # 9.9 H, Lymph # 1.1, [place] # 0.3 L, Eos # 0.0, Baso # 0.0 08/16/17 04:48: PT 16.3 H, INR 1.62 PLAN: DISCHARGE HOME TODAY. CONTINUE HOME MEDICATIONS PER NURSING SHEET. NEW MEDICATIONS: 1. KEFLEX 500MG TAKE 1 CAPSULE 3 TIMES A DAY FOR 7 DAYS. TAKE UNTIL ALL GONE. 2. PREDNISONE 10MG TAKE 2 TABLETS 2 TIMES A DAY FOR 4 DAYS THEN 1 TABLET 2 TIMES A DAY FOR 3 DAYS. TAKE WITH FOOD. 1800 CALORIE DIET. LOSE WEIGHT. GRADUALLY RESUME ACTIVITY. NO SMOKING. AVOID SECOND HAND SMOKE. FOLLOW UP WITH DR. RAMIREZ ON WednesdayAugust AT 1145. IF UNABLE TO KEEP APPOINTMENT PLEASE CALL TO RESCHEDULE. [phone]. SITTING UP IN BED. ALERT AND ORIENTED X 4. Aretha HARRIS APRN INTO SEE PATIENT. PATIENT STATES FEEING BETTER AND WOULD LIKE TO GO HOME. Aretha HARRIS APRN DISCUSSED PLAN OF CARE INCLUDING PT/INR RESULTS AND POSSIBLE DISCHARGE. PATIENT VERBALIZES UNDERSTANDING AND IS AGREEABLE. VITAL SIGNS ARE STABLE. HAS BEEN AFEBRILE. POX 91% ON 2L/C. HEART TONES ARE REGULAR. LUNGS ARE CLEAR WITH DIMINISHED BREATH SOUNDS. HAS NON-PRODUCTIVE MOIST SOUNDING COUGH. IS UNABLE TO LIE FLAT DUE TO DYSPNEA. ABDOMEN IS SOFT, NON-TENDER WITH BOWEL SOUNDS POSITIVE IN ALL 4 QUADS. HAD VERY SMALL BM LAST PM OTHERWISE NO BM SINCE ADMIT. PATIENT STATES HAS IBS AND THIS IS NOT UNUSUAL FOR HER. PEDAL PULSES ARE POSITIVE WITHOUT EDEMA. HAS SALINE LOCK IN RIGHT AC SITE IS CLEAR. IS INDEPENDENT WITH ACTIVITIES OF DAILY LIVING. DR. OMER RAMIREZ MD Aretha HARRIS APRN
--- NOTE | 2017-08-17 09:54 | DS ---
DATE OF SERVICE: 08/16/17 FINAL DIAGNOSIS: 1. COPD WITH EXACERBATION (ACUTE) HISTORY OF: 2. DIABETES MELLITUS TYPE 2 3. HYPERTENSION 4. PE 5. MIGRAINE 6. ANXIETY/DEPRESSION 7. HEMORRHOIDS 8. IBS 9. HYPOTHYROIDISM 10. ASTHMA 11. TOBACCO USE 12. VERTIGO SURGICAL HISTORY 13. DATE UNKNOWN 14. COLON BIOPSY TIMES TWO, DATE UNKNOWN 15. LITHOTRIPSY TIMES TWO, DATE UNKNOWN 16. CARPAL TUNNEL RIGHT HAND, DATE UNKNOWN 17. TONSILLECTOMY, DATE UNKNOWN DISCHARGE INSTRUCTIONS: Followup appointment with Dr. Hoffman on August 20 at 1145. If unable to keep appointment, please call to reschedule. MEDICATIONS AT DISCHARGE: Acetaminophen/Hydrocodone ([place] 7.5-325) one tab p.o. t.i.d. NINFA Budesonide (Pulmicort) one vial NEB Rt b.i.d. NINFA Chlordiazepoxide (Librium) 25 mg p.o. b.i.d. p.r.n. Diazepam (Valium) 5 mg p.o. t.i.d. p.r.n. Gabapentin (Neurontin) 300 mg p.o. b.i.d. [facility] Hydrochlorothiazide 12.5 mg p.o. daily NINFA Zestril 10 mg p.o. daily NINFA Glucophage 500 mg p.o. b.i.d. with meal Protonix 40 mg p.o. q.d a.c. NINFA Zoloft 150 mg p.o. daily NINFA Coumadin 4 mg p.o. 1700 NINFA NEW PRESCRIPTIONS: Keflex 500 mg take one capsule 3 times a day for 7 days. Take until all gone. Prednisone 10 mg take two tabelts two times a day for four days then one tablet two times a day for 3 days. Take with food. DIET INSTRUCTIONS: 1800 calorie diet; lose weight ACTIVITY: Gradually resume activity SMOKING: No smoking, avoid second hand smoke. DISEASE SPECIFIC EDUCATION: COPD Asthma Smoking cessation and counseling Diet counseling Weight loss counseling Pulmonary rehab program Medication therapy HOSPITAL COURSE: This is a 47-year-old white female who presented to the emergency room with shortness of breath and cough for the past several days. Chest x-ray revealed no pneumonia changes associated with COPD. She is a long-term smoker with severe COPD and history of asthma. ABGs were significantly abnormal. On admission blood pressure was elevated. Oxygen saturation was down to 83%. She was admitted, placed on IV Solu-Medrol 125 mg q.8hr as well as Rocephin 1 gm IV daily, oxygen p.r.n., Duoneb breathing treatment q.6hr scheduled and continue her Pulmicort neb treatments twice daily. The past several days she has significantly improved. ABGs are within normal limits with an oxygen saturation of 93% today on room air. She has been up and about. She does still have some shortness of breath with moderate exertion. It was discussed with her the need for her to quit smoking as her condition will only worsen with time. Vital signs have been stable. She has ProAir inhaler as well as Albuterol nebulizer medication at home. She is instructed to continue these at least four times a day. Continue Pulmicort twice a day nebulizer treatment. She will be discharged home on Keflex 500 mg t.i.d. for the next seven days as well as a tapering dose of Prednisone 20 mg for the next four days and then 10 mg b.i.d. for the next three days. We will followup with her in the office next week. Again, it is strongly recommended that she stop smoking. She is to continue with increased rest. She was also advised to cut back on her diet and lose weight. We will followup with her in the office. She is discharged home in stable condition. Vital signs are steady, temperature 98, heart rate 76, respirations 20, BP 136/ 80, pulse ox 93%. TIME SPENT: More than 60 minutes. MTDD
--- NOTE | 2017-08-17 11:20 | PN ---
DATE OF SERVICE: 08/14/17 SUBJECTIVE: 47 year old white female hospitalized with acute bronchitis/pneumonitis and respiratory failure. The patient's condition has improved and her coughing is controlled with Tussionex and Tessalon Perle. REVIEW OF SYSTEMS: CONSTITUTIONAL: No night sweats. No fatigue, malaise, lethargy. No fever or chills. HEENT: Eyes: No visual changes. No eye pain. No eye discharge. ENT: No runny nose. No epistaxis. No sinus pain. No sore throat. No odynophagia. No congestion. RESPIRATORY: Mild cough, no congestion. No hemoptysis. Shortness of breath on minimal exertion. CARDIOVASCULAR: No angina symptoms. No CHF symptoms. No atypical chest pain for CAD. No palpitations. No orthopnea. No PND. GASTROINTESTINAL: No abdominal pain. No nausea or vomiting. No diarrhea or constipation. No hematemesis. No hematochezia. GENITOURINARY: No urgency. No frequency. No dysuria. No hematuria. No obstructive symptoms. No discharge. No pain. No significant abnormal bleeding. MUSCULOSKELETAL: No musculoskeletal pain; no joint swelling. NEUROLOGICAL: No headache. No neck pain. No syncope. No seizures. No dizziness. PSYCHIATRIC: Not anxious. No depression. No suicidal thoughts. No homicidal thoughts. SKIN: No rash. No lesions. No wounds. ENDOCRINE: No unexplained weight loss. No weight gain. HEMATOLOGIC/LYMPHATIC: No anemia. No purpura. No petechiae. No prolonged or excessive bleeding. No palpable lymph nodes. PHYSICAL EXAMINATION: GENERAL: The patient is oriented to time, place and person. VITAL SIGNS: Temperature 98.2, pulse 70, respiratory rate 18, blood pressure 120/80 and pulse ox 96%. HEENT: Head normocephalic, atraumatic. Eyes: Extraocular muscles are intact. Pupils are equal, round and reactive to light and accommodation. Ears: No lesions. Nose appeared normal. Throat: No exudate or erythema. NECK: Supple. No JVD, no carotid bruit. No lymphadenopathy or thyromegaly. LUNGS: Decreased breath sounds with mild wheeze. Percussion note normal. Chest symmetrical. HEART: S1, S2, no S3. No murmurs. No cyanosis or clubbing. No ascites. Pulses: Dorsalis pedis and posterior tibial pulses +1 to +2 both sides. ABDOMEN: Soft. Nontender. Bowel sounds active. No CVA tenderness. No mass felt. EXTREMITIES: No edema. Full range of motion of all extremities, equal. NEUROLOGIC: No focal deficit. Cranial nerves II through XII are grossly intact. No headache, no double vision or headache. SKIN: Not dry. Intact. Turgor - normal. LYMPHATIC: No palpable lymph nodes/no lymphedema. MUSCULOSKELETAL: Normal joints with no swelling. Muscle tone is normal. LABS: hgb 12, hct 36, WBC 14,000 normal differential, creatinine 0.9, BUN 18, potassium 4.8 ASSESSMENT: 1. Acute bronchitis 2. Respiratory failure 3. Severe chronic lung disease 4. Smoking 5. Obesity, morbidly obese PLAN: 1. Counseling for smoking done 2. Counseling for weight loss done 3. Advised pulmonary rehab 4. Continue NEBS, steroids and antibiotics. CONDITION: Stable, improving TIME SPENT: More than 30 minutes. Plan and coordination of the patient's care discussed in the presence of nurse. RONALDO
== END 2017-08-16 11:48 | disposition home or self-care (01) | DRG 190 ==
LOC: ED 10:38 → MEDSURG A 14:31
PROVIDERS: ADMIT Internal Medicine; ATTEND Internal Medicine
DX: J44.1 Chronic obstructive pulmonary disease with (acute) exacerbation (principal); J96.00 Acute respiratory failure, unspecified whether with hypoxia or hypercapnia; Z68.42 Body mass index [BMI] 45.0-49.9, adult; J20.9 Acute bronchitis, unspecified; J44.0 Chronic obstructive pulmonary disease with (acute) lower respiratory infection; E11.9 Type 2 diabetes mellitus without complications; I10 Essential (primary) hypertension; G43.909 Migraine, unspecified, not intractable, without status migrainosus; E66.01 Morbid (severe) obesity due to excess calories; F41.8 Other specified anxiety disorders; K64.9 Unspecified hemorrhoids; K58.9 Irritable bowel syndrome, unspecified; E03.9 Hypothyroidism, unspecified; R42 Dizziness and giddiness; R05 Cough; F17.200 Nicotine dependence, unspecified, uncomplicated; Z79.01 Long term (current) use of anticoagulants; Z79.84 Long term (current) use of oral hypoglycemic drugs; Z86.711 Personal history of pulmonary embolism
CPT/HCPCS: 36415; 80053; 82550; 82803; 82962; 84484; 85025; 85610; 87040; 87804; 93005; 93010; 94640; 96374; 99284

== ENCOUNTER 2017-09-08 12:16 | Outpatient (CLI) ==
[2017-09-08 12:50] LABS: CREATININE 1.2 mg/dL (0.60-1.30)
--- NOTE | 2017-09-08 13:59 | US ---
EXAM: Carotid ultrasound HISTORY: Dizziness and giddiness COMPARISON: None TECHNIQUE: Carotid ultrasound was performed using patrick scale, color, and Doppler imaging was perform ed. FINDINGS: Right carotid: There is mild intimal thickening without significant visualized area of atherosclerot ic narrowing. Peak systolic velocity measurement in the right internal carotid artery is 0.80 meters per second. End-diastolic velocity measurement in the right internal carotid artery is 0.30 meters per second. Right internal to common carotid artery peak systolic velocity ratio is 1.0. Flow in th e right vertebral artery is antegrade. Left carotid: There is mild intimal thickening without significant visualized area of atheroscleroti c narrowing. Peak systolic velocity measurement in the left internal carotid artery is 0.9 meters pe r second. End-diastolic velocity measurement in the left internal carotid artery is 0.3 meters per s econd. Left internal to common carotid artery peak systolic velocity ratio measures 1.1. Flow in th e left vertebral artery is antegrade. IMPRESSION: 1. Right internal carotid: No hemodynamically significant stenosis 2. Left internal carotid: No hemodynamically significant stenosis
== END 2017-09-08 12:17 | disposition home or self-care (01) ==
LOC: RAD 12:16
PROVIDERS: ATTEND Otolaryngology
DX: R42 Dizziness and giddiness (principal); R55 Syncope and collapse
CPT/HCPCS: 36415; 82565

== ENCOUNTER 2017-09-09 08:48 | Outpatient (CLI) ==
--- NOTE | 2017-09-09 16:58 | MRI ---
EXAM: Brain and brainstem MRI with and without contrast. HISTORY: Dizziness and giddiness. COMPARISON: None. TECHNIQUE: Multiplanar, multisequence MR images were acquired of the brain with thin sections throug h the posterior fossa before and after administration of intravenous contrast. FINDINGS: The midline structures are central. The left cerebellar tonsil is slightly larger than th e right and it extends 2.3 mm below the foramen magnum and the right cerebellar tonsil extends 1.5 mm below the foramen magnum. These findings are within normal variation. There is enlargement of the subarachnoid space anterior to both frontal lobes at the convexity and mild widening of some frontal and parietal sulci. The ventricles are normal in size and configuration. These findings are compati ble with age related involutional changes. The brain parenchyma has no restricted diffusion to suggest acute hypoperfusion or infarction. Small T2 hyperintensities are present in the supratentorial white matter compatible mild leukomalacia. Aft er administration of contrast, no enhancing lesions are noted in the brain parenchyma. The corpus ca llosum has a normal configuration. The sella is expanded and the pituitary gland is small with a sli ghtly concave superior border and homogeneous contrast enhancement. This is consistent with a partia l empty sella. The infundibulum is midline. Thin sections through the posterior fossa show two dilated perivascular spaces or chronic sub-centime ter lacunes in the left cerebellum (axial T2 image #6). There is no abnormal contrast enhancement in the internal auditory canals or labyrinthine structures. There is fatty infiltration of the parotid glands bilaterally. There are no intraorbital masses. Flow voids are present in the major intracranial arteries and dural venous sinuses. There is mild to moderate mucosal thickening in the right ethmoid air cells and mild mucosal thickeni ng in the left ethmoid air cells. Mild to moderate mucosal thickening is present in the right maxill demi sinus which is completely opacified with fluid and this extends into the right bony infundibulum which is widened and there is erosion of the right middle turbinate compatible with chronic disease. This produces obstruction to the right ethmoid air cells. Mild mucosal thickening and and a small mu cous retention cyst is present in the left maxillary sinus. IMPRESSION: 1. Age related involutional changes and mild chronic ischemic small vessel disease. 2. No vestibular schwannoma, intracranial hemorrhage or acute cerebral infarct. 3. Partial empty sella. 4. Acute and chronic right maxillary sinusitis and right ethmoiditis with complete opacification of the right maxillary sinus and subtotal opacification of the right ethmoid air cells.
== END 2017-09-09 08:49 | disposition home or self-care (01) ==
LOC: RAD 08:48
PROVIDERS: ATTEND Otolaryngology
DX: R42 Dizziness and giddiness (principal); R55 Syncope and collapse

== ENCOUNTER 2017-10-11 14:15 | Emergency (ER) ==
[2017-10-11 14:20] VITALS: BP 142/80; TEMP 100.1; BMI 48.0
[2017-10-11] MEDS ORDERED: DUONEB NEB STA (14:23)
[2017-10-11] MEDS ORDERED: PREDNISONE PO STA (14:24)
--- NOTE | 2017-10-11 14:47 | DI ---
EXAM: Single view of the chest. History: Cough. Comparison: Chest radiograph 08/13/2017 Findings: Heart size is within normal limits. No focal consolidation. No appreciable pleural fluid and no pneumothorax. No acute osseous abnormalities. Impression: No acute cardiopulmonary process
[2017-10-11] MEDS ORDERED: ROCEPHIN IM STA (15:23)
[2017-10-11] MEDS ORDERED: ZITHROMAX PO STA (15:23)
[2017-10-11] MEDS ORDERED: LIDOCAINE HCL 1% SDV SUBCUT STA (15:23)
--- NOTE | 2017-10-11 15:26 | ED.PDOC ---
General ED Provider: Dr. CHRISTOPHER BELL Chief Complaint: Respiratory Complaint Stated Complaint: flu like symptoms Time Seen by Physician: 14:15 Information Source: Patient Exam Limitations: No limitations Primary Care Provider: OMER RAMIREZ Nursing and Triage Documentation Reviewed and Agree: Yes Reviewed sepsis parameters & appropriate labs ordered?: Yes System Inflammatory Response Syndrome: Not Applicable Sepsis Protocol: For patient's 13 years and over: Temp is 96.8 and below OR 101 and greater Pulse >90 BPM Resp >20/minute Acutely Altered Mental Status Are patient's symptoms suggestive of a new infection, such as: -Pneumonia -Skin, Soft Tissue -Endocarditis -UTI -Bone, Joint Infection -Implantable Device -Acute Abdominal Infection -Wound Infection -Meningitis -Blood Stream Catheter Infection -Unknown System Inflammatory Response Syndrome: Not Applicable Respiratory Complaint Exam - Respiratory Complaint/Exam Symptoms Are: Still present Timing: Intermittent Initial Severity: Moderate Current Severity: Moderate Location: Nose, Throat, Chest Character: Reports: Non-productive cough Aggravating: Reports: None Alleviating: Reports: Bronchodilators, Spontaneous resolution Associated Signs and Symptoms: Reports: Fever, Chills, URI, Nasal congestion Related History: Reports: Similar episode History of Healthcare-Acquired Pneumonia: No Related Surgical History: Reports: None Pulmonary Embolism Risk Factors: Smoking Cardiac Risk Factors: Reports: Smoking, Diabetes, Hypertension Pseudomonas Risk Factors: Reports: None Tuberculosis Risk Factors: Reports: None Status Asthmaticus Risk Factors: Reports: None Home Oxygen Use: No Recent Stress Test: No Recent Echo/LV Function: No Current Antibiotic Use: No Current Asthma Medication Use: No Respiratory Distress: None Inadequate Respiratory Effort: No Dysphagia Present: No Stridor Present: No JVD Present: No Accessory Muscle Use: No Retractions: Not Present Diminished Breath Sounds: No Sinus Tenderness: None Differential Diagnoses: Pneumonia, Bronchitis Review of Systems - Review Of Systems Constitutional: Reports: Malaise Eyes: Reports: No symptoms Ears, Nose, Mouth, Throat: Reports: No symptoms Respiratory: Reports: Cough Cardiac: Reports: No symptoms GI: Reports: No symptoms : Reports: No symptoms Musculoskeletal: Reports: No symptoms Skin: Reports: No symptoms Neurological: Reports: No symptoms Endocrine: Reports: No symptoms Hematologic/Lymphatic: Reports: No symptoms All Other Systems: Reviewed and Negative Past Medical History - Past Medical History Previously Healthy: No (recent pneumonia) Endocrine: Reports: DM 2 Cardiovascular: Reports: Hypertension Respiratory: Reports: COPD, PE Hematological: Reports: None Gastrointestinal: Reports: None Genitourinary: Reports: None Neuro/Psych: Reports: None Musculoskeletal: Reports: Arthritis, Other (spinal stenosis ) Cancer: Reports: None Last Menstrual Period: 2006 Other Pertinent Past Medical History: Vertigo - Surgical History General Surgical History: Reports: (x 2), Other ( colon biopsyx2, lithotripsyx2, carpal tunnel, hysterectomy) - Family History Family History: Reports: Unknown - Social History Smoking Status: Current every day smoker Hx Substance Use: No Alcohol Screening: None - Immunizations Tetanus Shot up to Date: No Influenza Vaccine within 12 Months: No Pneumococcal Vaccine up to Date: No Physical Exam - Physical Exam Appearance: Well-appearing, No pain distress, Well-nourished Eyes: BENY, EOMI, Conjunctiva clear ENT: Ears normal, Nose normal, Oropharynx normal Respiratory: Rhonchi Cardiovascular: RRR, Pulses normal, No rub, No murmur GI/: Soft, Nontender, No masses, Bowel sounds normal, No Organomegaly Musculoskeletal: Normal strength, ROM intact, No edema, No calf tenderness Skin: Warm, Dry, Normal color Neurological: Sensation intact, Motor intact, Reflexes intact, Cranial nerves intact, Alert, Oriented Psychiatric: Affect appropriate, Mood appropriate Critical Care Note - Critical Care Note Total Time (mins): 0 Course - Course Orders, Labs, Meds: Lab Review 10/11/17 15:01 Influenza A (Rapid) Negative by naat Influenza B (Rapid) Negative by naat Orders Category Date Time Status NEBULIZER TREATMENT Stat CARDIO 10/11/17 14:23 Completed FLU A/B MOLECULAR Routine LAB 10/11/17 15:01 Completed MOLECULAR GROUP A STREP Routine LAB 10/11/17 15:01 Completed Azithromycin [Zithromax] MEDS 10/11/17 15:23 Stat 1,000 mg PO ONCE STA Ceftriaxone Sodium [Rocephin] MEDS 10/11/17 15:23 Stat 1 gm IM ONCE STA Ipratropium/Albuterol Neb [Duoneb] MEDS 10/11/17 14:23 Discontinued 1 vial NEB ONCE STA Lidocaine HCl/Pf [Lidocaine HCl 1% Sdv] MEDS 10/11/17 15:23 Stat 5 ml SUBCUT ONCE STA Prednisone MEDS 10/11/17 14:24 Discontinued 40 mg PO ONCE STA CHEST, 2 VIEWS PA & LAT Stat RADS 10/11/17 14:23 Completed Medications Discontinued Medications Generic Name Dose Route Start Last Admin Trade Name Olaf PRN Reason Stop Dose Admin Albuterol/Ipratropium 1 vial 10/11/17 14:23 10/11/17 14:57 Duoneb NEB 10/11/17 14:24 1 vial ONCE STA Administration Azithromycin 1,000 mg 10/11/17 15:23 Zithromax PO 10/11/17 15:24 ONCE STA Ceftriaxone Sodium 1 gm 10/11/17 15:23 Rocephin IM 10/11/17 15:24 ONCE STA Lidocaine HCl 5 ml 10/11/17 15:23 Lidocaine Hcl 1% Sdv SUBCUT 10/11/17 15:24 ONCE STA Prednisone 40 mg 10/11/17 14:24 10/11/17 14:37 Prednisone PO 10/11/17 14:25 40 mg ONCE STA Administration Vital Signs: Temp Pulse Resp BP Pulse Ox 10/11/17 14:15 100.1 F H 110 H 22 142/80 H 90 L Departure - Departure Time of Disposition: 15:27 Disposition: HOME SELF-CARE Discharge Problem: Acute bronchitis Qualifiers: Bronchitis organism: unspecified organism Qualified Code(s): J20.9 - Acute bronchitis, unspecified Instructions: Bronchospasm (ED), How Your Lungs Work (ED), Acute Bronchitis (ED ) Condition: Good Pt referred to PMD for follow-up: Yes IPMP verified?: Yes Additional Instructions: Please call your Family Physician as soon as possible to schedule a follow-up appointment. Allergies/Adverse Reactions: Allergies No Known Allergies Allergy (Verified 08/12/17 10:48) Home Medications: Ambulatory Orders Chlordiazepoxide HCl [Librium] 25 mg PO BID PRN 05/29/17 Gabapentin [Neurontin] 300 mg PO BID 05/29/17 Hydrocodone Bit/Acetaminophen [[place] 7.5-325] 1 each PO TID 05/29/17 Levothyroxine Sodium [Synthroid] 25 mcg PO QDAC 05/29/17 Lisinopril/Hydrochlorothiazide [Lisinopril-Hctz 10-12.5 mg Tab] 1 each PO DAILY 05/29/17 Metformin HCl [Glucophage] 500 mg PO BIDWM 05/29/17 Sertraline HCl [Zoloft] 150 mg PO DAILY 05/29/17 Warfarin Sodium [Coumadin] 4 mg PO DAILY 05/29/17 Albuterol Sulfate 0.083% Neb [Albuterol 0.083% Neb] 1 vial NEB RTQ4H #120 vial.neb 06/07/17 Budesonide [Pulmicort 0.5 mg/2 ml] 1 vial NEB RTBID #60 vial.keyur 06/07/17 Pantoprazole Sodium [Protonix] 40 mg PO QDAC #30 tablet. 06/07/17 Albuterol Sulfate [Proair Hfa] 2 puff IH Q6H PRN 08/12/17 Cephalexin [Keflex] 500 mg PO Q8HR #21 capsule 08/16/17 Prednisone 10 mg PO BIDWM #14 tablet 08/16/17 Diazepam 10 mg PO TID PRN #50 tab-cap 09/08/17
== END 2017-10-11 15:44 | disposition home or self-care (01) ==
LOC: ED 14:15
DX: J20.9 Acute bronchitis, unspecified (principal); F17.210 Nicotine dependence, cigarettes, uncomplicated; E11.9 Type 2 diabetes mellitus without complications; I10 Essential (primary) hypertension; Z79.899 Other long term (current) drug therapy; Z79.01 Long term (current) use of anticoagulants; Z86.711 Personal history of pulmonary embolism
CPT/HCPCS: 36415; 80053; 85025; 87502; 87651; 94640; 96372; 99283

== ENCOUNTER 2017-10-15 12:20 | Inpatient (IN) ==
[2017-10-15] MEDS ORDERED: SOLU-MEDROL 125 MG IVP STA (12:49)
[2017-10-15] MEDS: DUONEB NEB STA ×2 (13:14→16:40)
[2017-10-15] MEDS ORDERED: ROCEPHIN 1 GM in SODIUM CHLORIDE 50 ML IV STA (14:03)
--- NOTE | 2017-10-15 14:03 | ED.PDOC ---
General ED Provider: Dr. CHRISTOPHER BLEL Chief Complaint: Respiratory Complaint Stated Complaint: short of air wheezing Time Seen by Physician: 12:23 Mode of Arrival: Wheelchair Information Source: Patient Exam Limitations: No limitations Primary Care Provider: OMER RAMIREZ Nursing and Triage Documentation Reviewed and Agree: Yes Reviewed sepsis parameters & appropriate labs ordered?: Yes System Inflammatory Response Syndrome: Not Applicable Sepsis Protocol: For patient's 13 years and over: Temp is 96.8 and below OR 101 and greater Pulse >90 BPM Resp >20/minute Acutely Altered Mental Status Are patient's symptoms suggestive of a new infection, such as: -Pneumonia -Skin, Soft Tissue -Endocarditis -UTI -Bone, Joint Infection -Implantable Device -Acute Abdominal Infection -Wound Infection -Meningitis -Blood Stream Catheter Infection -Unknown System Inflammatory Response Syndrome: Not Applicable Review of Systems - Review Of Systems Constitutional: Reports: Malaise Eyes: Reports: No symptoms Ears, Nose, Mouth, Throat: Reports: No symptoms Respiratory: Reports: Cough, Wheezing Cardiac: Reports: No symptoms GI: Reports: No symptoms : Reports: No symptoms Musculoskeletal: Reports: No symptoms Skin: Reports: No symptoms Neurological: Reports: No symptoms Endocrine: Reports: No symptoms Hematologic/Lymphatic: Reports: No symptoms All Other Systems: Reviewed and Negative Past Medical History - Past Medical History Previously Healthy: No (recent pneumonia) Endocrine: Reports: DM 2 Cardiovascular: Reports: Hypertension Respiratory: Reports: COPD, PE Hematological: Reports: None Gastrointestinal: Reports: None Genitourinary: Reports: None Neuro/Psych: Reports: None Musculoskeletal: Reports: Arthritis, Other (spinal stenosis ) Cancer: Reports: None Last Menstrual Period: hysterectomy Other Pertinent Past Medical History: Vertigo - Surgical History General Surgical History: Reports: (x 2), Other ( colon biopsyx2, lithotripsyx2, carpal tunnel, hysterectomy) - Family History Family History: Reports: Unknown - Social History Smoking Status: Current every day smoker, Light tobacco smoker Hx Substance Use: No Alcohol Screening: None - Immunizations Influenza Vaccine within 12 Months: No Pneumococcal Vaccine up to Date: No Physical Exam - Physical Exam Appearance: Ill-appearing, Obese Ill-appearing: Moderate Pain Distress: Moderate Eyes: BENY, EOMI, Conjunctiva clear ENT: Ears normal, Nose normal, Oropharynx normal Respiratory: Wheezes Cardiovascular: RRR, Pulses normal, No rub, No murmur GI/: Soft, Nontender, No masses, Bowel sounds normal, No Organomegaly Musculoskeletal: Normal strength, ROM intact, No edema, No calf tenderness Skin: Warm, Dry, Normal color Neurological: Sensation intact, Motor intact, Reflexes intact, Cranial nerves intact, Alert, Oriented Psychiatric: Affect appropriate, Mood appropriate Interpretation - Radiology Interpretation Radiology Interpretation By: Radiologist Re-Evaluation - Re-Evaluation Time of Re-Evaluation: 13:00 Status: Improved Vital Signs Stable: Yes Pain Level: 0 Appearance: NAD Lungs: Clear Skin: Warm and Dry Neuro: Alert and Oriented X3 CV: RRR - Re-Evaluation Time of Re-Evaluation: 13:40 (seen with cris being admitted feels better ) Status: Improved Vital Signs Stable: Yes Pain Level: 0 Appearance: NAD Skin: Warm and Dry Neuro: Alert and Oriented X3 CV: RRR Physician Notification - Case Discussed Physician Notified: pmd Time of Notification: 15:00 Critical Care Note - Critical Care Note Total Time (mins): 0 Course - Course Hematology/Chemistry: 10/15/17 13:15 10/15/17 13:15 Orders, Labs, Meds: Lab Review 10/15/17 10/15/17 13:15 13:15 WBC 8.00 RBC 3.87 L Hgb 13.0 Hct 39.0 MCV 100.8 H MCH 33.6 H MCHC 33.3 RDW Coeff of Nina 14.5 Plt Count 180 Neutrophils % (Manual) 74.0 Lymphocytes % (Manual) 19.0 Monocytes % (Manual) 1.0 Reactive Lymphocytes 6.0 H Anisocytosis Not present Sodium 138 Potassium 4.8 Chloride 105 Carbon Dioxide 25 Anion Gap 12.8 BUN 21 H Creatinine 0.96 Estimated GFR (MDRD) 62.00 BUN/Creatinine Ratio 21.87 Glucose 130 H Calcium 9.6 Total Bilirubin < 0.3 AST 14 L ALT 11 L Alkaline Phosphatase 60 Total Protein 6.6 Albumin 3.3 L Globulin 3.3 Albumin/Globulin Ratio 1.00 Orders Category Date Time Status ADMIT PATIENT INPATIENT .TO [facility] (MONITORED BED) ADMISSION 10/15/17 14: 05 Active ABG DRAW REQUEST Stat CARDIO 10/15/17 14:03 Ordered NEBULIZER TREATMENT Stat CARDIO 10/15/17 12:48 Completed NEBULIZER TREATMENT Stat CARDIO 10/15/17 14:04 Ordered NPO REMINDER: IMAGING ONCE CARE 10/15/17 12:48 Completed TELEMETRY MONITORING TELE CARE 10/15/17 14:06 Active ED IV/MEDIPORT/POWERPORT .ONCE EMERGENCY 10/15/17 12:48 Active ABG Stat LAB 10/15/17 14:03 Ordered CBC W/ AUTO DIFF Stat LAB 10/15/17 13:15 Completed COMPREHENSIVE METABOLIC PANEL Stat LAB 10/15/17 13:15 Completed MANUAL DIFFERENTIAL Stat LAB 10/15/17 13:15 Completed 0.9 % Sodium Chloride [Saline Flush] MEDS 10/15/17 12:48 Active 1 syr IVF PRN PRN Ceftriaxone Sodium [Rocephin] 1 gm MEDS 10/15/17 14:03 Active 0.9 % Sodium Chloride [Sodium Chloride] 50 ml IV ONCE Ipratropium/Albuterol Neb [Duoneb] MEDS 10/15/17 12:48 Discontinued 1 vial NEB ONCE STA Ipratropium/Albuterol Neb [Duoneb] MEDS 10/15/17 18:00 Active 1 vial NEB RTQ6H Methylprednisolone Sod Succ/Pf [Solu-Medrol 125 mg] MEDS 10/15/17 12:49 Discontinued 125 mg IVP ONCE STA Sodium Chloride 0.9% [Sodium Chloride] 500 ml MEDS 10/15/17 14:04 Active IV 100 mls/hr CT CHEST PE PROTOCOL Stat RADS 10/15/17 12:48 Ordered Medications Generic Name Dose Route Start Last Admin Trade Name Freq PRN Reason Stop Dose Admin Albuterol/Ipratropium 1 vial 10/15/17 18:00 Duoneb NEB RTQ6H NINFA Ceftriaxone Sodium 1 gm/ 50 mls @ 75 mls/hr 10/15/17 14:03 Sodium Chloride IV 10/15/17 14:42 ONCE STA Sodium Chloride 500 mls @ 100 mls/hr 10/15/17 14:04 Sodium Chloride IV 10/15/17 19:03 .Q5H STA Sodium Chloride 1 syr 10/15/17 12:48 10/15/17 13:13 Saline Flush IVF 1 syr PRN PRN Administration To flush IV Discontinued Medications Generic Name Dose Route Start Last Admin Trade Name Freq PRN Reason Stop Dose Admin Albuterol/Ipratropium 1 vial 10/15/17 12:48 10/15/17 13:14 Duoneb NEB 10/15/17 12:49 1 vial ONCE STA Administration Methylprednisolone Sodium Succinate 125 mg 10/15/17 12:49 10/15/17 13:12 Solu-Medrol 125 Mg IVP 10/15/17 12:50 125 mg ONCE STA Administration Vital Signs: Temp Pulse Resp BP Pulse Ox 10/15/17 12:21 97.7 F 90 20 104/65 88 L Departure - Departure Time of Disposition: 15:00 (discussed labs with) Disposition: ADMITTED INPATIENT Discharge Problem: COPD with exacerbation Instructions: COPD (Chronic Obstructive Pulmonary Disease) (ED) Condition: Good Pt referred to PMD for follow-up: Yes IPMP verified?: Yes Additional Instructions: Please call your Family Physician as soon as possible to schedule a follow-up appointment. Allergies/Adverse Reactions: Allergies No Known Allergies Allergy (Verified 10/15/17 12:31) Home Medications: Ambulatory Orders Chlordiazepoxide HCl [Librium] 25 mg PO BID PRN 05/29/17 Gabapentin [Neurontin] 300 mg PO BID 05/29/17 Hydrocodone Bit/Acetaminophen [[place] 7.5-325] 1 each PO TID 05/29/17 Levothyroxine Sodium [Synthroid] 25 mcg PO QDAC 05/29/17 Lisinopril/Hydrochlorothiazide [Lisinopril-Hctz 10-12.5 mg Tab] 1 each PO DAILY 05/29/17 Metformin HCl [Glucophage] 500 mg PO BIDWM 05/29/17 Sertraline HCl [Zoloft] 150 mg PO DAILY 05/29/17 Warfarin Sodium [Coumadin] 4 mg PO DAILY 05/29/17 Albuterol Sulfate 0.083% Neb [Albuterol 0.083% Neb] 1 vial NEB RTQ4H #120 vial.keyur 06/07/17 Budesonide [Pulmicort 0.5 mg/2 ml] 1 vial NEB RTBID #60 vial.keyur 06/07/17 Pantoprazole Sodium [Protonix] 40 mg PO QDAC #30 tablet. 06/07/17 Albuterol Sulfate [Proair Hfa] 2 puff IH Q6H PRN 08/12/17 Prednisone 10 mg PO BIDWM #14 tablet 08/16/17 Diazepam 10 mg PO TID PRN #50 tab-cap 09/08/17 Disposition Discussed With: Patient
[2017-10-15] MEDS ORDERED: SODIUM CHLORIDE 500 ML IV STA (14:04)
[2017-10-15] MEDS ORDERED: ROCEPHIN ONE (14:21)
--- NOTE | 2017-10-15 14:43 | CT ---
Exam: CT PE protocol with intravenous contrast and 3-D MIP reformats. Comparison: Chest x-ray 10/11/2017. Reason for exam: Short of air. FINDINGS: No pneumothorax or pleural effusion. There are patchy ground-glass and ground-glass nodul ar opacities in both upper lobes, right middle lobe, and right lower lobe. The aorta is normal in course and caliber. The heart is not enlarged. No main, proximal, or segmental pulmonary arterial filling defect is seen. The liver is lower in att enuation in the spleen on the contrasted study. No suspicious appearing osteoblastic or osteolytic lesions. Impression: 1. No main, proximal, or segmental pulmonary arterial filling defects are seen. 2. Patchy ground-glass opacities in both upper lobes, the right middle lobe, and right lower lobe. Imaging findings are consistent with infection/inflammation. 3. Likely hepatic steatosis.
[2017-10-15 15:21] VITALS: BMI 47.9
[2017-10-15] MEDS ORDERED: PROAIR HFA IH PRN (15:40)
[2017-10-15] MEDS ORDERED: NON-FORMULARY MEDICATION (Diazepam [Diazepam] 10 MG) PO PRN (15:40)
[2017-10-15] MEDS ORDERED: VALIUM PO PRN (15:57)
[2017-10-15] MEDS ORDERED: TUSSIONEX PO PRN (15:57)
[2017-10-15] MEDS ORDERED: XOPENEX 1.25 MG NEB PRN (16:02)
[2017-10-15] MEDS ORDERED: ATROPINE SULFATE PFS IVP PRN (16:04)
[2017-10-15] MEDS ORDERED: NITROSTAT SL PRN (16:04)
[2017-10-15] MEDS ORDERED: TYLENOL PO PRN (16:04)
[2017-10-15] MEDS ORDERED: MORPHINE 4 MG/ML VIAL IVP PRN (16:04)
[2017-10-15] MEDS ORDERED: VISTARIL INJ IM PRN (16:04)
[2017-10-15] MEDS ORDERED: DECADRON 4 MG/ML SDV IM STA (16:08)
[2017-10-15] MEDS: XOPENEX 1.25 MG NEB SCH ×2 (16:50→22:45)
[2017-10-15] MEDS ORDERED: COUMADIN PO SCH (17:00)
[2017-10-15] MEDS ORDERED: NON-FORMULARY MEDICATION (Warfarin Sodium [Coumadin] 4 MG) PO SCH (17:00)
[2017-10-15] MEDS: PULMICORT 0.5 MG/2 ML NEB SCH (17:26)
[2017-10-15] MEDS: NICODERM 21 MG TD SCH (17:46)
[2017-10-15] MEDS ORDERED: DUONEB NEB SCH (18:00)
[2017-10-15] MEDS: CEPACOL SORE THROAT LOZENGE MUCOUSMEMB PRN (18:54)
[2017-10-15] MEDS: LIBRIUM PO PRN (20:21)
[2017-10-15] MEDS: NEURONTIN PO SCH (20:21)
[2017-10-15] MEDS: VALIUM PO PRN (20:22)
[2017-10-15] MEDS: NORCO 5-325 PO PRN (20:22)
[2017-10-15] MEDS: SOLU-MEDROL 125 MG IVP SCH (20:22)
[2017-10-15] MEDS ORDERED: NEURONTIN PO SCH (21:00)
[2017-10-16] MEDS: XOPENEX 1.25 MG NEB SCH ×4 (05:25→23:05)
[2017-10-16] MEDS: PULMICORT 0.5 MG/2 ML NEB SCH ×2 (05:25→16:45)
[2017-10-16] MEDS: PROTONIX PO SCH (05:57)
[2017-10-16] MEDS: SYNTHROID PO SCH (05:57)
[2017-10-16] MEDS: SOLU-MEDROL 125 MG IVP SCH ×3 (05:57→20:24)
[2017-10-16] MEDS: NORCO 5-325 PO PRN ×2 (05:57→20:20)
[2017-10-16] MEDS: ROCEPHIN 1 GM in SODIUM CHLORIDE 50 ML IV SCH (08:09)
[2017-10-16] MEDS: NICODERM 21 MG TD SCH (08:09)
[2017-10-16] MEDS: HYDROCHLOROTHIAZIDE PO SCH (08:10)
[2017-10-16] MEDS: ZOLOFT PO SCH (08:10)
[2017-10-16] MEDS: NEURONTIN PO SCH ×2 (08:10→20:20)
[2017-10-16] MEDS: ASPIRIN EC PO SCH (08:11)
[2017-10-16] MEDS: ZESTRIL PO SCH (08:11)
[2017-10-16] MEDS ORDERED: NON-FORMULARY MEDICATION (Sertraline Hcl [Zoloft] 150 MG) PO SCH (09:00)
[2017-10-16] MEDS: PHENERGAN WITH CODEINE 6.25/10 MG/5 ML PO PRN ×2 (11:55→20:22)
[2017-10-16] MEDS: VALIUM PO PRN (14:40)
[2017-10-16] MEDS ORDERED: COUMADIN PO SCH (17:00)
[2017-10-16] MEDS: LIBRIUM PO PRN (23:05)
[2017-10-17] MEDS: PHENERGAN WITH CODEINE 6.25/10 MG/5 ML PO PRN ×3 (03:40→20:42)
[2017-10-17] MEDS: XOPENEX 1.25 MG NEB SCH ×4 (05:00→22:50)
[2017-10-17] MEDS: PULMICORT 0.5 MG/2 ML NEB SCH ×2 (05:00→16:25)
[2017-10-17] MEDS: SOLU-MEDROL 125 MG IVP SCH ×3 (05:08→20:40)
[2017-10-17] MEDS: PROTONIX PO SCH (05:34)
[2017-10-17] MEDS: SYNTHROID PO SCH (05:35)
[2017-10-17] MEDS: NICODERM 21 MG TD SCH (08:11)
[2017-10-17] MEDS: ZOLOFT PO SCH (08:12)
[2017-10-17] MEDS: ASPIRIN EC PO SCH (08:12)
[2017-10-17] MEDS: ZESTRIL PO SCH (08:13)
[2017-10-17] MEDS: NEURONTIN PO SCH ×2 (08:13→20:39)
[2017-10-17] MEDS: ROCEPHIN 1 GM in SODIUM CHLORIDE 50 ML IV SCH (08:13)
[2017-10-17] MEDS: HYDROCHLOROTHIAZIDE PO SCH (08:13)
[2017-10-17] MEDS: NORCO 5-325 PO PRN (15:49)
[2017-10-17] MEDS: GLUCOPHAGE PO SCH (16:46)
[2017-10-17] MEDS: HUMULIN R SUBCUT PRN ×2 (17:19→20:40)
[2017-10-17] MEDS: LIBRIUM PO PRN (20:40)
[2017-10-18] MEDS: NORCO 5-325 PO PRN ×2 (00:07→17:05)
[2017-10-18] MEDS: PHENERGAN WITH CODEINE 6.25/10 MG/5 ML PO PRN ×3 (03:58→21:15)
[2017-10-18] MEDS: SOLU-MEDROL 125 MG IVP SCH ×4 (04:00→23:28)
[2017-10-18] MEDS: PULMICORT 0.5 MG/2 ML NEB SCH ×2 (05:00→17:54)
[2017-10-18] MEDS: XOPENEX 1.25 MG NEB SCH ×3 (05:05→17:55)
[2017-10-18] MEDS: PROTONIX PO SCH (05:43)
[2017-10-18] MEDS: SYNTHROID PO SCH (05:43)
[2017-10-18] MEDS: HUMULIN R SUBCUT PRN ×4 (06:11→23:26)
[2017-10-18] MEDS: HYDROCHLOROTHIAZIDE PO SCH (08:59)
[2017-10-18] MEDS: ROCEPHIN 1 GM in SODIUM CHLORIDE 50 ML IV SCH (08:59)
[2017-10-18] MEDS: NEURONTIN PO SCH ×2 (08:59→21:16)
[2017-10-18] MEDS: NICODERM 21 MG TD SCH (08:59)
[2017-10-18] MEDS: ZESTRIL PO SCH (09:00)
[2017-10-18] MEDS: ASPIRIN EC PO SCH (09:00)
[2017-10-18] MEDS: GLUCOPHAGE PO SCH ×2 (09:00→17:06)
[2017-10-18] MEDS: ZOLOFT PO SCH (09:00)
--- NOTE | 2017-10-18 09:57 | HP ---
DATE OF SERVICE: 10/15/17 REASON FOR HOSPITALIZATION/HISTORY OF PRESENT ILLNESS: This is a 47 year old white female who is a heavy smoker. She has a history of COPD and asthma. She has been treated as an outpatient in our office with Keflex , Z-jim and Prednisone for the past week. She presents with increasing shortness of breath. She has been doing nebulizer treatments and inhalers. PAST MEDICAL HISTORY: Chronic bronchitis COPD History of bilateral pulmonary embolism in April 2016 she is on Coumadin Dyslipidemia Diabetes mellitus type 2 Obesity Anxiety Hypertension Insomnia Depression GERD Vertigo, she sees Dr. Pollock and takes Valium Smoker PAST SURGICAL HISTORY: Tonsillectomy Hysterectomy in 2006 Neuroplasty with transposition of medial nerves Carpel tunnel of the right hand Colonoscopy in 2012 REVIEW OF SYSTEMS: CONSTITUTIONAL: No night sweats. No fatigue, malaise, lethargy. No fever or chills. HEENT: Eyes: No visual changes. No eye pain. No eye discharge. ENT: No runny nose. No epistaxis. No sinus pain. No sore throat. No odynophagia. No ear pain. No congestion. RESPIRATORY: No cough, no congestion. No hemoptysis. Shortness of breath, wheezing. CARDIOVASCULAR: No angina symptoms. No CHF symptoms. No atypical chest pain for CAD. No palpitations. No orthopnea. GASTROINTESTINAL: No abdominal pain. No nausea or vomiting. No diarrhea or constipation. No hematemesis. No hematochezia. GENITOURINARY: No urgency. No frequency. No dysuria. No hematuria. No obstructive symptoms. No discharge. No pain. No significant abnormal bleeding. MUSCULOSKELETAL: No musculoskeletal pain. No joint swelling. No arthritis. NEUROLOGICAL: No headache. No neck pain. No syncope. No seizures. No dizziness. PSYCHIATRIC: Anxious. No depression. No suicidal thoughts. No homicidal thoughts. SKIN: No rash. No lesions. No wounds. ENDOCRINE: No unexplained weight loss. No weight gain. HEMATOLOGIC/LYMPHATIC: No anemia. No purpura. No petechiae. No prolonged or excessive bleeding. No palpable lymph nodes. PERSONAL/FAMILY/SOCIAL HISTORY: Mother had breast cancer, hypertension, diabetes mellitus type 2 Father at an unknown age The patient is and she is current everyday pack per day smoker, social drinker but no illicit drug use. She currently resides at home with her significant other. MEDICATIONS: Valium 10mg three times a day PRN by Dr. Pollock for Vertigo Neurontin 300mg three times a day Zoloft 100mg 1.5 tablets daily Antivert 25mg three times a day PRN Lisinopril 40mg daily Simvastatin 40mg daily Librium 10mg twice a day PRN Synthroid 200mcg daily Fenofibrate 160mg daily Coumadin 4mg daily Metformin 500mg twice a day Velpen 5-325mg three times a day PRN from [facility]. ALLERGIES: No known allergies PHYSICAL EXAMINATION: HEENT: Head normocephalic, atraumatic. Eyes: Extraocular muscles are intact. Pupils are equal, round and reactive to light and accommodation. Ears: No lesions. Nose appeared normal. Throat: No exudate or erythema. NECK: Supple. No JVD, no carotid bruit. No lymphadenopathy or thyromegaly. LUNGS: Clear to auscultation. Percussion note normal. Chest symmetrical. HEART: S1, S2, no S3. No murmurs. No cyanosis or clubbing. No ascites. Pulses: Dorsalis pedis and posterior tibial pulses +1 to +2 both sides. ABDOMEN: Soft. Nontender. Bowel sounds active. No CVA tenderness. No mass felt. EXTREMITIES: No edema. Full range of motion of all extremities, equal. NEUROLOGIC: No focal deficit. Cranial nerves II through XII are grossly intact. No headache, no double vision or headache. SKIN: Not dry. Intact. Turgor - normal. LYMPHATIC: No palpable lymph nodes/no lymphedema. MUSCULOSKELETAL: Normal joints with no swelling. Muscle tone is normal. LABS: WBC 8.0, hgb 13.0, hct 39.0, plt count 180, sodium 138, potassium 4.8, BUN 21, creatinine 0.96, glucose 130, AST 14, ALT 11, total protein 6.6, Alkaline Phosphatase 60, Albumin 3.3. Chest x-ray shows patchy ground glass opacities in both upper lobes in both upper lobes, right middle lobe and lower lobe consistent with infection and inflammation. ASSESSMENT: 1. Acute respiratory distress 2. Bilateral pneumonitis 3. Acute bronchitis 4. COPD 5. Smoker 6. Hypertension PLAN: 1. Will admit to the floor 2. Oxygen at 2 liters as needed 3. ABG on room air if not done 4. Solu-Cortef 125mg IV Q 8 hours 5. Rocephin 1 gram IV daily 6. CBC and CMP daily 7. Daily PT/INR 8. Xopenex NEBS treatment Q 6 hours scheduled 9. Pulmicort NEB treatment twice a day 10.Hold Metformin for 48 hours 11.Sliding scale coverage 12.Routine telemetry 13.ADA diet TIME SPENT: More than 70 minutes. MTDD
--- NOTE | 2017-10-18 10:39 | PCM.PROG ---
Attending Provider: ATTENDING PROVIDER: Dr. OMER RAMIREZ This patient is seen with Olga Grant, Nurse Practitioner. DATE OF SERVICE: 10/18/17 SUBJECTIVE: This 47 year old WHITE/ F was hospitalized 10/15/17. The patient is alert, lying in bed. resting comfortably. The patient still has audible wheezing. She has been up walking twice yesterday. Good appetite. REVIEW OF SYSTEMS: CONSTITUTIONAL: No night sweats. No fatigue, malaise, lethargy. No fever or chills. HEENT: Eyes: No visual changes. No eye pain. No eye discharge. ENT: No runny nose. No epistaxis. No sinus pain. No odynophagia. No congestion. RESPIRATORY: Cough and wheeze. No hemoptysis. Shortness of breath. CARDIOVASCULAR: No angina symptoms. No CHF symptoms. No atypical chest pain for CAD. No palpitations. No orthopnea.. GASTROINTESTINAL: No abdominal pain. No nausea or vomiting. No diarrhea or constipation. No hematemesis. No hematochezia. GENITOURINARY: No urgency. No frequency. No dysuria. No hematuria. No obstructive symptoms. No discharge. No pain. No significant abnormal bleeding. MUSCULOSKELETAL: No musculoskeletal pain; no joint swelling. NEUROLOGICAL: Awake, alert, oriented to time, place and person. No headache. No neck pain. No syncope. No seizures. No dizziness. PSYCHIATRIC: Not anxious. No depression. No suicidal thoughts. No homicidal thoughts. SKIN: No rash. No lesions. No wounds. ENDOCRINE: No unexplained weight loss. No weight gain. HEMATOLOGIC/LYMPHATIC: No anemia. No purpura. No petechiae. No prolonged or excessive bleeding. No palpable lymph nodes. PHYSICAL EXAMINATION: GENERAL: The patient is awake, alert and oriented, lying in bed in no distress. VITAL SIGNS: Temperature 97.8 F, Pulse 88, Respiratory Rate 20, BP 127/86, Pulse Ox 91% HEENT: Head normocephalic, atraumatic. Eyes: Extraocular muscles are intact. Pupils are equal, round and reactive to light and accommodation. Ears: No lesions. Nose appeared normal. Throat: No exudate or erythema. NECK: Supple. No JVD, no carotid bruit. No lymphadenopathy or thyromegaly. LUNGS: Bilateral inspiratory and expiratory wheeze and rhonchi. Percussion note normal. Chest symmetrical. HEART: S1, S2, no S3. No murmurs. No cyanosis or clubbing. No ascites. Pulses: Dorsalis pedis and posterior tibial pulses +1 to +2 both sides. ABDOMEN: Soft. Non-tender. Bowel sounds active. No CVA tenderness. No mass felt. EXTREMITIES: No edema. Full range of motion of all extremities, equal. NEUROLOGIC: No focal deficit. Cranial nerves II through XII are grossly intact. No headache, no double vision or headache. SKIN: Warm and dry. Intact. Turgor-normal. LYMPHATIC: No palpable lymph nodes/no lymphedema. MUSCULOSKELETAL: Normal joints with no swelling. Muscle tone is normal. LAB REVIEW: 10/18/17 04:40 10/18/17 04:40 10/18/17 04:40: Sodium 138, Potassium 4.3, Chloride 100, Carbon Dioxide 25, Anion Gap 17.3, BUN 31 H, Creatinine 1.15, Estimated GFR (MDRD) 50.00, BUN/ Creatinine Ratio 26.95, Glucose 271 H, Calcium 9.6, Total Bilirubin < 0.3, AST 9 L, ALT 13, Alkaline Phosphatase 50, Total Protein 6.3 L, Albumin 3.0 L, Globulin 3.3, Albumin/Globulin Ratio 0.91 10/18/17 04:40: WBC 12.62 H, RBC 3.93 L, Hgb 12.9, Hct 38.7, MCV 98.5, MCH 32.8 H, MCHC 33.3, RDW Coeff of Nina 13.9, Plt Count 238, Immature Gran % (Auto) 1.1, Neut % (Auto) 83.8, Lymph % (Auto) 12.6, [place] % (Auto) 2.2, Eos % (Auto) 0.1, Baso % (Auto) 0.2, Immature Gran # (Auto) 0.1, Neut # 10.6 H, Lymph # 1.6, Brown # 0.3 L, Eos # 0.0, Baso # 0.0 10/18/17 04:40: PT 30.8 H, INR 3.12 ASSESSMENT: 1. ACUTE BRONCHITIS 2. SHORTNESS OF BREATH 3. ACUTE COPD EXACERBATION 4. SMOKER 5. HISTORY OF PE ON COUMADIN 6. ASTHMA PLAN: 1. Hold Coumadin today 2. D/C Morphine 3. Continue Xopenex 4. Continue Pulmicort 5. Steroids q.6hr 6. Encourage to be up and about Plan and coordination of the patient's care discussed in the presence of Chemical Process Equipment Operator and nurse. CONDITION: Stable SCRIBED BY: RADHA DURANT Underground Drill Operator scribed while in presence of service performed by Dr. Ramirez/Olga Grant APRN on 10/18/17 ([id number])
[2017-10-18] MEDS: CEPACOL SORE THROAT LOZENGE MUCOUSMEMB PRN (17:06)
[2017-10-18] MEDS: VALIUM PO PRN (21:16)
[2017-10-18] MEDS: LIBRIUM PO PRN (21:16)
[2017-10-19] MEDS: XOPENEX 1.25 MG NEB SCH ×5 (00:40→23:23)
[2017-10-19] MEDS: NORCO 5-325 PO PRN ×3 (01:36→20:12)
[2017-10-19] MEDS: PHENERGAN WITH CODEINE 6.25/10 MG/5 ML PO PRN ×3 (03:16→20:12)
[2017-10-19] MEDS: PULMICORT 0.5 MG/2 ML NEB SCH ×2 (05:55→18:39)
[2017-10-19] MEDS: SYNTHROID PO SCH (06:03)
[2017-10-19] MEDS: PROTONIX PO SCH (06:03)
[2017-10-19] MEDS: HUMULIN R SUBCUT PRN ×3 (06:03→20:47)
[2017-10-19] MEDS: SOLU-MEDROL 125 MG IVP SCH ×4 (06:16→23:21)
[2017-10-19] MEDS: GLUCOPHAGE PO SCH ×2 (09:02→18:23)
[2017-10-19] MEDS: ROCEPHIN 1 GM in SODIUM CHLORIDE 50 ML IV SCH (09:02)
[2017-10-19] MEDS: ASPIRIN EC PO SCH (09:02)
[2017-10-19] MEDS: ZESTRIL PO SCH (09:03)
[2017-10-19] MEDS: NEURONTIN PO SCH ×2 (09:03→20:13)
[2017-10-19] MEDS: HYDROCHLOROTHIAZIDE PO SCH (09:03)
[2017-10-19] MEDS: ZOLOFT PO SCH (09:04)
[2017-10-19] MEDS: NICODERM 21 MG TD SCH (09:05)
--- NOTE | 2017-10-19 11:23 | PCM.PROG ---
Attending Provider: ATTENDING PROVIDER: Dr. OMER RAMIREZ This patient is seen with Olga Grant, Nurse Practitioner. DATE OF SERVICE: 10/19/17 SUBJECTIVE: This 47 year old WHITE/ F was hospitalized 10/15/17. The patient is lying in bed, alert. She states her breathing is somewhat better today. Increased Solu-Cortef yesterday. She did some walking yesterday still with moderate shortness of breath. REVIEW OF SYSTEMS: CONSTITUTIONAL: No night sweats. No fatigue, malaise, lethargy. No fever or chills. HEENT: Eyes: No visual changes. No eye pain. No eye discharge. ENT: No runny nose. No epistaxis. No sinus pain. No odynophagia. No congestion. RESPIRATORY: Cough and wheeze. No hemoptysis. No shortness of breath. CARDIOVASCULAR: No angina symptoms. No CHF symptoms. No atypical chest pain for CAD. No palpitations. No orthopnea.. GASTROINTESTINAL: No abdominal pain. No nausea or vomiting. No diarrhea or constipation. No hematemesis. No hematochezia. GENITOURINARY: No urgency. No frequency. No dysuria. No hematuria. No obstructive symptoms. No discharge. No pain. No significant abnormal bleeding. MUSCULOSKELETAL: No musculoskeletal pain; no joint swelling. NEUROLOGICAL: Awake, alert, oriented to time, place and person. No headache. No neck pain. No syncope. No seizures. No dizziness. PSYCHIATRIC: Not anxious. No depression. No suicidal thoughts. No homicidal thoughts. SKIN: No rash. No lesions. No wounds. ENDOCRINE: No unexplained weight loss. No weight gain. HEMATOLOGIC/LYMPHATIC: No anemia. No purpura. No petechiae. No prolonged or excessive bleeding. No palpable lymph nodes. PHYSICAL EXAMINATION: GENERAL: The patient is awake, alert and oriented, lying in bed in no distress. VITAL SIGNS: Temperature 97.9 F, Pulse 61, Respiratory Rate 16, BP 115/64, Pulse Ox 94% HEENT: Head normocephalic, atraumatic. Eyes: Extraocular muscles are intact. Pupils are equal, round and reactive to light and accommodation. Ears: No lesions. Nose appeared normal. Throat: No exudate or erythema. NECK: Supple. No JVD, no carotid bruit. No lymphadenopathy or thyromegaly. LUNGS: Bilateral inspiratory and expiratory wheezing. Percussion note normal. Chest symmetrical. HEART: S1, S2, no S3. No murmurs. No cyanosis or clubbing. No ascites. Pulses: Dorsalis pedis and posterior tibial pulses +1 to +2 both sides. ABDOMEN: Soft. Non-tender. Bowel sounds active. No CVA tenderness. No mass felt. EXTREMITIES: No edema. Full range of motion of all extremities, equal. NEUROLOGIC: No focal deficit. Cranial nerves II through XII are grossly intact. No headache, no double vision or headache. SKIN: Not dry. Intact. Turgor-normal. LYMPHATIC: No palpable lymph nodes/no lymphedema. MUSCULOSKELETAL: Normal joints with no swelling. Muscle tone is normal. LAB REVIEW: 10/19/17 04:50 10/19/17 04:50 10/19/17 04:50: Sodium 140, Potassium 4.1, Chloride 100, Carbon Dioxide 27, Anion Gap 17.1, BUN 38 H, Creatinine 1.11, Estimated GFR (MDRD) 52.00, BUN/ Creatinine Ratio 34.23, Glucose 309 H, Calcium 9.4, Total Bilirubin < 0.3, AST 8 L, ALT 15, Alkaline Phosphatase 53, Total Protein 6.1 L, Albumin 3.0 L, Globulin 3.1, Albumin/Globulin Ratio 0.97 10/19/17 04:50: WBC 11.97 H, RBC 3.96 L, Hgb 13.0, Hct 39.1, MCV 98.7, MCH 32.8 H, MCHC 33.2, RDW Coeff of Nina 13.7, Plt Count 249, Immature Gran % (Auto) 2.2, Neut % (Auto) 85.2, Lymph % (Auto) 9.4 L, [place] % (Auto) 3.0, Eos % (Auto) 0.0, Baso % (Auto) 0.2, Immature Gran # (Auto) 0.3, Neut # 10.2 H, Lymph # 1.1, [place] # 0.4, Eos # 0.0, Baso # 0.0 10/19/17 04:50: PT 21.6 H D, INR 2.17 ASSESSMENT: 1. ACUTE BRONCHITIS 2. SHORTNESS OF BREATH 3. ACUTE COPD EXACERBATION 4. SMOKER 5. HISTORY OF PE ON COUMADIN 6. ASTHMA PLAN: 1. ABGs on room air Plan and coordination of the patient's care discussed in the presence of Crisis Mental Health Therapist and nurse. CONDITION: Stable SCRIBED BY: RADHA DURANT Retail Leader scribed while in presence of service performed by Dr. Ramirez/Olga Grant APRN on 10/19/17 ([id number])
--- NOTE | 2017-10-19 13:53 | PN ---
DATE OF SERVICE: 10/18/17 SUBJECTIVE: 47 year old white female seen with Nurse Practitioner. The patient's condition has improved. She has mild wheeze. PHYSICAL EXAMINATION: VITAL SIGNS: Temperature 97.8, pulse 88, respiratory 20, blood pressure 127/86 and pulse ox 91% on 3liters. HEENT: Head normocephalic, atraumatic. Eyes: Extraocular muscles are intact. Pupils are equal, round and reactive to light and accommodation. Ears: No lesions. Nose appeared normal. Throat: No exudate or erythema. NECK: Supple. No JVD, no carotid bruit. No lymphadenopathy or thyromegaly. LUNGS: Clear to auscultation. Percussion note normal. Chest symmetrical. HEART: S1, S2, no S3. No murmurs. No cyanosis or clubbing. No ascites. Pulses: Dorsalis pedis and posterior tibial pulses +1 to +2 both sides. ABDOMEN: Soft. Nontender. Bowel sounds active. No CVA tenderness. No mass felt. EXTREMITIES: No edema. Full range of motion of all extremities, equal. NEUROLOGIC: No focal deficit. Cranial nerves II through XII are grossly intact. No headache, no double vision or headache. SKIN: Not dry. Intact. Turgor - normal. LYMPHATIC: No palpable lymph nodes/no lymphedema. MUSCULOSKELETAL: Normal joints with no swelling. Muscle tone is normal. ASSESSMENT: 1. Acute bronchitis/Pneumonitis seems to be resolving slowly. 2. She is off of smoking for 3 days now and on NicoDerm PLAN: 1. Counseling for smoking done. 2. She is on sliding scale with coverage. TIME SPENT: More than 30 minutes. Plan and coordination of the patient's care discussed in the presence of nurse. RONALDO
[2017-10-19] MEDS ORDERED: COUMADIN PO SCH (17:00)
[2017-10-19] MEDS: LIBRIUM PO PRN (20:13)
[2017-10-19] MEDS: VALIUM PO PRN (20:13)
[2017-10-20] MEDS: PULMICORT 0.5 MG/2 ML NEB SCH ×2 (05:05→16:11)
[2017-10-20] MEDS: XOPENEX 1.25 MG NEB SCH ×4 (05:05→23:55)
[2017-10-20] MEDS: PROTONIX PO SCH (05:44)
[2017-10-20] MEDS: PHENERGAN WITH CODEINE 6.25/10 MG/5 ML PO PRN ×2 (05:44→20:20)
[2017-10-20] MEDS: NORCO 5-325 PO PRN ×2 (05:44→20:20)
[2017-10-20] MEDS: SYNTHROID PO SCH (05:44)
[2017-10-20] MEDS: HUMULIN R SUBCUT PRN ×4 (05:49→20:20)
[2017-10-20] MEDS: SOLU-MEDROL 125 MG IVP SCH ×3 (05:51→17:47)
[2017-10-20] MEDS: ROCEPHIN 1 GM in SODIUM CHLORIDE 50 ML IV SCH (09:06)
[2017-10-20] MEDS: ASPIRIN EC PO SCH (09:10)
[2017-10-20] MEDS: GLUCOPHAGE PO SCH ×2 (09:10→16:46)
[2017-10-20] MEDS: HYDROCHLOROTHIAZIDE PO SCH (09:10)
[2017-10-20] MEDS: NEURONTIN PO SCH ×2 (09:11→20:19)
[2017-10-20] MEDS: NICODERM 21 MG TD SCH (09:12)
[2017-10-20] MEDS: ZESTRIL PO SCH (09:13)
[2017-10-20] MEDS: ZOLOFT PO SCH (09:13)
--- NOTE | 2017-10-20 09:19 | PCM.PROG ---
Attending Provider: ATTENDING PROVIDER: Dr. OMER RAMIREZ DATE OF SERVICE: 10/20/17 SUBJECTIVE: This 47 year old WHITE/ F was hospitalized 10/15/17 with COPD exacerbation, acute bronchitis with bronchiolitis. Condition seems to have improved slowly. REVIEW OF SYSTEMS: CONSTITUTIONAL: No night sweats. No fatigue, malaise, lethargy. No fever or chills. HEENT: Eyes: No visual changes. No eye pain. No eye discharge. ENT: No runny nose. No epistaxis. No sinus pain. No odynophagia. No congestion. RESPIRATORY: Mild cough productive of sputum to some extent. No hemoptysis. No shortness of breath. CARDIOVASCULAR: No angina symptoms. No CHF symptoms. No atypical chest pain for CAD. No palpitations. No orthopnea.. GASTROINTESTINAL: Appetite improved. No abdominal pain. No nausea or vomiting. No diarrhea or constipation. No hematemesis. No hematochezia. GENITOURINARY: No urgency. No frequency. No dysuria. No hematuria. No obstructive symptoms. No discharge. No pain. No significant abnormal bleeding. MUSCULOSKELETAL: No musculoskeletal pain; no joint swelling. NEUROLOGICAL: Awake, alert, oriented to time, place and person. No headache. No neck pain. No syncope. No seizures. No dizziness. PSYCHIATRIC: Not anxious. No depression. No suicidal thoughts. No homicidal thoughts. SKIN: No rash. No lesions. No wounds. ENDOCRINE: No unexplained weight loss. No weight gain. HEMATOLOGIC/LYMPHATIC: No anemia. No purpura. No petechiae. No prolonged or excessive bleeding. No palpable lymph nodes. PHYSICAL EXAMINATION: GENERAL: The patient is awake, alert and oriented, lying in bed in no distress. VITAL SIGNS: Temperature 97.9 F, Pulse 65, Respiratory Rate 16, BP 102/59, Pulse Ox 97% HEENT: Head normocephalic, atraumatic. Eyes: Extraocular muscles are intact. Pupils are equal, round and reactive to light and accommodation. Ears: No lesions. Nose appeared normal. Throat: No exudate or erythema. NECK: Supple. No JVD, no carotid bruit. No lymphadenopathy or thyromegaly. LUNGS: Mild expiratory wheeze. Clear to auscultation. Percussion note normal. Chest symmetrical. HEART: S1, S2, no S3. No murmurs. No cyanosis or clubbing. No ascites. Pulses: Dorsalis pedis and posterior tibial pulses +1 to +2 both sides. ABDOMEN: Soft. Non-tender. Bowel sounds active. No CVA tenderness. No mass felt. EXTREMITIES: No edema. Full range of motion of all extremities, equal. NEUROLOGIC: No focal deficit. Cranial nerves II through XII are grossly intact. No headache, no double vision or headache. SKIN: Warm and dry. Intact. Turgor-normal. LYMPHATIC: No palpable lymph nodes/no lymphedema. MUSCULOSKELETAL: Normal joints with no swelling. Muscle tone is normal. LAB REVIEW: 10/20/17 04:00 10/20/17 04:00 10/20/17 04:00: Sodium 139, Potassium 4.5, Chloride 99, Carbon Dioxide 28, Anion Gap 16.5, BUN 36 H, Creatinine 1.09, Estimated GFR (MDRD) 54.00, BUN/ Creatinine Ratio 33.02, Glucose 280 H, Calcium 9.3, Total Bilirubin < 0.3, AST 8 L, ALT 16, Alkaline Phosphatase 45, Total Protein 5.8 L, Albumin 2.9 L, Globulin 2.9, Albumin/Globulin Ratio 1.00 10/20/17 04:00: WBC 9.68, RBC 3.87 L, Hgb 12.7, Hct 37.7, MCV 97.4, MCH 32.8 H, MCHC 33.7, RDW Coeff of Nina 13.5, Plt Count 236, Immature Gran % (Auto) 3.3, Neut % (Auto) 82.7, Lymph % (Auto) 11.0, [place] % (Auto) 2.7, Eos % (Auto) 0.1, Baso % (Auto) 0.2, Immature Gran # (Auto) 0.3, Neut # 8.0 H, Lymph # 1.1, [place] # 0.3 L, Eos # 0.0, Baso # 0.0 10/20/17 04:00: PT 15.4 H D, INR 1.53 10/19/17 08:49: Puncture Site Rr, O2 Saturation 90.0 L, ABG pH 7.421, ABG pCO2 45.1 H, ABG pO2 58.0 L*, ABG HCO3 29.3 H, ABG Total CO2 31 H, ABG Base Excess 5 H, Jj Test +, FiO2 % 21.0 ASSESSMENT: 1. Pneumonitis improving 2. COPD 3. BMI 48 PLAN: 1. Continue steroids, antibiotics and nebs 2. Coumadin 5 mg today 3. Repeat chest x-ray Plan and coordination of the patient's care discussed in the presence of Community Center Director and nurse. EDUCATION: Counseling for diet done. Counseling for smoking. CONDITION: STABLE SCRIBED BY: RADHA DURANT Reverse Unit Operator scribed while in presence of service performed by Dr. OMER RAMIREZ on 10/20/17 ([id number])
--- NOTE | 2017-10-20 14:03 | DI ---
EXAM: PA and lateral views of the chest HISTORY: Bilateral upper lobe opacities COMPARISON: Chest x-ray 10/11/[address] chest 10/15/2017 and multiple priors FINDINGS: The cardiomediastinal silhouette is normal. There is no pneumothorax or pleural effusion. There is no consolidation, nodule or mass. The osseous structures are stable. IMPRESSION: No acute cardiopulmonary process
[2017-10-20] MEDS ORDERED: COUMADIN PO ONE (17:00)
[2017-10-20] MEDS: VALIUM PO PRN (20:20)
[2017-10-20] MEDS: LIBRIUM PO PRN (20:20)
[2017-10-21] MEDS: SOLU-MEDROL 125 MG IVP SCH ×3 (00:14→17:53)
[2017-10-21] MEDS: PHENERGAN WITH CODEINE 6.25/10 MG/5 ML PO PRN ×3 (03:05→22:28)
[2017-10-21] MEDS: NORCO 5-325 PO PRN ×2 (04:23→20:31)
[2017-10-21] MEDS: PULMICORT 0.5 MG/2 ML NEB SCH ×2 (05:30→16:40)
[2017-10-21] MEDS: XOPENEX 1.25 MG NEB SCH ×4 (05:30→23:12)
[2017-10-21] MEDS: HUMULIN R SUBCUT PRN ×4 (06:02→20:32)
[2017-10-21] MEDS: PROTONIX PO SCH (06:03)
[2017-10-21] MEDS: SYNTHROID PO SCH (06:04)
[2017-10-21] MEDS ORDERED: KEFLEX PO SCH (09:00)
[2017-10-21] MEDS: ASPIRIN EC PO SCH (09:17)
[2017-10-21] MEDS: GLUCOPHAGE PO SCH ×2 (09:17→16:39)
[2017-10-21] MEDS: HYDROCHLOROTHIAZIDE PO SCH (09:18)
[2017-10-21] MEDS: NEURONTIN PO SCH ×2 (09:19→20:32)
[2017-10-21] MEDS: NICODERM 21 MG TD SCH (09:19)
[2017-10-21] MEDS: ZESTRIL PO SCH (09:20)
[2017-10-21] MEDS: ZOLOFT PO SCH (09:20)
[2017-10-21] MEDS: KEFLEX PO SCH ×3 (09:30→20:32)
--- NOTE | 2017-10-21 09:39 | PCM.PROG ---
Attending Provider: ATTENDING PROVIDER: Dr. MOER RAMIREZ This patient is seen with Olga Grant, Nurse Practitioner. DATE OF SERVICE: 10/21/17 SUBJECTIVE: This 47 year old WHITE/ F was hospitalized 10/15/17. Lying in bed alert. The patient has been up walking. Shortness of breath has improved. Will decrease steroids today. Anticipate discharge home tomorrow. REVIEW OF SYSTEMS: CONSTITUTIONAL: No night sweats. No fatigue, malaise, lethargy. No fever or chills. HEENT: Eyes: No visual changes. No eye pain. No eye discharge. ENT: No runny nose. No epistaxis. No sinus pain. No odynophagia. No congestion. RESPIRATORY: Positive for cough, congestion and shortness of breath. No hemoptysis. CARDIOVASCULAR: No angina symptoms. No CHF symptoms. No atypical chest pain for CAD. No palpitations. No orthopnea.. GASTROINTESTINAL: No abdominal pain. No nausea or vomiting. No diarrhea or constipation. No hematemesis. No hematochezia. GENITOURINARY: No urgency. No frequency. No dysuria. No hematuria. No obstructive symptoms. No discharge. No pain. No significant abnormal bleeding. MUSCULOSKELETAL: No musculoskeletal pain; no joint swelling. NEUROLOGICAL: Awake, alert, oriented to time, place and person. No headache. No neck pain. No syncope. No seizures. No dizziness. PSYCHIATRIC: Not anxious. No depression. No suicidal thoughts. No homicidal thoughts. SKIN: No rash. No lesions. No wounds. ENDOCRINE: No unexplained weight loss. No weight gain. HEMATOLOGIC/LYMPHATIC: No anemia. No purpura. No petechiae. No prolonged or excessive bleeding. No palpable lymph nodes. PHYSICAL EXAMINATION: GENERAL: The patient is awake, alert and oriented, lying/sitting in bed in no distress. VITAL SIGNS: Temperature 97.5 F, Pulse 62, Respiratory Rate 16, BP 143/81, Pulse Ox 96% HEENT: Head normocephalic, atraumatic. Eyes: Extraocular muscles are intact. Pupils are equal, round and reactive to light and accommodation. Ears: No lesions. Nose appeared normal. Throat: No exudate or erythema. NECK: Supple. No JVD, no carotid bruit. No lymphadenopathy or thyromegaly. LUNGS: Diminished breath sounds bilaterally. No wheeze today. Clear to auscultation. Percussion note normal. Chest symmetrical. HEART: S1, S2, no S3. No murmurs. No cyanosis or clubbing. No ascites. Pulses: Dorsalis pedis and posterior tibial pulses +1 to +2 both sides. ABDOMEN: Soft. Non-tender. Bowel sounds active. No CVA tenderness. No mass felt. EXTREMITIES: No edema. Full range of motion of all extremities, equal. NEUROLOGIC: No focal deficit. Cranial nerves II through XII are grossly intact. No headache, no double vision or headache. SKIN: Not dry. Intact. Turgor-normal. LYMPHATIC: No palpable lymph nodes/no lymphedema. MUSCULOSKELETAL: Normal joints with no swelling. Muscle tone is normal. LAB REVIEW: 10/21/17 04:30 10/21/17 04:30 10/21/17 04:30: Sodium 139, Potassium 4.5, Chloride 99, Carbon Dioxide 29, Anion Gap 15.5, BUN 34 H, Creatinine 1.00, Estimated GFR (MDRD) 59.00, BUN/ Creatinine Ratio 34.00, Glucose 274 H, Calcium 9.4, Total Bilirubin < 0.3, AST 7 L, ALT 15, Alkaline Phosphatase 48, Total Protein 5.7 L, Albumin 2.8 L, Globulin 2.9, Albumin/Globulin Ratio 0.97 10/21/17 04:30: WBC 9.37, RBC 3.96 L, Hgb 12.8, Hct 38.7, MCV 97.7, MCH 32.3 H, MCHC 33.1, RDW Coeff of Nina 13.4, Plt Count 242, Immature Gran % (Auto) 4.7, Neut % (Auto) 81.2, Lymph % (Auto) 10.4, [place] % (Auto) 3.5, Eos % (Auto) 0.0, Baso % (Auto) 0.2, Immature Gran # (Auto) 0.4, Neut # 7.6 H, Lymph # 1.0, [place] # 0.3 L, Eos # 0.0, Baso # 0.0 10/21/17 04:30: PT 18.7 H, INR 1.86 ASSESSMENT: 1. Pneumonitis improving 2. Asthma 3. Smoker 3. COPD 4. BMI 48 PLAN: 1. Decrease steroids to q.12 2. Coumadin 5 mg today 3. Stop Rocephin 4. Keflex 500 mg t.i.d. times 7 days Plan and coordination of the patient's care discussed in the presence of Nail Making Machine Tender and nurse. CONDITION: Stable SCRIBED BY: RADHA DURANT Tv News Director scribed while in presence of service performed by Dr. Ramirez/Olga Grant APRN on 10/21/17 ([id number])
--- NOTE | 2017-10-21 10:34 | PN ---
DATE OF SERVICE: 10/19/17 SUBJECTIVE: 47 year old white female hospitalized with COPD exacerbation. Condition has slowly improved and she says that she is feeling better. Still wheezing and weak. REVIEW OF SYSTEMS: CONSTITUTIONAL: No night sweats. No fatigue, malaise, lethargy. No fever or chills. HEENT: Eyes: No visual changes. No eye pain. No eye discharge. ENT: No runny nose. No epistaxis. No sinus pain. No sore throat. No odynophagia. No congestion. RESPIRATORY: No cough, no congestion. No hemoptysis. No shortness of breath. CARDIOVASCULAR: No angina symptoms. No CHF symptoms. No atypical chest pain for CAD. No palpitations. No orthopnea. No PND. GASTROINTESTINAL: No abdominal pain. No nausea or vomiting. No diarrhea or constipation. No hematemesis. No hematochezia. GENITOURINARY: No urgency. No frequency. No dysuria. No hematuria. No obstructive symptoms. No discharge. No pain. No significant abnormal bleeding. MUSCULOSKELETAL: No musculoskeletal pain; no joint swelling. NEUROLOGICAL: No headache. No neck pain. No syncope. No seizures. No dizziness. PSYCHIATRIC: Not anxious. No depression. No suicidal thoughts. No homicidal thoughts. SKIN: No rash. No lesions. No wounds. ENDOCRINE: No unexplained weight loss. No weight gain. HEMATOLOGIC/LYMPHATIC: No anemia. No purpura. No petechiae. No prolonged or excessive bleeding. No palpable lymph nodes. PHYSICAL EXAMINATION: VITAL SIGNS: Temperature 97.9, pulse 60, respiratory rate 16, blood pressure 115/64 and pulse ox 94%. HEENT: Head normocephalic, atraumatic. Eyes: Extraocular muscles are intact. Pupils are equal, round and reactive to light and accommodation. Ears: No lesions. Nose appeared normal. Throat: No exudate or erythema. NECK: Supple. No JVD, no carotid bruit. No lymphadenopathy or thyromegaly. LUNGS: Decreased breath sounds but clear to auscultation. Percussion note normal. Chest symmetrical. HEART: S1, S2, no S3. No murmurs. No cyanosis or clubbing. No ascites. Pulses: Dorsalis pedis and posterior tibial pulses +1 to +2 both sides. ABDOMEN: Soft. Nontender. Bowel sounds active. No CVA tenderness. No mass felt. EXTREMITIES: No edema. Full range of motion of all extremities, equal. NEUROLOGIC: No focal deficit. Cranial nerves II through XII are grossly intact. No headache, no double vision or headache. SKIN: Not dry. Intact. Turgor - normal. LYMPHATIC: No palpable lymph nodes/no lymphedema. MUSCULOSKELETAL: Normal joints with no swelling. Muscle tone is normal. The patient was seen and examined with Nurse Practitioner. PLAN: 1. Will be continued on Steroids, NEBS, Antibiotics. 2. Room air blood gasses would be done. 3. Counseling for smoking done 4. Advised to lose weight, morbidly obese with BMI of 50 5. Weight loss diet discussed. TIME SPENT: More than 30 minutes. Plan and coordination of the patient's care discussed in the presence of nurse. RONALDO
--- NOTE | 2017-10-21 14:09 | PN ---
DATE OF SERVICE: 10/16/17 SUBJECTIVE: 47-year-old white female hospitalized with acute bronchitis, COPD with continued wheezing. The patient was seen in the emergency room a few days ago with fever of 100 and oxygen saturation of 90%. At that time she was given Rocephin, Zitromax and was sent home. Now she is back again and in between she was seen twice in the office. REVIEW OF SYSTEMS: CONSTITUTIONAL: The patient is feeling better. No night sweats. No fatigue, malaise, lethargy. No fever or chills. HEENT: Eyes: No visual changes. No eye pain. No eye discharge. ENT: No runny nose. No epistaxis. No sinus pain. No sore throat. No odynophagia. No congestion. RESPIRATORY: Cough and congestion much less. No hemoptysis. No shortness of breath. No PND. CARDIOVASCULAR: No angina symptoms. No CHF symptoms. No atypical chest pain for CAD. No palpitations. No orthopnea. GASTROINTESTINAL: Appetite improved. No abdominal pain. No nausea or vomiting. No diarrhea or constipation. No hematemesis. No hematochezia. GENITOURINARY: No urgency. No frequency. No dysuria. No hematuria. No obstructive symptoms. No discharge. No pain. No significant abnormal bleeding. MUSCULOSKELETAL: No musculoskeletal pain; no joint swelling. NEUROLOGICAL: No headache. No neck pain. No syncope. No seizures. No dizziness. PSYCHIATRIC: Not anxious. No depression. No suicidal thoughts. No homicidal thoughts. SKIN: No rash. No lesions. No wounds. ENDOCRINE: No unexplained weight loss. No weight gain. HEMATOLOGIC/LYMPHATIC: No anemia. No purpura. No petechiae. No prolonged or excessive bleeding. No palpable lymph nodes. PHYSICAL EXAMINATION: VITAL SIGNS: Temperature 97.5, pulse 63, respiratory rate 20, BP 103/62, pulse ox 95%. HEENT: Head normocephalic, atraumatic. Eyes: Extraocular muscles are intact. Pupils are equal, round and reactive to light and accommodation. Ears: No lesions. Nose appeared normal. Throat: No exudate or erythema. NECK: Supple. No JVD, no carotid bruit. No lymphadenopathy or thyromegaly. LUNGS: Decreased breath sounds but clear to auscultation. Percussion note normal. Chest symmetrical. HEART: S1, S2, no S3. No murmurs. No cyanosis or clubbing. No ascites. Pulses: Dorsalis pedis and posterior tibial pulses +1 to +2 both sides. ABDOMEN: Soft. Nontender. Bowel sounds active. No CVA tenderness. No mass felt. EXTREMITIES: No edema. Full range of motion of all extremities, equal. NEUROLOGIC: No focal deficit. Cranial nerves II through XII are grossly intact. No headache, no double vision or headache. SKIN: Not dry. Intact. Turgor - normal. LYMPHATIC: No palpable lymph nodes/no lymphedema. MUSCULOSKELETAL: Normal joints with no swelling. Muscle tone is normal. LABS: Hemoglobin 13, hematocrit 39, WBC 8,300, normal differential. Creatinine 0.9, BUN 18, glucose 244. ASSESSMENT: 1. ACUTE BRONCHITIS 2. SEVERE CHRONIC LUNG DISEASE 3. OBESITY 4. DIABETES MELLITUS 5. HYPERTENSION 6. SMOKING PLAN: 1. Counseling for smoking done. 2. Will cover patient with Accu-Check. The patient's sugar is high because of steroids. 3. Continue neb treatments. 4. Tussionex doesn't seem to be working for her dry cough. Will change her to Phenergan with Codeine. Continue antibiotics, steroids, nebs treatment. CONDITION: Stable. PROGNOSIS: Not good unless patient changes her lifestyle. She is morbidly obese with a BMI of 48. Counseling for smoking done. TIME SPENT: More than 30 minutes. Plan and coordination of the patient's care discussed in the presence of nurse. RONALDO
--- NOTE | 2017-10-21 14:17 | PN ---
DATE OF SERVICE: 10/17/17 SUBJECTIVE: 47-year-old white female hospitalized with acute bronchitis, COPD exacerbation. The patient's condition has improved as she is feeling somewhat better. Cough is less. She is short of breath on minimal exertion as usual. REVIEW OF SYSTEMS: CONSTITUTIONAL: No night sweats. No fatigue, malaise, lethargy. No fever or chills. HEENT: Eyes: No visual changes. No eye pain. No eye discharge. ENT: No runny nose. No epistaxis. No sinus pain. No sore throat. No odynophagia. No congestion. RESPIRATORY: Cough, congestion. No hemoptysis. Shortness of breath which seems to be much less. CARDIOVASCULAR: No angina symptoms. No CHF symptoms. No atypical chest pain for CAD. No palpitations. No orthopnea. GASTROINTESTINAL: Appetite seems to have improved. No abdominal pain. No nausea or vomiting. No diarrhea or constipation. No hematemesis. No hematochezia. GENITOURINARY: No urgency. No frequency. No dysuria. No hematuria. No obstructive symptoms. No discharge. No pain. No significant abnormal bleeding. MUSCULOSKELETAL: No musculoskeletal pain; no joint swelling. NEUROLOGICAL: No headache. No neck pain. No syncope. No seizures. No dizziness. No double vision. PSYCHIATRIC: Not anxious. No depression. No suicidal thoughts. No homicidal thoughts. SKIN: No rash. No lesions. No wounds. ENDOCRINE: No unexplained weight loss. No weight gain. HEMATOLOGIC/LYMPHATIC: No anemia. No purpura. No petechiae. No prolonged or excessive bleeding. No palpable lymph nodes. PHYSICAL EXAMINATION: GENERAL: The patient seems to be oriented to time, place and person. VITAL SIGNS: Temperature 97.6, pulse 79/min, respiratory rate 18, BP 110/70, pulse ox 91%. HEENT: Head normocephalic, atraumatic. Eyes: Extraocular muscles are intact. Pupils are equal, round and reactive to light and accommodation. Ears: No lesions. Nose appeared normal. Throat: No exudate or erythema. NECK: Supple. No JVD, no carotid bruit. No lymphadenopathy or thyromegaly. LUNGS: Decreased breath sounds with mild wheeze. Air entry is better. Percussion note normal. Chest symmetrical. HEART: S1, S2, no S3. No murmurs. No cyanosis or clubbing. No ascites. Pulses: Dorsalis pedis and posterior tibial pulses +1 to +2 both sides. ABDOMEN: Soft. Nontender. Bowel sounds active. No CVA tenderness. No mass felt. EXTREMITIES: No edema. Full range of motion of all extremities, equal. NEUROLOGIC: No focal deficit. Cranial nerves II through XII are grossly intact. No headache, no double vision or headache. SKIN: Not dry. Intact. Turgor - normal. LYMPHATIC: No palpable lymph nodes/no lymphedema. MUSCULOSKELETAL: Normal joints with no swelling. Muscle tone is normal. LABS: Hemoglobin 12.8, hematocrit 38, WBC 11,600, normal differential. Creatinine 1, BUN 25, potassium 4.6. ASSESSMENT: 1. ACUTE BRONCHITIS WITH SEVERE CHRONIC LUNG DISEASE 2. OBESITY 3. CONTINUED SMOKING PLAN: 1. Continue Nicoderm patch. 2. Counseling for smoking done. 3. Dietary consult given. Morbidly obese with BMI 48. The patient will be sliding scale with coverage for diabetes. The sugar is up because of steroids along with diabetes. 4. The patient's INR is high, will hold Coumadin until INR falls below 2. CONDITION: Stable TIME SPENT: More than 30 minutes. Plan and coordination of the patient's care discussed in the presence of nurse. RONALDO
[2017-10-21] MEDS ORDERED: COUMADIN PO ONE (17:00)
[2017-10-21] MEDS ORDERED: COUMADIN PO SCH (17:00)
[2017-10-21] MEDS: LIBRIUM PO PRN (20:31)
[2017-10-21] MEDS: VALIUM PO PRN (20:31)
[2017-10-22] MEDS: PULMICORT 0.5 MG/2 ML NEB SCH (04:53)
[2017-10-22] MEDS: XOPENEX 1.25 MG NEB SCH ×2 (04:53→11:07)
[2017-10-22 05:14] VITALS: TEMP 97.7
[2017-10-22] MEDS: PHENERGAN WITH CODEINE 6.25/10 MG/5 ML PO PRN (05:48)
[2017-10-22] MEDS: HUMULIN R SUBCUT PRN ×2 (05:48→11:49)
[2017-10-22] MEDS: PROTONIX PO SCH (05:49)
[2017-10-22] MEDS: NORCO 5-325 PO PRN (05:49)
[2017-10-22] MEDS: SYNTHROID PO SCH (05:49)
[2017-10-22] MEDS: KEFLEX PO SCH ×2 (05:49→13:31)
[2017-10-22] MEDS: NICODERM 21 MG TD SCH (08:53)
[2017-10-22] MEDS: NEURONTIN PO SCH (08:54)
[2017-10-22] MEDS: HYDROCHLOROTHIAZIDE PO SCH (08:54)
[2017-10-22] MEDS: ZESTRIL PO SCH (08:54)
[2017-10-22] MEDS: ASPIRIN EC PO SCH (08:54)
[2017-10-22] MEDS: GLUCOPHAGE PO SCH (08:54)
[2017-10-22] MEDS: ZOLOFT PO SCH (08:54)
[2017-10-22] MEDS: SOLU-MEDROL 125 MG IVP SCH (08:55)
[2017-10-22 09:41] VITALS: BP 93/58
--- NOTE | 2017-10-22 10:36 | PCM.PROG ---
Attending Provider: ATTENDING PROVIDER: Dr. OMER RAMIREZ This patient is seen with Olga Grant, Nurse Practitioner. DATE OF SERVICE: 10/22/17 SUBJECTIVE: This 47 year old WHITE/ F was hospitalized 10/15/17. The patient is sitting in bed, alert. She had been up and about yesterday. Shortness of breath improved. Will discharge the patient today. Discussion with patient concerning need for oxygen at home. REVIEW OF SYSTEMS: CONSTITUTIONAL: No night sweats. No fatigue, malaise, lethargy. No fever or chills. HEENT: Eyes: No visual changes. No eye pain. No eye discharge. ENT: No runny nose. No epistaxis. No sinus pain. No odynophagia. No congestion. RESPIRATORY: Cough and wheeze. No hemoptysis. Shortness of breath. CARDIOVASCULAR: No angina symptoms. No CHF symptoms. No atypical chest pain for CAD. No palpitations. No orthopnea.. GASTROINTESTINAL: No abdominal pain. No nausea or vomiting. No diarrhea or constipation. No hematemesis. No hematochezia. GENITOURINARY: No urgency. No frequency. No dysuria. No hematuria. No obstructive symptoms. No discharge. No pain. No significant abnormal bleeding. MUSCULOSKELETAL: No musculoskeletal pain; no joint swelling. NEUROLOGICAL: Awake, alert, oriented to time, place and person. No headache. No neck pain. No syncope. No seizures. No dizziness. PSYCHIATRIC: Not anxious. No depression. No suicidal thoughts. No homicidal thoughts. SKIN: No rash. No lesions. No wounds. ENDOCRINE: No unexplained weight loss. No weight gain. HEMATOLOGIC/LYMPHATIC: No anemia. No purpura. No petechiae. No prolonged or excessive bleeding. No palpable lymph nodes. PHYSICAL EXAMINATION: GENERAL: The patient is awake, alert and oriented, sitting in bed, in no distress. VITAL SIGNS: Temperature 97.7 F, Pulse 66, Respiratory Rate 16, BP 118/71, Pulse Ox 95% HEENT: Head normocephalic, atraumatic. Eyes: Extraocular muscles are intact. Pupils are equal, round and reactive to light and accommodation. Ears: No lesions. Nose appeared normal. Throat: No exudate or erythema. NECK: Supple. No JVD, no carotid bruit. No lymphadenopathy or thyromegaly. LUNGS: Diminished breath sounds with faint expiratory wheeze. Percussion note normal. Chest symmetrical. HEART: S1, S2, no S3. No murmurs. No cyanosis or clubbing. No ascites. Pulses: Dorsalis pedis and posterior tibial pulses +1 to +2 both sides. ABDOMEN: Soft. Non-tender. Bowel sounds active. No CVA tenderness. No mass felt. EXTREMITIES: No edema. Full range of motion of all extremities, equal. NEUROLOGIC: No focal deficit. Cranial nerves II through XII are grossly intact. No headache, no double vision or headache. SKIN: Not dry. Intact. Turgor-normal. LYMPHATIC: No palpable lymph nodes/no lymphedema. MUSCULOSKELETAL: Normal joints with no swelling. Muscle tone is normal. LAB REVIEW: 10/22/17 04:45 10/22/17 04:45 10/22/17 04:45: Sodium 138, Potassium 4.6, Chloride 98, Carbon Dioxide 28, Anion Gap 16.6, BUN 37 H, Creatinine 1.01, Estimated GFR (MDRD) 59.00, BUN/ Creatinine Ratio 36.63, Glucose 230 H, Calcium 9.5 10/22/17 04:45: WBC 11.69 H, RBC 3.96 L, Hgb 13.0, Hct 38.4, MCV 97.0, MCH 32.8 H, MCHC 33.9, RDW Coeff of Nina 13.4, Plt Count 252, Immature Gran % (Auto) 4.0, Neut % (Auto) 79.1, Lymph % (Auto) 12.0, [place] % (Auto) 4.6, Eos % (Auto) 0.0, Baso % (Auto) 0.3, Immature Gran # (Auto) 0.5, Neut # 9.3 H, Lymph # 1.4, [place] # 0.5, Eos # 0.0, Baso # 0.0 10/22/17 04:45: PT 20.7 H, INR 2.07 ASSESSMENT: 1. Pneumonitis improving 2. Asthma 3. Smoker 3. COPD 4. BMI 48 PLAN: D/C home Will followup in office next week ABG on room air before discharge Continue Keflex for 7 days Pulmicort at home for nebulizer machine to use twice a day Albuterol q.i.d. Prednisone 20 b.i.d.for 2 days then 10 b.i.d. for 5 days Phenergan with Codeine one to two teaspoons q.h.s. Nicoderm patch EDUCATION CARRIED OUT ABOUT: Information regarding smoking cessation and weight loss provided and discussed in detail. Discussion with patient concerning the need for oxygen at home, required continuously at this time; however, actions such as losing weight and stopping smoking, could lessen her need for oxygen. Plan and coordination of the patient's care discussed in the presence of Cinder Pit Worker and nurse. CONDITION: Stable SCRIBED BY: RADHA DURANT Zipper Slide Attacher scribed while in presence of service performed by Dr. Ramirez/Olga Grant APRN on 10/22/17 ([id number])
--- NOTE | 2017-10-22 12:19 | CM.DICTOOL ---
ADMISSION: 10/15/17 14:14 DISCHARGE: 2017 DATE OF SERVICE: 10/22/17 FINAL DIAGNOSIS COPD EXACERBATION HYPERTENSION DIABETES, TYPE 2 HISTORY OF PULMONARY EMBOLUS (ON COUMADIN) HYPOTHYROID ASTHMA IBS ANXIETY/DEPRESSION TOBACCO USE OSTEOARTHRITIS SPINAL STENOSIS SLEEP APNEA, C-PAP HEPATIC STEATOSIS HYSTERECTOMY CARPAL TUNNEL, RIGHT HAND LAST VITALS Temp Pulse Resp BP Pulse Ox 97.7 F 66 20 93/58 L 94 L 10/22/17 09:40 10/22/17 09:40 10/22/17 09:40 10/22/17 09:40 10/22/17 09:40 ACTIVE HOME MEDICATIONS Acetaminophen/Hydrocodone Bitart ([place] 5-325) 1 tab PO Q8H PRN PRN Reason: MODERATE PAIN Last Admin: 10/22/17 05:49 Dose: 1 tab Budesonide (Pulmicort 0.5 Mg/2 Ml) 1 vial NEB RTBID [facility] Last Admin: 10/22/17 04:53 Dose: 1 vial (NEW PRESCRIPTION) Cephalexin (Keflex) 500 mg PO Q8HR [facility] Last Admin: 10/22/17 05:49 Dose: 500 mg (NEW PRESCRIPTION) Chlordiazepoxide HCl (Librium) 25 mg PO BID PRN PRN Reason: Anxiety Last Admin: 10/21/17 20:31 Dose: 25 mg Diazepam (Valium) 10 mg TID PRN PRN Reason: Vertigo Last Admin: 10/21/17 20:31 Dose: 10 mg Gabapentin (Neurontin) 300 mg PO BID [facility] Last Admin: 10/22/17 08:54 Dose: 300 mg Hydrochlorothiazide (Hydrochlorothiazide) 12.5 mg PO DAILY [facility] Last Admin: 10/22/17 08:54 Dose: 12.5 mg Albuterol Sulfate 0.83% Neb 1 vial NEB Q4H Last Admin: 12 Noon Levothyroxine Sodium (Synthroid) 50 mcg PO QDAC [facility] Last Admin: 10/22/17 05:49 Dose: 50 mcg Lisinopril (Zestril) 10 mg PO DAILY [facility] Last Admin: 10/22/17 08:54 Dose: 10 mg Metformin HCl (Glucophage) 500 mg PO BIDWM [facility] Last Admin: 10/22/17 08:54 Dose: 500 mg Pantoprazole Sodium (Protonix) 40 mg PO QDAC [facility] Last Admin: 10/22/17 05:49 Dose: 40 mg Sertraline HCl (Zoloft) 150 mg PO DAILY [facility] Last Admin: 10/22/17 08:54 Dose: 150 mg Warfarin Sodium (Coumadin) 4 mg PO QPM [facility] ALLERGIES No Known Allergies Allergy (Verified 10/15/17 12:31) NEW PRESCRIPTIONS: NICODERM 21 MG PATCH APPLY DIRECTED DAILY PULMICORT 0.5 MG/ 2ML BID IN NEBULIZER KEFLEX 500 MG TID FOR 7 DAYS PREDNSIONE 20 MG BID FOR 2 DAYS, THEN 10 MG BID FOR 5 DAYS PHENERGAN WITH CODEINE 1-2 TSP. AT BEDTIME SMOKING: ADVISED TO STOP SMOKING DISEASE SPECIFIC EDUCATION: SMOKING CESSATION WEIGHT LOSS USE OF OXYGEN PRESCRIPTIONS STEROID USE AND RISK OF GI IRRITATION, BONE DEMINERALIZATION LAB REVIEW: 10/22/17 04:45 10/22/17 04:45 10/22/17 08:30: Puncture Site R rad, O2 Saturation 89.0 L, ABG pH 7.45, ABG pCO2 48.0 H, ABG pO2 54.0 L*, ABG HCO3 33.2 H, ABG Total CO2 35 H, ABG Base Excess 9 H, Jj Test +, FiO2 % 21.0 10/22/17 04:45: Sodium 138, Potassium 4.6, Chloride 98, Carbon Dioxide 28, Anion Gap 16.6, BUN 37 H, Creatinine 1.01, Estimated GFR (MDRD) 59.00, BUN/ Creatinine Ratio 36.63, Glucose 230 H, Calcium 9.5 10/22/17 04:45: WBC 11.69 H, RBC 3.96 L, Hgb 13.0, Hct 38.4, MCV 97.0, MCH 32.8 H, MCHC 33.9, RDW Coeff of Nina 13.4, Plt Count 252, Immature Gran % (Auto) 4.0, Neut % (Auto) 79.1, Lymph % (Auto) 12.0, [place] % (Auto) 4.6, Eos % (Auto) 0.0, Baso % (Auto) 0.3, Immature Gran # (Auto) 0.5, Neut # 9.3 H, Lymph # 1.4, [place] # 0.5, Eos # 0.0, Baso # 0.0 10/22/17 04:45: PT 20.7 H, INR 2.07 PLAN: DISCHARGE HOME DIET: CONSISTENT CARBOHYDRATE ACTIVITY: GRADUALLY RESUME TOLERATED USE OXYGEN AT 2 LITERS PER NASAL CANNULA CONTINUOUSLY USE ALBUTEROL NEB TREATMENTS EVERY 4 HOURS USE PULMICORT NEB TREATMENTS ONLY TWICE DAILY ( USE IN ONLY 2 OF THE ALBUTEROL TREATMENTS DAILY) CONTINUE MEDICATIONS LISTED ON NURSING DISCHARGE INFORMATION SHEET AN APPOINTMENT IS SCHEDULED WITH DR. RAMIREZ/NARCISA HARRIS APRN ON AT 10 AM MS. HERNDON IS ALERT AND ORIENTED X 3. SHE IS INDEPENDENT WITH ACTIVITIES OF DAILY LIVING. SHE IS AMBULATORY WITHOUT USE OF AN ASSISTIVE DEVICE. SHE HAS REQUIRED USE OF OXYGEN AT 2 LITERS CONTINUOUSLY DURING HER HOSPITAL STAY. OXYGEN HAS BEEN ARRANGED FOR CONTINUOUS HOME USE THRU [facility]. SHE HAS BEEN INSTRUCTED ON USE OF OXYGEN. SHE IS AWARE SHE SHOULD NOT SMOKE WITH USE OF OXYGEN. MEAL INTAKES ARE GOOD AT 100%. SHE DENIES ABDOMINAL PAIN OR NAUSEA. SHE IS CONTINENT OF BOWEL AND BLADDER. SKIN IS INTACT AND FREE OF DECUBITUS ULCERS, RASHES OR IRRITATION. OMER RAMIREZ MD NARCISA HARRIS APRN
--- NOTE | 2017-10-26 10:53 | PN ---
10/15/17: Level 5 10/16/17: Intermediate 10/17/17: Intermediate 10/18/17: Intermediate 10/19/17: Intermediate 10/20/17: Intermediate 10/21/17: Brief 10/22/17: D as in discharge MTDD
--- NOTE | 2017-10-28 11:28 | PN ---
DATE OF SERVICE: 10/21/17 SUBJECTIVE: 47 year old white female hospitalized with chronic lung disease, COPD and bronchitis. Has condition has improved. PHYSICAL EXAMINATION: HEENT: Head normocephalic, atraumatic. Eyes: Extraocular muscles are intact. Pupils are equal, round and reactive to light and accommodation. Ears: No lesions. Nose appeared normal. Throat: No exudate or erythema. NECK: Supple. No JVD, no carotid bruit. No lymphadenopathy or thyromegaly. LUNGS: Decreased breath sounds with less wheezing. Clear to auscultation. Percussion note normal. Chest symmetrical. HEART: S1, S2, no S3. No murmurs. No cyanosis or clubbing. No ascites. Pulses: Dorsalis pedis and posterior tibial pulses +1 to +2 both sides. ABDOMEN: Soft. Nontender. Bowel sounds active. No CVA tenderness. No mass felt. EXTREMITIES: No edema. Full range of motion of all extremities, equal. NEUROLOGIC: No focal deficit. Cranial nerves II through XII are grossly intact. No headache, no double vision or headache. SKIN: Not dry. Intact. Turgor - normal. LYMPHATIC: No palpable lymph nodes/no lymphedema. MUSCULOSKELETAL: Normal joints with no swelling. Muscle tone is normal. PLAN: 1. Her capacity to exercise is less. 2. Advised to join pulmonary rehab The patient was seen and examined with Nurse Practitioner CONDITION: Stable and improving. TIME SPENT: More than 30 minutes. Plan and coordination of the patient's care discussed in the presence of nurse. RONALDO
--- NOTE | 2017-10-28 11:31 | PN ---
DATE OF SERVICE: 10/22/17 SUBJECTIVE: The patient was hospitalized with respiratory failure and acute bronchitis with severe chronic lung disease. She looks like quit smoking during the stay in the stay in the hospital. She had not smoked and she was on NicoDerm patches. PHYSICAL EXAMINATION: HEENT: Head normocephalic, atraumatic. Eyes: Extraocular muscles are intact. Pupils are equal, round and reactive to light and accommodation. Ears: No lesions. Nose appeared normal. Throat: No exudate or erythema. NECK: Supple. No JVD, no carotid bruit. No lymphadenopathy or thyromegaly. LUNGS: Decreased breath sounds with very mild wheeze and good air entry. Percussion note normal. Chest symmetrical. HEART: S1, S2, no S3. No murmurs. No cyanosis or clubbing. No ascites. Pulses: Dorsalis pedis and posterior tibial pulses +1 to +2 both sides. ABDOMEN: Soft. Nontender. Bowel sounds active. No CVA tenderness. No mass felt. EXTREMITIES: No edema. Full range of motion of all extremities, equal. NEUROLOGIC: No focal deficit. Cranial nerves II through XII are grossly intact. No headache, no double vision or headache. SKIN: Not dry. Intact. Turgor - normal. LYMPHATIC: No palpable lymph nodes/no lymphedema. MUSCULOSKELETAL: Normal joints with no swelling. Muscle tone is normal. PLAN: 1. She is morbidly obese and advised to lose a lot of weight 2. Advised pulmonary rehab 3. She will discharged on antibiotics and steroids. The patient was seen and examined with the Nurse Practitioner. TIME SPENT: More than 30 minutes. Plan and coordination of the patient's care discussed in the presence of nurse. RONALDO
--- NOTE | 2017-11-18 13:08 | DS ---
DATE OF SERVICE: 10/22/17 FINAL DIAGNOSIS: 1. COPD EXACERBATION 2. SMOKER 3. HYPERTENSION 4. DIABETES, TYPE 2 5. HISTORY OF PULMONARY EMBOLUS (ON COUMADIN) 6. HYPOTHYROID 7. ASTHMA 8. IBS 9. ANXIETY/DEPRESSION 10. TOBACCO USE 11. OSTEOARTHRITIS 12. SPINAL STENOSIS 13. SLEEP APNEA, C-PAP 14. HEPATIC STEATOSIS 15. OBESITY 16. HYSTERECTOMY 17. 18. CARPAL TUNNEL RIGHT HAND DISCHARGE INSTRUCTIONS: 1. Followup appointment with Dr. Hoffman/Olga Grant APRN on 10/26/17 at 10 a.m. 2. Use oxygen at 2L/NC continuously 3. Use Albuterol neb treatments every four hours 4. Use Pulmicort neb treatments only twice daily (use in only 2 of the Albuterol treatments daily) MEDICATIONS AT DISCHARGE: [place] 5-325 one tab p.o.q .8h p.r.n. Pulmicort 0.5 mg one vial neb Rt b.i.d. NINFA Keflex 500 mg p.o. q.8hr NINFA Librium 25 mg p.o. b.i.d p.r.n. Valium 10 mg t.i.d. p.r.n. Neurontin 300 mg p.o. b.i.d. NINFA Hydrochlorothiazide 12.5 mg p.o. daily NINFA Albuterol Sulfate one vial neb q.4h Synthroid 50 mcg p.o. q.d. a.c. NINFA Zestril 10 mg p.o. daily NINFA Glucophage 500 mg p.o. b.i.d. with meal NINFA Protonix 40 mg p.o. q.d. a.c. NINFA Zoloft 150 mg p.o. daily NINFA NEW PRESCRIPTIONS: Nicoderm 21 mg patch apply as directed daily Pulmicort 0.5 mg/2mL b.i.d in nebulizer Keflex 500 mg t.i.d. for 7 days Prednisone 20 mg b.i.d. for 2 days then 10 mg b.i.d. for 5 days Phenergan with Codeine 1-2 TSP at bedtime DIET INSTRUCTIONS: Consistent carbohydrate ACTIVITY: Gradually resume as tolerated SMOKING: Advised to quit smoking DISEASE SPECIFIC EDUCATION: Smoking cessation Weight loss Use of oxygen Prescriptions Steroid use and risk of GI irritation, bone demineralization HOSPITAL COURSE: This is a 47-year-old female who has a history of recurrent COPD exacerbation, bronchitis. She has underlying asthma. She is a heavy, 1 1/2 pack per day smoker for a number of years. She has anxiety. History of vertigo. She also has a history of PE and is on Coumadin. She had been treated as an outpatient in our office over the past week and one-half for bronchitis. She had been on oral steroids and p.o. Keflex and she arrived in the emergency room short of breath. Chest x-ray revealed possible pneumonia and ABGs were abnormal with 02 sat of 87 %. She was subsequently admitted, placed on Solu-Medrol 125 mg q.6hr IV along with Rocephin 1 gm IV daily and Zithromax 500 mg p.o. daily for three days. She was started on Xopenex neb treatments q.6hr along with Pulmicort neb treatments b.i.d. She was also placed on Nicoderm patch daily due to her heavy smoking. Over the course of several days, she had persistent wheezing, persistent shortness of breath, extremely short of breath with exertion. ABGs two days ago showed an 02 sat of 88% on room air. She failed a three-step oxygen test yesterday. This is thought to be due to bronchiolitis with COPD and underlying asthma. She has a long history of this. She has refused to quit smoking. Information is provided to her during this hospitalization with the need to quit smoking. She has been in the hospital for the past several days since the 2nd for the past week and has not smoked and so we will provide her with a prescription to get Nicoderm patches and instructed her that this is a good time to quit as she has gone one week without cigarettes. Her Coumadin was continued and INR has remained therapeutic. We had increased the dose and gave her 5 mg two days in a row instead of 4 mg to achieve the therapeutic INR between 2 and 3, is 2.06 today. We gave her Phenergan with Codeine cough syrup q.6hr p.r.n. to help suppress her cough. This has seemed to help. We will send her home with a prescription for her to take this at night. She has a nebulizer machine at home and will continue with Albuterol nebulizer treatments q.4hr along with Pulmicort neb treatments b.i.d. It is questionable whether or not she is very compliant with medications, nebulizers. Again, she has refused to quit smoking in the past. She will go home with oxygen at 2L and this has helped her sat 95 to 100%. Again she failed her three-step oxygen test. She had a repeat ABG today which showed an 02 sat of 88% on room air. She will go home with home oxygen along with Keflex 500 mg t.i.d. for one week and Prednisone 20 mg b.i.d. for 2 days then 10 mg b.i.d. for 5 days. We will see her early next week. She has been instructed to lose weight as this will help with her breathing. She is instructed to do breathing treatments as scheduled. She has a CPAP machine for sleep apnea. She is instructed to wear this at night. Continue her Coumadin, quit smoking. She is to continue with increased rest. She has been up and about walking around for the past two days and has tolerated this well with oxygen. She has been eating well. Today, on day of discharge, temperature 97.7, heart rate 66, respirations 16, BP 118/71, pulse ox 95% on 2L , white count 11, hemoglobin 13, hematocrit 38.4, platelets 252. INR 2.06, sodium 138, potassium 4.6, BUN 37, creatinine 1.01. She is discharged in stable condition. TIME SPENT: More than 60 minutes. RONALDO
== END 2017-10-22 14:07 | disposition home or self-care (01) | DRG 190 ==
LOC: ED 12:20 → MEDSURG A 14:14
PROVIDERS: ADMIT Internal Medicine; ATTEND Internal Medicine
DX: J44.1 Chronic obstructive pulmonary disease with (acute) exacerbation (principal); J96.90 Respiratory failure, unspecified, unspecified whether with hypoxia or hypercapnia; Z68.42 Body mass index [BMI] 45.0-49.9, adult; E11.9 Type 2 diabetes mellitus without complications; Z79.84 Long term (current) use of oral hypoglycemic drugs; I10 Essential (primary) hypertension; M19.90 Unspecified osteoarthritis, unspecified site; M48.00 Spinal stenosis, site unspecified; J20.9 Acute bronchitis, unspecified; J44.0 Chronic obstructive pulmonary disease with (acute) lower respiratory infection; Z72.0 Tobacco use; E66.01 Morbid (severe) obesity due to excess calories; Z71.3 Dietary counseling and surveillance; Z86.711 Personal history of pulmonary embolism; Z79.01 Long term (current) use of anticoagulants; E03.9 Hypothyroidism, unspecified; J45.909 Unspecified asthma, uncomplicated; K58.9 Irritable bowel syndrome, unspecified; F41.8 Other specified anxiety disorders; G47.30 Sleep apnea, unspecified; K76.0 Fatty (change of) liver, not elsewhere classified
CPT/HCPCS: 36415; 80048; 80053; 81001; 82550; 82553; 82803; 82962; 84484; 85007; 85025; 85610; 93005; 93010; 94640; 94761; 96365; 96376; 97802; 99223; 99231; 99232; 99239

== ENCOUNTER 2018-02-26 14:40 | Outpatient (CLI) | END 2018-02-26 14:50 | disposition short-term general hospital (02) | LOC: AMBL 14:40 | PROVIDERS: ATTEND Internal Medicine Geriatric Medicine | DX: R42 Dizziness and giddiness (principal); R55 Syncope and collapse; M54.2 Cervicalgia; M54.5 Low back pain; G89.29 Other chronic pain; R51 Headache; R20.0 Anesthesia of skin ==

== ENCOUNTER 2018-03-04 18:42 | Outpatient (CLI) | END 2018-03-04 18:53 | disposition short-term general hospital (02) | LOC: AMBL 18:42 | PROVIDERS: ATTEND Internal Medicine | DX: R53.1 Weakness (principal); R42 Dizziness and giddiness; F03.90 Unspecified dementia, unspecified severity, without behavioral disturbance, psychotic disturbance, mood disturbance, and anxiety ==

== ENCOUNTER 2018-03-09 09:17 | Inpatient (IN) ==
[2018-03-09] MEDS ORDERED: SODIUM CHLORIDE 1,000 ML IV STA (09:44)
--- NOTE | 2018-03-09 10:43 | CT ---
EXAM: CT chest without contrast HISTORY: Cough COMPARISON: Chest x-ray 10/20/[address] chest 10/15/2017 with multiple priors TECHNIQUE: Serial axial images of the chest were obtained from the lung apices to the upper abdomen without contrast. These were viewed in multiple planes. FINDINGS: The thyroid is normal. The visualized vessels are unremarkable without aneurysm or stenos is. The heart is normal in size without pericardial effusion. There are no pathologically enlarged mediastinal or hilar lymph nodes. There is no pneumothorax or pleural effusion. There is a 0.2 cm ground-glass nodule adjacent to the right major fissure on image 19. There is mild bibasilar atelectasis. Airways are patent. No addit ional consolidation, nodule or mass is identified. Limited views of the upper abdomen demonstrate a small hiatal hernia. The soft tissues are unremarka ble. There is degenerative disease of the spine. IMPRESSION: 1. There is no acute cardiopulmonary process or consolidation. 2. 0.2 cm ground-glass nodule adjacent to major fissure is likely a lymph node versus small inflamma tory nodule. Minimal bibasilar atelectasis is present. 3. Small hiatal hernia.
--- NOTE | 2018-03-09 10:46 | CT ---
EXAM: CT head without contrast HISTORY: Concern for stroke COMPARISON: MRI 09/09/2017 TECHNIQUE: Serial axial images of the brain were obtained from the skull base to the vertex without IV contrast. FINDINGS: The ventricles, cisterns and sulci demonstrate mild generalized volume loss.5 The patrick-wh ite matter junction is maintained. There is minimal low attenuation scattered in the periventricular white matter.No midline shift or mass is identified. There is no abnormal intra or extra-axial flui d collection. The paranasal sinuses demonstrate thickening in the right maxillary sinus and in the e thmoid air cells. The mastoid air cells are clear. The osseous calvarium is intact. IMPRESSION: 1. No acute intracranial abnormality or hemorrhage. If further evaluation for stroke is clinically indicated, MRI may be obtained. 2. Mild generalized volume loss and scattered microangiopathy as seen on prior MRI. 3. Right-sided paranasal sinus disease.
--- NOTE | 2018-03-09 11:08 | ED.PDOC ---
General ED Provider: Dr. CHRISTOPHER BELL Chief Complaint: Stroke Stated Complaint: generalized weakness Time Seen by Physician: 09:33 (seen with gino at all time unable to walk but no stroke ) Mode of Arrival: Wheelchair Information Source: Patient Primary Care Provider: OMER RAMIREZ Nursing and Triage Documentation Reviewed and Agree: Yes Does patient meet sepsis criteria?: Yes If yes, has appropriate treatment been initiated?: Yes System Inflammatory Response Syndrome: Not Applicable Sepsis Protocol: For patient's 13 years and over: Temp is 96.8 and below OR 101 and greater Pulse >90 BPM Resp >20/minute Acutely Altered Mental Status Are patient's symptoms suggestive of a new infection, such as: -Pneumonia -Skin, Soft Tissue -Endocarditis -UTI -Bone, Joint Infection -Implantable Device -Acute Abdominal Infection -Wound Infection -Meningitis -Blood Stream Catheter Infection -Unknown Neurological Complaint Exam - Weakness Complaint/Exam Duration: 2 days Symptoms Are: Still present Timing: Constant Episodes Lasting: Days Initial Severity: Moderate Current Severity: Moderate Character: Reports: Weak Aggravating: Reports: Headache Alleviating: Reports: Rest Associated Signs and Symptoms: Denies: Nausea, Vomiting, Diaphoresis, Tinnitus, Chest pain, Short of air, Palpitations, Unsteady gait, GI blood loss, Visual changes, Decreased oral intake, Change in medication, Change in diet, OTC meds, Loss of balance Related History: Similar episode Cardiac Risk Factors: Reports: Hypertension, Diabetes CVA Risk Factors: Reports: Diabetes, Hypertension JVD Present: No Carotid Bruit Present: No Glascow Coma Scale (see protocol): 15 Nystagmus Present: No Gag Reflex Present: Yes Meningeal Signs Positive: No Focal Weakness: Present: None Focal Sensory Loss: Present: None Gait: Unable (weak) Babinski Sign: Negative Right, Negative Left Differential Diagnoses: Dysrhythmia, Hypovolemia, Metabolic abnormalities Quality Indicators for Cardiac Chest Pain: EKG in 10min. Quality Indicators for AMI: EKG in 10min. Review of Systems - Review Of Systems Constitutional: Reports: Malaise, Weakness Eyes: Reports: No symptoms Ears, Nose, Mouth, Throat: Reports: No symptoms Respiratory: Reports: Cough Cardiac: Reports: No symptoms GI: Reports: No symptoms : Reports: No symptoms Musculoskeletal: Reports: No symptoms Skin: Reports: No symptoms Neurological: Reports: Headache Endocrine: Reports: No symptoms Hematologic/Lymphatic: Reports: No symptoms All Other Systems: Reviewed and Negative Past Medical History - Past Medical History Previously Healthy: No (recent pneumonia) Endocrine: Reports: DM 2 Cardiovascular: Reports: Hypertension Respiratory: Reports: COPD, PE Hematological: Reports: None Gastrointestinal: Reports: None Genitourinary: Reports: None Neuro/Psych: Reports: None Musculoskeletal: Reports: Arthritis, Other (spinal stenosis ) Cancer: Reports: None Last Menstrual Period: N/A Other Pertinent Past Medical History: Vertigo - Surgical History General Surgical History: Reports: (x 2), Other ( colon biopsyx2, lithotripsyx2, carpal tunnel, hysterectomy) - Family History Family History: Reports: Unknown - Social History Smoking Status: Current every day smoker, Light tobacco smoker Hx Substance Use: No Alcohol Screening: None - Immunizations Influenza Vaccine within 12 Months: No Pneumococcal Vaccine up to Date: No Physical Exam - Physical Exam Appearance: Ill-appearing Ill-appearing: Moderate Eyes: BENY, EOMI, Conjunctiva clear ENT: Dry mucosa Respiratory: Airway patent, Breath sounds clear, Breath sounds equal, Respirations nonlabored Cardiovascular: RRR, Pulses normal, No rub, No murmur GI/: Soft, Nontender, No masses, Bowel sounds normal, No Organomegaly Musculoskeletal: Normal strength, ROM intact, No edema, No calf tenderness Skin: Warm, Dry, Normal color Neurological: Sensation intact, Motor intact, Reflexes intact, Cranial nerves intact, Alert, Oriented Psychiatric: Affect appropriate, Mood appropriate Interpretation - Radiology Interpretation Radiology Interpretation By: Radiologist Radiology Results: No acute changes Exam Interpreted: CT Scan Physician Notification - Case Discussed Physician Notified: pmd Time of Notification: 11:08 Admit To: Inpatient Critical Care Note - Critical Care Note Total Time (mins): 0 Course - Course Hematology/Chemistry: 03/09/18 09:42 03/09/18 09:45 Orders, Labs, Meds: Lab Review 03/09/18 03/09/18 03/09/18 09:42 09:45 09:45 WBC 6.85 RBC 3.78 L Hgb 12.0 Hct 37.4 MCV 98.9 MCH 31.7 H MCHC 32.1 RDW Coeff of Nina 14.0 Plt Count 237 Immature Gran % (Auto) 0.3 Neut % (Auto) 56.3 Lymph % (Auto) 34.6 [place] % (Auto) 5.5 Eos % (Auto) 2.6 Baso % (Auto) 0.7 Immature Gran # (Auto) 0.0 Neut # (Auto) 3.9 Lymph # (Auto) 2.4 [place] # (Auto) 0.4 Eos # (Auto) 0.2 Baso # (Auto) 0.1 PT 13.2 H INR 1.33 APTT 32.5 Puncture Site O2 Saturation ABG pH ABG pCO2 ABG pO2 ABG HCO3 ABG Total CO2 ABG Base Excess Jj Test FiO2 % Sodium 139 Potassium 4.3 Chloride 107 Carbon Dioxide 25 Anion Gap 11.3 BUN 32 H Creatinine 1.33 H Estimated GFR (MDRD) 42.00 BUN/Creatinine Ratio 24.06 Glucose 183 H Lactic Acid Calcium 10.1 Total Bilirubin 0.2 AST 10 L ALT 9 L Alkaline Phosphatase 61 Total Creatine Kinase 25 Total Protein 6.7 Albumin 3.2 L Globulin 3.5 Albumin/Globulin Ratio 0.91 Procalcitonin TSH 1.234 Free T4 0.93 03/09/18 03/09/18 03/09/18 09:45 09:45 10:10 WBC RBC Hgb Hct MCV MCH MCHC RDW Coeff of Nina Plt Count Immature Gran % (Auto) Neut % (Auto) Lymph % (Auto) [place] % (Auto) Eos % (Auto) Baso % (Auto) Immature Gran # (Auto) Neut # (Auto) Lymph # (Auto) [place] # (Auto) Eos # (Auto) Baso # (Auto) PT INR APTT Puncture Site R rad O2 Saturation 95.0 ABG pH 7.368 ABG pCO2 40.7 ABG pO2 77.0 L ABG HCO3 23.4 ABG Total CO2 25 ABG Base Excess -2 Jj Test + FiO2 % 21.0 Sodium Potassium Chloride Carbon Dioxide Anion Gap BUN Creatinine Estimated GFR (MDRD) BUN/Creatinine Ratio Glucose Lactic Acid 10.9 Calcium Total Bilirubin AST ALT Alkaline Phosphatase Total Creatine Kinase Total Protein Albumin Globulin Albumin/Globulin Ratio Procalcitonin < 0.05 TSH Free T4 Orders Category Date Time Status ABG DRAW REQUEST Stat CARDIO 03/09/18 09:43 Completed EKG-(ED ONLY) Stat CARDIO 03/09/18 09:42 Completed ED IV/MEDIPORT/POWERPORT .ONCE EMERGENCY 03/09/18 09:42 Active ABG Stat LAB 03/09/18 10:10 Completed BLOOD CULTURE Stat LAB 03/09/18 09:45 Received CBC W/ AUTO DIFF Stat LAB 03/09/18 09:42 Completed COMPREHENSIVE METABOLIC PANEL Stat LAB 03/09/18 09:45 Completed CREATINE KINASE Stat LAB 03/09/18 09:45 Completed FREE T4 (FREE THYROXINE) Stat LAB 03/09/18 09:45 Completed LACTIC ACID Stat LAB 03/09/18 09:45 Completed PARTIAL THROMBOPLASTIN TIME Stat LAB 03/09/18 09:45 Completed PROCALCITONIN Stat LAB 03/09/18 09:45 Completed PT WITH INR Stat LAB 03/09/18 09:45 Completed THYROID STIMULATING HORMONE Stat LAB 03/09/18 09:45 Completed 0.9 % Sodium Chloride [Saline Flush] MEDS 03/09/18 09:42 Active 1 syr IVF PRN PRN Sodium Chloride 0.9% [Sodium Chloride] 1,000 ml MEDS 03/09/18 09:44 Active IV 125 mls/hr CT CHEST W/O CONTRAST Stat RADS 03/09/18 09:[address] HEAD W/O CONTRAST Stat RADS 03/09/18 09:44 Completed Medications Generic Name Dose Route Start Last Admin Trade Name Freq PRN Reason Stop Dose Admin Sodium Chloride 1,000 mls @ 125 mls/hr 03/09/18 09:44 03/09/18 10:32 Sodium Chloride IV 03/09/18 17:43 125 mls/hr .Q8H STA Administration Sodium Chloride 1 syr 03/09/18 09:42 Saline Flush IVF PRN PRN To flush IV Vital Signs: Temp Pulse Resp BP Pulse Ox 03/09/18 09:28 98.4 F 77 16 109/61 96 Departure - Departure Time of Disposition: 11:09 Disposition: ADMITTED INPATIENT Discharge Problem: Weakness generalized Instructions: Weakness (ED) Condition: Good Pt referred to PMD for follow-up: Yes IPMP verified?: No Additional Instructions: Please call your Family Physician as soon as possible to schedule a follow-up appointment. Allergies/Adverse Reactions: Allergies No Known Allergies Allergy (Verified 10/15/17 12:31) Home Medications: Ambulatory Orders Gabapentin [Neurontin] 300 mg PO TID 05/29/17 Hydrocodone Bit/Acetaminophen [[place] 7.5-325] 1 each PO TID 05/29/17 Metformin HCl [Glucophage] 500 mg PO DAILY 05/29/17 Sertraline HCl [Zoloft] 150 mg PO DAILY 05/29/17 Warfarin Sodium [Coumadin] 4.5 mg PO DAILY 05/29/17 Acetaminophen/Diphenhydramine [Tylenol Pm Ex-Strength Caplet] 1 each PO BEDTIME PRN 03/09/18 Albuterol Sulfate 0.083% Neb [Albuterol 0.083% Neb] 1 vial NEB RTQ4H PRN Fenofibrate 160 mg PO DAILY 03/09/18 Levothyroxine Sodium 200 mcg PO DAILY 03/09/18 Lisinopril [Zestril] 40 mg PO DAILY 03/09/18 Meclizine HCl 25 mg PO DAILY 03/09/18 Simvastatin 40 mg PO BEDTIME 03/09/18 Disposition Discussed With: Patient
[2018-03-09] MEDS ORDERED: HUMULIN R SUBCUT PRN (11:12)
[2018-03-09] MEDS ORDERED: DUONEB NEB SCH ×2 (12:00→14:00)
--- NOTE | 2018-03-09 12:17 | US ---
EXAM: Ultrasound bilateral carotid duplex HISTORY: Dizziness COMPARISON: Carotid Doppler 09/08/2017 TECHNIQUE: Sonographic and color Doppler evaluation of the carotids were performed. FINDINGS: The right carotid is patent in appearance with mild atherosclerotic plaque visualized. The right ICA peak systolic velocity measures 140 cm/sec which is elevated. The ICA / CCA peak systolic velocity ratio is 1.7 and ICA end-diastolic velocity is 30 cm/sec. There is normal color Doppler flow and wave spectral analysis. The left carotid is patent in appearance with mild atherosclerotic plaque visualized. The left ICA peak systolic velocity measures 100 cm/sec which is normal. The left ICA / CCA peak systolic velocity ratio is 1.0 and ICA end-diastolic velocity is 30 cm/sec. T here is normal color Doppler flow and wave spectral analysis. Vertebral arteries demonstrate antegrade flow bilaterally. IMPRESSION: 1. Elevated peak systolic velocity in the right ICA suggestive of moderate, 50 - 69% stenosis. 2. Mild atherosclerotic disease in the left ICA without sonographic or Doppler evidence of hemodynam ically significant stenosis.
[2018-03-09] MEDS: SODIUM CHLORIDE 1,000 ML IV SCH (13:03)
--- NOTE | 2018-03-09 13:18 | MRI ---
EXAM: MRI brain without IV contrast. DATE: 09 March 2018. HISTORY: Headaches. TECHNIQUE: Sagittal T1W, axial T2W, axial FLAIR, axial T1W, axial DWI, and coronal T2W GRE sequences of the brain were obtained using 1.2 Beatris magnet. No IV contrast. COMPARISON: CT head 09 March 2018. MRI brain 09 September 2017. FINDINGS: The right lateral ventricle remain slightly larger than the left (normal variation). Of t he Sylvian fissures, many frontal and parietal lobe sulci,. CSF spaces overlying the superior vertex of the brain are mildly prominent - - similar to previous MRI. No midline shift, mass effect or loc ulated extra-axial fluid collection is apparent. No acute infarct, hemorrhage or neoplasm is identif ied. Minimal T2W/FLAIR hyperintensity is observed in the white matter abutting each lateral ventricl e. Moderate number of 2-10 mm, T2W/FLAIR bright foci are scattered within the hallman radiata, centru m semiovale and subcortical white matter bilaterally. The patrick - white matter differentiation is nor mal. The 7th/8th cranial nerve complexes, cerebellopontine angles, brainstem, and visible cervical s gia cord are normal. There is no cerebellar tonsillar ectopia. The pituitary gland is small in si ze. Corpus callosum is normal in size and configuration. Flow voids are present in the major intrac ranial arteries and in the dural venous sinuses. No aneurysm, AVM or dural venous sinus thrombosis i s apparent. No orbit abnormality is identified. The mastoid air cells are unremarkable. There is c hronic circumferential mucosal thickening and opacification of the right maxillary sinus. Heterogene ous T2W dark and bright, T1W intermediate to dark signal is observed in the right maxillary sinus. S everal anterior right ethmoid air cells remain opacified, similar to previous MRI. There is minor mu cosal thickening in the right side of the frontal sinus. No neck mass or lymphadenopathy is detected . No calvarial neoplasm or acute fracture is evident. IMPRESSIONS: 1. No acute infarct, hemorrhage, mass or hydrocephalus. 2. Mild supratentorial small vessel disease. 3. Mild cerebral atrophy (primarily frontoparietal). 4. 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 5. Chronic maxillary and ethmoid sinusitis. Note: Report faxed to ER physician at 1312 hrs, 09 March 2018.
[2018-03-09 13:22] VITALS: BMI 48.7
[2018-03-09] MEDS ORDERED: DUONEB NEB PRN (14:13)
[2018-03-09] MEDS ORDERED: NORCO 7.5-325 PO SCH (15:00)
[2018-03-09] MEDS ORDERED: NEURONTIN PO SCH ×2 (15:00)
[2018-03-09] MEDS: COUMADIN PO SCH ×2 (16:21→16:22)
[2018-03-09] MEDS ORDERED: COUMADIN PO SCH ×2 (17:00)
[2018-03-09] MEDS ORDERED: COUMADIN PO ONE (17:00)
[2018-03-09] MEDS ORDERED: ZOCOR PO SCH (21:00)
[2018-03-09] MEDS: NORCO 7.5-325 PO PRN (21:23)
[2018-03-09] MEDS: NEURONTIN PO SCH (21:23)
[2018-03-10] MEDS: SODIUM CHLORIDE 1,000 ML IV SCH ×3 (00:04→20:32)
[2018-03-10] MEDS: SYNTHROID PO SCH (05:38)
[2018-03-10] MEDS ORDERED: COUMADIN PO SCH ×2 (09:00)
[2018-03-10] MEDS ORDERED: LEVOTHYROXINE SODIUM 200 MCG PO SCH (09:00)
[2018-03-10] MEDS ORDERED: NON-FORMULARY MEDICATION (Sertraline Hcl [Zoloft] 150 MG) PO SCH (09:00)
[2018-03-10] MEDS ORDERED: WARFARIN SODIUM 4.5 MG PO SCH (09:00)
[2018-03-10] MEDS ORDERED: TRIGLIDE PO SCH (09:00)
[2018-03-10] MEDS ORDERED: ANTIVERT PO SCH (09:00)
[2018-03-10] MEDS ORDERED: ZESTRIL PO SCH (09:00)
[2018-03-10] MEDS: CLEOCIN PO SCH ×2 (12:16→20:31)
[2018-03-10] MEDS: NEURONTIN PO SCH ×2 (12:16→20:31)
[2018-03-10] MEDS: FLONASE NAS SCH (12:17)
[2018-03-10] MEDS: ZOLOFT PO SCH (12:17)
--- NOTE | 2018-03-10 13:19 | CT ---
EXAM: CT lumbar spine without contrast. HISTORY: Fall with back pain COMPARISON: None TECHNIQUE: Serial axial images of the spine were obtained from the lower thoracic spine through the pelvis without contrast. These were viewed in multiple planes. FINDINGS: Vertebral bodies demonstrate normal height, disc space and alignment. There is no lytic o r blastic lesion. There is moderate facet arthropathy. The lumbosacral junction is intact. Transver se and posterior processes are normal. L1-L2: Normal with no central or neural foraminal narrowing. L2-L3: Small disc bulge and facet arthropathy with no central or neural foraminal narrowing. L3-L4: Small disc bulge and facet arthropathy with no central or neural foraminal narrowing. L4-L5: There is a broad-based disc bulge and facet arthropathy with mild bilateral neural foraminal n arrowing and central narrowing. L5-S1: There is a disc bulge and facet arthropathy with no central or neural foraminal narrowing. Limited views of the soft tissues are unremarkable. IMPRESSION: 1. No acute compression fracture or subluxation. 2. Mild multilevel degenerative disease and facet arthropathy with level by level evaluation as abov e. There is mild bilateral neural foraminal narrowing noted L4-L5.
[2018-03-10] MEDS: NORCO 7.5-325 PO PRN (15:07)
--- NOTE | 2018-03-10 15:10 | CT ---
EXAM: CT angiogram of the [place] with contrast TECHNIQUE: Helical axial CT angiogram of the [place] was performed with contrast with coron al and sagittal and multiplanar reconstructions as well as separate work station 3-D renderings. COMPARISON: CT angiogram of the neck from same day and brain MRI from yesterday HISTORY: Headaches with dizziness and syncope FINDINGS: Right internal carotid artery distribution: The right internal carotid artery, middle cerebral artery including the M1, M2, A1, A2 and runoff branches are widely patent. Left internal carotid artery distribution: The left internal carotid artery, middle cerebral artery i ncluding the M1, M2, A1, A2 and runoff branches are widely patent. Anterior communicating artery: Patent Posterior communicating arteries: Not identified. Vertebral basilar system: The V4 segments of the vertebral arteries and the basilar artery and its br anches are widely patent. The left vertebral artery is dominant. There are no aneurysms or vascular malformations. The dural sinuses are widely patent. CT head was performed without contrast as part of the examination. Coronal reformats were performed . There is no acute intracranial abnormality. There is no hemorrhage or mass or subdural or hydrocepha constantin. There is no prior or evolving cortical ischemia. There is some minimal chronic small vessel isch emia and minimal atrophy. Brain parenchyma ventricles and sulci are otherwise normal. The bilateral o rbits are unremarkable. There is no significant mastoid air cell fluid.The paranasal sinuses demonstr ate chronic sinusitis involving the right maxillary sinus. There are no acute calvarial abnormalitie s. IMPRESSION: 1. [place] with no focal stenosis or aneurysm or branch occlusion identified. 2. Chronic right maxillary sinusitis.
--- NOTE | 2018-03-10 15:17 | CT ---
EXAM: CTA of the neck was performed with contrast TECHNIQUE: Helical axial CTA of the neck was performed with contrast with multiplanar reconstruction s and separate work station 3-D renderings. COMPARISON: CT angiogram of the head from same date. HISTORY: Headache dizziness and syncope FINDINGS: There is no acute soft tissue abnormality. There are no neck masses or pathologic lymph nod es. The thyroid gland is unremarkable. The lung apices and upper mediastinum are normal. There are no acute osseous abnormalities. There is moderate degenerative change in the cervical spine. There is c hronic maxillary sinusitis on the right. Aorta: There is no significant calcific atherosclerosis of the aorta with no evidence for dissection or aneurysm. The bilateral subclavian arteries and brachiocephalic artery are widely patent. Right carotid artery: The origin of the right common carotid artery off of the brachiocephalic is wi lester patent. The right common carotid artery as well as the right carotid bifurcation and the cervic al right internal carotid artery are all widely patent. There is no evidence for aneurysm or focal s tenosis or dissection. There is quite a bit of tortuosity of the cervical right internal carotid juan c ry nearly contacting the left internal carotid artery in the midline. Right vertebral artery: The origin of the right vertebral artery from the right subclavian artery is widely patent. The course of the right vertebral artery in the neck is normal with no focal stenosi s or dissection or aneurysm. Left carotid artery: The origin of the left common carotid artery off of the aortic arch is widely p atent. The left common carotid artery in the neck is widely patent as is the carotid bifurcation as well as the cervical portion of the left internal carotid artery. There is no evidence for dissectio n or focal stenosis or aneurysm. There is quite a bit of tortuosity of the cervical left internal car otid artery which almost contacts the right internal carotid artery in the midline. There is trace ca lcific atherosclerosis at the bifurcation. Left vertebral artery: The origin of the left vertebral artery off of the left subclavian artery is widely patent. The course of the left vertebral artery in the neck is unremarkable with no focal vikki nosis or aneurysm or dissection. The left vertebral artery is dominant. IMPRESSION: 1. Widely patent bilateral carotid arteries and vertebral arteries. 2. Tortuous internal carotid arteries as described in the neck which almost contact in the midline. This results in this so-called "kissing carotids" which can simulate a retropharyngeal mass and shou ld be noted prior to any cervical or retropharyngeal surgery.
[2018-03-10] MEDS ORDERED: COUMADIN PO ONE (17:00)
[2018-03-10] MEDS: COUMADIN PO SCH ×2 (17:18→17:19)
[2018-03-11] MEDS: CLEOCIN PO SCH ×2 (04:58→13:50)
[2018-03-11] MEDS: SODIUM CHLORIDE 1,000 ML IV SCH (05:44)
[2018-03-11] MEDS: SYNTHROID PO SCH (05:44)
[2018-03-11] MEDS: FLONASE NAS SCH (08:45)
[2018-03-11] MEDS: ZOLOFT PO SCH (08:46)
[2018-03-11] MEDS: NEURONTIN PO SCH (08:46)
--- NOTE | 2018-03-11 08:52 | PCM.PROG ---
Attending Provider: ATTENDING PROVIDER: Dr. OMER RAMIREZ This patient is seen with Olga Grant, Nurse Practitioner. DATE OF SERVICE: 03/11/18 SUBJECTIVE: This 48 year old WHITE/ F was hospitalized 03/09/18. The patient is lying in bed, alert. She states she has a headache this morning and had two episodes of weakness yesterday. Blood pressure is still up. CTA of neck and brain were normal. Urine drug screen is positive for cocaine, benzo's, and opiates. The patient denies illicit drug use. REVIEW OF SYSTEMS: CONSTITUTIONAL: Weakness. No night sweats. No malaise, lethargy. No fever or chills. HEENT: Eyes: No visual changes. No eye pain. No eye discharge. ENT: No runny nose. No epistaxis. No sinus pain. No odynophagia. No congestion. RESPIRATORY: No cough, no congestion. No hemoptysis. No shortness of breath. CARDIOVASCULAR: No angina symptoms. No CHF symptoms. No atypical chest pain for CAD. No palpitations. No orthopnea.. GASTROINTESTINAL: No abdominal pain. No nausea or vomiting. No diarrhea or constipation. No hematemesis. No hematochezia. GENITOURINARY: No urgency. No frequency. No dysuria. No hematuria. No obstructive symptoms. No discharge. No pain. No significant abnormal bleeding. MUSCULOSKELETAL: No musculoskeletal pain; no joint swelling. NEUROLOGICAL: Awake, alert, oriented to time, place and person. Positive for headache. No neck pain. No syncope. No seizures. No dizziness. PSYCHIATRIC: The patient is tearful. Not anxious. No depression. No suicidal thoughts. No homicidal thoughts. SKIN: No rash. No lesions. No wounds. ENDOCRINE: No unexplained weight loss. No weight gain. HEMATOLOGIC/LYMPHATIC: No anemia. No purpura. No petechiae. No prolonged or excessive bleeding. No palpable lymph nodes. PHYSICAL EXAMINATION: GENERAL: The patient is awake, alert and oriented, lying in bed in no distress. VITAL SIGNS: Temperature 98.2 F, Pulse 74, Respiratory Rate 22, BP 92/56, Pulse Ox 94% HEENT: Head normocephalic, atraumatic. Eyes: Extraocular muscles are intact. Pupils are equal, round and reactive to light and accommodation. Ears: No lesions. Nose appeared normal. Throat: No exudate or erythema. NECK: Supple. No JVD, no carotid bruit. No lymphadenopathy or thyromegaly. LUNGS: Diminished breath sounds. Clear to auscultation. Percussion note normal. Chest symmetrical. HEART: S1, S2, no S3. No murmurs. No cyanosis or clubbing. No ascites. Pulses: Dorsalis pedis and posterior tibial pulses +1 to +2 both sides. ABDOMEN: Soft. Non-tender. Bowel sounds active. No CVA tenderness. No mass felt. EXTREMITIES: No edema. Full range of motion of all extremities, equal. NEUROLOGIC: No focal deficit. Cranial nerves II through XII are grossly intact. No headache, no double vision or headache. SKIN: [place], warm and dry. Intact. Turgor-normal. LYMPHATIC: No palpable lymph nodes/no lymphedema. MUSCULOSKELETAL: Normal joints with no swelling. Muscle tone is normal. LAB REVIEW: 03/11/18 04:53 03/11/18 04:53 03/11/18 04:53: PT 21.7 H D, INR 2.22 03/11/18 04:53: Sodium 138, Potassium 4.9, Chloride 109 H, Carbon Dioxide 23, Anion Gap 10.9, BUN 22 H, Creatinine 0.90, Estimated GFR (MDRD) 67.00, BUN/ Creatinine Ratio 24.44, Glucose 109, Calcium 9.0, Total Bilirubin 0.2, AST 13 L , ALT 12, Alkaline Phosphatase 58, Total Protein 6.1 L, Albumin 2.9 L, Globulin 3.2, Albumin/Globulin Ratio 0.91 03/11/18 04:53: WBC 6.33, RBC 3.65 L, Hgb 11.5 L, Hct 35.7 L, MCV 97.8, MCH 31.5 H, MCHC 32.2, RDW Coeff of Nina 14.2, Plt Count 209, Immature Gran % (Auto) 0.3, Neut % (Auto) 52.0, Lymph % (Auto) 36.0, [place] % (Auto) 7.7, Eos % (Auto) 3.2, Baso % (Auto) 0.8, Immature Gran # (Auto) 0.0, Neut # (Auto) 3.3, Lymph # ( Auto) 2.3, [place] # (Auto) 0.5, Eos # (Auto) 0.2, Baso # (Auto) 0.1 03/10/18 11:30: Urine Opiates Screen Positive, Ur Oxycodone Screen Negative, Urine Methadone Screen Negative, Ur Propoxyphene Screen Negative, Ur Barbiturates Screen Negative, U Tricyclic Antidepress Negative, Ur Phencyclidine Scrn Negative, Ur Amphetamine Screen Negative, U Methamphetamines Scrn Negative, U Benzodiazepines Scrn Positive, Urine Cocaine Screen Positive, U Cannabinoids Screen Negative ASSESSMENT: 1. POSITIVE UDS FOR OPIATES, BENZO'S AND COCAINE 2. DIZZINESS 3. HEADACHE 4. GENERALIZED WEAKNESS 5. COPD 6. ASTHMA 7. SMOKER 8. HISTORY OF PE PLAN: 1. Will refer to [facility] [place]. 2. Denies any illicit drug use symptoms; may be a combination of both prescription and non prescription drugs. 3. Smoking cessation advised. Plan and coordination of the patient's care discussed in the presence of Mixed Livestock Farm Worker and nurse. CONDITION: Stable SCRIBED BY: RADHA DURANT Pastrycook scribed while in presence of service performed by Dr. Ramirez/Olga Grant APRN on 03/11/18 ([id number])
--- NOTE | 2018-03-11 08:57 | PCM.PROG ---
Attending Provider: ATTENDING PROVIDER: Dr. OMER RAMIREZ This patient is seen with Olga Grant, Nurse Practitioner. DATE OF SERVICE: 03/10/18 SUBJECTIVE: This 48 year old WHITE/ F was hospitalized 03/09/18. The patient is lying in bed, alert. She is oriented, seems to be slightly drowsy. All records from [facility] reviewed and discussed. The patient saw Neurology in [place] but can no longer followup due to insurance. REVIEW OF SYSTEMS: CONSTITUTIONAL: Weakness, drowsiness. No night sweats. No malaise, lethargy. No fever or chills. HEENT: Eyes: No visual changes. No eye pain. No eye discharge. ENT: No runny nose. No epistaxis. No sinus pain. No odynophagia. No congestion. RESPIRATORY: No cough, no congestion. No hemoptysis. No shortness of breath. CARDIOVASCULAR: No angina symptoms. No CHF symptoms. No atypical chest pain for CAD. No palpitations. No orthopnea.. GASTROINTESTINAL: No abdominal pain. No nausea or vomiting. No diarrhea or constipation. No hematemesis. No hematochezia. GENITOURINARY: No urgency. No frequency. No dysuria. No hematuria. No obstructive symptoms. No discharge. No pain. No significant abnormal bleeding. MUSCULOSKELETAL: No musculoskeletal pain; no joint swelling. NEUROLOGICAL: Awake, alert, oriented to time, place and person. No headache. No neck pain. No syncope. No seizures. No dizziness. PSYCHIATRIC: Not anxious. No depression. No suicidal thoughts. No homicidal thoughts. SKIN: No rash. No lesions. No wounds. ENDOCRINE: No unexplained weight loss. No weight gain. HEMATOLOGIC/LYMPHATIC: No anemia. No purpura. No petechiae. No prolonged or excessive bleeding. No palpable lymph nodes. PHYSICAL EXAMINATION: GENERAL: The patient is awake, alert and oriented, lying in bed in no distress. VITAL SIGNS: Temperature 98.2 F, Pulse 82, Respiratory Rate 17, BP 104/62, Pulse Ox 92% HEENT: Head normocephalic, atraumatic. Eyes: Extraocular muscles are intact. Pupils are equal, round and reactive to light and accommodation. Ears: No lesions. Nose appeared normal. Throat: No exudate or erythema. NECK: Supple. No JVD, no carotid bruit. No lymphadenopathy or thyromegaly. LUNGS: Diminished breath sounds bilaterally. Clear to auscultation. Percussion note normal. Chest symmetrical. HEART: S1, S2, no S3. No murmurs. No cyanosis or clubbing. No ascites. Pulses: Dorsalis pedis and posterior tibial pulses +1 to +2 both sides. ABDOMEN: Soft. Non-tender. Bowel sounds active. No CVA tenderness. No mass felt. EXTREMITIES: No edema. Full range of motion of all extremities, equal. NEUROLOGIC: No focal deficit. Cranial nerves II through XII are grossly intact. No headache, no double vision or headache. SKIN: Not dry. Intact. Turgor-normal. LYMPHATIC: No palpable lymph nodes/no lymphedema. MUSCULOSKELETAL: Normal joints with no swelling. Muscle tone is normal. LAB REVIEW: 03/10/18 04:00 03/10/18 04:00 03/10/18 04:00: PT 15.2 H, INR 1.54 03/10/18 04:00: Sodium 140, Potassium 4.6, Chloride 111 H, Carbon Dioxide 22, Anion Gap 11.6, BUN 29 H, Creatinine 1.19, Estimated GFR (MDRD) 48.00, BUN/ Creatinine Ratio 24.36, Glucose 115 H D, Calcium 9.3, Total Bilirubin 0.2, AST 12 L, ALT 10 L, Alkaline Phosphatase 53, Total Protein 5.6 L, Albumin 2.8 L, Globulin 2.8, Albumin/Globulin Ratio 1.00 03/10/18 04:00: WBC 6.36, RBC 3.57 L, Hgb 11.1 L, Hct 35.1 L, MCV 98.3, MCH 31.1 H, MCHC 31.6 L, RDW Coeff of Nina 14.3, Plt Count 229, Immature Gran % (Auto ) 0.3, Neut % (Auto) 48.9, Lymph % (Auto) 39.2, [place] % (Auto) 8.2, Eos % (Auto) 2.5, Baso % (Auto) 0.9, Immature Gran # (Auto) 0.0, Neut # (Auto) 3.1, Lymph # ( Auto) 2.5, [place] # (Auto) 0.5, Eos # (Auto) 0.2, Baso # (Auto) 0.1 03/10/18 01:00: Total Creatine Kinase 20, Troponin I < 0.0100 03/09/18 17:50: Total Creatine Kinase 28, Troponin I < 0.0100 03/09/18 10:10: Puncture Site R rad, O2 Saturation 95.0, ABG pH 7.368, ABG pCO2 40.7, ABG pO2 77.0 L, ABG HCO3 23.4, ABG Total CO2 25, ABG Base Excess -2, Jj Test +, FiO2 % 21.0 03/09/18 09:45: Procalcitonin < 0.05 03/09/18 09:45: Lactic Acid 10.9 03/09/18 09:45: Sodium 139, Potassium 4.3, Chloride 107, Carbon Dioxide 25, Anion Gap 11.3, BUN 32 H, Creatinine 1.33 H, Estimated GFR (MDRD) 42.00, BUN/ Creatinine Ratio 24.06, Glucose 183 H, Calcium 10.1, Total Bilirubin 0.2, AST 10 L, ALT 9 L, Alkaline Phosphatase 61, Total Creatine Kinase 25, Total Protein 6.7, Albumin 3.2 L, Globulin 3.5, Albumin/Globulin Ratio 0.91, TSH 1.234, Free T4 0.93 03/09/18 09:45: PT 13.2 H, INR 1.33, APTT 32.5 03/09/18 09:42: WBC 6.85, RBC 3.78 L, Hgb 12.0, Hct 37.4, MCV 98.9, MCH 31.7 H, MCHC 32.1, RDW Coeff of Nina 14.0, Plt Count 237, Immature Gran % (Auto) 0.3, Neut % (Auto) 56.3, Lymph % (Auto) 34.6, [place] % (Auto) 5.5, Eos % (Auto) 2.6, Baso % (Auto) 0.7, Immature Gran # (Auto) 0.0, Neut # (Auto) 3.9, Lymph # (Auto ) 2.4, [place] # (Auto) 0.4, Eos # (Auto) 0.2, Baso # (Auto) 0.1 ASSESSMENT: 1. DIZZINESS 2. HEADACHE 3. GENERALIZED WEAKNESS 4. COPD 5. ASTHMA 6. SMOKER 7. HISTORY OF PE PLAN: 1. CT scan lumbar spine 2. Extra 4 mg of Coumadin tonight 3. Hold Metformin 4. Hold Zestril 5. Increase IV fluids to 100 mL/hr 6. CTA neck and brain 7. Flonase two sprays each nostril 8. Clindamycin 300 q.8H Plan and coordination of the patient's care discussed in the presence of Analog Design Engineer and nurse. CONDITION: Stable SCRIBED BY: RADHA DURANT Seafood Harvester scribed while in presence of service performed by Dr. Ramirez/Olga Grant APRN on 03/10/18 ([id number])
--- NOTE | 2018-03-11 09:04 | PN ---
DATE OF SERVICE: 03/10/18 SUBJECTIVE: The patient was seen and examined with Nurse Practitioner. The patient's condition has improved. She is somewhat more alert but drowsy. The patient's neurological status completely unchanged and normal. All the patient's scans are so far negative. PHYSICAL EXAMINATION: HEENT: Head normocephalic, atraumatic. Eyes: Extraocular muscles are intact. Pupils are equal, round and reactive to light and accommodation. Ears: No lesions. Nose appeared normal. Throat: No exudate or erythema. NECK: Supple. No JVD, no carotid bruit. No lymphadenopathy or thyromegaly. LUNGS: Decreased breath sounds but clear to auscultation. Percussion note normal. Chest symmetrical. HEART: S1, S2, no S3. No murmurs. No cyanosis or clubbing. No ascites. Pulses: Dorsalis pedis and posterior tibial pulses +1 to +2 both sides. ABDOMEN: Soft. Nontender. Bowel sounds active. No CVA tenderness. No mass felt. EXTREMITIES: No edema. Full range of motion of all extremities, equal. NEUROLOGIC: No focal deficit. Cranial nerves II through XII are grossly intact. No headache, no double vision or headache. SKIN: Not dry. Intact. Turgor - normal. LYMPHATIC: No palpable lymph nodes/no lymphedema. MUSCULOSKELETAL: Normal joints with no swelling. Muscle tone is normal. ASSESSMENT: 1. Difficulty walking, moving all her extremities. The patient had physical therapy and at that time she had near syncopal episode likely vasovagal. Drug screen was ordered. The patient has positive drug screen for cocaine, benzodiazepines and hydrocodone. The patient is on hydrocodone. The patient is off Valium for awhile, it was given to her by Dr. Pollock for vestibular dysfunction. She had denied any drug use, there are no withdraws. The patient will be questioned about. TIME SPENT: More than 30 minutes. Plan and coordination of the patient's care discussed in the presence of nurse. RONALDO
--- NOTE | 2018-03-11 09:14 | PN ---
DATE OF SERVICE: 03/09/18 SUBJECTIVE: The patient was hospitalized after she came to the emergency room with complaints that she is having a stroke. The patient has generalized weakness and was unable to walk. The patient has been at [facility] for 4 days and entire workup over there was negative, similar. The patient has multiple hospitalization in past 6 months mostly with her chronic lung disease with acute bronchitis. REVIEW OF SYSTEMS: CONSTITUTIONAL: No night sweats. Fatigue. No fever or chills. Weakness. HEENT: Eyes: No visual changes. No eye pain. No eye discharge. The patient says that she had some double vision for while but now she doesn't have any problems. ENT: No runny nose. No epistaxis. No sinus pain. No sore throat. No odynophagia. No congestion. RESPIRATORY: No cough, no congestion. No hemoptysis. No shortness of breath. CARDIOVASCULAR: No angina symptoms. No CHF symptoms. No atypical chest pain for CAD. No palpitations. No orthopnea. GASTROINTESTINAL: No abdominal pain. No nausea or vomiting. No diarrhea or constipation. No hematemesis. No hematochezia. GENITOURINARY: No urgency. No frequency. No dysuria. No hematuria. No obstructive symptoms. No discharge. No pain. No significant abnormal bleeding. MUSCULOSKELETAL: No musculoskeletal pain; no joint swelling. NEUROLOGICAL: No headache. No neck pain. No syncope. No seizures. No dizziness. PSYCHIATRIC: Not anxious. No depression. No suicidal thoughts. No homicidal thoughts. Affect is flat. SKIN: No rash. No lesions. No wounds. ENDOCRINE: No unexplained weight loss. No weight gain. HEMATOLOGIC/LYMPHATIC: No anemia. No purpura. No petechiae. No prolonged or excessive bleeding. No palpable lymph nodes. PHYSICAL EXAMINATION: GENERAL: The patient is oriented to time,place and person. VITAL SIGNS: Temperature 98.4, pulse 77, respiratory rate 16, blood pressure 110/60 and pulse ox 96%. HEENT: Head normocephalic, atraumatic. Eyes: Extraocular muscles are intact. Pupils are equal, round and reactive to light and accommodation. Ears: No lesions. Nose appeared normal. Throat: No exudate or erythema. NECK: Supple. No JVP, no carotid bruit. No lymphadenopathy or thyromegaly. LUNGS: Clear to auscultation. Percussion note normal. Chest symmetrical. HEART: S1, S2, no S3. No murmurs. No cyanosis or clubbing. No ascites. Pulses: Dorsalis pedis and posterior tibial pulses +1 to +2 both sides. ABDOMEN: Soft. Nontender. Bowel sounds active. No CVA tenderness. No mass felt. EXTREMITIES: No edema. Full range of motion of all extremities, equal. NEUROLOGIC: No focal deficit. Cranial nerves II through XII are grossly intact. No headache, no double vision or headache. SKIN: Not dry. Intact. Turgor - normal. LYMPHATIC: No palpable lymph nodes/no lymphedema. MUSCULOSKELETAL: Normal joints with no swelling. Muscle tone is normal. LABS: Procalcitonin less than 0.05, lactic acid normal. ABG pO2 77, pCo2 40, pH 7.36 with 95% saturation on room air. T4 and TSH normal. CK level normal. Creatinine 1.3, BUN 32. INR 1.3, hgb 12, hct 37. ASSESSMENT: 1. Dehydration 2. Weakness, generalized 3. Chronic lung disease 4. Massive obesity 5. Hypertension PLAN: 1. Given IV fluids 2. Discontinue Statin and Fenofibrate 3. Given extra Coumadin dose today because INR is low 4. Advise to lose weight, weight loss diet discussed with the patient 5. Advised to quit smoking 6. Cut down the Narcotic to twice a day 7. Cut down the Gabapentin to twice a day 8. Discontinue Tylenol PM 9. MRI and CT scan are negative for any acute marker event. TIME SPENT: More than 30 minutes. Plan and coordination of the patient's care discussed in the presence of nurse. RONALDO
--- NOTE | 2018-03-11 11:48 | RS.PTINEVL ---
Subjective - Patient information Date of Evaluation: 03/11/18 Date of Arrival on Unit: 03/09/18 Admitted From:: Home Diagnosis: near syncope, H/A, generalized weakness Usual Living Arrangement: significant other Home Environment: House, Stairs (few), Rail Medical History: Hypertension, COPD, Diabetes, Arthritis Medical History Comments:: anxiety, neuropathy, PE, hypothyroid, asthma, spinal stenosis LATEX ALLERGY?: No Surgical History: Surgical History Comments:: carpal tunnel release, Medications: see chart Subjective Information/ Patient Comments:: pt very emotial this date, pt states "I don't do drugs." pt c/o pain in LBP. - Level of function Prior to this admission, the patient could do the following:: Partially Dependent Ambulation Abilities prior to this admission: prior to fall a few weeks ago, pt was independent with amb without AD, independent with all ADL's Current Level of Function: Partially Dependent Current Equipment Used at Home: rwx Pain Assessement - Location low back pain Description: Aching, Chronic Pain Behavior: Moaning, Crying, Facial Grimacing Pain Aggravating Factors: Changing Position, Standing, Walking Pain Alleviating Factors: Medication Interventions - Objective Patient Orientation: Person, Place, Time, Situation Current Interventions: IV's, Telemetry Range of Motion - ROM Right Upper Extremity AROM: WFL's Left Upper Extremity AROM: WFL's Right Lower Extremity AROM: WFL's Left Lower Extremity AROM: WFL's Muscle Strength - Muscle Strength Right Upper Extremity Strength: Mild Weakness (grossly 4/5) Left Upper Extremity Strength: Mild Weakness (grossly 4/5) Right Lower Extremity Strength: Mild Weakness (hip flex 4-/5, knee flex/ext 4/5 , ankle Df/PF 4/5) Left Lower Extremity Strength: Mild Weakness (hip flex 4-/5, knee flex/ext 4/5, ankle Df/PF 4/5) Sensation - Sensation Right Upper Extremity Sensation: Impaired (c/o n/t R UE) Left Upper Extremity Sensation: Intact/Normal Right Lower Extremity Sensation: Intact/Normal Left Lower Extremity Sensation: Intact/Normal Palpation Palpation Findings: Tenderness Comments:: lumbar area Balance - Sitting Balance and Reactions Static Sitting Balance: Fair Dynamic Sitting Balance: Fair - Standing Balance and Reactions Static Standing Balance: Poor Dynamic Standing Balance: Poor Standing Equilibrium Reactions: Delayed Left, Delayed Right Standing Protective Reactions: Delayed Left, Delayed Right - Comments Balance Assessment Comments: pt with decreased step length, flexed posture Functional Mobility - Bed Mobility Rolling R/L: Min Assist Supine to Sit: Mod Assist - Transfers Sit to Stand: Min Assist, 1 person assist Stand to Sit: Min Assist, 1 person assist - Safety Awareness Safety Awareness: Fair LORRAINE INDEX SCORE: n/a Ambulation - Ambulation Assistive Device Used: Rolling Walker Orthotic/Prosthetic Device: No Distance: 50ft with 4 seated rest periods Assistance needed with Ambulation: Min Assist Quality of Ambulation: pt amb with min x 1 +1 for IV and to bring chair Gait Deviations: Forward posture, Short stride, Deviates from path Ambulation Comments: pt with several episodes of near syncope, requiring seated rest periods, pt became non responsive for a few secs. Factors Affecting Ambulation: Decreased Balance, Weakness, Dizziness, Decreased Safety, Cognitive Status, Limited Endurance Treatment time - Time with patient Total treatment time: 34 Patient Education - Education Patient Education: Activity Modification, Education of Plan of Care Teaching Recipient: Patient Teaching Methods: Discussion (discussion regarding POC as well as safety.) Assessment - Assessment Problem List:: Decreased level of function, Requires training/education, Decreased safety/Risk of falls, Weakness, Pain limits previous level of function Rehab Potential: Fair Further Therapy Indicated?: Yes Candidate for Swing Bed for Therapy Services?: Do not feel pt is candidate for swing bed due to inconsistent performance and syncopal episodes limiting progress. Evaluation Complexity: HISTORY: Medium (HTN, DM, COPD, OA), EXAM OF BODY SYSTEMS : Medium (pain, posture, balance, gait, strength), CLINICAL PRESENTATION: Medium (evolving), CLINICAL DECISION MAKING: Medium Short Term Goals GOAL #1: pt demonstrate independence with bed mobility Goal to be met by: 03/14/18 GOAL #2: pt transfer sup to/from sit SBA, sit to/from stand CGA Goal to be met by: 03/14/18 GOAL #3: pt amb with rwx 50ft with no rest periods and no syncopal episodes Goal to be met by: 03/14/18 GOAL #4: pt with improved strength BLE 4 to 4+/5 Goal to be met by: 03/14/18 Field Captain Goals GOAL #1: pt transfer sup to/from sit to/from stand SBA to I Goal to be met by: 03/16/18 GOAL #2: pt amb with rwx 100ft with no LOB no seated rest period Goal to be met by: 03/16/18 Plan Plan of Care: Therapeutic EX, Therapeutic Activity Other:: gait training Frequency of Treatment: 1-2 X day, as tolerated Duration of Treatment: 5-6 days Anticipated Discharge Destination: Home Treatment Diagnosis (ICD 10 Codes): R26.2 difficulty walking. R26.81 balance impaired Has the Physician been added for Co-signature?: Yes
--- NOTE | 2018-03-11 13:29 | RS.OTINEVL ---
Subjective - Patient information Date of Evaluation: 03/11/18 Date of Arrival on Unit: 03/09/18 Admitted From:: Home Usual Living Arrangement: significant other Home Environment: House, Stairs (few), Rail Medical History: Hypertension, COPD, Diabetes, Arthritis Medical History Comments:: anxiety, neuropathy, PE, hypothyroid, asthma, spinal stenosis LATEX ALLERGY?: No Surgical History: Surgical History Comments:: carpal tunnel release, Medications: see chart Subjective Information/ Patient Comments:: "I can't move with out my pain medicine." - Level of function Prior to this admission, the patient could do the following:: Partially Dependent Ambulation Abilities prior to this admission: Pt lives with her fiance. Pt was independent with ADLS prior to her fall 2 weeks ago. Since the fall, she has required assistance. Current Level of Function: Partially Dependent Current Equipment Used at Home: rwx Pain Assessment - Pain Pain Score: 8 Side: bilateral Pain Location Body Site: Back Pain Aggravating Factors: ADL's, Changing Position, Standing, Sitting, Walking Pain Alleviating Factors: Sitting Interventions - Objective Patient Orientation: Person, Place, Time, Situation Current Interventions: IV's, Oxygen Observation: Pt had 2-3 episodes like she was in a stare and then not able to respond. Pt then had to sit in chair. Pt is not able to talk during this time. Pt came out of the episode and was talking. Pt required maximum assistance for personal hygiene of cleaning herself after a bowel movement. Pt reports to me her right hand will draw up from her fingers to the elbow intermittently. Pt has a needy personality. Pt was crying denying the drugs in her tests. Pt cried intermittently during the evaluation and treatment. Pt walks approximately 10- 12 feet and then has an episode. Interventions - ROM Right Upper Extremity AROM: Slight limitation Left Upper Extremity AROM: Slight limitation - Strength Right Upper Extremity Strength: Mild Weakness Left Upper Extremity Strength: Mild Weakness - Sensation Right Upper Extremity Sensation: Impaired Left Upper Extremity Sensation: Intact/Normal Balance - Sitting Balance Static Sitting Balance: Fair Dynamic Sitting Balance: Fair - Standing Balance Static Standing Balance: Fair Dynamic Standing Balance: Fair ADL Skills - Self Feeding Self Feeding: Independent - Grooming Grooming: Max Assist - Bathing Bathing UE: Independent Bathing LE: Max Assist - Dressing Dressing UE: Independent Dressing LE: Max Assist - Toilet Management Toileting Management: Max Assist Functional Mobility - Bed Mobility Rolling R/L: Independent Scooting: Independent Supine to Sit: Min Assist Sit to Supine: Min Assist - Transfers Sit to Stand: Min Assist Stand to Sit: Min Assist Stand Pivot Transfers: Min Assist - Ambulation Weight Bearing Status: FWB Assistive Device Used: Rolling Walker - Safety Awareness Safety Awareness: Good LORRAINE INDEX SCORE: . Additional Treatment Performed - Additional units charged ADL: 16 - Time with patient Total treatment time: 34 Activities Patient Interests:: Watching Television, Visiting/Socializing Patient Education Patient Education: Education of diagnosis, Home Exercise Program, Home Safety, Education of Plan of Care Teaching Recipient: Patient Teaching Methods: Discussion Comments: Pt required 3 people to help her. One to hold her gait belt, one to work the IV, and then one to push a chair behind her. Assessment Problem List:: Decreased level of function, Requires training/education, Decreased safety/Risk of falls, Weakness, Pain limits previous level of function Rehab Potential: Good Further Therapy Indicated?: Yes Candidate for Swing Bed for Therapy Services?: no Evaluation Complexity: HISTORY: Medium, EXAM OF BODY SYSTEMS: Medium, CLINICAL DECISION MAKING: Medium Short Term Goals - Goals GOAL 1: Pt to increase BUE strength to 4/5. Goal to be met by: 03/15/18 GOAL 2: Pt to increase dynamic standing time to 10 minutes. Goal to be met by: 03/15/18 GOAL 3: Pt to increase activity tolerance to 15 minutes. Goal to be met by: 03/15/18 GOAL 4: Pt to be independent with personal hygiene. Goal to be met by: 03/15/18 Painter Assistant Goals GOAL 1: Pt to increase BUE strength to 4+/5. Goal to be met by: 03/18/18 GOAL 2: Pt to increase dynamic standing time to 15 minutes. Goal to be met by: 03/18/18 GOAL 3: Pt to increase independence of Self care to I. Goal to be met by: 03/18/18 Plan Plan of Care: Therapeutic EX, Neuromuscular Re-Educ, Therapeutic Activity, Self- Care/Home Management Modalities: Cold Pack/Cryotherapy Frequency of Treatment: 1-2 X day, as tolerated Duration of Treatment: 2 Weeks Anticipated Discharge Destination: Home Treatment Diagnosis (ICD 10 Codes): Muscle weakness M62.81 Has the Physician been added for Co-signature?: Yes
[2018-03-11 14:31] VITALS: BP 100/76; TEMP 97.8
--- NOTE | 2018-03-11 14:51 | CM.DICTOOL ---
ADMISSION: 03/09/18 11:12 DISCHARGE: MARCH 11, 2018 DATE OF SERVICE: 03/11/18 FINAL DIAGNOSIS HEADACHE DIZZINESS WEAKNESS HYPERTENSION ASTHMA COPD HYPOTHYROID CHRONIC SINUSITIS ANXIETY DIABETES DYSLIPIDEMIA NEUROPATHY SPINAL STENOSIS HISTORY OF PULMONARY EMBOLUS (COUMADIN) HIATAL HERNIA POSITIVE URINE DRUG SCREEN COLON BIOPSY LITHOTRIPSY CARPAL TUNNEL (RIGHT) HYSTERECTOMY LAST VITALS Temp Pulse Resp BP Pulse Ox 98.4 F 76 16 113/63 94 L 03/11/18 09:40 03/11/18 09:40 03/11/18 09:40 03/11/18 09:40 03/11/18 09:40 TAKE THESE MEDICATIONS AT HOME Hydrocodone Bitart/Acetaminophen (Corry 7.5-325) 1 tab PO BID PRN PRN Reason: Pain Last Admin: 03/10/18 15:07 Dose: 1 tab Albuterol Nebs 1 vial NEB Every 4 hours PRN PRN Reason: Wheezing Clindamycin HCl (Cleocin) 300 mg PO Q8HR [facility] Last Admin: 03/11/18 13:50 Dose: 300 mg Gabapentin (Neurontin) 300 mg PO BID [facility] Last Admin: 03/11/18 08:46 Dose: 300 mg Levothyroxine Sodium (Synthroid) 200 mcg PO QDAC [facility] Last Admin: 03/11/18 05:44 Dose: 200 mcg Lisinopril (Zestril) 5 mg PO DAILY [facility] Last Admin: Sertraline HCl (Zoloft) 150 mg PO DAILY [facility] Last Admin: 03/11/18 08:46 Dose: 150 mg Warfarin Sodium (Coumadin) 2.5 mg PO QPM [facility] Last Admin: 03/10/18 17:19 Dose: 2.5 mg Warfarin Sodium (Coumadin) 2 mg PO QPM [facility] Last Admin: 03/10/18 17:18 Dose: 2 mg Simvastatin 40 mg PO Daily [facility] Last Admin: Fenofibrate 160 mg PO Daily [facility] Last Admin: Flonase 2 Union Each Nostril Daily [facility] Last Admin: 08:40 ALLERGIES No Known Allergies Allergy (Verified 10/15/17 12:31) DISCONTINUED MEDICATIONS Tylenol PM Meclizine Valium Metformin for now MEDICATION CHANGES Decrease Corry to BID as needed Decrease Gabapentin to BID Decrease Lisinopril to 5 mg Daily NEW PRESCRIPTIONS: Gabapentin [Neurontin] 300 mg PO BID #60 capsule 03/11/18 Hydrocodone Bit/Acetaminophen [Corry 7.5-325] 1 each PO ONCE PRN #60 tablet Lisinopril [Zestril] 5 mg PO DAILY #30 tablet 03/11/18 SMOKING: Strongly Advised To Stop Smoking DISEASE SPECIFIC EDUCATION: Smoking Cessation Weight loss Medication changes Appointments Hydration LAB REVIEW: 03/11/18 04:53 03/11/18 04:53 03/11/18 04:53: PT 21.7 H D, INR 2.22 03/11/18 04:53: Sodium 138, Potassium 4.9, Chloride 109 H, Carbon Dioxide 23, Anion Gap 10.9, BUN 22 H, Creatinine 0.90, Estimated GFR (MDRD) 67.00, BUN/ Creatinine Ratio 24.44, Glucose 109, Calcium 9.0, Total Bilirubin 0.2, AST 13 L , ALT 12, Alkaline Phosphatase 58, Total Protein 6.1 L, Albumin 2.9 L, Globulin 3.2, Albumin/Globulin Ratio 0.91 03/11/18 04:53: WBC 6.33, RBC 3.65 L, Hgb 11.5 L, Hct 35.7 L, MCV 97.8, MCH 31.5 H, MCHC 32.2, RDW Coeff of Nina 14.2, Plt Count 209, Immature Gran % (Auto) 0.3, Neut % (Auto) 52.0, Lymph % (Auto) 36.0, Wilkes % (Auto) 7.7, Eos % (Auto) 3.2, Baso % (Auto) 0.8, Immature Gran # (Auto) 0.0, Neut # (Auto) 3.3, Lymph # ( Auto) 2.3, Wilkes # (Auto) 0.5, Eos # (Auto) 0.2, Baso # (Auto) 0.1 PLAN: DISCHARGE HOME DIET: CONSISTENT CARBOHYDRATES DRINK FULL GLASS OF WATER WITH MEALS/MEDICATIONS ACTIVITY: GRADUALLY RESUME TOLERATED CONTINUE MEDICATIONS LISTED ON NURSING DISCHARGE INFORMATION SHEET KEEP APPOINTMENT WITH PAIN MANAGEMENT SCHEDULED AN APPOINTMENT IS SCHEDULED WITH DR. RAMIREZ/NARCISA HARRIS APRN ON March AT 11:30 AM AN APPOINTMENT IS SCHEDULED AT [facility] ON March AT 8:30 AM. AN APPOINTMENT IS SCHEDULED WITH [facility] OF March AT 8 AM CODE STATUS: FULL CODE MS. HERNDON IS ALERT AND ORIENTED X 3. SHE IS ABLE TO TRANSFER TO THE CHAIR AND BEDSIDE COMMODE WITH ASSIST OF 2 STAFF MEMBERS. SHE FEEDS HERSELF INDEPENDENTLY AND IS INDEPENDENT WITH BED MOBILITY. HER APPETITE IS GOOD AT 100 %. SKIN IS INTACT AND FREE OF DECUBITUS ULCERS. BRUISING IS NOTED TO BOTH UPPER EXTREMITIES. SHE IS CONTINENT OF BLADDER AND BOWEL WITH ELIMINATION PER BEDSIDE COMMODE. OMER RAMIREZ MD NARCISA HARRIS, BRII
--- NOTE | 2018-03-29 10:03 | HP ---
DATE OF SERVICE: 03/09/18 HISTORY OF PRESENT ILLNESS: This is a 48-year-old white female who presented with generalized weakness. She was hospitalized 2 to 3 weeks ago at [facility] with the same symptoms, dizziness, weakness, drowsy. PAST MEDICAL HISTORY: History of PE on Coumadin Heavy smoker COPD Asthma Hypertension Obesity Diabetes mellitus type 2 Degenerative joint disease of the spine History of vertigo Neuropathy Anxiety Depression Dyslipidemia Hypothyroidism Chronic kidney disease, Stage 2 PAST SURGICAL HISTORY: times two Lithotripsy times two with nephrolithiasis Carpal tunnel repair Hysterectomy REVIEW OF SYSTEMS: CONSTITUTIONAL: Positive for generalized weakness, fatigue. No night sweats. No malaise, lethargy. No fever or chills. HEENT: Eyes: No visual changes. No eye pain. No eye discharge. ENT: No runny nose. No epistaxis. No sinus pain. No sore throat. No odynophagia. No ear pain. No congestion. RESPIRATORY: No cough, no congestion. No hemoptysis. No shortness of breath. CARDIOVASCULAR: No angina symptoms. No CHF symptoms. No atypical chest pain for CAD. No palpitations. No PND. No orthopnea. GASTROINTESTINAL: No abdominal pain. No nausea or vomiting. No diarrhea or constipation. No hematemesis. No hematochezia. GENITOURINARY: No urgency. No frequency. No dysuria. No hematuria. No obstructive symptoms. No discharge. No pain. No significant abnormal bleeding. MUSCULOSKELETAL: No musculoskeletal pain. No joint swelling. No arthritis. NEUROLOGICAL: Positive for headache, drowsy. No neck pain. No syncope. No seizures. No dizziness. PSYCHIATRIC: Not anxious. No depression. No suicidal thoughts. No homicidal thoughts. SKIN: No rash. No lesions. No wounds. ENDOCRINE: No unexplained weight loss. No weight gain. HEMATOLOGIC/LYMPHATIC: No anemia. No purpura. No petechiae. No prolonged or excessive bleeding. No palpable lymph nodes. PERSONAL/FAMILY/SOCIAL HISTORY: The patient is a current every day heavy smoker. She lives with her significant other. She denies alcohol or ilicit drug use. MEDICATIONS: Metformin Hydrocodone/Bit/Acetaminophen Coumadin Zoloft Neurontin Fenofibrate Acetaminophen/Diphenhydramine Zestril Levothyroxine Meclizine Simvastatin Albuterol ALLERGIES: NKDA PHYSICAL EXAMINATION: GENERAL: The patient is alert and oriented, does seem somewhat drowsy. HEENT: Head normocephalic, atraumatic. Eyes: Extraocular muscles are intact. Pupils are equal, round and reactive to light and accommodation. Ears: No lesions. Nose appeared normal. Throat: No exudate or erythema. NECK: Supple. No JVD, no carotid bruit. No lymphadenopathy or thyromegaly. LUNGS: Diminished breath sounds bilaterally. Clear to auscultation. Percussion note normal. Chest symmetrical. HEART: S1, S2, no S3. No murmurs. No cyanosis or clubbing. No ascites. Pulses: Dorsalis pedis and posterior tibial pulses +1 to +2 bilaterally. ABDOMEN: Soft. Nontender. Bowel sounds active. No CVA tenderness. No mass felt. EXTREMITIES: Trace edema. Full range of motion of all extremities, equal. NEUROLOGIC: No focal deficit. Cranial nerves II through XII are grossly intact. No headache, no double vision or headache. SKIN: Not dry. Intact. Turgor - normal. LYMPHATIC: No palpable lymph nodes/no lymphedema. MUSCULOSKELETAL: Normal joints with no swelling. Muscle tone is normal. LAB VALUES: White count 6.85, hemoglobin 12.0, hematocrit 37.4, platelets 237. INR 1.33. Sodium 139, potassium 4.3, BUN 32, creatinine 1.33. AST 10, ALT 9, alkaline phosphatase 61, total protein 6.7, albumin 3.2, TSH 1.234, free T4 0.93. ABGs on room air 02 sat 95, pH 7.368, pc02 40, p02 77, bicarb 23.2, total co2 25 with a base excess of -2 on room air. Lactic acid 10.9, procalcitonin less than 0.05. ASSESSMENT: 1. HEADACHE 2. WEAKNESS 3. DIZZINESS 4. COPD 5. HEAVY SMOKER 6. ASTHMA 7. DYSLIPIDEMIA 8. HISTORY OF PE 9. OBESITY 10. DIABETES MELLITUS TYPE 2 11. NONCOMPLIANCE WITH MEDICATIONS AND LIFESTYLE PLAN: 1. We will admit. 2. CBC, CMP daily. 3. Routine telemetry orders. 4. Chest x-ray. 5. Start IV fluids, NS at 75 cc/hr. 6. PT/INR daily. 7. Extra 4 mg of Coumadin today. 8. Continue home medications. 9. Decrease Neurontin to 300 mg b.i.d. from t.i.d. 10. Decrease [place] from t.i.d. to b.i.d. 11. Continue Zoloft 12. CT of the head reviewed. 13. All records from [facility] reviewed from previous hospitalization. 14. Will do CTA of head and neck tomorrow along with CT of the lumbar spine. 15. Diabetic diet. 16. Will follow closely. The patient was seen by ENT during her hospitalization at [facility], which the CT scan did show chronic sinusitis. She was started on Clindamycin 300 mg t.i.d. which was not initially reported. We will restart that 300 mg t.i.d. Clindamycin and also put her on Flonase two sprays to each nostril daily. TIME SPENT: More than 70 minutes. MTDD
--- NOTE | 2018-03-29 11:14 | DS ---
DATE OF SERVICE: 03/11/18 FINAL DIAGNOSIS: 1. Headache 2. Dizziness 3. Weakness 4. Hypertension 5. Asthma 6. COPD 7. Hypothyroid 8. Chornic sinusitis 9. Anxiety 10.Diabetes 11.Dyslipidemia 12.Neuropathy 13.Spinal stenosis 14.History of pulmonary embolus (Coumadin) 15.Hiatal hernia 16.Positive Urine drug screen 17. 18.Colon biopsy 19.Lithotripsy 20.Carpal runnel (right) 21.Hysterectomy LAST VITALS: Temperature 98.4, pulse 76, respiratory rate 16. blood pressure 113/63 and pulse ox 94%. DISCHARGE INSTRUCTIONS: Discharge home. Keep appointment with Pain Management as scheduled. Continue medication as listed on nursing discharge information sheet. An appointment is scheduled with Dr. Hoffman/Olga Grant APRN on March 14 at 11:30am. An appointment is scheduled at [facility] for outpatient physical therapy on March 15 at 8:30am. An appointment is scheduled with [facility] of March 17 at 8am. CODE STATUS: Full code . MEDICATIONS AT DISCHARGE: [place] 7.5-325 PO twice a day PRN Albuterol NEB ever 4 hours PRN Cleocin 300mg PO Q 8 hours Neurontin 300mg PO twice a day Synthroid 200mcg PO QDAC Zestril 5mg PO daily Zoloft 150mg PO daily Coumadin 2.5mg PO QPM Coumadin 2mg PO QPM Simvastatin 40mg PO daily Fenofibrate 160mg PO daily Flonase 2 spray each nostril daily ALLERGIES: No known allergies DISCONTINUE MEDICATIONS: Tylenol PM Meclizine Valium Metformin for now MEDICATION CHANGES: Decrease [place] to twice a day as needed Decrease Gabapentin to twice a day Decreased Lisinopril to 5mg daily NEW MEDICATION: Gabapentin 300mg PO twice a day [place] 7.5-325 one each PO once PRN Zestril 5mg PO daily DIET INSTRUCTIONS: Consistent Carbohydrates. Drink full glass of water with meals/medications ACTIVITY: Gradually resume as tolerated SMOKING: Strongly advised to stop smoking DISEASE SPECIFIC EDUCATION: Smoking cessation Weight loss Medication changes Appointments Hydration HOSPITAL COURSE: This is a white female who presented to the hospital emergency room complaining of dizziness, headache and weakness. She previously been hospitalized with the same symptoms at [facility] about 2-3 weeks ago. She had both an MRI and CT scan of the brain which were negative and neurological consult and they diagnosed her with complicated migraine was given Imitrex. She claimed that she was having near syncopal episodes and generalized weakness, difficulty walking and worsening lower back pain. She was admitted. CT scan of the brain was repeated and then along with a CTA of the brain both of which were negative, incidental findings was kissing carotids but were normal with no blockages. All her of her home medications were continued with the exception of we decreased her Neurontin to twice a daily and decreased her [place] twice daily, discontinued her Antivert. The patient experienced some drowsiness with physical and occupational therapy which was consulted. We did a urine drug screen which was found to have positive for Cocaine, opioids and benzodiazepines. As far as we know the only prescription she has is for the opioids and we did decrease her [place]. We also did a CT scan of the L spine which was unchanged. She was experiencing some lower blood pressure 90/60 so we held her Zestril times two days. She is going to go home on Lisinopril 5mg all of her test have been negative. Again she already had a neurological workup in [place] which was also negative. It was discussed with her that a lot of her symptoms maybe due to mixing a combination of prescription and illicit drugs. She denied any illicit drug use despite her urine drug screen being positive. She has agreed with the appointment for mental health which has been scheduled for March 17. She is going to do physical therapy as an outpatient starting March 15. She will see us in the . Education has been provided regarding smoking cession. The patient is in stable condition and she will be discharged home. Will followup with her closely. TIME SPENT: More than 60 minutes. RONALDO
== END 2018-03-11 15:55 | disposition home or self-care (01) | DRG 149 ==
LOC: ED 09:17 → MEDSURG A 11:12
PROVIDERS: ADMIT Internal Medicine; ATTEND Internal Medicine
DX: R42 Dizziness and giddiness (principal); Z68.42 Body mass index [BMI] 45.0-49.9, adult; R51 Headache; I10 Essential (primary) hypertension; E11.9 Type 2 diabetes mellitus without complications; J44.9 Chronic obstructive pulmonary disease, unspecified; M19.90 Unspecified osteoarthritis, unspecified site; J45.909 Unspecified asthma, uncomplicated; E03.9 Hypothyroidism, unspecified; J32.9 Chronic sinusitis, unspecified; F41.9 Anxiety disorder, unspecified; E78.5 Hyperlipidemia, unspecified; G62.9 Polyneuropathy, unspecified; M48.00 Spinal stenosis, site unspecified; E66.9 Obesity, unspecified; Z91.14 Patient's other noncompliance with medication regimen; Z86.711 Personal history of pulmonary embolism; Z79.01 Long term (current) use of anticoagulants; Z72.0 Tobacco use; Z91.19 Patient's noncompliance with other medical treatment and regimen
CPT/HCPCS: 36415; 80053; 80306; 82550; 82803; 82962; 83605; 84145; 84439; 84443; 84484; 85025; 85610; 85730; 87040; 93005; 93010; 96360; 96361; 97802; 99284

== ENCOUNTER 2018-03-15 08:51 | Outpatient (RCR) ==
--- NOTE | 2018-03-17 08:21 | RS.OPPTEV2 ---
Date of Note: 03/15/18 Visit #: 1 Date of Evaluation: 03/15/18 Payer Source: Medicaid Date of Onset/Injury/Change in Status: 02/22/18 Surgery Performed?: No Treatment Diagnosis: weakness, back pain History of Condition/Mechanism of Injury:: pt suffered a fall striking her head approx 3 weeks ago. pt was seen at [facility] and then at [facility]. Prior Level of Function.....Patient was independent with: ADL's, Self Care, Ambulation/Mobility Level of Function: pt amb without AD and was independent with all ADL's prior to fall. Since fall has used rwx and required assist with ADL's from significant other. Functional Limitations: Sleep, ADL's, Reaching, Pushing, Pulling, Lifting, Standing, Bending, Squatting, Ambulation, Community Access/Integration Current Subjective/complaints:: pt states she has pain in Lower back, headache, and neck pain. pt reports she had 3 episodes of "passing out" yesterday. Treatment Side (optional): N/A *Precautions: pt with h/o syncopal episodes Medical History Medical History: Hypertension, COPD, Diabetes, Arthritis Medical History Comments:: anxiety, neuropathy, PE, hypothyroid, asthma, spinal stenosis Surgical History: Hysterectomy, Surgical History Comments:: carpal tunnel release, Smoking Status: Current every day smoker Hx Home Medications: hydrocodone, gabapentin, levothyroxine, simvastatin, pt unsure of rest of her meds. Patient's Goals: get stronger and be able to walk and do things again. Pain Assessment - Pain Description Pain Location: low back pain as well as H/A Pain Description: Chronic Current Pain Intensity: 7/10 for h/a and LBP Functional Outcome Measure Oswestry LBP: 40 - G Codes & Severity Modifier G Codes & Modifier: n/a Source of G Code score: n/a Observation - Observation Posture: Forward Head, Rounded Shoulders, Increased Thoracic Kyphosis, Decreased Lumbar Lordosis Handedness: Right Gait - Gait Pattern Gait Comments: pt amb with decreased step length, flexed posture, slight ataxic gait. General Range of Motion: BUE and LE WFL's. Cervical ROM significantly limitied due to pain and dizziness. Lumbar ROM also limited pt states she cannot bend forward, however is able to sit, pt c/o significant pain with all lumbar ROM, flex,ext, side bending. Palpation Palpation Findings: Tenderness, Muscle Guarding Comments:: pt tender to palpation lumbar spine as well as muscle guarding noted in lumbar spine. Sensation - Sensation Right Upper Extremity: Impaired Right Lower Extremity: Impaired Left Lower Extremity: Impaired Comments: pt with numbness RUE as well as tingling RLE and tingling in L hip Balance - Sitting Balance Static Sitting Balance: Good Dynamic Sitting Balance: Fair - Standing Balance Static Standing Balance: Poor Dynamic Standing Balance: Poor - Heat/Cryotherapy Treatment: Hot Pack Comments:: low back Interventions - Exercise/Activities/Manual Therapy Exercises/Activities: pt performed isometric hip add, resisted hip flex. pt transferred sup to/from sit with min x 1, sit to/from stand min x 1. pt had episode of "passing out"sitting on edge of mat for a few secs. pt amb with rwx 20ft x 2 with CGA to min x 1-2 with w/c behind. pt required 1 seated rest period with c/o dizziness. Manual Therapy: n/a HOME EXERCISE PROGRAM: pt given written HEP including isometric hip add, resisted hip flex, pelvic tilt, lumbar rotation - Charges Timed Code Treatment Minutes: 64 Total Treatment Time: 68 Procedures billed for this date of service:: eval med, theract EVALUATION COMPLEXITY LEVEL EVALUATION COMPLEXITY LEVEL: HISTORY: Medium (LBP, DM, COPD, HTN, OA), EXAM OF BODY SYSTEMS: Medium (strength, balance, posture, pain, dizziness), CLINICAL PRESENTATION: Medium (evolving), CLINICAL DECISION MAKING: Medium Assessment Assessment: pt presents with LBP radiating into RLE, decreased strength, pt also with decreased balance and syncopal episodes. pt is fall risk. Feel pt would benefit from skilled PT for therex for LE strengthening, core strengthening for back stabilization, as well as balance and gait training. Patient Education: Home Exercise Program, Education of Plan of Care Rehab Potential: Good Short Term Goals Goal #1: pt rate pain <6/10, with no c/o radiating into L hip. Goal to be met by: 04/01/18 Goal #2: pt amb in dept with rwx with no syncopal episodes with no LOB w SBA Goal to be met by: 04/01/18 Goal #3: Improved BLE strength 4+/5 Goal to be met by: 04/01/18 Group Home Goals Goal #1: pt rate pain <5/10 with decreased symptoms in RLE Goal to be met by: 04/15/18 Goal #2: pt amb from entrance to dept with AAD with no LOB independently Goal to be met by: 04/15/18 Goal #3: pt report no falls at home since eval Goal to be met by: 04/15/18 Goal #4: pt with no syncopal episodes during treatment. Goal to be met by: 04/15/18 Plan - Treatment to be Provided Procedures: Therapeutic Exercises, Therapeutic Activity, Gait Training, Manual Therapy, Massage, Patient Education Modalities: Electrical Stimulation, Ultrasound/Phonophoresis, Cryotherapy, Hot Packs, Mechanical Traction - Treatment Plan Frequency: 2 X week Duration: 4 weeks ORDER # VISITS AND/OR THROUGH DATE: 04/15/18 - Treatment Code (1) Low back pain Code(s): M54.5 - LOW BACK PAIN Qualifiers: Chronicity: chronic Back pain laterality: bilateral Sciatica presence: with sciatica Sciatica laterality: bilateral sciatica Qualified Code(s): M54.42 - Lumbago with sciatica, left side; M54.41 - Lumbago with sciatica, right side; G89.29 - Other chronic pain (2) Difficulty walking Code(s): R26.2 - DIFFICULTY IN WALKING, NOT ELSEWHERE CLASSIFIED (3) Impairment of balance Code(s): R26.89 - OTHER ABNORMALITIES OF GAIT AND MOBILITY (4) Weakness generalized Code(s): R53.1 - WEAKNESS
--- NOTE | 2018-03-29 14:56 | RS.CXNS ---
Date of scheduled appointment: 03/29/18 Type: No Show (No contact from patient to cancel or reschedule.)
== END 2018-04-12 23:59 ==
PROVIDERS: ATTEND Internal Medicine
DX: R53.1 Weakness (principal); M54.5 Low back pain; R26.2 Difficulty in walking, not elsewhere classified; R26.89 Other abnormalities of gait and mobility

== ENCOUNTER 2018-04-20 08:49 | Outpatient (CLI) ==
--- NOTE | 2018-04-20 12:25 | MRI ---
EXAM: MRI brain without and with IV contrast. DATE: 04/20/2018. HISTORY: Vertigo. Labyrinthine dysfunction. TECHNIQUE: Sagittal T1W, axial T2W, axial FLAIR, axial T1W pre and postcontrast, and axial DWI seque nces brain were obtained using 1.2 Beatris magnet. Additional coronal and axial T1W sequences before a nd after IV contrast, and axial T2W thin-slice images through the brainstem and IACs were obtained. CONTRAST: Dotarem - 20 ml IV. COMPARISON: CTA head 10 March 2018. MRI brain 09 March 2018. FINDINGS: The right lateral ventricle body and anterior horn are slightly larger than the left, luciana lar to previous MRI. Remaining ventricles are normal in size and configuration. Basilar cisterns ar e mildly prominent. CSF spaces overlying the superior vertex of the frontal and parietal lobes remai n mildly enlarged. Many frontal and parietal lobe mild sulcal prominence is redemonstrated. No midl ine shift, herniation or loculated extra-axial fluid collection is apparent. No acute infarct, acute hemorrhage or enhancing intra-axial neoplasm is visible. No abnormal enhancement is seen in the bra in, meninges, or dura. Minimal T2W/FLAIR hyperintensity is redemonstrated in the white matter abutti ng each lateral ventricle. A moderate number of 2-10 mm diameter, T2W/FLAIR bright, non-enhancing fo ci are scattered in the hallman radiata, centrum semiovale and subcortical white matter similar to Feb 2018. The hess-white matter differentiation is normal. The cerebellopontine angles, brainstem, an d visible cervical spinal cord are normal. There is no cerebellar tonsillar ectopia. The pituitary gland is small in size, with CSF filling much of the pituitary fossa. Corpus callosum is normal in s ize and configuration. Left vertebral artery is larger than the right. Flow voids are present in th e major intracranial arteries and in the dural venous sinuses. No aneurysm, AVM, or dural venous sin us thrombosis is apparent. The optic chiasm, optic tracts, and optic nerves are normal. The orbits are normal. There is persistent opacification of the right maxillary sinus. Moderate circumferenti al mucosal thickening is present in the left maxillary sinus. Multiple ethmoid air cells (right grea ter than left) reveals mucosal thickening. No upper neck mass or lymphadenopathy is detected. No c alvarial neoplasm or acute fracture is evident. The 5th cranial nerves are symmetric in size, without abnormal enhancement. Meckel's cave and the ca vernous sinus are normal bilaterally. No definitive trigeminal nerve displacement or compression is apparent. Thin slice, high-resolution images through the IACs and brainstem reveal no abnormal enhancement or n eoplasm involving the 7th/8th cranial nerve complexes. The cochlea, semicircular canals, and vestibu le are symmetric and normal bilaterally. No abnormal enlargement of the vestibular aqueduct is seen on either side. The mastoid air cells appear normal. No cholesteatoma or mastoiditis is apparent. No definitive cranial nerve displacement or compression. IMPRESSIONS: 1. No acute infarct, hemorrhage, intra-axial mass or hydrocephalus. 2. Normal bilateral 7th/8th CN, IACs and temporal bones. 3. Normal bilateral trigeminal nerve. 4. Mild cerebral small vessel disease. 5. Mild cerebral atrophy (johan. frontoparietal). 6. Small pituitary gland - nearly empty sella. 7. Chronic bilateral maxillary and ethmoid sinusitis.
== END 2018-04-20 08:50 | disposition home or self-care (01) ==
LOC: RAD 08:49
PROVIDERS: ATTEND Psychiatry & Neurology Neurology
DX: E11.9 Type 2 diabetes mellitus without complications (principal); E78.5 Hyperlipidemia, unspecified; I10 Essential (primary) hypertension; J44.9 Chronic obstructive pulmonary disease, unspecified; R90.82 White matter disease, unspecified; R42 Dizziness and giddiness; H93.19 Tinnitus, unspecified ear; G37.9 Demyelinating disease of central nervous system, unspecified; H83.2X9 Labyrinthine dysfunction, unspecified ear
CPT/HCPCS: 36415; 80053; 80061; 83036; 84443; 85025; 85610

== ENCOUNTER 2018-04-22 09:02 | Outpatient (CLI) ==
--- NOTE | 2018-04-22 13:03 | MRI ---
EXAM: MRI cervical spine without and with IV contrast. DATE: 04/22/2018. HISTORY: White matter demyelinating disease. Multiple sclerosis. Dizziness, falls. TECHNIQUE: Sagittal and axial T1W, T2W, and T1W postcontrast, sagittal IR, sagittal PD, and coronal T2W sequences of the cervical spine were obtained using 1.2 Beatris magnet. CONTRAST: Dotarem - 20 ml IV COMPARISON: MRI C-spine 09/19/2014. FINDINGS: There is no cervical scoliosis. Straightening of the cervical lordosis may be due to posi tioning or muscle spasm. A 1 mm anterior subluxation of C3 relative to C4 and 1 mm anterolisthesis o f C4 on C5 are observed. No other subluxation, acute fracture, osseous malignancy, or jumped facet i s apparent. Cervical vertebra are normal in height. T2W/T1W bone marrow signal is heterogeneously b right. Large anterior osteophytes are present at C5-6 and C6-7. Mild C5-6, moderate C6-7, and moder ate C7-T1 disc space narrowing is detected. Cervical and upper thoracic spinal cord reveals no syrin x, cord edema, myelomalacia, or neoplasm. No abnormal contrast enhancement is identified in the spin al cord, nerve roots, vertebral bodies or intervertebral discs. Visible brainstem and cerebellum are unremarkable. Pituitary gland is small in size, with CSF fillin g much of the pituitary fossa. Opacification of the right maxillary sinus with heterogeneously brigh t signal is observed. Extensive mucosal thickening and retention cysts are noted within the left max illary sinus. No mastoid disease is detected. Mild adenoid tissue prominence appears benign. Thyro id gland appears small in size. No submandibular or parotid gland neoplasm is evident. Trachea, lar ynx, and epiglottis are normal. Small lymph nodes are seen in the anterior cervical chain bilaterall y. No suspicious neck mass, cervical lymphadenopathy, apical lung mass, pneumonia, or pleural effusi on is demonstrated. Segmental analysis: C2-3: Minor posterior disc bulge (1 mm AP) does not contact the cord. Canal is 14 mm AP. Moderate / marked left foraminal stenosis is due to uncinate hypertrophy and moderate/marked left facet arthro grupo. C3-4: Minor posterior disc bulge (1.3 mm AP) does not contact the cord. Canal is 11.4 mm AP. Mild / moderate right foraminal stenosis is due to marked right facet arthropathy. C4-5: Minimal anterolisthesis of C4, pseudodisc bulge, superimposed midline disc protrusion (1.6 mm AP x 5.5 mm transverse) do not cause cord compression. Canal is 9.4 mm AP. Each foramen is patent. C5-6: Broad posterior disc/osteophyte complex (2.3 mm AP) does not contact the cord rest; however, t he cord is flattened anteriorly. Canal is 9 mm AP. Moderate right and marked left foraminal stenose s are due to uncinate hypertrophy and minor facet arthropathy. C6-7: Broad posterior disc/osteophyte complex (2.8 mm AP) does not contact the cord rest; however, c ord is flattened anteriorly. Canal is 7.4 mm AP. Mild/moderate right and moderate/marked left jacqueline inal stenoses due to uncinate hypertrophy and minor facet disease. C7-T1: Broad posterior disc/osteophyte complex (2.6 mm AP) does not contact the cord. Canal is 7.4 mm AP. Moderate right and marked left foraminal stenoses due to uncinate hypertrophy and minor facet disease. T1-2: Normal, except for mild/moderate left foraminal stenosis due to facet arthropathy. IMPRESSIONS: 1. C-spine marked spondylosis, multilevel facet arthropathy, and multilevel DDD - - worse at C4-5 an d C7-T1 compared to September 2014. 2. Multilevel central canal stenoses (C4-5: Mild. C5-6: Moderate. C6-7: Moderate. C7-T1: Moderate ). 3. Mild cervical cord flattening at C6-7. No syrinx or myelomalacia. 4. Multilevel high-grade foraminal stenoses as described. 5. Small pituitary gland. No pituitary lesion. 6. Bilateral maxillary chronic sinusitis. 7. Thyroid gland appears small in size. 8. Mild, benign adenoid hypertrophy.
== END 2018-04-22 09:03 | disposition home or self-care (01) ==
LOC: RAD 09:02
PROVIDERS: ATTEND Psychiatry & Neurology Neurology
DX: R90.82 White matter disease, unspecified (principal); G37.9 Demyelinating disease of central nervous system, unspecified

== ENCOUNTER 2018-06-30 19:45 | Emergency (ER) ==
[2018-06-30 19:50] VITALS: BP 134/84; TEMP 97.9; BMI 46.7
[2018-06-30] MEDS ORDERED: MORPHINE 4 MG/ML VIAL IVP STA (20:03)
[2018-06-30] MEDS ORDERED: PROTONIX IV IVP STA (20:03)
[2018-06-30] MEDS ORDERED: ZOFRAN 4 MG/2 ML IVP STA (20:03)
[2018-06-30] MEDS ORDERED: SODIUM CHLORIDE 1,000 ML IV STA (20:03)
--- NOTE | 2018-06-30 20:06 | ED.PDOC ---
General ED Provider: Dr. FANG BRIGGS Chief Complaint: Nausea/Vomiting Stated Complaint: Nausea vomiting x 3 days with epigastric abdominal pain radiating to the back. Time Seen by Physician: 20:04 Mode of Arrival: Walk-In Information Source: Patient Exam Limitations: No limitations Primary Care Provider: OMER RAMIREZ Nursing and Triage Documentation Reviewed and Agree: Yes Does patient meet sepsis criteria?: No System Inflammatory Response Syndrome: Not Applicable Sepsis Protocol: For patient's 13 years and over: Temp is 96.8 and below OR 101 and greater Pulse >90 BPM Resp >20/minute Acutely Altered Mental Status Are patient's symptoms suggestive of a new infection, such as: -Pneumonia -Skin, Soft Tissue -Endocarditis -UTI -Bone, Joint Infection -Implantable Device -Acute Abdominal Infection -Wound Infection -Meningitis -Blood Stream Catheter Infection -Unknown GI Complaint Exam - Vomiting/Diarrhea Complaint/Exam Onset/Duration: 3 days Symptoms Are: Still present Episodes of Vomiting over last 24 Hours: 5 Episodes of Diarrhea Over Last 24 Hours: 3 Initial Severity: Mild Current Severity: Severe Character of Vomiting: Reports: Non-bilious Character of Diarrhea: Reports: Watery Aggravating: Reports: Food, Liquids Alleviating: Reports: None Associated Signs and Symptoms: Reports: Abdominal pain (epigastric area radiating to the back ), Cramping Recent Positive Test: No (hysterectomy ) Use of Oral Contraceptives: No Use of Depoprovera: No Compliant With Contraceptive Use: No Non-GI Risk Factors: Reports: None Surgical Obstruction Risk Factors: Reports: Prior abdominal surgery Related Surgical History: Reports: None Abdominal Findings: Present: Other (epigastric tenderness ) Kussmaul Respirations Present: No Differential Diagnoses: Bowel Obstruction, Cholelithiasis, Gastritis, PUD, Viral Gastroenteritis, Bacterial Gastroenteritis, Pancreatitis, UTI Review of Systems - Review Of Systems Constitutional: Reports: Loss of appetite Eyes: Reports: No symptoms Ears, Nose, Mouth, Throat: Reports: No symptoms Respiratory: Reports: No symptoms Cardiac: Reports: No symptoms GI: Reports: Abdominal pain, Diarrhea, Nausea, Poor appetite, Poor fluid intake , Vomiting : Reports: No symptoms Musculoskeletal: Reports: No symptoms Skin: Reports: No symptoms Neurological: Reports: No symptoms Endocrine: Reports: No symptoms Hematologic/Lymphatic: Reports: No symptoms All Other Systems: Reviewed and Negative Past Medical History - Past Medical History Previously Healthy: No (recent pneumonia) Endocrine: Reports: DM 2 Cardiovascular: Reports: Hypertension Respiratory: Reports: COPD, PE Hematological: Reports: None Gastrointestinal: Reports: None Genitourinary: Reports: None Neuro/Psych: Reports: None Musculoskeletal: Reports: Arthritis, Other (spinal stenosis ) Cancer: Reports: None Last Menstrual Period: HSYTERECTOMY Other Pertinent Past Medical History: Vertigo - Surgical History General Surgical History: Reports: Hysterectomy, (x 2), Other ( colon biopsyx2, lithotripsyx2, carpal tunnel) - Family History Family History: Reports: Unknown - Social History Smoking Status: Current every day smoker, Light tobacco smoker Hx Substance Use: No Alcohol Screening: None - Immunizations Tetanus Shot up to Date: No Influenza Vaccine within 12 Months: No Pneumococcal Vaccine up to Date: No Physical Exam - Physical Exam Appearance: Ill-appearing, Obese Ill-appearing: Moderate Pain Distress: Severe Eyes: Conjunctiva clear Neck: Supple Respiratory: Airway patent Cardiovascular: RRR, Pulses normal, No rub, No murmur GI/: Soft, Tender, Bowel sounds hyperactive Musculoskeletal: Normal strength, ROM intact, No edema, No calf tenderness Skin: Warm, Dry, Normal color Neurological: Alert, Oriented Psychiatric: Anxious Interpretation - Radiology Interpretation Radiology Interpretation By: Radiologist Radiology Results: Negative Exam Interpreted: CT Scan Re-Evaluation - Re-Evaluation Time of Re-Evaluation: 21:59 Status: Improved Vital Signs Stable: Yes Pain Level: much improved pain and nausea Critical Care Note - Critical Care Note Total Time (mins): 0 Course - Course Hematology/Chemistry: 06/30/18 20:26 06/30/18 20:26 Orders, Labs, Meds: Lab Review 06/30/18 06/30/18 06/30/18 20:20 20:26 20:26 WBC 8.90 RBC 4.33 Hgb 14.1 Hct 41.7 MCV 96.3 MCH 32.6 H MCHC 33.8 RDW Coeff of Nina 14.5 Plt Count 266 Immature Gran % (Auto) 0.3 Neut % (Auto) 67.5 Lymph % (Auto) 24.8 Holt % (Auto) 5.1 Eos % (Auto) 1.5 Baso % (Auto) 0.8 Immature Gran # (Auto) 0.0 Neut # (Auto) 6.0 Lymph # (Auto) 2.2 Holt # (Auto) 0.5 Eos # (Auto) 0.1 Baso # (Auto) 0.1 PT 15.5 H INR 1.57 Sodium 134.8 L Potassium 4.49 Chloride 104.6 Carbon Dioxide 24.8 Anion Gap 9.89 BUN 21.6 H Creatinine 0.93 Estimated GFR (MDRD) 64.00 BUN/Creatinine Ratio 23.22 Glucose 99.0 Calcium 9.76 Total Bilirubin 0.50 AST 36.9 H ALT 18.9 Alkaline Phosphatase 53.8 Total Protein 7.60 Albumin 4.58 Globulin 3.02 Albumin/Globulin Ratio 1.51 Amylase 57.7 Lipase 48.4 Urine Color Urine Clarity Urine pH Ur Specific [place] Urine Protein Urine Glucose (UA) Urine Ketones Urine Blood Urine Nitrite Urine Bilirubin Urine Urobilinogen Ur Leukocyte Esterase 06/30/18 20:51 WBC RBC Hgb Hct MCV MCH MCHC RDW Coeff of Nina Plt Count Immature Gran % (Auto) Neut % (Auto) Lymph % (Auto) Holt % (Auto) Eos % (Auto) Baso % (Auto) Immature Gran # (Auto) Neut # (Auto) Lymph # (Auto) Holt # (Auto) Eos # (Auto) Baso # (Auto) PT INR Sodium Potassium Chloride Carbon Dioxide Anion Gap BUN Creatinine Estimated GFR (MDRD) BUN/Creatinine Ratio Glucose Calcium Total Bilirubin AST ALT Alkaline Phosphatase Total Protein Albumin Globulin Albumin/Globulin Ratio Amylase Lipase Urine Color Yellow Urine Clarity Clear Urine pH 5.5 Ur Specific [place] >=1.030 Urine Protein Negative Urine Glucose (UA) Negative Urine Ketones Negative Urine Blood Negative Urine Nitrite Negative Urine Bilirubin 1+ Urine Urobilinogen 0.2 Ur Leukocyte Esterase Negative Orders Category Date Time Status NEBULIZER TREATMENT Stat CARDIO 06/30/18 20:44 Completed ED IV/MEDIPORT/POWERPORT .ONCE EMERGENCY 06/30/18 20:03 Active AMYLASE Stat LAB 06/30/18 20:26 Completed CBC W/ AUTO DIFF Stat LAB 06/30/18 20:26 Completed COMPREHENSIVE METABOLIC PANEL Stat LAB 06/30/18 20:26 Completed LIPASE Stat LAB 06/30/18 20:26 Completed PT WITH INR Stat LAB 06/30/18 20:20 Completed URINALYSIS C & S IF INDICATED Stat LAB 06/30/18 20:51 Completed 0.9 % Sodium Chloride [Saline Flush] MEDS 06/30/18 20:03 Ordered 1 syr IVF PRN PRN Albuterol Sulfate 0.083% Neb [Albuterol 0.083% Neb] MEDS 06/30/18 20:43 Discontinued 1 vial NEB ONCE STA Morphine Sulfate [Morphine 2 mg/ml Syringe] MEDS 06/30/18 20:07 Discontinued 4 mg IVP ONCE STA Ondansetron HCl/Pf [Zofran 4 mg/2 ml] MEDS 06/30/18 20:03 Discontinued 4 mg IVP ONCE STA Pantoprazole Sodium [Protonix IV] MEDS 06/30/18 20:03 Discontinued 40 mg IVP ONCE STA Sodium Chloride 0.9% [Sodium Chloride] 1,000 ml MEDS 06/30/18 20:[address] ABD/PEL WO RENAL STONE PROT Stat RADS 06/30/18 20:03 Completed Medications Generic Name Dose Route Start Last Admin Trade Name Freq PRN Reason Stop Dose Admin Sodium Chloride 1 syr 06/30/18 20:03 Saline Flush IVF PRN PRN To flush IV Discontinued Medications Generic Name Dose Route Start Last Admin Trade Name Freq PRN Reason Stop Dose Admin Albuterol Sulfate 1 vial 06/30/18 20:43 06/30/18 20:50 Albuterol 0.083% Neb NEB 06/30/18 20:44 1 vial ONCE STA Administration Sodium Chloride 1,000 mls @ 1,000 mls/hr 06/30/18 20:03 06/30/18 20:28 Sodium Chloride IV 06/30/18 21:02 1,000 mls/hr BOLUS STA Administration Morphine Sulfate 4 mg 06/30/18 20:07 06/30/18 20:29 Morphine 2 Mg/Ml Syringe IVP 06/30/18 20:08 4 mg ONCE STA Administration Ondansetron HCl 4 mg 06/30/18 20:03 06/30/18 20:28 Zofran 4 Mg/2 Ml IVP 06/30/18 20:04 4 mg ONCE STA Administration Pantoprazole Sodium 40 mg 06/30/18 20:03 06/30/18 20:28 Protonix Iv IVP 06/30/18 20:04 40 mg ONCE STA Administration Vital Signs: Temp Pulse Resp BP Pulse Ox 06/30/18 19:45 97.9 F 81 18 134/84 94 L Departure - Departure Time of Disposition: 20:44 Disposition: HOME SELF-CARE Discharge Problem: Abdominal pain Qualifiers: Abdominal location: epigastric Qualified Code(s): R10.13 - Epigastric pain Instructions: Abdominal Pain (ED) Condition: Fair Pt referred to PMD for follow-up: Yes IPMP verified?: No Additional Instructions: Follow up with your PCP for Ultra sound order of your Right upper quadrant in the morning Take medication as prescribed Prescriptions: Hydrocodone Bit/Acetaminophen [[place] 5-325] 1 each PO Q6HR PRN #15 tablet PRN Reason: severe pain Ondansetron HCl [Zofran Tab] 4 mg PO Q8H PRN #14 tablet PRN Reason: Nausea / Vomiting Allergies/Adverse Reactions: Allergies No Known Allergies Allergy (Verified 06/30/18 19:49) Home Medications: Ambulatory Orders Sertraline HCl [Zoloft] 150 mg PO DAILY 05/29/17 Warfarin Sodium [Coumadin] 4.5 mg PO DAILY 05/29/17 Albuterol Sulfate 0.083% Neb [Albuterol 0.083% Neb] 1 vial NEB RTQ4H PRN Fenofibrate 160 mg PO DAILY 03/09/18 Levothyroxine Sodium 200 mcg PO DAILY 03/09/18 Simvastatin 40 mg PO BEDTIME 03/09/18 Fluticasone Propionate [Flonase] 2 spray NS DAILY #1 spray.susp 03/11/18 Lisinopril [Zestril] 5 mg PO DAILY #30 tablet 03/11/18 Gabapentin [Neurontin] 300 mg PO TID 06/30/18 Hydrocodone Bit/Acetaminophen [[place] 5-325] 1 each PO Q6HR PRN #15 tablet Ondansetron HCl [Zofran Tab] 4 mg PO Q8H PRN #14 tablet 06/30/18 Oxycodone-Acetaminophe 7.5-325 [Percocet 7.5-325] 1 tab PO TID 06/30/18 Disposition Discussed With: Patient, Family
[2018-06-30] MEDS ORDERED: MORPHINE 2 MG/ML SYRINGE IVP STA (20:07)
--- NOTE | 2018-06-30 20:41 | CT ---
EXAM: CT abdomen pelvis without contrast TECHNIQUE: Helical axial CT of the abdomen and pelvis was performed without contrast with coronal an d sagittal reconstructions. COMPARISON: Chest CT from 03/09/2018 HISTORY: Abdominal pain FINDINGS: There is no acute abnormality. Specifically there is no mesenteric inflammation, free air, free fluid or bowel wall thickening or edema or pathologic lymph nodes or obstruction or ileus. The appendix is normal There are no inflamed colonic diverticula. The liver, spleen, pancreas,and adrenal glands show no acute abnormality. Lung bases are well-aerate d. There is no hiatal hernia. The gallbladder is normal with no stones or inflammation. There is no biliary or pancreatic ductal dilatation. There are no suspicious renal masses or large cysts and no hydronephrosis. There are no kidney stones . Both ureters demonstrate normal course and caliber. There is no filling defect in the urinary blad henrietta. There has been prior hysterectomy. There are no abdominal wall hernias. There is some aortic calcification. There are no acute osseous a bnormalities. IMPRESSION: 1. No acute abnormality in the abdomen or pelvis. 2. Other findings as above.
[2018-06-30] MEDS ORDERED: ALBUTEROL 0.083% NEB NEB STA (20:43)
== END 2018-06-30 21:55 | disposition home or self-care (01) ==
LOC: ED 19:45
DX: R10.13 Epigastric pain (principal); R11.2 Nausea with vomiting, unspecified; E11.9 Type 2 diabetes mellitus without complications; I10 Essential (primary) hypertension; F17.210 Nicotine dependence, cigarettes, uncomplicated; Z86.711 Personal history of pulmonary embolism; Z79.01 Long term (current) use of anticoagulants; Z79.899 Other long term (current) drug therapy
CPT/HCPCS: 36415; 74176; 80053; 81001; 82150; 83690; 85025; 85610; 94640; 96361; 96374; 96375; 99283

== ENCOUNTER 2018-07-06 09:12 | Outpatient (CLI) ==
--- NOTE | 2018-07-06 10:11 | US ---
EXAM: Right upper quadrant abdominal ultrasound. History: Abdominal pain with nausea and vomiting. Comparison: CT abdomen pelvis 06/30/2018 Technique: Multiple sonographic images through the abdomen were obtained. Color duplex Doppler was used to interrogate vascular flow. Findings: The liver is mildly enlarged measuring 17 cm. No focal liver lesions identified sonographically. The liver is diffusely echogenic. There is antegrade flow within the main portal vein. The visualized pancreas demonstrates no gross abnormality. No abdominal ascites. Limited visualization of the righ t kidney demonstrates no evidence for hydronephrosis. No shadowing gallstones. Gallbladder wall is not thickened. Common bile duct measures 0.3 cm in caliber. Impression: 1. Enlarged fatty liver. 2. No gallstones
== END 2018-07-06 09:13 | disposition home or self-care (01) ==
LOC: RAD 09:12
PROVIDERS: ATTEND Internal Medicine
DX: R11.2 Nausea with vomiting, unspecified (principal); R10.9 Unspecified abdominal pain

== ENCOUNTER 2018-07-13 11:06 | Outpatient (CLI) | END 2018-07-13 11:07 | disposition home or self-care (01) | LOC: RAD 11:06 | PROVIDERS: ATTEND Internal Medicine | DX: Z12.31 Encounter for screening mammogram for malignant neoplasm of breast (principal); Z51.81 Encounter for therapeutic drug level monitoring; Z79.01 Long term (current) use of anticoagulants | CPT/HCPCS: 36415; 85610 ==

== ENCOUNTER 2018-07-18 07:52 | Outpatient (CLI) ==
--- NOTE | 2018-07-18 11:41 | NM ---
EXAM: Hepatobiliary imaging HISTORY: Abdominal pain COMPARISON: Limited abdominal ultrasound on 07/06/2018 showed fatty liver. TECHNIQUE: Patient was injected 5 mCi of technetium 99m mebrofenin intravenously. Multiple anterior scintigraphic images of the right upper quadrant region of the abdomen were obtained up to 1 hour int erval. Patient was sent given fatty meal and gallbladder ejection fraction was calculated. FINDINGS: There is normal visualization of liver, gallbladder, bile duct and small bowel loops. Gall bladder ejection fraction is 41%. IMPRESSION: Normal study
== END 2018-07-18 07:53 | disposition home or self-care (01) ==
LOC: RAD 07:52
PROVIDERS: ATTEND Internal Medicine
DX: R10.9 Unspecified abdominal pain (principal); R14.0 Abdominal distension (gaseous)

== ENCOUNTER 2018-07-25 21:46 | Outpatient (CLI) | END 2018-07-25 21:56 | disposition short-term general hospital (02) | LOC: AMBL 21:46 | PROVIDERS: ATTEND Internal Medicine Geriatric Medicine | DX: R05 Cough (principal); R55 Syncope and collapse; R07.81 Pleurodynia; R09.89 Other specified symptoms and signs involving the circulatory and respiratory systems; R00.0 Tachycardia, unspecified; E66.9 Obesity, unspecified ==

== ENCOUNTER 2018-09-22 10:08 | Outpatient (CLI) | END 2018-09-22 10:09 | disposition home or self-care (01) | LOC: LAB 10:08 | PROVIDERS: ATTEND Internal Medicine | DX: Z51.81 Encounter for therapeutic drug level monitoring (principal); Z79.01 Long term (current) use of anticoagulants | CPT/HCPCS: 36415; 85610 ==

== ENCOUNTER 2018-11-07 12:33 | Outpatient (CLI) | END 2018-11-07 12:34 | disposition home or self-care (01) | LOC: LAB 12:33 | PROVIDERS: ATTEND Internal Medicine | DX: E11.9 Type 2 diabetes mellitus without complications (principal); I10 Essential (primary) hypertension; K21.9 Gastro-esophageal reflux disease without esophagitis; Z86.711 Personal history of pulmonary embolism | CPT/HCPCS: 36415; 80053; 80061; 83036; 84439; 84443; 85025; 85610 ==

== ENCOUNTER 2018-11-17 07:40 | Outpatient (CLI) ==
--- NOTE | 2018-11-17 13:16 | CT ---
EXAM: CT abdomen pelvis with and without contrast HISTORY: Abdominal pain and bloating COMPARISON: Abdominal ultrasound 07/06/[address] abdomen pelvis 06/30/2018 TECHNIQUE: Serial axial images of the abdomen pelvis were performed before and after 100 mL is of Om nipaque IV contrast was administered. These were obtained from the lung bases through the inferior p xiang. FINDINGS: The lung bases are clear. The liver is unremarkable. The gallbladder is normal. The adrenal glands are unremarkable. The kid neys are normal. The spleen is unremarkable. The pancreas is normal. The stomach is mildly distend ed with contrast. Small bowel in the abdomen pelvis is unremarkable. The appendix is normal. The colon is unremarkabl e. Urinary bladder is mildly distended. There has been a prior hysterectomy. There is no free air, free fluid or lymphadenopathy. There are few scattered nonenlarged lymph nodes. The osseous struct ures are unremarkable. IMPRESSION: 1. No acute intra abdominal or pelvic process to account for patient's symptoms. 2. Otherwise no significant interval change from prior exam.
== END 2018-11-17 07:41 | disposition home or self-care (01) ==
LOC: RAD 07:40
PROVIDERS: ATTEND Internal Medicine
DX: R10.9 Unspecified abdominal pain (principal); R14.0 Abdominal distension (gaseous)

== ENCOUNTER 2018-12-14 16:37 | Outpatient (CLI) | END 2018-12-14 16:48 | disposition short-term general hospital (02) | LOC: AMBL 16:37 | PROVIDERS: ATTEND Emergency Medicine | DX: R06.02 Shortness of breath (principal); R06.2 Wheezing; R05 Cough; J44.9 Chronic obstructive pulmonary disease, unspecified; F17.210 Nicotine dependence, cigarettes, uncomplicated ==

== ENCOUNTER 2018-12-23 17:25 | Outpatient (CLI) | END 2018-12-23 17:44 | disposition short-term general hospital (02) | LOC: AMBL 17:25 | PROVIDERS: ATTEND Internal Medicine | DX: R55 Syncope and collapse (principal); E66.9 Obesity, unspecified ==

== ENCOUNTER 2019-01-04 13:39 | Outpatient (POV) | END 2019-01-04 17:00 | LOC: OUTPT 13:39 | PROVIDERS: ATTEND Otolaryngology | DX: H69.80 Other specified disorders of Eustachian tube, unspecified ear (principal) | CPT/HCPCS: 92552 ==

== ENCOUNTER 2019-01-24 11:34 | Outpatient (CLI) | END 2019-01-24 11:35 | disposition home or self-care (01) | LOC: LAB 11:34 | PROVIDERS: ATTEND Internal Medicine | DX: E78.5 Hyperlipidemia, unspecified (principal); I10 Essential (primary) hypertension; E11.9 Type 2 diabetes mellitus without complications | CPT/HCPCS: 36415; 80053; 80061; 83036; 84439; 84443; 85025; 85610 ==

== ENCOUNTER 2019-02-01 22:33 | Outpatient (CLI) | END 2019-02-01 22:55 | disposition short-term general hospital (02) | LOC: AMBL 22:33 | PROVIDERS: ATTEND Emergency Medicine | DX: R55 Syncope and collapse (principal); R42 Dizziness and giddiness; R40.4 Transient alteration of awareness; R53.83 Other fatigue; R40.2421 Glasgow coma scale score 9-12, in the field [EMT or ambulance]; F41.9 Anxiety disorder, unspecified; I10 Essential (primary) hypertension ==

== ENCOUNTER 2019-04-29 19:38 | Outpatient (CLI) | END 2019-04-29 19:55 | disposition short-term general hospital (02) | LOC: AMBL 19:38 | PROVIDERS: ATTEND Family Medicine | DX: R40.20 Unspecified coma (principal); R09.02 Hypoxemia; R07.9 Chest pain, unspecified; I26.99 Other pulmonary embolism without acute cor pulmonale; I95.9 Hypotension, unspecified; J44.9 Chronic obstructive pulmonary disease, unspecified; E66.9 Obesity, unspecified ==

== ENCOUNTER 2019-05-12 11:12 | Outpatient (CLI) | END 2019-05-12 11:13 | disposition home or self-care (01) | LOC: LAB 11:12 | DX: Z86.711 Personal history of pulmonary embolism (principal) | CPT/HCPCS: 36415; 85610 ==